=== PATIENT | male | born 1955 | race Caucasian/White ===

== ENCOUNTER → 2016-12-06 | Outpatient (CLI) | payer BC ==
[~2016-12-06] MED LIST: /PRAV20TA; AMBI10TA; AMBIEN PO; ANDR4DIS TD; ANDRGEL TOP; ASPI81TA21 PO; BABY81CH; CLOM50CA3 PO; CLOMIPRAMINE; FISH1000 PO; KEPP750T3 PO; LOPR100T; LOPR100T PO; LOPR50TA; LOPR50TA PO; PRAV40TA PO; [UNRECOGNIZED DRUG - CODE] PO; tylenol
[2016-12-06 11:26] LABS: BASO % 0.8 % (0.0-1.0); EOS # 0.2 K/mm3 (0.0-0.50); EOS % 2.3 % (0.0-3.0); LARGE UNSTAINED CELL # 0.4 K/mm3 (0.0-0.4); LARGE UNSTAINED CELL % 5.2 % (0.0-4.0); LYMPH # 1.1 K/mm3 (1.5-4.5); LYMPH % 15.7 % (24.0-44.0); MEAN CORPUSCULAR HEMOGLOBIN 31.7 pg (27.0-33.0); MEAN CORPUSCULAR HGB CONC 33.5 g/dl (32.0-36.5); MEAN CORPUSCULAR VOLUME 94.6 fl (80.0-96.0); MONO # 0.6 K/mm3 (0.0-0.8); MONO % 8.9 % (0.0-5.0); NEUTROPHILS # 4.6 K/mm3 (1.8-7.7); PLATELET COUNT, AUTOMATED 179 k/mm3 (150-450); RED CELL DISTRIBUTION WIDTH 13.4 % (11.5-14.5); WHITE BLOOD COUNT 6.8 K/mm3 (4.0-10.0)
[2016-12-06 11:43] LABS: ALBUMIN 3.8 GM/DL (3.2-5.2); ANION GAP 9 MEQ/L (8-16); BLOOD UREA NITROGEN 21 MG/DL (7-18); CALCIUM LEVEL 9.1 MG/DL (8.5-10.1); CARBON DIOXIDE LEVEL 29 MEQ/L (21-32); CHLORIDE LEVEL 106 MEQ/L (98-107); CREATININE FOR GFR 1.06 MG/DL (0.70-1.30); GLOMERULAR FILTRATION RATE > 60.0 (>56); GLUCOSE, FASTING 120 MG/DL (70-105); PHOSPHORUS LEVEL 2.6 MG/DL (2.5-4.9); SODIUM LEVEL 144 MEQ/L (136-145)
== END ==
LOC: M LAB 10:36
PROVIDERS: ATTEND Physician Assistant
DX: I42.1 Obstructive hypertrophic cardiomyopathy (principal)

== ENCOUNTER → 2018-01-02 | Outpatient (CLI) | payer OTHER ==
[2018-01-05 00:06] LABS: LEVETIRACETAM (KEPPRA) 8.3 ug/mL (10.0-40.0)
== END ==
LOC: M LAB 10:25
DX: R56.9 Unspecified convulsions (principal)
CPT/HCPCS: 80180

== ENCOUNTER → 2018-01-02 | Outpatient (CLI) | payer OTHER ==
[2018-01-02 10:51] LABS: HEMATOCRIT 43.7 % (42.0-52.0); HEMOGLOBIN 14.5 g/dl (14.0-18.0); MEAN CORPUSCULAR HEMOGLOBIN 32.3 pg (27.0-33.0); MEAN CORPUSCULAR HGB CONC 33.2 g/dl (32.0-36.5); MEAN CORPUSCULAR VOLUME 97.3 fl (80.0-96.0); PLATELET COUNT, AUTOMATED 198 10^3/uL (150-450); RED BLOOD COUNT 4.49 10^6/uL (4.30-6.10); RED CELL DISTRIBUTION WIDTH 15.9 % (11.5-14.5); WHITE BLOOD COUNT 8.7 10^3/uL (4.0-10.0)
[2018-01-02 11:26] LABS: ALBUMIN 3.8 GM/DL (3.2-5.2); ALBUMIN/GLOBULIN RATIO 1.06 (1.00-1.93); ALKALINE PHOSPHATASE 125 U/L (45-117); ALT/SGPT 26 U/L (12-78); ANION GAP 6 MEQ/L (8-16); AST/SGOT 25 U/L (7-37); BILIRUBIN,TOTAL 1.3 MG/DL (0.2-1.0); BLOOD UREA NITROGEN 20 MG/DL (7-18); CALCIUM LEVEL 9.2 MG/DL (8.8-10.2); CARBON DIOXIDE LEVEL 29 MEQ/L (21-32); CHLORIDE LEVEL 110 MEQ/L (98-107); CHOLESTEROL LEVEL 126 MG/DL (<200); CHOLESTEROL RISK RATIO 3.405 (<5); CREATININE FOR GFR 0.89 MG/DL (0.70-1.30); GLOMERULAR FILTRATION RATE > 60.0 (>49); GLUCOSE, FASTING 101 MG/DL (70-100); HDL CHOLESTEROL 37 MG/DL (>40); LDL CHOLESTEROL 65.6 MG/DL (<100); MAGNESIUM LEVEL 2.2 MG/DL (1.8-2.4); NON-HDL-C 89 MG/DL; POTASSIUM SERUM 4.3 MEQ/L (3.5-5.1); SODIUM LEVEL 145 MEQ/L (136-145); TOTAL PROTEIN 7.4 GM/DL (6.4-8.2); TRIGLYCERIDES LEVEL 117 MG/DL (<150)
== END ==
LOC: M LAB 09:59
DX: I48.0 Paroxysmal atrial fibrillation (principal); I42.1 Obstructive hypertrophic cardiomyopathy; E78.00 Pure hypercholesterolemia, unspecified

== ENCOUNTER → 2018-03-25 | Outpatient (REF) | payer OTHER | LOC: M LAB REF 17:14 | DX: R31.9 Hematuria, unspecified (principal) | CPT/HCPCS: 87086 ==

== ENCOUNTER → 2018-03-25 | Outpatient (CLI) | payer OTHER ==
[2018-03-25 15:51] LABS: BASO # 0.1 10^3/uL (0.0-0.2); BASO % 0.8 % (0.0-1.0); EOS # 0.2 10^3/uL (0.0-0.50); EOS % 2.6 % (0.0-3.0); HEMATOCRIT 46.4 % (42.0-52.0); HEMOGLOBIN 15.7 g/dl (13.5-17.5); IMMATURE GRANULOCYTE % 0.3 % (0-3.0); LYMPH # 1.5 10^3/uL (1.5-4.5); LYMPH % 17.3 % (24.0-44.0); MEAN CORPUSCULAR HEMOGLOBIN 32.6 pg (27.0-33.0); MEAN CORPUSCULAR HGB CONC 33.8 g/dl (32.0-36.5); MEAN CORPUSCULAR VOLUME 96.5 fl (80.0-96.0); MONO # 1.2 10^3/uL (0.0-0.8); MONO % 13.4 % (0.0-5.0); NEUTROPHILS # 5.7 10^3/uL (1.8-7.7); NEUTROPHILS % 65.6 % (36.0-66.0); PLATELET COUNT, AUTOMATED 172 10^3/uL (150-450); RED BLOOD COUNT 4.81 10^6/uL (4.30-6.10); RED CELL DISTRIBUTION WIDTH 13.7 % (11.5-14.5); WHITE BLOOD COUNT 8.8 10^3/uL (4.0-10.0)
[2018-03-25 16:25] LABS: ANION GAP 7 MEQ/L (8-16); BLOOD UREA NITROGEN 21 MG/DL (7-18); CALCIUM LEVEL 9.2 MG/DL (8.8-10.2); CARBON DIOXIDE LEVEL 25 MEQ/L (21-32); CHLORIDE LEVEL 109 MEQ/L (98-107); CREATININE FOR GFR 0.97 MG/DL (0.70-1.30); GLOMERULAR FILTRATION RATE > 60.0 (>49); GLUCOSE, FASTING 102 MG/DL (70-100); POTASSIUM SERUM 4.4 MEQ/L (3.5-5.1); SODIUM LEVEL 141 MEQ/L (136-145)
== END ==
LOC: M LAB 15:33
DX: R31.9 Hematuria, unspecified (principal)

== ENCOUNTER → 2018-06-25 | Outpatient (REF) | payer OTHER ==
[2018-06-27 08:19] LABS: ERYTHROPOIETIN 32.2 mIU/mL (2.6-18.5)
== END ==
LOC: M LAB REF 18:17
DX: D75.1 Secondary polycythemia (principal)

== ENCOUNTER → 2018-07-01 | Outpatient (CLI) | payer OTHER | LOC: M RAD 10:36 | DX: N28.89 Other specified disorders of kidney and ureter (principal) | CPT/HCPCS: 76775 ==

== ENCOUNTER → 2018-07-03 | Outpatient (CLI) | payer OTHER ==
[2018-07-07 00:07] LABS: LEVETIRACETAM (KEPPRA) None Detected ug/mL (10.0-40.0)
== END ==
LOC: M LAB 10:07
DX: R56.9 Unspecified convulsions (principal); Z51.81 Encounter for therapeutic drug level monitoring; Z79.899 Other long term (current) drug therapy
CPT/HCPCS: 36415

== ENCOUNTER → 2018-07-14 | Outpatient (CLI) | payer OTHER ==
[~2018-07-14] MED LIST changes: -/PRAV20TA; -AMBI10TA; -AMBIEN PO; -ANDR4DIS TD; -ANDRGEL TOP; -ASPI81TA21 PO; -BABY81CH; -CLOM50CA3 PO; -CLOMIPRAMINE; -FISH1000 PO; +ISOVUE-370 76% 100ML VIAL (Q9967) As Ordered; -KEPP750T3 PO; -LOPR100T; -LOPR100T PO; -LOPR50TA; -LOPR50TA PO; -PRAV40TA PO; -[UNRECOGNIZED DRUG - CODE] PO; -tylenol
== END ==
LOC: M RAD 11:56
DX: D75.1 Secondary polycythemia (principal); K76.89 Other specified diseases of liver
CPT/HCPCS: Q9967

== ENCOUNTER → 2018-07-31 | Outpatient (REF) | payer OTHER | LOC: M LAB REF 13:04 | DX: R31.9 Hematuria, unspecified (principal) | CPT/HCPCS: 87086 ==

== ENCOUNTER → 2019-01-22 | Outpatient (REF) | payer OTHER ==
[~2019-01-22] MED LIST changes: +AMBI10TA; +AMBIEN PO; +ANDRGEL TOP; +ASPI81TA21 PO; +ASPI81TA26 PO; +BABY81CH; +CLOM50CA3 PO; +CLOMIPRAMINE; +DISO10CA PO; +ELIQ5TAB PO; +FISH1000 PO; +FISH7.5C PO; -ISOVUE-370 76% 100ML VIAL (Q9967) As Ordered; +KEPP750T3 PO; +LEVE500T88 PO; +LOPR100T; +LOPR100T PO; +LOPR1TAB6 PO; +LOPR1TAB7 PO; +LOPR50TA; +LOPR50TA PO; +PRAV1TAB39; +PRAV40TA PO; +PRAV40TA2 PO; +[UNRECOGNIZED DRUG - CODE] PO; +[UNRECOGNIZED DRUG - CODE] TD; +tylenol
== END ==
LOC: M LABDRAW1 13:30
PROVIDERS: ATTEND Physician Assistant Medical
DX: R56.9 Unspecified convulsions (principal)

== ENCOUNTER → 2019-01-29 | Outpatient (REF) | payer OTHER ==
[2019-01-29 13:32] LABS: BASO # 0.1 10^3/uL (0.0-0.2); EOS # 0.2 10^3/uL (0.0-0.50); EOS % 2.9 % (0.0-3.0); HEMATOCRIT 44.8 % (42.0-52.0); HEMOGLOBIN 14.8 g/dl (13.5-17.5); LYMPH # 1.1 10^3/uL (1.5-4.5); LYMPH % 13.6 % (24.0-44.0); MEAN CORPUSCULAR HEMOGLOBIN 34.1 pg (27.0-33.0); MEAN CORPUSCULAR VOLUME 103.2 fl (80.0-96.0); MONO # 0.9 10^3/uL (0.0-0.8); MONO % 10.2 % (0.0-5.0); NEUTROPHILS % 71.8 % (36.0-66.0); PLATELET COUNT, AUTOMATED 172 10^3/uL (150-450); RED BLOOD COUNT 4.34 10^6/uL (4.30-6.10); WHITE BLOOD COUNT 8.4 10^3/uL (4.0-10.0)
[2019-01-29 14:21] LABS: ALBUMIN 3.9 GM/DL (3.2-5.2); ALT/SGPT 63 U/L (12-78); BILIRUBIN,TOTAL 0.9 MG/DL (0.2-1.0); BLOOD UREA NITROGEN 20 MG/DL (7-18); CALCIUM LEVEL 8.8 MG/DL (8.8-10.2); CARBON DIOXIDE LEVEL 25 MEQ/L (21-32); CHLORIDE LEVEL 110 MEQ/L (98-107); CHOLESTEROL LEVEL 119 MG/DL (<200); CHOLESTEROL RISK RATIO 3.718 (<5); CREATININE FOR GFR 1.01 MG/DL (0.70-1.30); GLOMERULAR FILTRATION RATE > 60.0 (>49); GLUCOSE, FASTING 137 MG/DL (70-100); HDL CHOLESTEROL 32 MG/DL (>40); LDL CHOLESTEROL 67 MG/DL (<100); NON-HDL-C 87 MG/DL; POTASSIUM SERUM 3.6 MEQ/L (3.5-5.1); SODIUM LEVEL 143 MEQ/L (136-145); TOTAL 25(OH) VITAMIN D 25.4 NG/ML (30.0-100.0); TOTAL PROTEIN 6.9 GM/DL (6.4-8.2); TRIGLYCERIDES LEVEL 99 MG/DL (<150)
== END ==
LOC: M LABDRAW1 12:16
PROVIDERS: ATTEND Physician Assistant Medical
DX: E55.9 Vitamin D deficiency, unspecified (principal); E78.2 Mixed hyperlipidemia; I10 Essential (primary) hypertension; D45 Polycythemia vera

== ENCOUNTER → 2019-04-08 | Outpatient (REF) | payer OTHER ==
[2019-04-08 13:24] LABS: HEMATOCRIT 44.5 % (42.0-52.0); HEMOGLOBIN 14.4 g/dl (13.5-17.5); MEAN CORPUSCULAR HEMOGLOBIN 34.4 pg (27.0-33.0); MEAN CORPUSCULAR HGB CONC 32.4 g/dl (32.0-36.5); MEAN CORPUSCULAR VOLUME 106.5 fl (80.0-96.0); PLATELET COUNT, AUTOMATED 177 10^3/uL (150-450); RED BLOOD COUNT 4.18 10^6/uL (4.30-6.10); WHITE BLOOD COUNT 8.5 10^3/uL (4.0-10.0)
[2019-04-08 13:41] LABS: BLOOD UREA NITROGEN 25 MG/DL (7-18); CALCIUM LEVEL 9.4 MG/DL (8.8-10.2); CARBON DIOXIDE LEVEL 27 MEQ/L (21-32); CHLORIDE LEVEL 107 MEQ/L (98-107); CREATININE FOR GFR 1.11 MG/DL (0.70-1.30); GLOMERULAR FILTRATION RATE > 60.0 (>49); GLUCOSE, FASTING 105 MG/DL (70-100); MAGNESIUM LEVEL 1.9 MG/DL (1.8-2.4); SODIUM LEVEL 142 MEQ/L (136-145)
== END ==
LOC: M LABDRAW1 12:06
PROVIDERS: ATTEND Physician Assistant
DX: I48.0 Paroxysmal atrial fibrillation (principal)

== ENCOUNTER 2019-06-07 09:27 | Emergency (ER) | payer OTHER ==
[~2019-06-07] VITALS: Ht 170.2 cm; Wt 93.2 kg
[2019-06-07 10:22] LABS: BASO # 0.1 10^3/uL (0.0-0.2); BASO % 0.6 % (0.0-1.0); EOS # 0.1 10^3/uL (0.0-0.50); EOS % 1.7 % (0.0-3.0); LYMPH # 0.8 10^3/uL (1.5-4.5); MEAN CORPUSCULAR HEMOGLOBIN 34.3 pg (27.0-33.0); MEAN CORPUSCULAR HGB CONC 32.5 g/dl (32.0-36.5); MEAN CORPUSCULAR VOLUME 105.5 fl (80.0-96.0); MONO % 11.4 % (0.0-5.0); NEUTROPHILS # 6.4 10^3/uL (1.8-7.7); NEUTROPHILS % 76.7 % (36.0-66.0); PLATELET COUNT, AUTOMATED 165 10^3/uL (150-450); RED BLOOD COUNT 3.79 10^6/uL (4.30-6.10); WHITE BLOOD COUNT 8.4 10^3/uL (4.0-10.0)
[2019-06-07] MEDS ORDERED: VERA180C3 PO (10:37)
[2019-06-07] MEDS ORDERED: ATOR80TA59 PO (10:37)
[2019-06-07] MEDS ORDERED: TRAZ-252 PO (10:37)
[2019-06-07] MEDS ORDERED: NS 1,000 ML IV ONE (11:00)
[2019-06-07 11:05] LABS: ACETAMINOPHEN LEVEL < 2.0 UG/ML (10.0-30.0); ALBUMIN 3.9 GM/DL (3.2-5.2); ALT/SGPT 22 U/L (12-78); BILIRUBIN,DIRECT 0.4 MG/DL (0.0-0.2); BILIRUBIN,TOTAL 1.4 MG/DL (0.2-1.0); BLOOD UREA NITROGEN 30 MG/DL (7-18); CALCIUM LEVEL 9.4 MG/DL (8.8-10.2); CARBON DIOXIDE LEVEL 24 MEQ/L (21-32); CHLORIDE LEVEL 108 MEQ/L (98-107); CK-MB VALUE MASS 1.4 NG/ML (<3.6); CPK CREATINE PHOSPHOKINASE 85 U/L (39-308); CREATININE FOR GFR 0.99 MG/DL (0.70-1.30); ETHYL ALCOHOL (ETHANOL) < 0.003 % (0.000-0.010); GLOMERULAR FILTRATION RATE > 60.0 (>49); GLUCOSE, FASTING 96 MG/DL (70-100); MB/CK RELATIVE INDEX 1.65 (< OR =4); POTASSIUM SERUM 4.1 MEQ/L (3.5-5.1); SALICYLATE LEVEL < 1.7 MG/DL (5.0-30.0); SODIUM LEVEL 143 MEQ/L (136-145); TOTAL PROTEIN 7.2 GM/DL (6.4-8.2); TROPONIN I < 0.02 NG/ML (< 0.10)
[2019-06-07] MEDS ORDERED: MELA3TAB41 PO (11:27)
[2019-06-07] MEDS ORDERED: LEVE10003 PO (11:27)
[2019-06-07] MEDS ORDERED: ISOVUE-370 76% 100ML VIAL (Q9967) As Ordered ONE (11:42)
[2019-06-07 13:12] LABS: AMPHETAMINES LEVEL URINE NEGATIVE (NEGATIVE); BARBITURATES URINE NEGATIVE (NEGATIVE); BENZODIAZEPINES URINE NEGATIVE (NEGATIVE); CANNABINOIDS URINE NEGATIVE (NEGATIVE); COCAINE METABOLITE URINE NEGATIVE (NEGATIVE); METHADONE URINE NEGATIVE (NEGATIVE); OPIATES URINE NEGATIVE (NEGATIVE); PHENCYCLIDINE URINE NEGATIVE (NEGATIVE)
[2019-06-07 13:37] VITALS: BP 135/89
--- NOTE | 2019-06-07 16:09 | REP ---
CT of the abdomen and pelvis with IV contrast: The studies performed. Contiguous with the chest CT this same date. Comparison is 07/14/2018. The hepatic parenchyma is homogeneous. The gallbladder, pancreas are unremarkable. The splenic parenchyma is homogeneous. The adrenals are unremarkable. The right and left kidneys are unremarkable. The abdominal aorta is unremarkable. There is no hemoperitoneum or pneumoperitoneum. There is no pararenal or periaortic hematoma. There is no lumbar, sacral or pelvic fracture. The bowel and mesentery are unremarkable. Impression: Essentially negative CT of the abdomen and pelvis. In the visualized lower lung bradshaw. There is a small right pleural effusion and a small pericardial effusion. Electronically Signed by Figueroa Degroot MD 06/07/2019 01:19 P
--- NOTE | 2019-06-07 16:10 | REP ---
CT of the chest with IV contrast, CT angiography protocol: Comparison is the portable plain film study performed earlier today. There is a small right pleural effusion. There is no pneumothorax or pulmonary contusion. The interstitium appears diffusely coarsened. There are no focal infiltrates. There are no masses or nodules. Cardiac size is large. There is a small pericardial effusion measuring up to 6 ml depth posteriorly. There is no mediastinal, hilar or axillary lymph node enlargement. The thoracic aorta is unremarkable. There are no clavicle, scapula, rib, vertebral or sternal fractures. Impression: Small right pleural effusion. Interstitial coarsening. This could be chronic or acute. Cardiomegaly. Small pericardial effusion. Electronically Signed by Figueroa Degroot MD 06/07/2019 01:14 P
--- NOTE | 2019-06-07 16:13 | REP ---
Axial CT of the head without contrast Indication: Altered mental status. Comparison: CT head without contrast of 03/06/2016. Findings: There is no soft tissue swelling or calvarial fracture. There is no evidence of acute intracranial hemorrhage, mass effect or midline shift. The basal cisterns are intact. The ventricles are symmetric. Taylor-white matter differentiation is maintained. There is no hydrocephalus. The visualized paranasal sinuses and mastoid air cells are clear. Impression: No acute intracranial abnormality. Electronically Signed by Carmel Mijares MD 06/07/2019 10:46 A
--- NOTE | 2019-06-07 17:06 | REP ---
CHEST PORTABLE: AP portable view of the chest is performed and compared to prior study of 09/09/2014. There is cardiomegaly again noted unchanged. Mediastinal silhouette is unchanged. There are diffuse increased interstitial markings which are stable representing chronic fibrosis and or edema. Left pacemaker is again noted with multiple leads. There is a new ventricular lead identified. IMPRESSION: Cardiomegaly. No acute pulmonary disease. Electronically Signed by Figueroa Taylor MD 06/08/2019 11:36 P
--- NOTE | 2019-06-07 20:38 | ECGEPIP ---
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
--- NOTE | 2019-06-08 07:16 | ED PDOC ---
Post-Departure Follow-Up dr moreno faxed formal report of ct abd/p for fu Iesha Taylor MD Jun 08, 2019 07:16
== END 2019-06-07 13:47 | disposition home or self-care (01) ==
LOC: M ED 09:27
DX: R42 Dizziness and giddiness (principal); E86.0 Dehydration; Z95.0 Presence of cardiac pacemaker; I51.7 Cardiomegaly; J90 Pleural effusion, not elsewhere classified; I31.3 Pericardial effusion (noninflammatory); I48.91 Unspecified atrial fibrillation; I10 Essential (primary) hypertension; R56.9 Unspecified convulsions; Z79.82 Long term (current) use of aspirin; Z79.899 Other long term (current) drug therapy; Z88.2 Allergy status to sulfonamides
CPT/HCPCS: 36600; 70450; 71045; 71275; 74177; 80053; 80076; 80307; 81001; 82140; 82550; 82553; 82803; 83605; 84443; 84484; 85025; 87040; 93005; 93041; 96360; 96361; 99285; G0480; Q9967

== ENCOUNTER → 2019-07-05 | Outpatient (REF) | payer OTHER ==
[~2019-07-05] MED LIST changes: +ATOR80TA59 PO; +LEVE10003 PO; +MELA3TAB41 PO; +TRAZ-252 PO; +VERA180C3 PO
[2019-07-05 12:49] LABS: ALBUMIN 3.9 GM/DL (3.2-5.2); ALT/SGPT 24 U/L (12-78); BILIRUBIN,TOTAL 1.8 MG/DL (0.2-1.0); BLOOD UREA NITROGEN 22 MG/DL (7-18); CALCIUM LEVEL 9.5 MG/DL (8.8-10.2); CARBON DIOXIDE LEVEL 25 MEQ/L (21-32); CHLORIDE LEVEL 109 MEQ/L (98-107); CREATININE FOR GFR 1.11 MG/DL (0.70-1.30); GLOMERULAR FILTRATION RATE > 60.0 (>49); GLUCOSE, FASTING 82 MG/DL (70-100); POTASSIUM SERUM 4.2 MEQ/L (3.5-5.1); SODIUM LEVEL 144 MEQ/L (136-145); TOTAL PROTEIN 7.2 GM/DL (6.4-8.2)
[2019-07-05 12:55] LABS: BASO # 0.1 10^3/uL (0.0-0.2); EOS # 0.2 10^3/uL (0.0-0.5); EOS % 2.3 % (0.0-3.0); HEMATOCRIT 43.7 % (42.0-52.0); HEMOGLOBIN 14.2 g/dl (13.5-17.5); LYMPH # 0.8 10^3/uL (1.5-5.0); LYMPH % 11.9 % (24.0-44.0); MEAN CORPUSCULAR HEMOGLOBIN 35.1 pg (27.0-33.0); MEAN CORPUSCULAR HGB CONC 32.5 g/dl (32.0-36.5); MEAN CORPUSCULAR VOLUME 108.2 fl (80.0-96.0); MONO # 0.9 10^3/uL (0.0-0.8); MONO % 12.3 % (0.0-5.0); NEUTROPHILS % 72.1 % (36.0-66.0); PLATELET COUNT, AUTOMATED 156 10^3/uL (150-450); RED BLOOD COUNT 4.04 10^6/uL (4.30-6.10); WHITE BLOOD COUNT 6.9 10^3/uL (4.0-10.0)
== END ==
LOC: M LABDRAW1 11:35
PROVIDERS: ATTEND Family Medicine
DX: I42.9 Cardiomyopathy, unspecified (principal)

== ENCOUNTER → 2019-10-11 | Outpatient (REF) | payer OTHER | LOC: M LAB REF 11:27 | PROVIDERS: ATTEND Physician Assistant Medical | DX: R56.9 Unspecified convulsions (principal) ==

== ENCOUNTER 2019-10-25 09:50 | Inpatient (IN) | payer OTHER ==
[~2019-10-25] VITALS: Ht 170.2 cm; Wt 84.4 kg
[2019-10-25] VITALS (10 sets, daily range): BP systolic 104–131; BP diastolic 68–81; O2SAT 97
[2019-10-25] MEDS ORDERED: DEXTROSE 50% 50 ML SYRINGE As Ordered ONE (10:05)
[2019-10-25] MEDS ORDERED: DEXTROSE 50% 50 ML SYRINGE IV STA (10:10)
[2019-10-25] MEDS ORDERED: IPRATROPIUM 0.5MG/ALBUTEROL 2.5MG INH SOL UD 3ML (DUONEB)(J7620) NEB ONE ×2 (10:15→12:15)
[2019-10-25] MEDS ORDERED: NS 1,000 ML IV ONE (10:15)
[2019-10-25] MEDS ORDERED: methylPREDNISolone INJ 125 MG/2 ML VIAL (J2930) IV ONE (10:15)
[2019-10-25] MEDS ORDERED: ALBUTEROL SULFATE 2.5 MG/0.5 ML INH NEB SOLN INH ONE ×2 (10:15→12:15)
[2019-10-25 10:26] LABS: BASO % 0.3 % (0.0-1.0); HEMATOCRIT 46.5 % (42.0-52.0); HEMOGLOBIN 14.1 g/dl (13.5-17.5); LYMPH # 1.4 10^3/uL (1.5-5.0); LYMPH % 11.2 % (24.0-44.0); MEAN CORPUSCULAR HEMOGLOBIN 33.3 pg (27.0-33.0); MEAN CORPUSCULAR HGB CONC 30.3 g/dl (32.0-36.5); MEAN CORPUSCULAR VOLUME 109.9 fl (80.0-96.0); MONO % 21.9 % (0.0-5.0); NEUTROPHILS % 65.8 % (36.0-66.0); PLATELET COUNT, AUTOMATED 127 10^3/uL (150-450); RED BLOOD COUNT 4.23 10^6/uL (4.30-6.10); WHITE BLOOD COUNT 12.1 10^3/uL (4.0-10.0)
[2019-10-25 10:40] LABS: ABG BASE EXCESS -13.3 (-2.0-2.0); ABG HCO3 14.4 MEQ/L (22.0-26.0); ABG O2 SATURATION 99.4 % (95.0-99.0); ABG PARTIAL PRESSURE CO2 39.8 mmHg (35.0-45.0); ABG PARTIAL PRESSURE O2 216.8 mmHg (75.0-100.0); ABG STANDARD HCO3 14.3 MEQ/L (22.0-26.0); ABG TOTAL CO2 15.6 MEQ/L (23.0-31.0)
[2019-10-25] MEDS ORDERED: DRIS50003 PO (10:40)
[2019-10-25] MEDS ORDERED: ROBI1LIQ9 PO (10:40)
[2019-10-25] MEDS ORDERED: CLOM50CA3 PO (10:40)
[2019-10-25 10:42] LABS: MONO # 2.7 10^3/uL (0.0-0.8)
[2019-10-25 10:43] LABS: ABG pH (ARTERIAL) 7.177 UNITS (7.350-7.450)
--- NOTE | 2019-10-25 10:56 | REP ---
Portable chest x-ray: Sitting AP view. History: Dyspnea and cough. Comparison study: June 07, 2019. Findings: A multi lead pacemaker is seen in the right heart via the left side as before. Moderate cardiac enlargement is observed. Monitoring electrodes are seen. Oxygen delivery tubing is noted. There is no evidence of pleural effusion or focal infiltrate. Impression: Moderate cardiomegaly with pacemaker. No Focal infiltrate. Electronically Signed by Boby Young MD 10/25/2019 10:48 A
[2019-10-25] MEDS ORDERED: DEXTROSE 50% 50 ML SYRINGE IV SCH (11:00)
[2019-10-25] MEDS ORDERED: NS 1,720 ML in IV 1 EA IV ONE (11:00)
[2019-10-25] MEDS ORDERED: LIDOCAINE 2% 5ML JELLY UROJET TOP ONE (11:00)
[2019-10-25] MEDS ORDERED: ISOVUE-370 76% 100ML VIAL (Q9967) As Ordered ONE (11:00)
[2019-10-25 11:11] LABS: ALBUMIN 3.9 GM/DL (3.2-5.2); ALT/SGPT 3361 U/L (12-78); BILIRUBIN,TOTAL 2.2 MG/DL (0.2-1.0); CK-MB VALUE MASS 5.1 NG/ML (<3.6); CPK CREATINE PHOSPHOKINASE 1159 U/L (39-308); LIPASE 66 U/L (73-393); MB/CK RELATIVE INDEX 0.44 (< OR =4); NT-PRO BNP 6204 PG/ML (<125); THYROXINE (T4) 8.9 UG/DL (4.5-12.0); TOTAL PROTEIN 7.6 GM/DL (6.4-8.2)
[2019-10-25] MEDS ORDERED: PIPERACILLIN/TAZOBACTAM SOD 4.5 GM in D5W MINI-BAG PLUS 50 ML IV ONE (11:15)
[2019-10-25] MEDS ORDERED: VANCOMYCIN HCL 1,000 MG, VIAL MATE ADAPTER 1 EACH in D5W 250 ML IV ONE ×2 (11:15→12:45)
[2019-10-25 11:22] LABS: AMYLASE 23 U/L (25-115)
[2019-10-25 11:38] LABS: PROTHROMBIN TIME 47.7 SECONDS (11.8-14.0)
[2019-10-25 11:39] LABS: PARTIAL THROMBOPLASTIN TIME 44.5 SECONDS (25.0-38.4)
[2019-10-25 11:46] LABS: INR 5.13
[2019-10-25] MEDS ORDERED: ACETAMINOPHEN 325 MG TAB PO ONE (12:30)
[2019-10-25 12:39] LABS: ABG BASE EXCESS -5.2 (-2.0-2.0); ABG HCO3 20.8 MEQ/L (22.0-26.0); ABG O2 SATURATION 95.4 % (95.0-99.0); ABG PARTIAL PRESSURE CO2 42.1 mmHg (35.0-45.0); ABG PARTIAL PRESSURE O2 88.5 mmHg (75.0-100.0); ABG STANDARD HCO3 20.2 MEQ/L (22.0-26.0); ABG TOTAL CO2 22.1 MEQ/L (23.0-31.0); ABG pH (ARTERIAL) 7.311 UNITS (7.350-7.450)
[2019-10-25 13:07] LABS: ACETAMINOPHEN LEVEL < 2.0 UG/ML (10.0-30.0)
[2019-10-25] MEDS ORDERED: D5W/0.45% SODIUM CHLORIDE 1,000 ML IV ONE (13:15)
--- NOTE | 2019-10-25 13:35 | REP ---
CT ANGIOGRAM CHEST: TECHNIQUE: Axial contrast enhanced images from the thoracic inlet to the upper abdomen using 100 mL Isovue 370 intravenous contrast material with multiplanar reformations. COMPARISON: 06/07/2019 Study is somewhat limited by patient motion; however, I see no evidence of pulmonary embolism. There is no thoracic aortic aneurysm or dissection with mild atherosclerotic calcification. There is moderate cardiomegaly. There is a tiny amount of pericardial fluid or thickening. No pleural effusion is seen. There is no mediastinal, hilar, or chest wall lymphadenopathy. Diffuse increased interstitial markings are again noted, similar to the prior study. IMPRESSION: Moderate cardiomegaly with diffuse increased interstitial markings in both lungs similar to the prior study. No evidence of pulmonary embolism. Electronically Signed by Figueroa Taylor MD 10/25/2019 06:06 P
[2019-10-25 13:40] LABS: HEPATITIS B SURFACE ANTIGEN NEGATIVE (NEGATIVE)
--- NOTE | 2019-10-25 13:40 | REP ---
RIGHT UPPER QUADRANT SONOGRAPHY: HISTORY: Abnormal liver function studies. FINDINGS: Exam quality is inhibited by patient's a rapid respiratory rate. The liver is somewhat hyperechoic consistent with fatty infiltration. No focal liver lesion is appreciated. The pancreas is largely obscured by abdominal gas. Common bile duct is normal measuring 0.5 cm in greatest diameter. Gallbladder shows a markedly thickened edematous-appearing gallbladder wall measuring 11 mm in greatest thickness. There is no evidence of ascites. The right kidney measures 11.8 x 5.9 x 6.5 cm. There is no evidence of hydronephrosis, cyst, or mass. IMPRESSION: Edematous and markedly thickened gallbladder wall. No stones seen by sonography. Evidence of fatty infiltration of the liver. Otherwise negative. Electronically Signed by Boby Young MD 10/25/2019 02:50 P
[2019-10-25 13:56] LABS: SODIUM,RANDOM URINE 82 MEQ/L
[2019-10-25] MEDS ORDERED: VANCOMYCIN HCL 750 MG, VIAL MATE ADAPTER 1 EACH in D5W 250 ML IV ONE ×2 (14:00→17:00)
[2019-10-25] MEDS ORDERED: D5W/0.45% SODIUM CHLORIDE 1,000 ML IV SCH ×2 (14:00→16:00)
[2019-10-25 14:07] LABS: HEPATITIS C VIRUS ABY INDEX < 0.0 INDEX (<0.8)
[2019-10-25 14:08] LABS: HEPATITIS B CORE ANTIBODY IGM NEGATIVE (NEGATIVE); HIV 1&2 SCREEN CENTAUR NEGATIVE (NEGATIVE)
[2019-10-25 14:09] LABS: HEPATITIS A ANTIBODY IGM NEGATIVE (NEGATIVE)
--- NOTE | 2019-10-25 14:12 | REP ---
CT ABDOMEN AND PELVIS WITH CONTRAST: TECHNIQUE: Axial contrast enhanced images from the lung bases to the pubic symphysis using 100 mL Isovue 370 intravenous contrast material with multiplanar reformations. COMPARISON: 06/07/2019 The liver is diffusely low in density suggesting fatty infiltration. The gallbladder demonstrates diffuse wall thickening and edema. Small gallstones are seen in the gallbladder. There is no evidence of biliary dilatation. There is some portal edema as well. The findings are suspicious for cholecystitis. Spleen is normal in size with no intrinsic abnormality. Adrenal glands and pancreas demonstrate no mass. The kidneys are unremarkable with no hydronephrosis. There is no abdominal aortic aneurysm. No adenopathy or free air is seen. There is mild free fluid surrounding the liver and extending inferiorly into the right pelvis. No bowel wall thickening is seen. I see no evidence of appendicitis. Jara catheter is seen in a collapsed urinary bladder, which also contains a small amount of air. Small bilateral inguinal hernias contain fat. IMPRESSION: Diffuse gallbladder wall thickening and edema with adjacent portal edema. Small gallstones in the gallbladder. The findings are suspicious for cholecystitis. There is mild free fluid in the perihepatic region and extending down into the right pelvis. No free air or obstruction. Electronically Signed by Figueroa Taylor MD 10/25/2019 06:07 P
[2019-10-25] MEDS ORDERED: TORSEMIDE (DEMADEX) 50 MG PER 1/2 TAB PO ONE (14:30)
[2019-10-25 14:32] LABS: AMPHETAMINES LEVEL URINE NEGATIVE (NEGATIVE); BARBITURATES URINE NEGATIVE (NEGATIVE); BENZODIAZEPINES URINE NEGATIVE (NEGATIVE); CANNABINOIDS URINE NEGATIVE (NEGATIVE); COCAINE METABOLITE URINE NEGATIVE (NEGATIVE); METHADONE URINE NEGATIVE (NEGATIVE); OPIATES URINE NEGATIVE (NEGATIVE); PHENCYCLIDINE URINE NEGATIVE (NEGATIVE)
[2019-10-25 14:33] LABS: ETHYL ALCOHOL (ETHANOL) < 0.003 % (0.000-0.010); LDH LACTATE DEHYDROGENASE 3589 U/L (87-241); SALICYLATE LEVEL < 1.7 MG/DL (5.0-30.0)
[2019-10-25] MEDS: PHYTONADIONE 5 MG TAB PO SCH (15:18)
[2019-10-25] MEDS ORDERED: LORazepam 2 MG TAB PO PRN (16:00)
[2019-10-25] MEDS: MULTIVITAMINS/MINERALS THERAP 1 TAB PO SCH (16:51)
[2019-10-25] MEDS: FOLIC ACID 1 MG TAB PO SCH (16:51)
[2019-10-25] MEDS: PANTOPRAZOLE 40MG INJ (PROTONIX) (C9113) IV SCH (16:52)
[2019-10-25] MEDS: THIAMINE 100 MG TAB PO SCH ×2 (16:52→20:06)
[2019-10-25 17:16] LABS: ABG BASE EXCESS -1.5 (-2.0-2.0); ABG HCO3 22.8 MEQ/L (22.0-26.0); ABG O2 SATURATION 92.3 % (95.0-99.0); ABG PARTIAL PRESSURE O2 68.3 mmHg (75.0-100.0); ABG STANDARD HCO3 23.1 MEQ/L (22.0-26.0); ABG TOTAL CO2 23.9 MEQ/L (23.0-31.0); ABG pH (ARTERIAL) 7.407 UNITS (7.350-7.450)
--- NOTE | 2019-10-25 19:20 | HPE ---
2DATE OF ADMISSION: 10/25/2019 HISTORY OF PRESENT ILLNESS: This is a 64-year-old male with a history of atrial fibrillation and diastolic congestive heart failure (CHF) who presented to the emergency room after 3 days of worsening shortness of breath. Per the family, he reported to urgent care first 3 days ago and was given a "shot of unknown medication." He returned to his house and did not feel any better. He was so short of breath to the point that he was crawling around his house and unable to get around. He is coughing clear sputum, and he generally "does not feel well." He is not able to give us any other details regarding his illness and is not able to give us any more specifics. Otherwise, he denies any fevers, chills, nausea, vomiting or diarrhea. He has not had any abdominal pain. No changes in his vision. He does reports that he has been lightheaded and dizzy, but otherwise, he says that he just does not feel well. PAST MEDICAL HISTORY: Significant for: 1. Atrial fibrillation, status post AICD. 2. Hypertension. 3. Hypertrophic cardiomyopathy per EMR. 4. History of diastolic congestive heart failure (CHF). He sees Dr. Mckeon in the office and his last stress test showed that he has moderate pulmonary hypertension. 5. History of aortic insufficiency. 6. Anxiety/panic attacks. 7. Insomnia. 8. History of depression. 9. History of seizure disorder. 10. Low testosterone. PAST SURGICAL HISTORY: 1. AICD placement. SOCIAL HISTORY: He is a never smoker. He drinks five drinks of 10 to 12 ounces of liquor weekly. He does not do any other drugs. He does not take any herbal supplements or over the counter pain medications. ALLERGIES: SULFA drugs. FAMILY HISTORY: Noncontributory. REVIEW OF SYSTEMS: CONSTITUTIONAL: The patient reports that he "does not feel well." HEENT: He denies any vision changes. No sinus problems. No trouble swallowing. CARDIOVASCULAR: He denies any palpitations. RESPIRATORY: He reports that he has shortness of breath, cough productive of clear sputum. GENITOURINARY: He is not having any dysuria. MUSCULOSKELETAL: He is not having any joint pain or swelling in his lower extremities. GASTROINTESTINAL: He denies any nausea, vomiting, diarrhea or abdominal pain. No constipation. SKIN: He has not noticed any new rashes or lesions. NEUROLOGIC: He has not had any loss of sensation or weakness. PSYCHIATRIC: He reports that he has a normal mood and no delusions or hallucinations. ENDOCRINE: He denies having any hot or cold intolerance. HEMATOLOGIC: He is not having any easy bruising, lumps or bumps, allergic or immunologic. He is not having any sinus symptoms. PHYSICAL EXAMINATION: VITAL SIGNS: Temperature 100.2 from his urinary catheter, pulse 60, respiratory rate 24, blood pressure 114/63 with a MAP of 80. Currently, he is 92% on noninvasive positive pressure ventilation with BiPAP. GENERAL APPEARANCE: He is sitting up in bed. He looks uncomfortable. He is using accessory muscles of respiration. He is speaking in only three to four word sentences, but he is calm and he is cooperative. He does appear to be in acute distress. HEENT: He has poor dentition, dry mucous membranes. His extraocular muscles are intact. His pupils are equal, round and reactive to light. NECK: Supple without any thyromegaly or lymphadenopathy. RESPIRATORY: He has wheezing that is appreciated in all lung bradshaw bilaterally. He is using accessory muscles or respiration of his abdomen. No other adventitious breath sounds are appreciated. CARDIOVASCULAR: He does not have any jugular venous distention (JVD). His heart rate is irregularly irregular. He has no murmurs, rubs or gallops. ABDOMEN: Protuberant, obese, soft, and nontender to palpation in all four quadrants. There is a negative Albarado's sign. No masses or organomegaly. EXTREMITIES: He has 1+ pitting edema in his lower extremities bilaterally. No other signs of cyanosis appreciated. NEUROLOGIC: His cranial nerves II through XII are intact. He has no obvious focal deficits. His reflexes are 3+ in all of his lower extremity joints, and he has 3+ ankle clonus in the right lower extremity and 4+ in the left lower extremity. PSYCHIATRIC: He has a normal mood and a normal affect. SKIN: He has no rashes or ulcers. LYMPH NODES: He has no cervical or inguinal lymphadenopathy. OTHER: He has no signs of asterixis at this time. LABORATORIES: He was found to have a white blood cell count of 12.1, hemoglobin 14.1, hematocrit of 46.5, platelet count of 127. Blood gas on arrival was 7.17, 39.8. PO2 was 16.8 and his bicarbonate was 14.4. He had a base excess of -13.3. After initiating BIPAP, ABG was rechecked and was found to be 7.31, PCO2 of 42.1, pO2 of 88.5, bicarbonate 20.8 and base excess of -5.2. Chemistries: He had a sodium of 138, potassium 4.9, chloride 102, total CO2 of 22, and BUN of 38, creatinine 1.7. On arrival, his blood glucose was found to be 63. His lactic acid was 10.3. His total bilirubin was 2.2, direct bilirubin 1.0. AST 7764, ALT 3361, alkaline phosphatase 125. Cardiac markers were drawn and were negative other than total creatinine kinase of 1159 and a CK-MB of 5.1. His C-reactive protein was found to be 4.9, pro BNP 6204, albumin 3.9 and a TSH of 5.170. Notably, his INR was found to be 5.13. His PTT was 44.5 and his PT was 47.7. He did get toxicology studies, which are still pending, though his acetaminophen level was less than 2.0. Thus far, his hepatitis panel has been negative, including hepatitis A, B, C, and his HIV was also found to be negative. His respiratory viral panel was found to be positive for respiratory syncytial virus (RSV) and blood cultures are pending at this time. As far as imaging goes, he did undergo a chest x-ray and was found to have moderate cardiomegaly with a pacemaker and no focal infiltrates. He then underwent CT angiogram of his chest, which was revealing for moderate cardiomegaly with diffuse increased interstitial markings in both lungs, similar to the prior study and no evidence of pulmonary embolism. On a CT of the abdomen and pelvis, he was found to have diffuse gallbladder wall thickening and edema with adjacent portal edema, small gallstones in the gallbladder. These findings are suspicious for cholecystitis. There is also some mild free fluid in the perihepatic regions and extending down into the right pelvis. No free air or obstruction was appreciated. Finally, he underwent a gallbladder ultrasound where it was found that he has an edematous and markedly thickened gallbladder wall and no stones were seen by sonography. Evidence of fatty infiltration of the liver and otherwise negative. ASSESSMENT: 1. Metabolic acidemia with lactic acidosis and inappropriate respiratory compensation. 2. Hypoxemic respiratory failure. 3. Acute liver failure, possibly secondary to alcohol consumption versus acute cholecystitis versus right heart failure. 4. Diastolic congestive heart failure 5. Acute kidney injury PLAN: 1. Metabolic acidemia with inappropriate respiratory compensation and lactic acidemia with an elevated anion gap. The patient's ABG on arrival was 7.17, pCO2 was 39 and pO2 was 216 with a base excess of -13.3, pointing towards gastrointestinal pathology. The patient was saturating 83% on room air, therefore BiLevel NPPV was initiated and repeat ABG in the emergency room improved to 7.31, 42, 88 with a base excess of -5.2. We will trend his ABG and metabolic panel tonight to see how it improves. I believe his shortness of breath is likely secondary to either his respiratory syncytial virus (RSV) versus acute decompensated diastolic congestive heart failure (CHF). Cardiology was consulted and I had a conversation with Dr. Mckeon, who notes that the patient has not been on any diuretic and that he was most recently seen in the office in July 2019 and appeared to be almost 20 pounds less than he is right now. 2. Hypoxemic respiratory failure, as described above. THe patient appears to have improved with BiPAP and we will continue to monitor his ABG. His respiratory failure may be secondary to right heart failure and fluid overload versus RSV virus. Therefore, we will start him on a one time dose of torsemide 50 mg and stop fluids at this time in order to determine whether his fluid status is contributing to his respiratory failure. In addition, the patient does have known severe pulmonary hypertension. 3. Acute liver failure. Secondary to right heart failure versus acute cholecystitis versus RSV. We contacted Dr. Norton, edge burn[facility] uppers at [facility] in [place], [place], who reviewed the patient's case and recommended starting him on vitamin K 10 mg daily and trending his LDH for concerns for ischemic injury. The patient's model for end-stage liver disease (MELD) score is 33 points, indicating that he has 53% mortality. We do think that his alcohol consumption could have contributed to his current illness, although we are not ruling out acute hepatitis with hepatitis laboratories that have been drawn, as well as Tylenol level, which was found to be low. The patient does have somewhat elevated ammonia at 49. 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 In addition, Dr. Norton recommends keeping the patient's MAP around 90 to eliminate the possibility that this is an ischemic injury to the liver. However, the gallbladder ultrasound does indicate that the patient has a thickened gallbladder wall, concerning for cholecystitis. The patient does not meet the criteria of cholecystitis at this time, as he has no fever, white count or RUQ pain. He was given a dose of vancomycin and Zosyn in the emergency department, but this has been stopped, as there is no real concern for infection. He does have an elevated lactic acid at 10.3, which trended down to 4.3, showing improvement. 4. History of diastolic congestive heart failure (CHF) and notably 20 pound weight gain in the past few months. In my discussion with Dr. Mckeon, he notes that the patient recently had an echo in May 2019, which showed concentric hypertrophy of the left ventricle and some left atrial dilation with grade 3 or 4 diastolic dysfunction. The patient does have a history of AICD placement which has helped his congestive heart failure (CHF) and at this time he is entirely reliant on a low heart rate given the stiffness of his ventricle. The use of the Bilevel NPPV is expected to improve his respiratory distress as it acts like an afterload cleaner operator in a very non-compliant heart with thick LV. Therefore, Dr. Mckeon notes that we should continue his home dose of metoprolol 100 mg twice a day, as well as his verapamil 180 mg by mouth daily in order to keep his HR low. Also, as stated previously I have given him a one time dose of torsemide 30 mg and have stopped his fluids at this time for concern for fluid overload. Dr. Mckeon will see the patient in the morning and will add his input and this is greatly appreciated. In addition, the patient's atorvastatin 80 mg will be held, as we do feel that this may be contributing to his acute liver injury. His BNP was found to be 6204, indicating that he may be fluid overloaded at this time. 5. Acute kidney injury. In regard to his acute kidney injury, his calculated FENA was found to be 0.5%, indicating prerenal, likely secondary to heart failure versus hypovolemia. We will treat his heart failure at this time and expect that his creatinine will improve. It appears that his baseline is around 1.1. 6. DVT prophylaxis will be TEDs/SCDs. MTDD
--- NOTE | 2019-10-25 19:51 | ECGEPIP ---
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
[2019-10-25] MEDS ORDERED: GLUCAGON FOR INJ 1 MG VIAL (J1610) SC PRN (20:00)
[2019-10-25] MEDS ORDERED: DEXTROSE 50% 50 ML SYRINGE IV PRN (20:00)
[2019-10-25] MEDS ORDERED: PIPERACILLIN/TAZOBACTAM SOD 4.5 GM in D5W MINI-BAG PLUS 50 ML IV SCH (20:00)
[2019-10-25] MEDS ORDERED: GLUCOSE 4 GM CHEW TABLET PO PRN (20:00)
[2019-10-25] MEDS: levETIRAcetam 250MG TABLET (KEPPRA) PO SCH (20:06)
[2019-10-25] MEDS: METOPROLOL TARTRATE 100 MG TAB PO SCH (20:06)
[2019-10-25] MEDS: TORSEMIDE (DEMADEX) 50 MG PER 1/2 TAB PO SCH (20:08)
--- NOTE | 2019-10-25 21:47 | CR ---
DATE OF CONSULTATION: 10/25/2019 CARDIOLOGY CONSULTATION REFERRING PHYSICIAN: Dr. Clifton INDICATION: Respiratory distress/history of congestive heart failure (CHF)/liver failure. 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 January 2009, underwent dual-chamber implantable cardioverter defibrillator (ICD) implant for prevention of sudden . August 2014, his right ventricular lead was replaced because of right lead fracture. His last battery change was November 2016. Echocardiogram May 2019 showed severe concentric left ventricular hypertrophy with normal wall motion, left ventricular ejection fraction (LVEF) of 60% but severe left ventricular diastolic dysfunction with restrictive filling pattern and severely dilated left atrium. Right heart chambers with moderately severe pulmonary hypertension and dilated inferior vena cava consistent with an elevated central venous pressure. His aortic root was mildly dilated with very mild aortic insufficiency. He had moderate mitral annular calcification with very mild mitral insufficiency. His last visit in our office July 30, 2019 he reported feeling well, had been playing golf over the summer using a cart, was also doing some yard work, including pushing a senior ux developer for up to 45 minutes at a time without cardiovascular complaint. His weight was 196 pounds, body mass index (BMI) 29.8 with heart rate of 60 beats per minute and regular and blood pressure 116/64, respiratory rate 16. There was good air entry over both lung bradshaw with no abnormal pulmonary adventitious sounds, and he had no dependent edema. His abdomen was soft, nontender with liver span of 9 cm. EKG showed consistent atrioventricular (AV) sequentially paced rhythm with paced QRS complexes having a left axis deviation and left bundle branch block pattern in keeping with right ventricular (RV) apical stimulation. Blood work July 05, 2019 showed a normal complete blood count, normal electrolyte balance, potassium 4.2, BUN 22, creatinine 1.1 with normal liver function studies and albumin of 3.9. Ultrasensitive TSH was normal and magnesium level was also normal. No medication changes were made, and he was given a followup appointment for 6 months. His last implantable cardioverter defibrillator (ICD) check confirmed appropriate and excellent intracardiac electrograms and pacing thresholds. Ample battery voltage. Today, he presented to the emergency room with a complaint of increasing shortness of breath and weakness. Presenting vital signs showed a heart rate of 60, blood pressure 115/66, respiratory rate of 20 with oxygen (O2) saturation of 83% on room air and he was afebrile. Portable upright chest x-ray reports moderate cardiomegaly with no focal infiltrate or pleural effusion. A chest CT angiogram was negative for pulmonary embolism with diffuse increased interstitial markings but no pleural effusion. Findings in keeping with congestive failure. His hemoglobin was normal, mild leukocytosis and slight degree of thrombocytopenia. His PT/INR was 5.1 and 44.5. He has been receiving oral anticoagulation, Eliquis, for paroxysmal atrial fibrillation. Arterial blood gas showed an acidosis with pH of 7.2, pCO2 of 40, pO2 on supplemental oxygen of 217. His electrolytes were in balance with slight degree of metabolic acidosis, total bicarbonate 23, BUN was 38, creatinine 1.7, glucose was 97. His CPK was markedly elevated at 1159, negative MB with markedly elevated SGOT and SGPT and only slightly elevated alkaline phosphatase, total bilirubin was 22, albumin 3.9. BNP level was significantly elevated at 6204. He was admitted to the intensive care unit with the provisional diagnosis of acute on chronic respiratory failure, acute liver failure, suspected to be related to alcoholism with superimposed Respiratory Syncytial Virus infection. In light of his rhabdomyolysis, he was given IV fluid, and he developed worsening respiratory distress. With his cardiac history and acute on chronic respiratory problems, cardiology consultation was placed. At this point, I did speak with the patient, though I am concerned regarding the reliability of his history. He denied having any chest pain and claims to have been feeling well until the past several weeks when he was thought to have an upper respiratory tract infection and was given antibiotic therapy, precise agent is uncertain but may have been an erythromycin-based agent. He has had increasing lower leg swelling and abdominal swelling, have contributed to his respiratory problems. Associated weakness and faintness but no fall. Has not been aware of any palpitations. Claims to have been compliant with his medications. CORONARY RISK FACTORS: Male gender, obesity, hypertension, hypercholesterolemia, and family history of premature coronary heart disease. Had been a prior cigar, not cigarette smoker and had claimed to imbibe minimal alcohol, which I understand is incorrect, history reflecting heavy alcohol use, perhaps for the past several years. No history of diabetes mellitus or peripheral vascular disease. OTHER PAST MEDICAL HISTORY/SURGICAL HISTORY: Seizure disorder - follows with Dr. Vela. Testosterone deficiency with prior testosterone injections. Seasonal allergies. No prior surgeries. REVIEW OF SYSTEMS: As described above but also includes a feeling of feverishness. Weight gain. Muscular aches and pains of recent onset. No evidence of gastrointestinal (GI) bleeding or hematuria. All other systems review was negative. MEDICATIONS: At home, our medication list includes: Disopyramide 100 mg by mouth four times a day, metoprolol tartrate 100 mg twice a day, verapamil ER 180 mg daily (used in combination in light of his previously documented hyperdynamic left ventricular outflow tract obstruction, which has been successful in obliterating his LV outflow tract obstruction altogether), atorvastatin 80 mg daily, but catheterization 2008 showed nonobstructive coronary irregularities. Aspirin 81 mg daily, Eliquis 5 mg twice a day, Keppra 1 gram twice a day, and clomipramine 50 mg nightly. ALLERGIES: SULFA (rash). PHYSICAL EXAMINATION: Constitutional: Appears lethargic, wearing a continuous positive airway pressure (CPAP) mask, but does respond to questioning. Currently does not have a liver flap despite his liver function abnormalities. Heart rate 60 beats per minute and regular, blood pressure 125/64 supine, respiratory rate 16, oxygen (O2) saturation 91% on supplemental oxygen of 28%. Low grade temperature. Weight 200 pounds, height 67 inches, body mass index (BMI) 31.4. Eyes: No pallor or feasible icterus. Normal oral moisture. ENT/mouth: Dentition in good repair. Neck: Trachea midline. Thyroid not enlarged. Neck veins were elevated to the angle of his jaw. Respiratory: Slightly increased anteroposterior chest diameter with normal respiratory effort at this time. Has diffuse increased inspiratory crepitations. Slight prolongation of expiration but no audible wheeze. Cardiovascular: Well-healed ICD incision left upper chest. Apical impulse not palpable. Heart sounds were difficult to auscultate in light of his abnormal pulmonary adventitious sounds. Currently no audible gallop or murmur. Normal carotid upstrokes and volume with no bruits. Upper extremity pulses were symmetrical and normal. Pedal pulses were also palpable. His abdominal aorta was not palpable with abdominal distension. Extremities: Has pitting edema up to his thighs and over sacrum and lower lumbar spine posteriorly. No clubbing, peripheral cyanosis or splinter hemorrhages. Gastrointestinal (GI): As mentioned, protuberant and somewhat tense. No palpable organomegaly. A few bowel sounds. Rectal examination: Not indicated. Musculoskeletal: No obvious joint deformities. Obviously gait could not be assessed. Muscular strength appeared somewhat decreased but normal tone. Skin: No obvious icterus, pallor or ecchymotic lesions. Neuro/psych: As mentioned above, is able to move his extremities and normal eye and facial movements. No abnormal movements. INVESTIGATIONS: Laboratory values, chest x-ray, CT angiogram and EKG as mentioned above. IMPRESSION/PLAN: 1. Heart failure (diastolic/acute on chronic): Has obvious signs of biventricular congestion associated with a significant weight gain from our last visit in July. Frustratingly, the patient never contacted our office. Precise etiology of his decompensation may be partially related to his suspected acute respiratory tract infection, dietary noncompliance, and reported alcoholism. Toxicology was essentially negative except for low-dose acetaminophen and salicylate. Ethanol level was negative. I have discussed his complicated condition with Dr. Banda and would recommend minimizing IV fluid intake. I have ordered torsemide 50 mg twice a day, and we will monitor his fluid status and chemistry closely with you. Has acute renal dysfunction that may well be partially related to atorvastatin-mediated with recent antibiotic administration. 2. Acute hepatic failure: I suspect this is related to multiple factors, including his longstanding heart failure with reduced nutrient blood flow because of his reduced forward cardiac output but also chronic venous congestion aggravated by atorvastatin toxicity possibly triggered by antibiotic. Superimposed alcoholism. Strikingly, his albumin is 3.9 against a chronic phenomenon. His PT/INR is significantly elevated, but this may be partially related to his Eliquis superimposed on his acute hepatic dysfunction. As mentioned above, we hope to relieve his congested state with torsemide. His atorvastatin, aspirin and Eliquis have all been discontinued, and he has been receiving vitamin K supplementation along with thiamine and multivitamin. 3. Abnormal EKG: No history to suggest myocardial ischemia. Troponin I negative, elevated CPK, believed to be rhabdomyolysis due to atorvastatin plus/minus antibiotic therapy. In light of his hypertrophic obstructive cardiomyopathy, he has a dual-chamber pacing system with consistent right ventricular stimulation in hopes of reducing his left ventricular outflow tract obstruction. This has been successful. The appearance of this EKG is unchanged from our last study July 30, 2019. 4. Paroxysmal atrial fibrillation: Fortunately on his combination beta becky, calcium channel becky and antiarrhythmic, disopyramide, he has been free of atrial tachyarrhythmia and is consistently paced, as mentioned above. On his combination aspirin and Eliquis, had been free of bleeding complication to the present. We are obviously concerned about his acute hepatic dysfunction. Aspirin and Eliquis have been withheld as mentioned above. 5. Hypertrophic obstructive cardiomyopathy: Condition obviously lifelong with dramatic positive response to combination right ventricular pacing, disopyramide, beta becky and calcium channel becky therapies with his most recent echocardiogram showing normal left ventricular systolic function and no current left ventricular outflow tract obstruction. Continues to have significant left ventricular diastolic dysfunction accounting for his elevated mean left atrial pressure, pulmonary hypertension and now right heart failure. I have discussed the importance of maintaining his combination antiarrhythmic and negative chronotropic therapies in order to preserve the left ventricular filling. Stopping these agents will provoke left ventricular outflow tract obstruction and worsening LV diastolic dysfunction and failure. I have discussed his serious suspected lethal problems with his including his heart failure, liver failure and renal insufficiency. The patient is currently receiving noninvasive ventilation and has a defibrillator in situ. The patient apparently had indicated a wish for chest compression if that was necessary. I have explained to his that should chest compression be necessary, the outcome would not be favorable. If cardiovascular collapse was triggered by ventricular arrhythmia, and his defibrillator not rescue him promptly, I suspect his right ventricular dysfunction would lead to cardiogenic shock. We will plan on following him closely with you and appreciate the opportunity to participate in his care. RENARD
[2019-10-25 22:37] LABS: ALBUMIN 3.8 GM/DL (3.2-5.2); BLOOD UREA NITROGEN 39 MG/DL (7-18); CALCIUM LEVEL 8.5 MG/DL (8.8-10.2); CARBON DIOXIDE LEVEL 18 MEQ/L (21-32); CHLORIDE LEVEL 107 MEQ/L (98-107); CREATININE FOR GFR 1.47 MG/DL (0.70-1.30); GLOMERULAR FILTRATION RATE 51.7 (>49); GLUCOSE, FASTING 131 MG/DL (70-100); PHOSPHORUS LEVEL 2.6 MG/DL (2.5-4.9); POTASSIUM SERUM 4.5 MEQ/L (3.5-5.1); SODIUM LEVEL 139 MEQ/L (136-145)
[2019-10-26] VITALS (26 sets, daily range): BP systolic 83–128; BP diastolic 54–75
[2019-10-26] MEDS ORDERED: VANCOMYCIN HCL 500 MG in D5W MINI-BAG PLUS 100 ML IV SCH (01:00)
[2019-10-26] MEDS ORDERED: VANCOMYCIN HCL 750 MG, VIAL MATE ADAPTER 1 EACH in D5W 250 ML IV SCH (02:00)
[2019-10-26 05:53] LABS: INR 4.02; PROTHROMBIN TIME 39.2 SECONDS (11.8-14.0)
[2019-10-26 05:54] LABS: ABG BASE EXCESS 3.7 (-2.0-2.0); ABG HCO3 27.4 MEQ/L (22.0-26.0); ABG O2 SATURATION 95.3 % (95.0-99.0); ABG PARTIAL PRESSURE CO2 38.4 mmHg (35.0-45.0); ABG PARTIAL PRESSURE O2 76.5 mmHg (75.0-100.0); ABG STANDARD HCO3 27.7 MEQ/L (22.0-26.0); ABG TOTAL CO2 28.6 MEQ/L (23.0-31.0); ABG pH (ARTERIAL) 7.471 UNITS (7.350-7.450)
[2019-10-26 06:33] LABS: ALBUMIN 3.8 GM/DL (3.2-5.2); ALT/SGPT 3023 U/L (12-78); BILIRUBIN,TOTAL 2.3 MG/DL (0.2-1.0); BLOOD UREA NITROGEN 37 MG/DL (7-18); CALCIUM LEVEL 9.1 MG/DL (8.8-10.2); CARBON DIOXIDE LEVEL 27 MEQ/L (21-32); CHLORIDE LEVEL 104 MEQ/L (98-107); CHOLESTEROL LEVEL 62 MG/DL (< 200); CPK CREATINE PHOSPHOKINASE 1091 U/L (39-308); CREATININE FOR GFR 1.29 MG/DL (0.70-1.30); GLOMERULAR FILTRATION RATE > 60.0 (>49); GLUCOSE, FASTING 93 MG/DL (70-100); LDH LACTATE DEHYDROGENASE 1340 U/L (87-241); PHOSPHORUS LEVEL 2.2 MG/DL (2.5-4.9); POTASSIUM SERUM 3.2 MEQ/L (3.5-5.1); SODIUM LEVEL 140 MEQ/L (136-145); TOTAL PROTEIN 7.6 GM/DL (6.4-8.2); TRIGLYCERIDES LEVEL 80 MG/DL (<150)
[2019-10-26] MEDS ORDERED: POTASSIUM PHOSPHATE INJ 15 MMOL in D5W 250 ML IV ONE (07:00)
[2019-10-26] MEDS: TORSEMIDE (DEMADEX) 50 MG PER 1/2 TAB PO SCH (08:02)
[2019-10-26] MEDS: MULTIVITAMINS/MINERALS THERAP 1 TAB PO SCH (08:02)
[2019-10-26] MEDS ORDERED: POTASSIUM CHLORIDE 10 MEQ SR TABLET PO STA (08:02)
[2019-10-26] MEDS: THIAMINE 100 MG TAB PO SCH ×2 (08:03→20:16)
[2019-10-26] MEDS: VERAPAMIL 180MG EXTENDED RELEASE TABLET PO SCH (08:03)
[2019-10-26] MEDS: FOLIC ACID 1 MG TAB PO SCH (08:03)
[2019-10-26] MEDS: levETIRAcetam 250MG TABLET (KEPPRA) PO SCH ×2 (08:03→20:15)
[2019-10-26] MEDS: METOPROLOL TARTRATE 100 MG TAB PO SCH ×2 (08:03→20:16)
[2019-10-26] MEDS: PHYTONADIONE 5 MG TAB PO SCH (08:03)
[2019-10-26] MEDS ORDERED: POTASSIUM CHLORIDE 10 MEQ SR TABLET PO ONE (08:15)
[2019-10-26] MEDS: SPIRONOLACTONE 12.5MG PER 1/2 TABLET PO SCH (08:49)
[2019-10-26] MEDS: POTASSIUM CHLORIDE 10 MEQ SR TABLET PO SCH ×4 (10:21→20:16)
--- NOTE | 2019-10-26 12:48 | IPN ---
DATE: 10/26/2019 The patient reports that he is feeling much better today. He feels that he is breathing better. He has not had any events overnight. He is not experiencing any alcohol withdrawal symptoms. He is not confused today and he recognizes staff from yesterday. He was able to sleep well on his BiPAP last night and he reports that he is able to eat and drink this morning without any major issues. He is not having any abdominal pain. He did report that he was lightheaded and dizzy yesterday, but this has resolved, as well as his weakness. REVIEW OF SYSTEMS: Negative. OBJECTIVE: VITAL SIGNS: 97.6, pulse 60, respiratory rate 20, blood pressure 105/66 with a MAP of 79. Pulse oximetry is 95% on 4 liters nasal cannula. GENERAL: The patient is awake and alert. No acute distress. He is calm and cooperative. Sitting up in bed. He is not using any accessory muscles of respirations. He is speaking in full sentences. HEENT: He has dry mucous membranes. Nonicteric sclerae. Pupils are equal, round and reactive to light. Extraocular movements are intact. Mallampati score is 3 to 4. NECK: Supple without any thyromegaly or lymphadenopathy. RESPIRATORY: He does have some fine crackles at the bases of his lungs bilaterally. He also has some scattered wheezing in the middle and upper lobes bilaterally, as well as some squeaks. No other adventitious breath sounds are appreciated. CARDIOVASCULAR: His jugular venous distention (JVD) is measured at 5 to 6 cm above the sternal angle. Heart rate is irregularly irregular but no murmurs, rubs or gallops. ABDOMEN: Soft, obese, protuberant, nontender to palpation in all four quadrants. EXTREMITIES: He has 1+ pitting edema in his lower extremities bilaterally. No other signs of clubbing or cyanosis appreciated. NEUROLOGIC: His cranial nerves II through XII are intact and he has no obvious focal deficits. He does not have an asterixis flap. SKIN: He has no rashes or ulcers. PSYCHIATRIC: He has a normal mood and normal affect. LYMPH NODES: Not enlarged in the cervical or inguinal regions. LABORATORIES: Today, CBC was not drawn. His electrolyte panel demonstrates a sodium of 140, potassium 3.2, chloride 104, carbon dioxide 27, anion gap of 9, BUN 37, creatinine is 1.29 from 1.47 yesterday. His fasting glucose is found to be 93. Lactic acid from yesterday trended down to 4.4. Calcium was found to be 9.1. Phosphorous was 2.2. Magnesium was 2.0. Total bilirubin was found to be 2.3. AST is down to 4439, ALT down to 3023, LDH trended down to 1340, and his total CK is down to 1091. INR today is 4.02, down from 5.13 yesterday. His PT has improved to 39.2 from 47.4 yesterday. All the toxicology drawn yesterday was negative. His salicylate level is less than 1.7 and his acetaminophen level is less than 2.0. His hepatic serologies were all negative. Blood glucose has ranged from 111, 109, 91 to 83. Blood gas was drawn this morning and it was found to be 7.47, 38.4, 76.5, bicarbonate 27.4. No imaging was done. ASSESSMENT: This is a 64-year-old man with diastolic congestive heart failure (CHF), who presented with shortness of breath and was found to have acute liver failure. He was admitted to the intensive care unit (ICU) and is being treated for suspected congestive heart failure (CHF) exacerbation. 1. Metabolic acidemia with inappropriate respiratory compensation, resolved. ABG this morning was within normal limits. The patient is stable in terms of electrolytes and we will continue to trend comprehensive metabolic panel. 2. Hypoxemic respiratory failure, improved immensely with bilevel positive airway pressure (BIPAP) administration. We will continue the BiPAP via tabletop during naps and at nighttime for his much needed afterload reduction for the treatment of his acute decompensated diastolic congestive heart failure (CHF) exacerbation. As far as respiratory goes, he may have possible obstructive sleep apnea and will need followup as an outpatient. He will complete the Morrison Sleepiness Scale today to determine what his risk factors for sleep apnea are. We can possibly arrange an outpatient sleep study when he eventually gets discharged. 3. Acute liver failure. At this point, we have determined that it is most likely from ischemic pathology. His liver enzymes are trending down and his INR has come down. We will continue to trend liver enzymes at this time. This may also be multifactorial due to his very high alcohol consumption and his atorvastatin high dose that he was taking at home. For now, we have held his atorvastatin. He is on CIWA protocol for his alcohol consumption. We have advised him that he will need to quit drinking when he gets discharged and the patient stated agreement. 4. Other gastrointestinal concerns. He continues on Protonix for protectin and we will monitor his glucose with every 6 hour fingerstick glucose and we will cover in terms of his hypoglycemia. We do suspect that the lability of his glucose is secondary to his acute liver failure. 5. Acute on chronic diastolic congestive heart failure (CHF) exacerbation. Cardiology is consulted, Dr. Mckeon, and we appreciate his recommendations. In terms of his heart failure, we have him on torsemide 50 mg twice a day, spironolactone per cardiology, as well as potassium replacement. We will continue to monitor his output and suspect that he has several liters of fluid that need to be diuresed before he can improve his respiratory status. We will not be giving him any more fluids as he needs to be on fluid restriction and he has been started on 2 gram sodium diet with 1500 mL per day fluid restriction. In terms of his atrial fibrillation, he is continued on his metoprolol 100 mg twice a day and his verapamil 180 mg by mouth daily to keep his heart rate low. He has been steady with a heart rate of 60 at this time. We are also holding his Eliquis for now given his elevated INR yesterday. Should he continue to improve with his INR, we will restart his Eliquis in a few days. 6. History of acute kidney injury. It appears that his kidney injury is resolving, as his creatinine has come down to 1.29. It is also nearing his baseline of 1.1. We will continue to monitor his BUN and creatinine at this time. 7. Deep vein thrombosis (DVT) prophylaxis with TEDs and sequential compression device (SCD), as well as auto prophylaxis due to his elevated INR. RENARD
--- NOTE | 2019-10-26 16:51 | IPN ---
CARDIOLOGY PROGRESS NOTE: DATE: 10/26/2019 SUBJECTIVE: The patient claims to be feeling better today, considerably less short of breath. OBJECTIVE: He appears to be brighter than yesterday. Appears comfortable lying with the head of bed elevated 30 degrees. Heart rate 60 beats per minute and regular. Blood pressure currently 84/52, respiratory rate 16, oxygen saturation 93% on supplemental oxygen by nasal prongs at 4 liters. Weight is recorded as being 4 kg less than yesterday. Has amounted a negative fluid balance with his diuretic therapy so far today minus approximately 1800 mL. Remains afebrile. His sclerae due appear somewhat icteric today. Does have a liver flap. Normal oral moisture. Neck veins elevated at least 6-8 cm. Still has fairly diffuse inspiratory rales as well as expiratory rhonchi. Pitting edema now to the lower lumbar spine and sacrum less so in his legs. His abdomen also appears to be somewhat less tense. Liver span is 11 cm in the right midclavicular line. May have a palpable spleen tip. LABORATORY DATA: With his negative fluid balance his potassium this morning was 3.2. His bicarb has actually improved from 18 to 27, BUN slightly lower at 37, creatinine improved at 1.29, glucose this morning 93. Total bilirubin essentially stable at 2.3. SGOT and SGPT have decreased by approximately 3000 points for the SGOT. His CPK has also decreased by 100 points. His albumin remains fairly normal at 3.8. IMPRESSION/PLAN: 1. Heart failure (diastolic/acute on chronic): Continues to have fairly diffuse abnormal pulmonary adventitious sounds suspected to be related to his congestion but also his recent respiratory tract infection. Slightly less neck vein distension with his negative fluid balance. Has a degree of hypokalemia, which we will correct with supplemental oral potassium and the introduction of low-dose spirolactone. Based on his negative fluid balance today and his current soft blood pressure, we will place his torsemide on hold. Resuming this agent will depend on his blood pressure, electrolyte balance and renal function. 2. Acute hepatic failure: Again believed to be multifactorial the patient able to admit to a very impressive regular alcohol intake for years which is somewhat surprising based on his fairly normal liver function studies June 2019. Function studies have improved with his diuresis stopping his atorvastatin as well as his Eliquis and aspirin. Continues to receive vitamin K supplementation. 3. Abnormal EKG: No further Troponin I have been obtained. Has been free of chest discomfort. No followup EKG today. 4. Paroxysmal atrial fibrillation: Continue on his combination beta-becky, [id number] and disopyramide. Remains free of tachyarrhythmia with consistent ventricular pacing all of which are important for his LV diastolic dysfunction. Remains off aspirin and Eliquis as mentioned above. 5. Hypertrophic obstructive cardiomyopathy: As per assessment #1. Remains on combination negative lusitropic therapy and his right ventricular pacing to improve left ventricular filling and eliminate left ventricle outflow tract obstruction as well as mitral insufficiency. His condition remains guarded but happily he has made some progress in the past 24 hours. We will continue to monitor him closely with you and appreciate the opportunity to participate in his care. Best regards.
[2019-10-26] MEDS: PANTOPRAZOLE 40MG INJ (PROTONIX) (C9113) IV SCH (17:12)
[2019-10-26 18:42] LABS: CALCIUM LEVEL 9.2 MG/DL (8.8-10.2); CREATININE FOR GFR 1.71 MG/DL (0.70-1.30); GLOMERULAR FILTRATION RATE 43.4 (>49); POTASSIUM SERUM 3.7 MEQ/L (3.5-5.1)
--- NOTE | 2019-10-26 20:26 | ECHO ---
DATE OF PROCEDURE: 10/25/2019 Date of : 1955 Age: 64 Gender: Male Height: 67 inches Weight: 198 pounds Body surface area: 2.02 meters squared Inpatient: Intensive care unit (ICU), room 3206 REFERRING PHYSICIAN: Shira Clifton INDICATION: Edema. MEASUREMENTS: 2D Measurements: RV: 5.3 cm LV: 4.4 cm Septum: 1.6 cm Posterior wall: 1.3 cm Aortic root: 3.3 cm LA: 5.8 cm LVEF: 60% Doppler Measurements: AV: 1.1 meters per second LVOT: 0.87 meters per second LVOT diameter: 2.3 cm MV-E: 59, A: 29, EA ratio: 2.0 Early mitral deceleration time: 278 milliseconds E prime medial: 3.2, A prime medial: 4.0, E prime lateral: 4. Average E/E prime ratio: 16.4/PCWP: 22 mmHg PV: 0.6 meters per second Pulmonary artery acceleration time: 80 milliseconds RVSP: 56 mmHg IVC: 3.0 cm COMMENTS: Consistent atrioventricular (AV) sequentially paced rhythm. Paced QRS complexes with left bundle branch block, QRS configuration. M-mode and two-dimensional echocardiography was performed with pulsed, continuous wave, color flow and tissue Doppler studies. Asymmetrical septal hypertrophy with subtle proximal septal wall motion abnormality due to right ventricular pacing but other wall motion was normal to hyperkinetic. Retained global resting systolic function. Prominently dilated left atrium with grade 2 LV diastolic dysfunction and elevated estimated mean left atrial pressure. At least moderately dilated right heart chambers with right ventricular hypokinesis and Doppler evidence of moderately severe pulmonary hypertension. Prominently dilated inferior vena cava (IVC) with reduced respiratory collapse in keeping with elevated central venous pressure/right heart failure. Three equal size aortic cusps with mildly thickened cusp edges but adequate cusp separation. Very mild aortic insufficiency. Normal aortic root diameter. No left ventricular outflow tract obstruction. Normal appearing mitral valvular apparatus and leaflet excursion with no posterior systolic buckling. Mild mitral insufficiency. Normal appearing tricuspid valve with mild insufficiency. Pacing leads could be visualized traversing right heart structures but no separate intracardiac mass. Small posterior pericardial effusion measuring 0.8 cm. No sign of cardiac chamber compression.
[2019-10-27] VITALS (15 sets, daily range): BP systolic 89–120; BP diastolic 59–86
[2019-10-27 05:20] LABS: HEMATOCRIT 45.5 % (42.0-52.0); MEAN CORPUSCULAR HEMOGLOBIN 33.5 pg (27.0-33.0); MEAN CORPUSCULAR VOLUME 101.6 fl (80.0-96.0); PLATELET COUNT, AUTOMATED 154 10^3/uL (150-450); RED BLOOD COUNT 4.48 10^6/uL (4.30-6.10); WHITE BLOOD COUNT 19.1 10^3/uL (4.0-10.0)
[2019-10-27 05:32] LABS: INR 1.97; PROTHROMBIN TIME 22.2 SECONDS (11.8-14.0)
[2019-10-27 05:46] LABS: ATYPICAL LYMPH 1 % (0-5); LYMPHOCYTES 2 % (16-44); MONOCYTES 6 % (0-5); NEUTROPHILS 91 % (28-66)
[2019-10-27 05:47] LABS: OVALOCYTES 1+; PLATELET ESTIMATE NORMAL (NORMAL)
[2019-10-27 05:58] LABS: CALCIUM LEVEL 9.6 MG/DL (8.8-10.2); CREATININE FOR GFR 1.51 MG/DL (0.70-1.30); GLOMERULAR FILTRATION RATE 50.1 (>49); PHOSPHORUS LEVEL 2.3 MG/DL (2.5-4.9)
[2019-10-27 05:59] LABS: ALBUMIN 3.6 GM/DL (3.2-5.2); MAGNESIUM LEVEL 2.1 MG/DL (1.8-2.4); TOTAL PROTEIN 7.5 GM/DL (6.4-8.2)
[2019-10-27 08:38] LABS: C REACTIVE PROTEIN QUANTITATIV 3.7 MG/DL (0.00-0.30)
[2019-10-27] MEDS: TORSEMIDE 20 MG TAB PO SCH ×2 (08:43→17:51)
[2019-10-27] MEDS: PHYTONADIONE 5 MG TAB PO SCH (08:43)
[2019-10-27] MEDS: THIAMINE 100 MG TAB PO SCH ×2 (08:43→20:01)
[2019-10-27] MEDS: levETIRAcetam 250MG TABLET (KEPPRA) PO SCH ×2 (08:43→20:01)
[2019-10-27] MEDS: MULTIVITAMINS/MINERALS THERAP 1 TAB PO SCH (08:43)
[2019-10-27] MEDS: FOLIC ACID 1 MG TAB PO SCH (08:43)
[2019-10-27] MEDS: POTASSIUM CHLORIDE 10 MEQ SR TABLET PO SCH ×2 (08:44→14:04)
[2019-10-27] MEDS: VERAPAMIL 180MG EXTENDED RELEASE TABLET PO SCH (08:44)
[2019-10-27] MEDS: METOPROLOL TARTRATE 100 MG TAB PO SCH ×2 (08:44→20:01)
[2019-10-27] MEDS: SPIRONOLACTONE 12.5MG PER 1/2 TABLET PO SCH (08:45)
--- NOTE | 2019-10-27 13:14 | IPN ---
DATE: 10/27/2019 SUBJECTIVE: Patient, a 64-year-old male, who presented to the hospital with increasing shortness of breath. Today, patient says he is feeling much better. Is considerably less short of breath than he had been yesterday. He is able to tolerate sitting up in bed or sitting in a chair on 2 liters of oxygen via nasal cannula, compared to 4 liters of nasal cannula yesterday. Patient is more alert when talking with him today and does not have any acute complaints today. PHYSICAL EXAM: VITAL SIGNS: Temperature 98.5, pulse 60, which is regular and paced, blood pressure 119/84, with a mean arterial pressure of 96. Pulse oximetry 97% on 2 liters via nasal cannula. GENERAL: Patient is an alert and oriented male patient, who was sitting up in bed preparing to eat breakfast when I walked into the room. Patient did not appear to be in any acute distress. HEENT: Was normocephalic, atraumatic. Patient did have icteric sclerae, but very mild. Patient had moist mucous membranes. NECK: Patient's neck elevated to about 4 cm above the sternal angle. RESPIRATORY: Patient has inspiratory rales at the bases with scattered end expiratory wheezes throughout the lung bradshaw. CARDIOVASCULAR: Regular rate and rhythm with a normal S1 and S2. I do not appreciate any murmurs. EXTREMITIES: There is no edema in the lower extremities. There is a trace amount of pitting edema around the sacrum. Ins and outs: Patient's fluid balance today as documented is -935. His cumulative balance is -2655. LABORATORY STUDIES: A CBC shows white blood cells of 19.1, hemoglobin 15.0, hematocrit 45.5, platelet count 154. Sodium 143, potassium 4.0, chloride 106, carbon dioxide 30, BUN 49, creatinine 1.51, glucose 103, calcium 9.6, phosphorous 2.3, magnesium 2.1, total bilirubin 2.0, AST 1921, ALT 2343, alkaline phosphatase 142, lactate dehydrogenase 532, total creatine kinase 264, total protein 7.5, albumin 3.6, triglycerides 92, cholesterol 72. PT 22.2, INR 1.97. ASSESSMENT AND PLAN: Patient is a 64-year-old male patient who presented to the hospital with increasing shortness of breath, which was most likely secondary to diastolic acute on chronic heart failure. Patient also presented with acute hepatic failure, which we believe to be multifactorial. 1. Heart failure, diastolic/acute on chronic. Patient's pulmonary exam has improved. Today, patient's neck veins are less distended than they were yesterday. With his negative fluid balance, patient's dose of torsemide was held last night secondary to the patient's low blood pressure. Patient's blood pressure this morning was normal, around 120s over 80s. Due to this fact, the patient was resumed on torsemide but at 20 mg twice a day rather than 50 mg twice a day. We will continue to monitor his blood pressure, renal function, and electrolyte balances. 2. Acute hepatic failure. This is believed to be multifactorial as the patient did admit to regular alcohol intake of about 13 standard drinks a day. Patient had normal liver function 06/2019; however, in light of the fact that he had diastolic congestive heart failure, was on high dose atorvastatin, and was using alcohol excessively, this could be the factors that led to him going into acute hepatic failure. His liver function test as well as liver enzymes are continued to normalize, and we will continue to monitor. 3. Abnormal EKG. No further Troponin was obtained. Patient does not have any chest discomfort, and there has been no followup EKG. 4. Paroxysmal atrial fibrillation. Patient will be on beta-becky and [id number]. Patient has a pacemaker placed and is being paced at 60 beats per minute, which is where he has been at. Patient's disopyramide is not on formulary, so he has not been receiving this. Patient is not on aspirin or Eliquis at this time, secondary to his acute hepatic failure. 5. Hypertrophic obstructive cardiomyopathy. Patient remains on negative inotropic therapy and has ventricular pacing to improve left ventricular filling and eliminate the left ventricle outflow tract obstruction as well as mitral insufficiency. Patient has improved since seeing him about 15 hours prior to the dictation of this note. His condition remains guarded, and we will continue to monitor him closely and appreciate the opportunity to participate in his care.
--- NOTE | 2019-10-27 15:12 | IPN ---
DATE: 10/27/2019 SUBJECTIVE: The patient reports he is doing much better today. He has not had any issues breathing. He is continuing to urinate significant amounts due to his diuresis. He slept well using a BiPAP machine and he is not having any complaints of abdominal pain, nausea, vomiting, or diarrhea this morning. He feels much better since when he came in, he has not been febrile. Not had any chills and not had any excessive shortness of breath. OBJECTIVE: VITAL SIGNS TODAY: Temperature is 98.3, pulse 60, respiratory rate is 20, blood pressure 114/77, pulse ox 93% on 2 liters room air. Input and output: His urine output total is about 5 liters out. He weighed 98.8 kg on arrival and now weighs 86.4 kg. PHYSICAL EXAMINATION: Generally patient is awake and alert. He is not in any acute distress. He is calm and cooperative. He is sitting up in bed, not using any accessory muscles with respiration and speaking in full sentences. HEENT: He has dry mucous membranes. Nonicteric sclerae. Pupils are equally round and reactive to light. Extraocular movements are intact. His Mallampati score is 3-4. Neck is supple without any thyromegaly or lymphadenopathy. Respiratory: He does have some fine crackles at the bases of his lungs bilaterally. He no longer has wheezing as he did prior nor does he have any squeaks in his lobes bilaterally. No other adventitious breath sounds are appreciated. He has good air movement. Symmetric chest rise and no accessory muscles are used. Cardiovascular: His jugular venous distention is down to 4-5 cm above the sternal angle. Still somewhat elevated. His heart rate is regularly irregular with no murmurs, rubs or gallops. His abdomen is soft, obese protuberant. Nontender to palpation in all four quadrants with positive bowel sounds and no signs of organomegaly or masses. Extremities: He has only trace edema in his lower extremities bilaterally up to his mid grant. No other signs of clubbing or cyanosis are appreciated. Neurologically, his cranial nerves II through XII are intact and he has no other obvious focal deficits and no asterixis flap. Skin: He has no rashes or ulcers. Psychiatric: He has normal mood and normal affect. Lymph nodes are not enlarged in the cervical or inguinal regions. LABORATORY: Today his CBC demonstrates a white blood cell count of 19.1, MCV 101, platelet count of 154, hemoglobin 15, hematocrit of 45. His comprehensive metabolic panels is significant for a BUN of 49, creatinine of 1.51, which is slower than yesterday at 1.71. His phosphorus is low at 2.3. His magnesium is 2.1. Liver enzymes have trended down. AST today is 1921, ALT 2343. His alkaline phosphatase is 142. His lactate dehydrogenase has trended down to 532. His total CK is down to 246. His CRP has trended down from 4.9 to 3.7. His INR is down to 1.97 from 4 yesterday. His PT is 22.2. His blood sugars have been stable around 165, 132, 115, and 102. He did not have any imaging done recently. ASSESSMENT/PLAN: This is a 64-year-old male with diastolic congestive heart failure who presented with shortness of breath and was found to be in acute liver failure. He is currently in the intensive care unit being treated for suspected congestive heart failure exacerbation. 1. Acute liver failure: Liver enzymes have trended down appropriately. This is most likely multifactorial in nature secondary to his diastolic congestive heart failure exacerbation and his excessive alcohol use. Further history has been elicited from patient and he admits to 1.75 liters of bourbon every 3 days, which is the equivalent to about 13 drinks per day. He has been doing this for at least several years. The patient is now aware that he will need to quit drinking alcohol as his prognosis is very poor in terms of his liver function. He is likely to suffer from long-lasting liver dysfunction due to alcohol consumption. He continues on the CIWA protocol and has not required any benzodiazepines for alcohol withdrawal at this point in time. He is also on thiamine and multivitamin at this time. His liver enzymes will need to be trended using comprehensive metabolic panel as well as his LDH. In addition, he has been on vitamin K as advised by the liver transplant center in [place] at [facility]. He can likely stop his vitamin K as his INR has come down to below 2. 2. Acute decompensated diastolic congestive heart failure exacerbation. Cardiology has been consulted at this time and we appreciated recommendations from Dr. Mckeon. His torsemide was initially held last night due to some hypotension. However it has been restarted this morning with twice a day dosing. The patient has had an appropriate diuresis but will likely need further diuresis as he has severe grade 2 diastolic dysfunction at this time. If the patient becomes more hypotensive, diuresis can be held and would not advise fluid resuscitation as his fluid status is very tenuous at this time. In addition, the 2 liters of oxygen requirement that he is on right now during the day may be due to his respiratory syncytial virus (RSV) versus fluid overload in his lungs. Will continue to try to titrate oxygen down. 3. Acute kidney injury: The patient's creatinine today was 1.51 where as his baseline is 1.1. This is likely secondary to aggressive diuresis from his congestive heart failure exacerbation. Will need to continue fluid restriction of 1500 mL/day and a 2 gram sodium diet. This will likely improve throughout his hospitalization. 4. History of hypokalemic respiratory failure likely secondary to heart failure exacerbation versus respiratory syncytial virus (RSV) versus un-diagnosed obstructive sleep apnea (BOBBY). The patient will need to continue with tabletop BiPAP at the setting of 10/4 at night and during naps, and he will need to be set up outpatient for a sleep evaluation. Effort Sleep Scale to determine that he is at moderate risk with score of 5 for his obstructive sleep apnea. 5. Gastrointestinal (GI) concerns: Continue to monitor his glucose with every 6 hour fingersticks and coverage for hypoglycemia with oral replacement of glucose and continue Protonix for protection. 6. Atrial fibrillation: I have scheduled his Eliquis to be restarted tomorrow instead of today as his INR has come down to below 2. But will need to continue to monitor his INR in terms of his liver function at this time. 7. Deep venous thrombosis (DVT) prophylaxis: The patient is on thromboembolic deterrent stockings (TEDS) and sequentials at this time and his Eliquis will be restarted tomorrow as stated otherwise. This patient will no longer require intensive care unit (ICU) bed and he has been transferred to the progressive care unit (PCU) and will be under the care of a hospitalist. We will be happy to follow along as needed but at this time, we will sign off on the patient's care. RENARD
--- NOTE | 2019-10-27 17:27 | IPNPDOC ---
Subjective Date Seen The patient was seen on 10/27/19. Subjective Chief Complaint/HPI Patient seen sitting up in chair comfortable having dinner. Denies any SOB , denies any abdominal pain, nausea or vomiting. Alert oriented x 3. No chest pain or palpitation, no leg swelling. Objective Physical Examination General Exam: Positive: Alert, Cooperative, No Acute Distress Eye Exam: Positive: PERRLA, Conjunctiva & lids normal, EOMI, Sclera icteric ENT Exam: Positive: Atraumatic, Mucous membr. moist/pink, Pharynx Normal Neck Exam: Positive: Supple, JVD (elevated); Negative: thyromegaly Chest Exam: Positive: Diminished, Other (fine crackles at bothe the bases); Negative: Rhonchi, Wheezing Heart Exam: Positive: Rate Normal, Irregular Rhythm, Normal S1, Normal S2; Negative: Tachycardic, Bradycardic, Regular Rhythm, Gallops, Murmurs, Rubs Abdomen Exam: Positive: Normal bowel sounds, Soft; Negative: Tenderness Extremity Exam: Negative: Clubbing, Cyanosis, Edema Skin Exam: Positive: Nl turgor and temperature; Negative: Rash, Breakdown Neuro Exam: Positive: Normal Speech, Strength at 5/5 X4 ext, Normal Tone, Other (No flap) Psych Exam: Positive: Mental status NL, Memory Intact, Oriented x 3 Assessment /Plan Assessment Acute Liver failure multifactorial Due to ischemia, alcohol, congestive hepatopathy though no definite sever hypotensive episodes documented to explain shock liver. however may have been hypotensive at home. continue supportive management. vit K. Acute on chronic Diastolic CHF with severe pulmonary hypertension and right heart failure acute on chronic has LV septal asymmetric hypertrophy and small posterior pericardial effusion. continue torsemide and aldactone. As per Dr Mckeon continue metoprolol, diltiazem with hold parameters. Afib with pacemaker in place ( 2 leaded as 1 lead inthe RV is broken) rate is controlled with metoprolol and diltiazem will restart eliquis as INR is now less than 2 Probable BOBBY continue table top with 26/[address] Banda for sleep study as outpatient. Hypokalemia and hypophosphatemia continue replacements will monitor for refeeding syndrome. History of possible seizure 6 years ago continue keppra. Alcohol use disorder continue CIWA, thiamine and folate. counselled about quitting. GI prophylaxis in place DVT prophylaxis : patient auto anticoagulated at present will start eliquis. Plan/VTE VTE Prophylaxis Ordered?: Yes VS, I&O, 24H, Fishbone Vital Signs/I&O Vital Signs Date Time Temp Pulse Resp B/P (MAP) Pulse Ox O2 Delivery O2 Flow Rate FiO2 10/27/19 14:00 60 90/59 10/27/19 12:00 97.0 20 92 Nasal Cannula 2.0 10/27/19 05:00 30 I&O- Last 24 Hours up to 6 AM 10/27/19 06:00 Intake Total 740 ml Output Total 2905 ml Balance -2165 ml Laboratory Data 24H LABS Laboratory Tests 2 10/26/19 17:51: Anion Gap 6L, Glomerular Filtration Rate 43.4L, Calcium Level 9.2 10/27/19 00:20: Bedside Glucose (Misc Panel) 115 10/27/19 04:57: Anion Gap 7L, Glomerular Filtration Rate 50.1, Calcium Level 9.6, Nucleated Red Blood Cells % (auto) 1.0H, Neutrophils 91H, Lymphocytes (Manual) 2L, Monocytes (Manual) 6H, Atypical Lymphocytes 1, Anisocytosis , Macrocytosis 1+, Ovalocytes 1+, Platelet Estimate NORMAL, Prothrombin Time 22.2H, Prothromb Time International Ratio 1.97, Phosphorus Level 2.3L, Magnesium Level 2.1, Total Bilirubin 2.0H, Aspartate Amino Transf (AST/SGOT) 1921H, Alanine Aminotransferase (ALT/SGPT) 2343H, Alkaline Phosphatase 142H, Lactate Dehydrogenase 532H, Total Creatine Kinase 246#, C-Reactive Protein, Quantitative 3.70H, Total Protein 7.5, Albumin 3.6, Albumin/Globulin Ratio 0.92L, Triglycerides Level 92, Cholesterol Level 72 10/27/19 08:04: Bedside Glucose (Misc Panel) 102 10/27/19 11:50: Bedside Glucose (Misc Panel) 115 CBC/BMP Laboratory Tests 10/26/19 17:51 10/27/19 04:57 Microbiology Microbiology 10/25/19 Blood Culture - Preliminary, Resulted No Growth after 48 hours. All Specime... 10/25/19 Respiratory Virus Panel (PCR) (MICHELLE) - Final, Complete Respiratory Syncytial Virus 10/25/19 Blood Culture - Preliminary, Resulted No Growth after 48 hours. All Specime... RAY,YULIANA MD Oct 27, 2019 17:27
[2019-10-27] MEDS: PANTOPRAZOLE 40MG INJ (PROTONIX) (C9113) IV SCH (17:51)
[2019-10-27 19:05] LABS: ALBUMIN 3.8 GM/DL (3.2-5.2); BILIRUBIN,TOTAL 1.8 MG/DL (0.2-1.0); CALCIUM LEVEL 9.9 MG/DL (8.8-10.2); CREATININE FOR GFR 1.97 MG/DL (0.70-1.30); GLOMERULAR FILTRATION RATE 36.9 (>49); POTASSIUM SERUM 4.3 MEQ/L (3.5-5.1); TOTAL PROTEIN 7.8 GM/DL (6.4-8.2)
[2019-10-27] MEDS: K-PHOS ORIGINAL (POT.ACID PHOSPHATE) 500MG TAB PO SCH (20:00)
[2019-10-27] MEDS ORDERED: POTASSIUM CHLORIDE 10 MEQ SR TABLET PO SCH (21:00)
[2019-10-28] VITALS: BP 118/87
[2019-10-28 04:00] VITALS: BP 119/80
[2019-10-28 05:56] LABS: HEMATOCRIT 49.2 % (42.0-52.0); MEAN CORPUSCULAR HEMOGLOBIN 33.3 pg (27.0-33.0); MEAN CORPUSCULAR HGB CONC 32.5 g/dl (32.0-36.5); MEAN CORPUSCULAR VOLUME 102.3 fl (80.0-96.0); PLATELET COUNT, AUTOMATED 175 10^3/uL (150-450); RED BLOOD COUNT 4.81 10^6/uL (4.30-6.10)
[2019-10-28] MEDS ORDERED: APIXABAN 5 MG TAB (ELIQUIS) PO SCH (06:00)
[2019-10-28 06:03] LABS: INR 1.55; PROTHROMBIN TIME 18.3 SECONDS (11.8-14.0)
[2019-10-28 06:38] LABS: ALBUMIN 3.9 GM/DL (3.2-5.2); BILIRUBIN,TOTAL 2.3 MG/DL (0.2-1.0); CREATININE FOR GFR 1.7 MG/DL (0.70-1.30); GLOMERULAR FILTRATION RATE 43.7 (>49); MAGNESIUM LEVEL 2.1 MG/DL (1.8-2.4); PHOSPHORUS LEVEL 3.3 MG/DL (2.5-4.9); POTASSIUM SERUM 3.7 MEQ/L (3.5-5.1); TOTAL PROTEIN 7.7 GM/DL (6.4-8.2)
[2019-10-28 06:43] LABS: ATYPICAL LYMPH 3 % (0-5); LYMPHOCYTES 9 % (16-44); MONOCYTES 12 % (0-5); NEUTROPHILS 76 % (28-66)
[2019-10-28 06:44] LABS: PLATELET ESTIMATE NORMAL (NORMAL); SMUDGE CELLS 1+
[2019-10-28 08:00] VITALS: BP 123/81
[2019-10-28] MEDS: POTASSIUM CHLORIDE 10 MEQ SR TABLET PO SCH ×4 (08:59→20:15)
[2019-10-28] MEDS: FOLIC ACID 1 MG TAB PO SCH (08:59)
[2019-10-28] MEDS: SENOKOT S TAB PO SCH ×2 (09:00→20:14)
[2019-10-28] MEDS: APIXABAN 5 MG TAB (ELIQUIS) PO SCH ×2 (09:00→20:14)
[2019-10-28] MEDS: MULTIVITAMINS/MINERALS THERAP 1 TAB PO SCH (09:00)
[2019-10-28] MEDS ORDERED: POTASSIUM CHLORIDE 10 MEQ SR TABLET PO SCH (09:00)
[2019-10-28] MEDS: levETIRAcetam 250MG TABLET (KEPPRA) PO SCH ×2 (09:00→20:14)
[2019-10-28] MEDS: METOPROLOL TARTRATE 100 MG TAB PO SCH ×2 (09:00→20:15)
[2019-10-28] MEDS: K-PHOS ORIGINAL (POT.ACID PHOSPHATE) 500MG TAB PO SCH ×2 (09:00→20:14)
[2019-10-28] MEDS: PHYTONADIONE 5 MG TAB PO SCH (09:00)
[2019-10-28] MEDS: VERAPAMIL 180MG EXTENDED RELEASE TABLET PO SCH (11:05)
--- NOTE | 2019-10-28 11:54 | IPN ---
DATE: 10/28/2019 CARDIOLOGY PROGRESS NOTE SUBJECTIVE: The patient is a 64-year-old male who presented to the hospital with increased shortness of breath and was found to be in acute liver failure, as well as acute on chronic diastolic heart failure. The patient is feeling much better today and has been moved from the intensive care unit (ICU) to the progressive care unit. The patient states that he has been able to get up and spent most of the day in a chair yesterday. He is still on 2 liters of oxygen via nasal cannula but he is feeling better and his appetite is improved and he has been able to eat normally. PHYSICAL EXAMINATION: VITAL SIGNS: Temperature 97.5, pulse 60, respiratory rate 18, blood pressure 119/80, pulse oximetry 92% on 2 liters of oxygen via nasal cannula. Intake/output balance shows a negative balance so far the first 8 hours of today at negative 1150. The patient's cumulative net negative is 3630 mL. The patient's weight today is 85.6 kg, which is down from 85.7 kg yesterday. GENERAL: The patient is an alert and oriented male patient who is sitting in a chair when I walked in. The patient did not appear to be in any acute distress. HEENT: Normocephalic, atraumatic. Anicteric sclerae. The patient does have moist mucous membranes. NECK: No jugular venous distention (JVD) was appreciated. RESPIRATORY: The patient had inspiratory rales at the bases about one-third of the way up in bilateral lung bradshaw. The upper lung bradshaw were clear to auscultation bilaterally. CARDIOVASCULAR: Regular rate and rhythm. Normal S1, S2. I do not appreciate any murmurs. EXTREMITIES: There is no lower extremity edema. There is no pitting edema around the sacrum, which is improved from yesterday. LABORATORY STUDIES: White blood cells 16.0, hemoglobin 16.0, hematocrit 49.2, platelet count 175. Sodium 141, potassium 3.7, chloride 98, carbon dioxide 34, BUN 58, creatinine 1.70, glucose 89, calcium 10.0, phosphorous 3.3, magnesium 2.1, total bilirubin 2.3, AST 1275, ALT 1958, alkaline phosphatase 159, LDH 546, total protein 7.7, albumin 3.9. Electrocardiogram (EKG) performed this morning showed an atrial paced rhythm with a ventricular being paced at 60. No ST abnormalities present on the EKG. ASSESSMENT AND PLAN: The patient is a 64-year-old male who presented to the hospital with increased shortness of breath, most likely secondary to diastolic acute on chronic heart failure. The patient also presented with acute hepatic failure, which we believe to be multifactorial. 1. Heart failure, acute on chronic, diastolic. The patient's pulmonary examination has improved again today. The patient's neck veins were not distended on examination. The patient still has a negative fluid balance. The patient's dose of torsemide was decreased yesterday to 20 mg twice a day and we will continue with that and we will monitor his blood pressure, renal function and electrolyte balance. 2. Acute hepatic failure. This is believed to be multifactorial secondary to alcohol use, acute on chronic diastolic heart failure, high dose of atorvastatin and other medications. We are holding his medications at this time. The patient is not drinking in the hospital and we have extensively counseled him about abstaining from alcohol upon discharge from the hospital. His liver function, as well as liver enzymes are continuing to normalize and we will continue to monitor. 3. Abnormal EKG. The patient's troponin was obtained. The patient will have a followup EKG today. 4. Paroxysmal atrial fibrillation. The patient is on a beta becky and calcium channel becky and has a pacemaker in place and is paced at 60 beats per minute. The patient's isopropamide is not on formulary and so he is not receiving it. THe patient was restarted on Eliquis today as his INR has normalized. 5. Hypertrophic obstructive cardiomyopathy. The patient remains on negative ionotropic therapy and ventricular pacing to improve left ventricle filling and eliminate left ventricular outflow tract obstruction, as well as mitral insufficiency. The patient has improved. His condition remains guarded; however, he is improving. I did extensively financial counselor him again today on avoiding alcohol and making sure that he has adequate followup with his primary care provider and cardiology upon discharge in order to optimize his care.
[2019-10-28 12:00] VITALS: BP 109/70
--- NOTE | 2019-10-28 12:44 | IPNPDOC ---
Subjective Date Seen The patient was seen on 10/28/19. Subjective Chief Complaint/HPI No issues overnight. Feeling comfortable. no fever or chills, denies any; SOB. No abdominal pain nausea or vomiting. Says has not had a bowel movement for 3 days. Objective Physical Examination General Exam: Positive: Alert, Cooperative, No Acute Distress Eye Exam: Positive: PERRLA, Conjunctiva & lids normal, EOMI, Sclera icteric ENT Exam: Positive: Atraumatic, Mucous membr. moist/pink, Pharynx Normal Neck Exam: Positive: Supple; Negative: JVD, thyromegaly Chest Exam: Positive: Diminished, Other (fine crackles at bothe the bases); Negative: Rhonchi, Wheezing Heart Exam: Positive: Rate Normal, Irregular Rhythm, Normal S1, Normal S2; Negative: Tachycardic, Bradycardic, Regular Rhythm, Gallops, Murmurs, Rubs Abdomen Exam: Positive: Normal bowel sounds, Soft; Negative: Tenderness Extremity Exam: Negative: Clubbing, Cyanosis, Edema Skin Exam: Positive: Nl turgor and temperature; Negative: Rash, Breakdown Neuro Exam: Positive: Normal Speech, Strength at 5/5 X4 ext, Normal Tone, Other (No flap) Psych Exam: Positive: Mental status NL, Memory Intact, Oriented x 3 Assessment /Plan Assessment Acute Liver failure multifactorial Due to ischemia, alcohol, congestive hepatopathy though no definite sever hypotensive episodes documented to explain shock liver. however may have been hypotensive at home. now resolving. Acute respiratory failure with Hypoxia due to RSV infection and acute CHF and underlying undiagnosed slep apnea. now resolving only on oxygen by nasal canula. Acute on chronic Diastolic CHF with severe pulmonary hypertension and right heart failure acute on chronic has LV septal asymmetric hypertrophy and small posterior pericardial effusion. Hypertrophic cardiomyopathy. continue torsemide and aldactone. As per Dr Mckeon continue metoprolol, diltiazem with hold parameters. GABINO this is probably due to aggressive diuresis now improving. Afib with pacemaker in place ( 2 leaded as 1 lead inthe RV is broken) rate is controlled with metoprolol and diltiazem will restart eliquis as INR is now less than 2 Probable BOBBY continue table top with 26/[address] Banda for sleep study as outpatient. Hypokalemia and hypophosphatemia continue replacements will monitor for refeeding syndrome. History of possible seizure 6 years ago continue keppra. Alcohol use disorder continue CIWA, thiamine and folate. counselled about quitting. GI prophylaxis in place Bowel regimen started. DVT prophylaxis : patient auto anticoagulated at present will start eliquis. Plan/VTE VTE Prophylaxis Ordered?: Yes VS, I&O, 24H, Fishbone Vital Signs/I&O Vital Signs Date Time Temp Pulse Resp B/P (MAP) Pulse Ox O2 Delivery O2 Flow Rate FiO2 10/28/19 12:00 97.3 70 16 109/70 (83) 96 Nasal Cannula 2.0 10/27/19 05:00 30 I&O- Last 24 Hours up to 6 AM 10/28/19 06:00 Intake Total 1170 ml Output Total 2145 ml Balance -975 ml Laboratory Data 24H LABS Laboratory Tests 2 10/27/19 17:55: Anion Gap 9, Glomerular Filtration Rate 36.9L, Calcium Level 9.9, Total Bilirubin 1.8H, Aspartate Amino Transf (AST/SGOT) 1569H, Alanine Aminotransferase (ALT/SGPT) 2190H, Alkaline Phosphatase 166H, Total Protein 7.8, Albumin 3.8, Albumin/Globulin Ratio 0.95L 10/27/19 18:18: Bedside Glucose (Misc Panel) 123H 10/27/19 23:28: Bedside Glucose (Misc Panel) 101 10/28/19 05:29: Bedside Glucose (Misc Panel) 75L 10/28/19 05:32: Monocytes # (Auto) , Nucleated Red Blood Cells % (auto) 0.9H, Neutrophils 76H, Lymphocytes (Manual) 9L, Monocytes (Manual) 12H, Atypical Lymphocytes 3, Macrocytosis 1+, Smudge Cells 1+, Platelet Estimate NORMAL, Prothrombin Time 18.3H, Prothromb Time International Ratio 1.55, Anion Gap 9, Glomerular Fi ltration Rate 43.7L, Calcium Level 10.0, Phosphorus Level 3.3#, Magnesium Level 2.1, Total Bilirubin 2.3H, Aspartate Amino Transf (AST/SGOT) 1275H, Alanine Aminotransferase (ALT/SGPT) 1958H, Alkaline Phosphatase 159H, Lactate Dehydrogenase 546H, Total Protein 7.7, Albumin 3.9, Albumin/Globulin Ratio 1.03 10/28/19 11:48: Bedside Glucose (Misc Panel) 126H CBC/BMP Laboratory Tests 10/27/19 17:55 10/28/19 05:32 Microbiology Microbiology 10/25/19 Blood Culture - Preliminary, Resulted No Growth after 48 hours. All Specime... 10/25/19 Respiratory Virus Panel (PCR) (MICHELLE) - Final, Complete Respiratory Syncytial Virus 10/25/19 Blood Culture - Preliminary, Resulted No Growth after 72 hours. All specime... YULINAA WILKERSON MD Oct 28, 2019 12:44
[2019-10-28 16:00] VITALS: BP 111/69
[2019-10-28] MEDS: PANTOPRAZOLE 40MG INJ (PROTONIX) (C9113) IV SCH (16:20)
[2019-10-28 20:00] VITALS: BP 110/70
[2019-10-28] MEDS: BISACODYL 5 MG TAB PO SCH (20:14)
[2019-10-29] VITALS: BP 118/78
[2019-10-29 04:00] VITALS: BP 124/86
[2019-10-29 05:49] LABS: HEMATOCRIT 50.9 % (42.0-52.0); MEAN CORPUSCULAR HEMOGLOBIN 32.6 pg (27.0-33.0); MEAN CORPUSCULAR HGB CONC 31.4 g/dl (32.0-36.5); MEAN CORPUSCULAR VOLUME 103.7 fl (80.0-96.0); PLATELET COUNT, AUTOMATED 172 10^3/uL (150-450); RED BLOOD COUNT 4.91 10^6/uL (4.30-6.10); WHITE BLOOD COUNT 11.4 10^3/uL (4.0-10.0)
[2019-10-29 05:59] LABS: INR 1.8; PROTHROMBIN TIME 20.6 SECONDS (11.8-14.0)
[2019-10-29 06:08] LABS: ATYPICAL LYMPH 1 % (0-5); EOSINOPHILS 2 % (0-3); LYMPHOCYTES 12 % (16-44); MONOCYTES 11 % (0-5); NEUTROPHILS 74 % (28-66); PLATELET ESTIMATE NORMAL (NORMAL)
[2019-10-29 06:24] LABS: ALBUMIN 3.5 GM/DL (3.2-5.2); BILIRUBIN,TOTAL 1.9 MG/DL (0.2-1.0); CALCIUM LEVEL 9.7 MG/DL (8.8-10.2); CREATININE FOR GFR 1.69 MG/DL (0.70-1.30); MAGNESIUM LEVEL 2.1 MG/DL (1.8-2.4); PHOSPHORUS LEVEL 3.8 MG/DL (2.5-4.9); POTASSIUM SERUM 4.6 MEQ/L (3.5-5.1); TOTAL PROTEIN 7.9 GM/DL (6.4-8.2)
--- NOTE | 2019-10-29 07:39 | ECGEPIP ---
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
[2019-10-29 08:00] VITALS: BP 101/67
--- NOTE | 2019-10-29 08:09 | REP ---
Chest x-ray: Two views. History: Follow up CHF. Comparison chest x-ray: October 25, 2019. Findings: The lungs are symmetrically aerated and clear. Pleural angles are sharp. Pulmonary vasculature is not increased. Moderate cardiomegaly is observed. A multi lead pacemaker is seen in place. Monitoring electrodes are noted. Impression: Moderate cardiac enlargement. A multi lead pacemaker. Otherwise no acute disease. Electronically Signed by Boby Young MD 10/29/2019 08:01 A
[2019-10-29] MEDS: SENOKOT S TAB PO SCH ×2 (09:00→20:44)
--- NOTE | 2019-10-29 09:04 | IPNPDOC ---
Subjective Date Seen The patient was seen on 10/29/19. Subjective Chief Complaint/HPI feels comfortable. No events overnight. Still on oxygen 2 L , Has started working with PT. Denies any SOB though says still getting easily winded when worked with PT yesterday. Objective Physical Examination General Exam: Positive: Alert, Cooperative, No Acute Distress Eye Exam: Positive: PERRLA, Conjunctiva & lids normal, EOMI, Sclera icteric ENT Exam: Positive: Atraumatic, Mucous membr. moist/pink, Pharynx Normal Neck Exam: Positive: Supple; Negative: JVD, thyromegaly Chest Exam: Positive: Diminished, Other (fine crackles at bothe the bases); Negative: Rhonchi, Wheezing Heart Exam: Positive: Rate Normal, Irregular Rhythm, Normal S1, Normal S2; Negative: Tachycardic, Bradycardic, Regular Rhythm, Gallops, Murmurs, Rubs Abdomen Exam: Positive: Normal bowel sounds, Soft; Negative: Tenderness Extremity Exam: Negative: Clubbing, Cyanosis, Edema Skin Exam: Positive: Nl turgor and temperature; Negative: Rash, Breakdown Neuro Exam: Positive: Normal Speech, Strength at 5/5 X4 ext, Normal Tone, Other (No flap) Psych Exam: Positive: Mental status NL, Memory Intact, Oriented x 3 Assessment /Plan Assessment Acute Liver failure multifactorial Due to ischemia, alcohol, congestive hepatopathy though no definite sever hypotensive episodes documented to explain shock liver. however may have been hypotensive at home. now resolving. Acute respiratory failure with Hypoxia due to RSV infection and acute CHF and underlying undiagnosed sleep apnea. now resolving only on oxygen by nasal canula. Acute on chronic Diastolic CHF with severe pulmonary hypertension and right heart failure acute on chronic has LV septal asymmetric hypertrophy and small posterior pericardial effusion. Hypertrophic cardiomyopathy. continue torsemide and aldactone. As per Dr Mckeon continue metoprolol, diltiazem with hold parameters. GABINO this is probably due to aggressive diuresis now improving. Afib with pacemaker in place ( 2 leaded as 1 lead inthe RV is broken) rate is controlled with metoprolol and diltiazem on eliquis Probable BOBBY continue table top with 26/[address] Banda for sleep study as outpatient. Hypokalemia and hypophosphatemia replaced History of possible seizure 6 years ago continue rosa. Alcohol use disorder continue CIWA, thiamine and folate. counselled about quitting. GI prophylaxis in place Bowel regimen started. Plan/VTE VTE Prophylaxis Ordered?: Yes VS, I&O, 24H, Fishbone Vital Signs/I&O Vital Signs Date Time Temp Pulse Resp B/P (MAP) Pulse Ox O2 Delivery O2 Flow Rate FiO2 10/29/19 04:00 96.7 62 18 124/86 (99) 93 Nasal Cannula 2.0 10/27/19 05:00 30 I&O- Last 24 Hours up to 6 AM 10/29/19 06:00 Intake Total 1650 ml Output Total 800 ml Balance 850 ml Laboratory Data 24H LABS Laboratory Tests 2 10/28/19 11:48: Bedside Glucose (Misc Panel) 126H 10/28/19 23:51: Bedside Glucose (Misc Panel) 95 10/29/19 05:25: Nucleated Red Blood Cells % (auto) 0.3H, Neutrophils 74H, Lymphocytes (Manual) 12L, Monocytes (Manual) 11H, Eosinophils (Manual) 2, Atypical Lymphocytes 1, Red Blood Cell Morphology NORMAL, Platelet Estimate NORMAL, Prothrombin Time 20.6H, Prothromb Time International Ratio 1.80, Anion Gap 7L, Glomerular Filtration Rate 44.0L, Calcium Level 9.7, Phosphorus Level 3.8, Magnesium Level 2.1, Total Bilirubin 1.9H, Aspartate Amino Transf (AST/SGOT) 754H, Alanine Aminotransferase (ALT/SGPT) 1485H, Alkaline Phosphatase 152H, Lactate Dehydrogenase 460H, Total Protein 7.9, Albumin 3.5, Albumin/Globulin Ratio 0.80L CBC/BMP Laboratory Tests 10/29/19 05:25 Microbiology Microbiology 10/25/19 Blood Culture - Preliminary, Resulted No Growth after 72 hours. All specime... 10/25/19 Respiratory Virus Panel (PCR) (MICHELLE) - Final, Complete Respiratory Syncytial Virus 10/25/19 Blood Culture - Preliminary, Resulted No Growth after 72 hours. All specime... YULIANA WILKERSON MD Oct 29, 2019 09:04
[2019-10-29] MEDS: MULTIVITAMINS/MINERALS THERAP 1 TAB PO SCH (09:08)
[2019-10-29] MEDS: APIXABAN 5 MG TAB (ELIQUIS) PO SCH ×2 (09:08→20:44)
[2019-10-29] MEDS: VERAPAMIL 180MG EXTENDED RELEASE TABLET PO SCH (09:08)
[2019-10-29] MEDS: levETIRAcetam 250MG TABLET (KEPPRA) PO SCH ×2 (09:08→20:44)
[2019-10-29] MEDS: FOLIC ACID 1 MG TAB PO SCH (09:08)
[2019-10-29] MEDS: METOPROLOL TARTRATE 100 MG TAB PO SCH ×2 (09:08→20:49)
[2019-10-29 12:00] VITALS: BP 100/66
[2019-10-29 16:00] VITALS: BP 103/64
[2019-10-29] MEDS: PANTOPRAZOLE 40MG INJ (PROTONIX) (C9113) IV SCH (16:12)
--- NOTE | 2019-10-29 18:52 | IPN ---
DATE: 10/29/2019 CARDIOLOGY PROGRESS NOTE SUBJECTIVE: The patient continues to show gradual improvement today with physical therapy. He was able to ambulate with a walker in his room. Chiefly limited by fatigue. Continues to have a dry cough but denies shortness of breath, dizziness or chest pain. OBJECTIVE: Pleasant, overweight, late middle-aged male lay comfortably with the head of the bed elevated 30 degrees. Heart rate 60 beats per minute (bpm) and regular, blood pressure 103/64, oxygen saturation 91% on room air, respiratory rate 18. Weight today was stable at 85.5 kg, down 5 kg from his admission. Intake and output (I and O) balance yesterday was slightly negative and today is essentially even. No pallor or cyanosis. Normal oral moisture. Trachea midline. Neck veins currently 4 cm above the sternal angle. Increased anteroposterior chest diameter with good air entry over both lung bradshaw and presently no abnormal pulmonary adventitious sounds. Has no sacral or lower leg edema. 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 No atrial fibrillation off his disopyramide (discontinued because of his liver failure). Continues to tolerate his verapamil (low dose) and metoprolol. LABORATORY DATA: Hemoglobin stable at 16. White blood cell count has dropped down to 11,400. Normal platelet count. His PT/INR today was 20.6/1.8. His Eliquis was resumed yesterday. Potassium is 4.6 and bicarbonate was 34. Other electrolytes were well within normal limits. BUN up to 61 from 58 yesterday, but his creatinine is stable at 1.69. Fasting glucose was 90, magnesium level was 2.1. Normal serum calcium, albumin 3.5. Bilirubin is down to 1.9. SGOT was 7764 10/25/2019, it is now down to 754. SGPT was 3361 now down to 1485. Alkaline phosphatase has remained essentially the same at 154. His LDH is down from 3589 to 460. Chest x-ray: PA and left lateral study performed earlier today shows, of course, his cardiomegaly and implantable cardioverter defibrillator (ICD) with two right ventricular pacing/shocking leads (one of which is defective) and his right atrial pacing lead with pulse generator in the left subclavian region. Pulmonary vasculature appeared to be normal. Has slightly coarsened interstitial markings but really clear lung bradshaw with no pulmonary venous congestion or pleural effusion. EKG: Study performed yesterday morning shows consistent AV sequentially paced rhythm with a leftward axis and left bundle branch block configuration in keeping with RV apical stimulation. Comparing today's study with 10/25/2019, his QRS duration is markedly shorter off his disopyramide. IMPRESSION/PLAN: 1. Heart failure (diastolic/chronic): Believed to be at his functional dry weight at this time. Renal function, I believe, has plateaued and is anticipated to improve temporarily with holding his diuretic therapy. As previously mentioned, should remain on verapamil and metoprolol to improve left ventricular filling and minimize his left ventricular outflow tract obstruction with his dynamic left ventricular (LV) outflow tract problems. 2. Acute hepatic failure: Related to a complicated interplay of multiple factors as previously discussed. I have again emphasized the crucial importance of avoiding alcohol. Does not have evidence of vascular disease to warrant statin therapy, so this should probably not be resumed. I am cautiously optimistic we will continue to see improvement in his hepatic function. 3. Paroxysmal atrial fibrillation: Off his disopyramide but on verapamil and beta becky, has remained free of recurrent atrial tachyarrhythmia. Eliquis has been resumed as of yesterday without bleeding complication. Once his hepatic function has normalized, our plan would be to resume his disopyramide. 4. Abnormal EKG: Consistent AV sequentially paced rhythm. Dramatic improvement in QRS duration off disopyramide, which had likely accumulated with his hepatic dysfunction. Has remained free of chest pain, and as mentioned, previous Troponin I levels were all negative. 5. Hypertrophic obstructive cardiomyopathy: As per assessment #1. Remains on negative chronotropic beta-becky and verapamil to help left ventricular diastolic function, reduce his dynamic left ventricular outflow tract obstruction and mitral insufficiency. As mentioned, further improvement will be seen with evangelical of his disopyramide once his liver function has normalized. Should continue with in-hospital physical therapy and monitoring of his liver function. Dr. Sandhu will assume primary cardiology followup and determine when his diuretic therapy is resumed.
[2019-10-29 20:00] VITALS: BP 116/77
[2019-10-29] MEDS: BISACODYL 5 MG TAB PO SCH (20:44)
[2019-10-30] VITALS: BP 126/85
[2019-10-30 04:00] VITALS: BP 122/88
[2019-10-30 07:18] LABS: BASO % 0.3 % (0.0-1.0); EOS # 0.3 10^3/uL (0.0-0.5); EOS % 2.2 % (0.0-3.0); HEMATOCRIT 49.5 % (42.0-52.0); HEMOGLOBIN 16.1 g/dl (13.5-17.5); LYMPH # 1.5 10^3/uL (1.5-5.0); LYMPH % 12.4 % (24.0-44.0); MEAN CORPUSCULAR HEMOGLOBIN 33.5 pg (27.0-33.0); MEAN CORPUSCULAR HGB CONC 32.5 g/dl (32.0-36.5); MEAN CORPUSCULAR VOLUME 102.9 fl (80.0-96.0); MONO # 1.3 10^3/uL (0.0-0.8); NEUTROPHILS # 8.6 10^3/uL (1.5-8.5); NEUTROPHILS % 72.8 % (36.0-66.0); PLATELET COUNT, AUTOMATED 184 10^3/uL (150-450); RED BLOOD COUNT 4.81 10^6/uL (4.30-6.10); WHITE BLOOD COUNT 11.9 10^3/uL (4.0-10.0)
[2019-10-30 07:59] LABS: ALBUMIN 3.7 GM/DL (3.2-5.2); ALT/SGPT 1111 U/L (12-78); BLOOD UREA NITROGEN 50 MG/DL (7-18); CALCIUM LEVEL 9.6 MG/DL (8.8-10.2); CARBON DIOXIDE LEVEL 30 MEQ/L (21-32); CHLORIDE LEVEL 99 MEQ/L (98-107); CREATININE FOR GFR 1.25 MG/DL (0.70-1.30); GLOMERULAR FILTRATION RATE > 60.0 (>49); GLUCOSE, FASTING 104 MG/DL (70-100); PHOSPHORUS LEVEL 3.2 MG/DL (2.5-4.9); POTASSIUM SERUM 4.1 MEQ/L (3.5-5.1); SODIUM LEVEL 137 MEQ/L (136-145); TOTAL PROTEIN 7.8 GM/DL (6.4-8.2)
[2019-10-30 08:00] VITALS: BP 111/71
[2019-10-30] MEDS: levETIRAcetam 250MG TABLET (KEPPRA) PO SCH ×2 (08:27→20:16)
[2019-10-30] MEDS: FOLIC ACID 1 MG TAB PO SCH (08:27)
[2019-10-30] MEDS: SENOKOT S TAB PO SCH ×2 (08:27→20:18)
[2019-10-30] MEDS: PANTOPRAZOLE 40MG TAB (PROTONIX) PO SCH ×2 (08:27→20:16)
[2019-10-30] MEDS: VERAPAMIL 180MG EXTENDED RELEASE TABLET PO SCH (08:27)
[2019-10-30] MEDS: MULTIVITAMINS/MINERALS THERAP 1 TAB PO SCH (08:28)
[2019-10-30] MEDS: METOPROLOL TARTRATE 100 MG TAB PO SCH ×2 (08:28→20:17)
[2019-10-30] MEDS: APIXABAN 5 MG TAB (ELIQUIS) PO SCH ×2 (08:28→20:17)
[2019-10-30 12:00] VITALS: BP 118/71
[2019-10-30 16:00] VITALS: BP 117/66
[2019-10-30 20:00] VITALS: BP 129/90
[2019-10-30] MEDS: BISACODYL 5 MG TAB PO SCH (20:18)
[2019-10-31] VITALS (7 sets, daily range): BP systolic 104–130; BP diastolic 53–82
[2019-10-31] MEDS: MULTIVITAMINS/MINERALS THERAP 1 TAB PO SCH (09:00)
[2019-10-31] MEDS: FOLIC ACID 1 MG TAB PO SCH (09:00)
[2019-10-31] MEDS: SENOKOT S TAB PO SCH ×2 (09:00→20:48)
[2019-10-31] MEDS: METOPROLOL TARTRATE 100 MG TAB PO SCH ×2 (09:00→20:49)
[2019-10-31] MEDS: APIXABAN 5 MG TAB (ELIQUIS) PO SCH ×2 (09:00→20:48)
[2019-10-31] MEDS: levETIRAcetam 250MG TABLET (KEPPRA) PO SCH ×2 (09:00→20:48)
[2019-10-31] MEDS: VERAPAMIL 180MG EXTENDED RELEASE TABLET PO SCH (09:00)
[2019-10-31] MEDS: PANTOPRAZOLE 40MG TAB (PROTONIX) PO SCH ×2 (09:00→20:48)
[2019-10-31 09:23] LABS: ALT/SGPT 684 U/L (12-78); BILIRUBIN,TOTAL 1.7 MG/DL (0.2-1.0); BLOOD UREA NITROGEN 39 MG/DL (7-18); CARBON DIOXIDE LEVEL 32 MEQ/L (21-32); CHLORIDE LEVEL 104 MEQ/L (98-107); CREATININE FOR GFR 1.27 MG/DL (0.70-1.30); GLOMERULAR FILTRATION RATE > 60.0 (>49); GLUCOSE, FASTING 92 MG/DL (70-100); PHOSPHORUS LEVEL 3.4 MG/DL (2.5-4.9); POTASSIUM SERUM 4.8 MEQ/L (3.5-5.1); SODIUM LEVEL 139 MEQ/L (136-145)
--- NOTE | 2019-10-31 14:58 | IPNPDOC ---
Subjective Date Seen The patient was seen on 10/30/19. Subjective Chief Complaint/HPI No complaints this morning. Had 2 bowel movemtns. one was incontinent. No fever or chills, no chest pain. has SOb still on ambulation but improving. Objective Physical Examination General Exam: Positive: Alert, Cooperative, No Acute Distress Eye Exam: Positive: PERRLA, Conjunctiva & lids normal, EOMI, Sclera icteric ENT Exam: Positive: Atraumatic, Mucous membr. moist/pink, Pharynx Normal Neck Exam: Positive: Supple; Negative: JVD, thyromegaly Chest Exam: Positive: Diminished, Other (fine crackles at bothe the bases); Negative: Rhonchi, Wheezing Heart Exam: Positive: Rate Normal, Irregular Rhythm, Normal S1, Normal S2; Negative: Tachycardic, Bradycardic, Regular Rhythm, Gallops, Murmurs, Rubs Abdomen Exam: Positive: Normal bowel sounds, Soft; Negative: Tenderness Extremity Exam: Negative: Clubbing, Cyanosis, Edema Skin Exam: Positive: Nl turgor and temperature; Negative: Rash, Breakdown Neuro Exam: Positive: Normal Speech, Strength at 5/5 X4 ext, Normal Tone, Other (No flap) Psych Exam: Positive: Mental status NL, Memory Intact, Oriented x 3 Assessment /Plan Assessment Acute Liver failure multifactorial Due to ischemia, alcohol, congestive hepatopathy though no definite sever hypotensive episodes documented to explain shock liver. however may have been hypotensive at home. now resolving. Acute respiratory failure with Hypoxia due to RSV infection and acute CHF and underlying undiagnosed sleep apnea. now resolving only on oxygen by nasal canula. Acute on chronic Diastolic CHF with severe pulmonary hypertension and right heart failure acute on chronic has LV septal asymmetric hypertrophy and small posterior pericardial effusion. Hypertrophic cardiomyopathy. continue torsemide and aldactone. As per Dr Mckeon continue metoprolol, diltiazem with hold parameters. GABINO this is probably due to aggressive diuresis now improving. Afib with pacemaker in place ( 2 leaded as 1 lead inthe RV is broken) rate is controlled with metoprolol and diltiazem on eliquis Probable BOBBY continue table top with 26/[address] Banda for sleep study as outpatient. Hypokalemia and hypophosphatemia replaced History of possible seizure 6 years ago continue keppra. Alcohol use disorder continue CIWA, thiamine and folate. counselled about quitting. GI prophylaxis in place Bowel regimen started. Plan/VTE VTE Prophylaxis Ordered?: Yes VS, I&O, 24H, Fishbone Vital Signs/I&O Vital Signs Date Time Temp Pulse Resp B/P (MAP) Pulse Ox O2 Delivery O2 Flow Rate FiO2 10/30/19 12:00 96.4 60 18 118/71 (87) 93 Room Air 10/29/19 16:00 0.0 10/27/19 05:00 30 I&O- Last 24 Hours up to 6 AM 10/30/19 06:00 Intake Total 1042 ml Output Total 570 ml Balance 472 ml Laboratory Data 24H LABS Laboratory Tests 2 10/30/19 07:03: Immature Granulocyte % (Auto) 1.3, Neutrophils (%) (Auto) 72.8H, Lymphocytes (%) (Auto) 12.4L, Monocytes (%) (Auto) 11.0H, Eosinophils (%) (Auto) 2.2, Basophils (%) (Auto) 0.3, Neutrophils # (Auto) 8.6H, Lymphocytes # (Auto) 1.5, Monocytes # (Auto) 1.3H, Eosinophils # (Auto) 0.3, Basophils # (Auto) 0.0, Nucleated Red Blood Cells % (auto) 0.0, Anion Gap 8, Glomerular Filtration Rate > 60.0, Calcium Level 9.6, Phosphorus Level 3.2, Total Bilirubin 2.0H, Aspartate Amino Transf (AST/SGOT) 396H, Alanine Aminotransferase (ALT/SGPT) 1111H, Alkaline Phosphatase 160H, Total Protein 7.8, Albumin 3.7, Albumin/Globulin Ratio 0.90L CBC/BMP Laboratory Tests 10/30/19 07:03 Microbiology Microbiology 10/25/19 Blood Culture - Preliminary, Resulted No Growth after 72 hours. All specime... 10/25/19 Respiratory Virus Panel (PCR) (MICHELLE) - Final, Complete Respiratory Syncytial Virus 10/25/19 Blood Culture - Final, Complete NO GROWTH AFTER 5 DAYS YULIANA WILKERSON MD Oct 30, 2019 13:13
--- NOTE | 2019-10-31 15:00 | IPNPDOC ---
Subjective Date Seen The patient was seen on 10/31/19. Subjective Chief Complaint/HPI feels good , No complaints other than weakness. Says walking around in the room , not short of breath. No fever orchills, had good bowel movements yesterday. Good appetite. Objective Physical Examination General Exam: Positive: Alert, Cooperative, No Acute Distress Eye Exam: Positive: PERRLA, Conjunctiva & lids normal, EOMI, Sclera icteric ENT Exam: Positive: Atraumatic, Mucous membr. moist/pink, Pharynx Normal Neck Exam: Positive: Supple; Negative: JVD, thyromegaly Chest Exam: Positive: Diminished, Other (fine crackles at bothe the bases); Negative: Rhonchi, Wheezing Heart Exam: Positive: Rate Normal, Irregular Rhythm, Normal S1, Normal S2; Negative: Tachycardic, Bradycardic, Regular Rhythm, Gallops, Murmurs, Rubs Abdomen Exam: Positive: Normal bowel sounds, Soft; Negative: Tenderness Extremity Exam: Negative: Clubbing, Cyanosis, Edema Skin Exam: Positive: Nl turgor and temperature; Negative: Rash, Breakdown Neuro Exam: Positive: Normal Speech, Strength at 5/5 X4 ext, Normal Tone, Other (No flap) Psych Exam: Positive: Mental status NL, Memory Intact, Oriented x 3 Assessment /Plan Assessment Acute Liver failure multifactorial Due to ischemia, alcohol, congestive hepatopathy though no definite sever hypotensive episodes documented to explain shock liver. however may have been hypotensive at home. now resolving. Acute respiratory failure with Hypoxia due to RSV infection and acute CHF and underlying undiagnosed sleep apnea. now resolving only on oxygen by nasal canula. Acute on chronic Diastolic CHF with severe pulmonary hypertension and right heart failure acute on chronic has LV septal asymmetric hypertrophy and small posterior pericardial effusion. Hypertrophic cardiomyopathy. continue torsemide and aldactone. As per Dr Mckeon continue metoprolol, diltiazem with hold parameters. GABINO this is probably due to aggressive diuresis now improving. Afib with pacemaker in place ( 2 leaded as 1 lead inthe RV is broken) rate is controlled with metoprolol and diltiazem on eliquis Probable BOBBY continue table top with 26/[address] Banda for sleep study as outpatient. Hypokalemia and hypophosphatemia replaced History of possible seizure 6 years ago continue rosa. Alcohol use disorder continue CIWA, thiamine and folate. counselled about quitting. GI prophylaxis in place Bowel regimen started. Plan/VTE VTE Prophylaxis Ordered?: Yes VS, I&O, 24H, Fishbone Vital Signs/I&O Vital Signs Date Time Temp Pulse Resp B/P (MAP) Pulse Ox O2 Delivery O2 Flow Rate FiO2 10/31/19 12:00 96.2 60 16 110/71 (84) 94 Room Air 10/29/19 16:00 0.0 10/27/19 05:00 30 I&O- Last 24 Hours up to 6 AM 10/31/19 06:00 Intake Total 940 ml Output Total 450 ml Balance 490 ml Laboratory Data 24H LABS Laboratory Tests 2 10/31/19 08:38: Anion Gap 3L, Glomerular Filtration Rate > 60.0, Calcium Level 9.0, Phosphorus Level 3.4, Total Bilirubin 1.7H, Aspartate Amino Transf (AST/SGOT) 192H, Alanine Aminotransferase (ALT/SGPT) 684H, Alkaline Phosphatase 138H, Total Protein 7.0, Albumin 3.0L, Albumin/Globulin Ratio 0.75L CBC/BMP Laboratory Tests 10/31/19 08:38 Microbiology Microbiology 10/25/19 Blood Culture - Final, Complete NO GROWTH AFTER 5 DAYS 10/25/19 Respiratory Virus Panel (PCR) (MICHELLE) - Final, Complete Respiratory Syncytial Virus 10/25/19 Blood Culture - Final, Complete NO GROWTH AFTER 5 DAYS YULIANA WILKERSON MD Oct 31, 2019 15:00
[2019-10-31] MEDS: BISACODYL 5 MG TAB PO SCH (20:48)
[2019-10-31] MEDS: BENZONATATE 100 MG CAP PO SCH (21:49)
[2019-11-01 04:00] VITALS: BP 113/77
[2019-11-01 07:38] VITALS: BP 110/74
[2019-11-01] MEDS: PANTOPRAZOLE 40MG TAB (PROTONIX) PO SCH (09:20)
[2019-11-01] MEDS: VERAPAMIL 180MG EXTENDED RELEASE TABLET PO SCH (09:20)
[2019-11-01] MEDS: levETIRAcetam 250MG TABLET (KEPPRA) PO SCH (09:20)
[2019-11-01 09:21] VITALS: BP 110/74
[2019-11-01] MEDS: MULTIVITAMINS/MINERALS THERAP 1 TAB PO SCH (09:21)
[2019-11-01] MEDS: METOPROLOL TARTRATE 100 MG TAB PO SCH (09:21)
[2019-11-01] MEDS: SENOKOT S TAB PO SCH (09:21)
[2019-11-01] MEDS: BENZONATATE 100 MG CAP PO SCH (09:21)
[2019-11-01] MEDS: APIXABAN 5 MG TAB (ELIQUIS) PO SCH (09:21)
[2019-11-01] MEDS: FOLIC ACID 1 MG TAB PO SCH (09:21)
[2019-11-01 10:17] LABS: ALT/SGPT 474 U/L (12-78); BILIRUBIN,TOTAL 1.9 MG/DL (0.2-1.0); BLOOD UREA NITROGEN 35 MG/DL (7-18); CALCIUM LEVEL 8.9 MG/DL (8.8-10.2); CARBON DIOXIDE LEVEL 27 MEQ/L (21-32); CHLORIDE LEVEL 107 MEQ/L (98-107); CREATININE FOR GFR 0.97 MG/DL (0.70-1.30); GLOMERULAR FILTRATION RATE > 60.0 (>49); GLUCOSE, FASTING 139 MG/DL (70-100); PHOSPHORUS LEVEL 3.5 MG/DL (2.5-4.9); POTASSIUM SERUM 4.1 MEQ/L (3.5-5.1); SODIUM LEVEL 141 MEQ/L (136-145); TOTAL PROTEIN 6.7 GM/DL (6.4-8.2)
[2019-11-01 12:00] VITALS: BP 136/88
[2019-11-01] MEDS ORDERED: BENZ-18 PO (14:52)
[2019-11-01] MEDS ORDERED: PANT40TA3 PO (14:52)
[2019-11-01] MEDS ORDERED: VITMTA PO (14:52)
[2019-11-01] MEDS ORDERED: FOLI1TAB11 PO (14:52)
--- NOTE | 2019-11-05 05:57 | DS.PDOC ---
Discharge Summary General Date of Admission Oct 25, 2019 at 13:51 Date of Discharge 11/01/19 Discharge Summary PROCEDURES PERFORMED DURING STAY: [None]. DISCHARGE DIAGNOSES: Acute hypoxic respiratory failure due to CHF exacerbaton and RSV infection Acute on chronic diastolic CHF severe pulmonary hypertension with right heart failure Viral respiratory tract infection with RSV Acute liver failure Ischemic hepatitis Congestive hepatopathy Alcoholic hepatitis Alcohol use disorder GABINO Probable BOBBY will need sleep study Hypokalemia, hypophosphatemia SECONDARY DISCHARGE DIAGNOSES: Hypertrophic obstructive cardiomyopathy (cardiac catheterization December 2008) Abnormal EKG, Chronic atrial fibrillation, Diastolic heart failure Dual chamber AICD from 2008August 2014, his right ventricular lead was replaced because of right lead fracture. History of seizure COMPLICATIONS/CHIEF COMPLAINT: Liver Failure. HISTORY OF PRESENT ILLNESS: See History and physical HOSPITAL COURSE: This is a 64-year-old male with a history of atrial fibrillation, hypertrophic cardiomyopathy, diastolic congestive heart failure (CHF), alcohol abuse who presented to the emergency room after 3 days of worsening shortness of breath. Per the family, he reported to urgent care first 3 days prior to admission and was given a "shot of unknown medication." He returned to his house and did not feel any better. He was so short of breath to the point that he was crawling around his house and unable to get around. He is coughing clear sputum, and he generally "does not feel well." He was also dizzy and lightheaded. He was found to have Acute hypoxic respiratory failure, Acute liver failure,Metabolic acidemia with lactic acidosis and inappropriate respiratory compensation, Diastolic congestive heart failure, Acute kidney injury. He was severely volume overloaded. he was admitted to the ICU and was initially managed with BIPAP, diuretics. His Hepatits panel was negative, HIV negative however his respiratory panel was positive for RSV. It was felt that hs acute respiratory failure was due to RSV infection and acute diastolic CHF. His acute liver failure was thought to be due to ischemic hepatitis, alcohol and congestive hepatopathy. Acute Liver failure multifactorial Due to ischemia, alcohol, congestive hepatopathy though no definite severe hypotensive episodes documented to explain shock liver. however may have been hypotensive at home. now resolving. Acute respiratory failure with Hypoxia due to RSV infection and acute CHF and underlying undiagnosed sleep apnea. now resolving only on oxygen by nasal canula. Acute on chronic Diastolic CHF with severe pulmonary hypertension and right heart failure acute on chronic has LV septal asymmetric hypertrophy and small posterior pericardial effusion. Hypertrophic cardiomyopathy. Diuretics stopped by cardiology and to remain off diuretics now will reassess as outpatient As per Dr Mckeon continue metoprolol, diltiazem GABINO this is probably due to aggressive diuresis now improving. Afib with AICD in place ( 2 leaded as 1 lead in the RV is broken) rate is controlled with metoprolol and diltiazem on eliquis Probable BOBBY continue table top with 26/[address] Banda for sleep study as outpatient. Hypokalemia and hypophosphatemia replaced History of possible seizure 6 years ago continue rosa. Alcohol use disorder folate and multivitain counselled about quitting. Macrocytosis due to chronic alcohol use DISCHARGE MEDICATIONS: Please see below. ALLERGIES: Please see below. PHYSICAL EXAMINATION ON DISCHARGE: VITAL SIGNS: Please see below. General Exam: Positive: Alert, Cooperative, No Acute Distress Eye Exam: Positive: PERRLA, Conjunctiva & lids normal, EOMI, Sclera icteric ENT Exam: Positive: Atraumatic, Mucous membr. moist/pink, Pharynx Normal Neck Exam: Positive: Supple; Negative: JVD, thyromegaly Chest Exam: Positive: Diminished, Other (fine crackles at both the bases); Negative: Rhonchi, Wheezing Heart Exam: Positive: Rate Normal, Irregular Rhythm, Normal S1, Normal S2; Negative: Gallops, Murmurs, Rubs Abdomen Exam: Positive: Normal bowel sounds, Soft; Negative: Tenderness Extremity Exam: Negative: Clubbing, Cyanosis, Edema Skin Exam: Positive: Nl turgor and temperature; Negative: Rash, Breakdown Neuro Exam: Positive: Normal Speech, Strength at 5/5 X4 ext, Normal Tone Psych Exam: Positive: Mental status NL, Memory Intact, Oriented x 3 LABORATORY DATA: Please see below. ECHO: Echocardiogram May 2019 showed severe concentric left ventricular hypertrophy with normal wall motion, left ventricular ejection fraction (LVEF) of 60% but severe left ventricular diastolic dysfunction with restrictive filling pattern and severely dilated left atrium. Right heart chambers with moderately severe pulmonary hypertension and dilated inferior vena cava consistent with an elevated central venous pressure. His aortic root was mildly dilated with very mild aortic insufficiency. He had moderate mitral annular calcification with very mild mitral insufficiency. ACTIVITY: [As tolerated]. DIET: 2 gram sodium with 1500 cc fluid restriction. DISPOSITION: 01 Home, Self-Care. DISCHARGE INSTRUCTIONS: Follow up Cardiology in 1 week Follow up PMD in [address] Banda for sleep study DISCHARGE CONDITION: [Stable]. TIME SPENT ON DISCHARGE: 45 minutes. Vital Signs/I&Os Vital Signs Date Time Temp Pulse Resp B/P (MAP) Pulse Ox O2 Delivery O2 Flow Rate FiO2 11/01/19 12:00 96.9 61 18 136/88 (104) 97 Room Air 10/29/19 16:00 0.0 10/27/19 05:00 30 I&O- Last 24 Hours up to 6 AM 11/01/19 06:00 Intake Total 1100 ml Output Total 160 ml Balance 940 ml Laboratory Data Labs 24H Laboratory Tests 2 11/01/19 09:05: Anion Gap 7L, Glomerular Filtration Rate > 60.0, Calcium Level 8.9, Phosphorus Level 3.5, Total Bilirubin 1.9H, Aspartate Amino Transf (AST/SGOT) 102H, Alanine Aminotransferase (ALT/SGPT) 474H, Alkaline Phosphatase 126H, Total Protein 6.7, Albumin 3.0L, Albumin/Globulin Ratio 0.81L CBC/BMP Laboratory Tests 11/01/19 09:05 Microbiology Microbiology 10/25/19 Blood Culture - Final, Complete NO GROWTH AFTER 5 DAYS 10/25/19 Respiratory Virus Panel (PCR) (MICHELLE) - Final, Complete Respiratory Syncytial Virus 10/25/19 Blood Culture - Final, Complete NO GROWTH AFTER 5 DAYS Discharge Medications Scheduled Apixaban (Eliquis) 5 Mg Tab, 5 MG PO BID, (Reported) Ergocalciferol (Vitamin D2) (Drisdol) 1,250 Mcg Capsule, 50,000 UNIT PO QWEEK, (Reported) FRIDAYS Folic Acid (Folic Acid) 1 Mg Tablet, 1 MG PO DAILY Metoprolol Tartrate (Lopressor) 100 Mg Tab, 100 MG PO BID, (Reported) Multivitamins (Thera M Plus Tablet) 1 Each Tablet, 1 TAB PO DAILY Pantoprazole Sodium (Pantoprazole Sodium) 40 Mg Tablet.dr, 40 MG PO DAILY Verapamil HCl (Verapamil Sr) 180 Mg Cap24h.pel, 180 MG PO DAILY, (Reported) levETIRAcetam (levETIRAcetam) 1,000 Mg Tablet, 1,000 MG PO BID, (Reported) Scheduled PRN Benzonatate (Benzonatate) 100 Mg Capsule, 100 MG PO BIDP PRN for COUGH Guaifenesin/Dextromethorphan (Robitussin Cough-Chest Dm Liq) 237 Ml Liquid, 10 ML PO Q8H PRN for COUGH, (Reported) Melatonin (Melatonin) 3 Mg Tablet, 3 MG PO QHS PRN for SLEEP, (Reported) Allergies Coded Allergies: Sulfa (Sulfonamide Antibiotics) (Verified Allergy, Unknown, 02/08/19) YULIANA WILKERSON MD Nov 01, 2019 23:34
== END 2019-11-01 16:56 | disposition home or self-care (01) | DRG 432 ==
LOC: M ED 09:50 → M ED INP 13:51 → ENRESERV 13:59 → M ICU 14:35 → M PCU 10-27 20:43
PROVIDERS: ADMIT Internal Medicine Pulmonary Disease; ATTEND Internal Medicine Nephrology
DX: K70.40 Alcoholic hepatic failure without coma (principal); J96.01 Acute respiratory failure with hypoxia; I50.33 Acute on chronic diastolic (congestive) heart failure; N17.9 Acute kidney failure, unspecified; I42.1 Obstructive hypertrophic cardiomyopathy; M62.82 Rhabdomyolysis; E87.2 Acidosis; I48.0 Paroxysmal atrial fibrillation; I11.0 Hypertensive heart disease with heart failure; F10.10 Alcohol abuse, uncomplicated; E83.39 Other disorders of phosphorus metabolism; I27.20 Pulmonary hypertension, unspecified; G47.33 Obstructive sleep apnea (adult) (pediatric); K76.1 Chronic passive congestion of liver; B97.4 Respiratory syncytial virus as the cause of diseases classified elsewhere; I50.813 Acute on chronic right heart failure; J06.9 Acute upper respiratory infection, unspecified; E87.6 Hypokalemia; K70.10 Alcoholic hepatitis without ascites; F41.0 Panic disorder [episodic paroxysmal anxiety]; G47.00 Insomnia, unspecified; F32.9 Major depressive disorder, single episode, unspecified; G40.909 Epilepsy, unspecified, not intractable, without status epilepticus; E29.1 Testicular hypofunction; Z95.810 Presence of automatic (implantable) cardiac defibrillator; Z87.891 Personal history of nicotine dependence; Z79.82 Long term (current) use of aspirin; Z79.899 Other long term (current) drug therapy; Z88.2 Allergy status to sulfonamides

== ENCOUNTER → 2019-11-05 | Outpatient (REF) | payer OTHER ==
[~2019-11-05] MED LIST changes: +BENZ-18 PO; +DRIS50003 PO; +FOLI1TAB11 PO; +PANT40TA3 PO; +ROBI1LIQ9 PO; +VITMTA PO
[2019-11-05 15:58] LABS: BASO # 0.1 10^3/uL (0.0-0.2); BASO % 0.7 % (0.0-1.0); EOS # 0.1 10^3/uL (0.0-0.5); EOS % 1.4 % (0.0-3.0); HEMATOCRIT 48.1 % (42.0-52.0); HEMOGLOBIN 14.8 g/dl (13.5-17.5); LYMPH # 0.9 10^3/uL (1.5-5.0); LYMPH % 10.7 % (24.0-44.0); MEAN CORPUSCULAR HEMOGLOBIN 32.7 pg (27.0-33.0); MEAN CORPUSCULAR HGB CONC 30.8 g/dl (32.0-36.5); MEAN CORPUSCULAR VOLUME 106.2 fl (80.0-96.0); MONO % 12.5 % (0.0-5.0); NEUTROPHILS % 74.2 % (36.0-66.0); PLATELET COUNT, AUTOMATED 230 10^3/uL (150-450); RED BLOOD COUNT 4.53 10^6/uL (4.30-6.10); WHITE BLOOD COUNT 8.1 10^3/uL (4.0-10.0)
[2019-11-05 16:05] LABS: ALBUMIN 3.3 GM/DL (3.2-5.2); ALT/SGPT 196 U/L (12-78); BILIRUBIN,TOTAL 1.8 MG/DL (0.2-1.0); BLOOD UREA NITROGEN 27 MG/DL (7-18); CALCIUM LEVEL 9.9 MG/DL (8.8-10.2); CARBON DIOXIDE LEVEL 29 MEQ/L (21-32); CHLORIDE LEVEL 105 MEQ/L (98-107); CREATININE FOR GFR 1.18 MG/DL (0.70-1.30); GLOMERULAR FILTRATION RATE > 60.0 (>49); GLUCOSE, FASTING 103 MG/DL (70-100); POTASSIUM SERUM 4.4 MEQ/L (3.5-5.1); SODIUM LEVEL 139 MEQ/L (136-145); TOTAL PROTEIN 7.7 GM/DL (6.4-8.2)
[2019-11-05 16:15] LABS: INR 1.78; PROTHROMBIN TIME 20.5 SECONDS (11.8-14.0)
[2019-11-05 16:16] LABS: PARTIAL THROMBOPLASTIN TIME 38.7 SECONDS (25.0-38.4)
== END ==
LOC: M LABDRAW1 11:22
PROVIDERS: ATTEND Nurse Practitioner Family
DX: K70.40 Alcoholic hepatic failure without coma (principal)

== ENCOUNTER → 2019-12-06 | Outpatient (REF) | payer OTHER ==
[2019-12-06 14:45] LABS: ALBUMIN 3.5 GM/DL (3.2-5.2); BILIRUBIN,TOTAL 0.7 MG/DL (0.2-1.0); CALCIUM LEVEL 9.9 MG/DL (8.8-10.2); CREATININE FOR GFR 1.32 MG/DL (0.70-1.30); GLOMERULAR FILTRATION RATE 58.5 (>49); MAGNESIUM LEVEL 1.9 MG/DL (1.8-2.4); POTASSIUM SERUM 4.6 MEQ/L (3.5-5.1); TOTAL PROTEIN 7.4 GM/DL (6.4-8.2)
== END ==
LOC: M LABDRAW1 13:10
PROVIDERS: ATTEND Physician Assistant
DX: I42.1 Obstructive hypertrophic cardiomyopathy (principal)

== ENCOUNTER 2020-01-07 08:42 | Observation (INO) | payer OTHER ==
[~2020-01-07] VITALS: Ht 170.2 cm; Wt 89.1 kg
[~2020-01-07 08:42] MED LIST changes: -MELA3TAB41 PO; +MELA3TAB62 PO
[2020-01-07] MEDS ORDERED: VERA240C3 PO (08:50)
[2020-01-07] MEDS ORDERED: VITAMIN D 50,000 UNITS CAPSULE (ERGOCALCIFEROL 1.25MG) PO SCH (09:00)
[2020-01-07] MEDS ORDERED: FUROSEMIDE 40 MG/4 ML VIAL (J1940) IV ONE (09:30)
[2020-01-07 09:49] LABS: BASO # 0.1 10^3/uL (0.0-0.2); BASO % 0.9 % (0.0-1.0); EOS # 0.2 10^3/uL (0.0-0.5); EOS % 2.5 % (0.0-3.0); HEMATOCRIT 40.8 % (42.0-52.0); HEMOGLOBIN 13.2 g/dl (13.5-17.5); LYMPH # 0.9 10^3/uL (1.5-5.0); LYMPH % 10.8 % (24.0-44.0); MEAN CORPUSCULAR HEMOGLOBIN 32.8 pg (27.0-33.0); MEAN CORPUSCULAR HGB CONC 32.4 g/dl (32.0-36.5); MEAN CORPUSCULAR VOLUME 101.5 fl (80.0-96.0); MONO % 12.6 % (0.0-5.0); NEUTROPHILS # 5.7 10^3/uL (1.5-8.5); NEUTROPHILS % 72.6 % (36.0-66.0); PLATELET COUNT, AUTOMATED 163 10^3/uL (150-450); RED BLOOD COUNT 4.02 10^6/uL (4.30-6.10); WHITE BLOOD COUNT 7.9 10^3/uL (4.0-10.0)
--- NOTE | 2020-01-07 10:02 | REP ---
CHEST, SINGLE VIEW: Single view of the chest is performed and compared to a prior study of 10/29/2019 as well as multiple other prior exams. There is stable cardiomegaly. Mediastinal silhouette is unchanged. Vascular congestion and diffuse interstitial edema/fibrosis is stable. No focal infiltrate is seen. Left pacemaker is again noted. IMPRESSION: Cardiomegaly and chronic interstitial edema/fibrosis. No acute infiltrate. Electronically Signed by Figueroa Taylor MD 01/07/2020 10:53 A
[2020-01-07 10:08] LABS: BLOOD UREA NITROGEN 29 MG/DL (7-18); CALCIUM LEVEL 9.2 MG/DL (8.8-10.2); CARBON DIOXIDE LEVEL 26 MEQ/L (21-32); CHLORIDE LEVEL 111 MEQ/L (98-107); CK-MB VALUE MASS < 1.0 NG/ML (<3.6); CPK CREATINE PHOSPHOKINASE 52 U/L (39-308); CREATININE FOR GFR 1.13 MG/DL (0.70-1.30); GLOMERULAR FILTRATION RATE > 60.0 (>49); GLUCOSE, FASTING 115 MG/DL (70-100); MB/CK RELATIVE INDEX 1.92 (< OR =4); NT-PRO BNP 3251 PG/ML (<125); POTASSIUM SERUM 4.5 MEQ/L (3.5-5.1); SODIUM LEVEL 142 MEQ/L (136-145); TROPONIN I 0.02 NG/ML (< 0.10)
[2020-01-07] MEDS ORDERED: THERTAB52 PO (10:40)
[2020-01-07] MEDS ORDERED: CLOM50CA3 PO (10:42)
[2020-01-07] MEDS ORDERED: ZOLP10TA2 PO (10:42)
[2020-01-07 12:39] LABS: ALBUMIN 3.6 GM/DL (3.2-5.2); ALT/SGPT 20 U/L (12-78); BILIRUBIN,DIRECT 0.4 MG/DL (0.0-0.2); BILIRUBIN,TOTAL 1.4 MG/DL (0.2-1.0); TOTAL PROTEIN 7.3 GM/DL (6.4-8.2)
[2020-01-07 12:56] VITALS: BP 127/86
--- NOTE | 2020-01-07 16:35 | HPEPDOC ---
[facility] Medical History & Physical Date of Admission Jan 07, 2020 Date of Service: Jan 07, 2020 Primary Care Physician: Aury White MD Attending Physician: GRZEGORZ LUBIN DO History and Physical CHIEF COMPLAINT: shortness of breath and lower extremity swelling HISTORY OF PRESENT ILLNESS: Jason Shankar is a 64 YO M with history of atrial fibrillation, hypertrophic cardiomyopathy, dCHF (EF60%, 10/2019) presents with intermittent shortness of breath and states his has noticed lower extremity swelling. He himself has not noticed any swelling. He denies any difficulty laying flat and sleeping. He states that he has been taking all of his medications as prescribed and has been strictly adhering to his fluid and salt restriction as prescribed by his Coal Cager, Dr. Mckeon. He denies any recent weight gain. He also reports that his shortness of breath is not constant and he only notices it when he exerts himself. He denies any recent fevers, chills, nausea, vomiting or diarrhea. PAST MEDICAL HISTORY: 1. Atrial fibrillation, status post AICD. 2. Hypertension. 3. Hypertrophic cardiomyopathy per EMR. 4. History of diastolic congestive heart failure (CHF). He sees Dr. Mckeon in the office and his last stress test showed that he has moderate pulmonary hypertension. 5. History of aortic insufficiency. 6. Anxiety/panic attacks. 7. Insomnia. 8. History of depression. 9. History of seizure disorder. 10. Low testosterone. PAST SURGICAL HISTORY: 1. AICD placement. SOCIAL HISTORY: He is a never smoker. He drinks five drinks of 10 to 12 ounces of liquor weekly. He does not do any other drugs. He does not take any herbal supplements or over the counter pain medications. FAMILY HISTORY: Noncontributory ALLERGIES: Please see below. REVIEW OF SYSTEMS: CONSTITUTIONAL: Feels well. No fever or chills HEENT: denies vision changes, no sinus problems, denies any trouble swallowing CARDIOVASCULAR: no palpitations RESPIRATORY: Denies any shortness of breath GENITOURINARY: No dysuria MUSCULOSKELETAL: Denies any joint/muscle pain GASTROINTESTINAL: Denies abdominal pain, no nausea/vomiting/diarrhea SKIN: No new rashes or lesions NEUROLOGICAL: No loss of sensation PSYCHIATRIC: Reports normal mood, no delusions or hallucinations ENDOCRINE: No hot/cold intolerance HEMATOLOGIC/LYMPHATIC: No easy bruising, no lumps/bumps ALLERGIC/IMMUNOLOGIC: No sinus symptoms HOME MEDICATIONS: Please see below. PHYSICAL EXAMINATION: VITAL SIGNS: Please see below. GENERAL APPEARANCE: Laying in bed, appears stated age, no acute distress, calm, cooperative HEENT: EOMI, PERRLA, neck is supple with no thyromegaly or lymphadenopathy RESPIRATORY: faint crackles are appreciated in bases bilaterally with no other adventitious breath sounds appreciated CARDIOVASCULAR: no JVD, RRR,no murmurs/rubs/gallops ABDOMEN: Soft, nontender to palpation in all four quadrants, no masses/organomegaly EXTREMITIES: no clubbing, cyanosis or edema noted NEUROLOGICAL: No obvious focal deficits PSYCHIATRIC: normal mood/affect Skin: No rashes or ulcers. LN: No significant cervical or inguinal lymphadenopathy LABORATORY DATA: See below. IMAGING: CXR: Single view of the chest is performed and compared to a prior study of 10/29/2019 as well as multiple other prior exams. There is stable cardiomegaly. Mediastinal silhouette is unchanged. Vascular congestion and diffuse interstitial edema/fibrosis is stable. No focal infiltrate is seen. Left pacemaker is again noted. IMPRESSION: Cardiomegaly and chronic interstitial edema/fibrosis. No acute infiltrate. MICROBIOLOGY: Please see below. ASSESSMENT: Jason Shankar is a 64-year old M with history of AF and dCHF who presents with shortness of breath and subjective lower extremity swelling concerning for congestive heart failure exacerbation. He is currently requiring 2L oxygen. . PLAN: 1. decompensated congestive heart failure exacerbation, diastolic dysfunction, LVEF 60%: patient is not diuretic at home to my knowledge. Will touch base with his Coal Cager (Mike) to procure full medication list -Last echo 10/2019 -IV Lasix 40mg daily -1500cc fluid restriction. 2g sodium diet -CXR demonstrates chronic interstitial edema, no overt fluid overload -Daily weights, Strict I/O -Current oxygen requirement 2L. Will likely improve with diruesis 2. Atrial fibrillation -Continue home Xarelto, Verapamil, Metoprolol 3. Mood disorder: -Continue home Clomipramine DISPO: Pending improvement Vital Signs Vital Signs Date Time Temp Pulse Resp B/P (MAP) Pulse Ox O2 Delivery O2 Flow Rate FiO2 01/07/20 12:56 97.2 124 18 127/86 (100) 93 Nasal Cannula 2.0 Laboratory Data Labs 24H Laboratory Tests 2 01/07/20 09:36: Immature Granulocyte % (Auto) 0.6, Neutrophils (%) (Auto) 72.6H, Lymphocytes (%) (Auto) 10.8L, Monocytes (%) (Auto) 12.6H, Eosinophils (%) (Auto) 2.5, Basophils (%) (Auto) 0.9, Neutrophils # (Auto) 5.7, Lymphocytes # (Auto) 0.9L, Monocytes # (Auto) 1.0H, Eosinophils # (Auto) 0.2, Basophils # (Auto) 0.1, Nucleated Red Blood Cells % (auto) 0.4H, Anion Gap 5L, Glomerular Filtration Rate > 60.0, Calcium Level 9.2, Total Bilirubin 1.4H, Direct Bilirubin 0.4H, Aspartate Amino Transf (AST/SGOT) 18, Alanine Aminotransferase (ALT/SGPT) 20, Alkaline Phosphatase 100, Total Creatine Kinase 52, Creatine Kinase MB < 1.0, Creatine Kinase MB Relative Index 1.92, Troponin I 0.02, AG-Ajg-L-Type Natriuretic Peptide 3251H, Total Protein 7.3, Albumin 3.6, Albumin/Globulin Ratio 0.97L, Thyroid Stimulating Hormone (TSH) 3.510 CBC/BMP Laboratory Tests 01/07/20 09:36 Home Medications Scheduled Apixaban (Eliquis) 5 Mg Tab, 5 MG PO BID Clomipramine HCl (Clomipramine HCl) 50 Mg Capsule, 50 MG PO QHS Ergocalciferol (Vitamin D2) (Drisdol) 1,250 Mcg Capsule, 50,000 UNIT PO QWEEK FRIDAYS Metoprolol Tartrate (Lopressor) 100 Mg Tab, 100 MG PO BID Multivitamin,Therapeutic (Thera-Tabs) 1 Each Tablet, 1 TAB PO DAILY Verapamil HCl (Verapamil Sr) 240 Mg Cap24h.pel, 240 MG PO DAILY levETIRAcetam (levETIRAcetam) 1,000 Mg Tablet, 1,000 MG PO BID Scheduled PRN Melatonin (Melatonin) 3 Mg Tablet, 3 MG PO QHS PRN for SLEEP Zolpidem Tartrate (Zolpidem Tartrate) 10 Mg Tablet, 10 MG PO QHS PRN for SLEEP Allergies Coded Allergies: Sulfa (Sulfonamide Antibiotics) (Verified Allergy, Unknown, 01/07/20) A-FIB/CHADSVASC A-FIB History Current/History of A-Fib/PAF?: Yes Current PO Anticoag Therapy: Yes GME ATTESTATION GME ATTESTATION My faculty preceptor for this patient encounter was physically present during the encounter and was fully available. All aspects of the patient interview, examination, medical decision making process, and medical care plan development were reviewed and approved by the faculty preceptor. The faculty preceptor is aware and concurs with the plan as stated in the body of this note and will attest to such by his/her cosignature. MELITA LOZANO MD Jan 07, 2020 16:35
[2020-01-07 22:00] VITALS: BP 123/71
[2020-01-07] MEDS: zolPIDEM TARTRATE 5 MG TAB PO PRN (22:01)
[2020-01-07] MEDS: APIXABAN 5 MG TAB (ELIQUIS) PO SCH (22:02)
[2020-01-07] MEDS: levETIRAcetam 250MG TABLET (KEPPRA) PO SCH (22:02)
[2020-01-07] MEDS: METOPROLOL TARTRATE 100 MG TAB PO SCH (22:03)
[2020-01-08 05:55] LABS: HEMOGLOBIN 14.1 g/dl (13.5-17.5); MEAN CORPUSCULAR HEMOGLOBIN 32.9 pg (27.0-33.0); MEAN CORPUSCULAR HGB CONC 32.8 g/dl (32.0-36.5); MEAN CORPUSCULAR VOLUME 100.2 fl (80.0-96.0); PLATELET COUNT, AUTOMATED 168 10^3/uL (150-450); RED BLOOD COUNT 4.29 10^6/uL (4.30-6.10); WHITE BLOOD COUNT 7.4 10^3/uL (4.0-10.0)
[2020-01-08 06:00] VITALS: BP 117/83
[2020-01-08 06:21] LABS: ALBUMIN 3.2 GM/DL (3.2-5.2); ALT/SGPT 17 U/L (12-78); BILIRUBIN,TOTAL 1.3 MG/DL (0.2-1.0); BLOOD UREA NITROGEN 27 MG/DL (7-18); CALCIUM LEVEL 8.9 MG/DL (8.8-10.2); CARBON DIOXIDE LEVEL 25 MEQ/L (21-32); CHLORIDE LEVEL 111 MEQ/L (98-107); CREATININE FOR GFR 1.19 MG/DL (0.70-1.30); GLOMERULAR FILTRATION RATE > 60.0 (>49); GLUCOSE, FASTING 106 MG/DL (70-100); POTASSIUM SERUM 3.8 MEQ/L (3.5-5.1); SODIUM LEVEL 143 MEQ/L (136-145); TOTAL PROTEIN 7.2 GM/DL (6.4-8.2)
--- NOTE | 2020-01-08 08:42 | ECGEPIP ---
[facility] - ED Test Date: 2020-01-07 Pat Name: GODWIN RIVERA Department: Room: - Gender: Male Telephone Coin Box Collector: leeroyjose armando : 1955 Requested By: Carloz Knight Order Number: [id number] Reading MD: Asiya Matthews Measurements Intervals [place] Rate: 87 P: [place]: 0 QRS: -3 QRSD: 110 T: 189 QT: 388 QTc: 468 Interpretive Statements ATRIAL FIBRILLATION ST DEVIATION AND MODERATE T-WAVE ABNORMALITY, CONSIDER LATERAL ISCHEMIA PRIOR VENTRICULAR PACED 10/28/19 Electronically Signed on 01-08-2020 8:41:43 EDT by Asiya Matthews
[2020-01-08] MEDS ORDERED: FUROSEMIDE 40 MG/4 ML VIAL (J1940) IV SCH (09:00)
[2020-01-08] MEDS: levETIRAcetam 250MG TABLET (KEPPRA) PO SCH ×2 (09:02→20:38)
[2020-01-08] MEDS: VERAPAMIL 120 MG SR TAB PO SCH (09:04)
[2020-01-08] MEDS: METOPROLOL TARTRATE 100 MG TAB PO SCH ×2 (09:04→20:38)
[2020-01-08] MEDS: APIXABAN 5 MG TAB (ELIQUIS) PO SCH ×2 (09:04→20:38)
[2020-01-08] MEDS: FUROSEMIDE 40 MG/4 ML VIAL (J1940) IV SCH (12:32)
[2020-01-08 14:00] VITALS: BP 111/75
[2020-01-08 15:12] VITALS: O2SAT 91
--- NOTE | 2020-01-08 15:23 | IPNPDOC ---
Date Seen The patient was seen on 01/08/20. Progress Note SUBJECTIVE: Patient seen and examined at the bedside this morning. No issues reported overnight. He has so far diuresed about 1600ccs but is still net positive for this admission. He is still requiring 2L O2. He worked with PT today and was declared safe for discharge. He denies any nausea/vomiting/diarrhea/constipation OBJECTIVE PHYSICAL EXAMINATION: VITAL SIGNS: Please see below. GENERAL APPEARANCE: Laying in bed, appears stated age, no acute distress, calm, cooperative HEENT: EOMI, PERRLA, neck is supple with no thyromegaly or lymphadenopathy RESPIRATORY: faint crackles are appreciated in bases bilaterally with no other adventitious breath sounds appreciated CARDIOVASCULAR: no JVD, RRR,no murmurs/rubs/gallops ABDOMEN: Soft, nontender to palpation in all four quadrants, no masses/ organomegaly EXTREMITIES: no clubbing, cyanosis or edema noted NEUROLOGICAL: No obvious focal deficits PSYCHIATRIC: normal mood/affect Skin: No rashes or ulcers. LN: No significant cervical or inguinal lymphadenopathy LABORATORY DATA: See below. IMAGING: CXR: Single view of the chest is performed and compared to a prior study of 10/29/2019 as well as multiple other prior exams. There is stable cardiomegaly. Mediastinal silhouette is unchanged. Vascular congestion and diffuse interstitial edema/fibrosis is stable. No focal infiltrate is seen. Left pacemaker is again noted. IMPRESSION: Cardiomegaly and chronic interstitial edema/fibrosis. No acute infiltrate. MICROBIOLOGY: Please see below. ASSESSMENT: Jason Shankar is a 64-year old M with history of AF and dCHF who presents with shortness of breath and subjective lower extremity swelling concerning for congestive heart failure exacerbation. He is currently requiring 2L oxygen. . PLAN: 1. decompensated congestive heart failure exacerbation, diastolic dysfunction, LVEF 60%: patient is not diuretic at home to my knowledge. -Last echo 10/2019 -IV Lasix increased to 40mg twice daily -1500cc fluid restriction. 2g sodium diet -CXR demonstrates chronic interstitial edema, no overt fluid overload -Daily weights, Strict I/O -Current oxygen requirement 2L. Will likely improve with diruesis 2. Atrial fibrillation -Continue home Xarelto, Verapamil, Metoprolol 3. Mood disorder: -Continue home Clomipramine DISPO: Pending improvement in shortness of breath. Patient is still requiring 2L O2 supplementation. Possible discharge within 48 h VS, I&O, 24H, Fishbone Vital Signs/I&O Vital Signs Date Time Temp Pulse Resp B/P (MAP) Pulse Ox O2 Delivery O2 Flow Rate FiO2 01/08/20 14:00 97.6 84 19 111/75 (87) 95 Nasal Cannula 2.0 I&O- Last 24 Hours up to 6 AM 01/08/20 06:00 Intake Total 850 ml Output Total 1400 ml Balance -550 ml Laboratory Data 24H LABS Laboratory Tests 2 01/08/20 05:33: Nucleated Red Blood Cells % (auto) 0.0, Anion Gap 7L, Glomerular Filtration Rate > 60.0, Calcium Level 8.9, Magnesium Level 2.0, Total Bilirubin 1.3H, Aspartate Amino Transf (AST/SGOT) 21, Alanine Aminotransferase (ALT/SGPT) 17, Alkaline Phosphatase 98, Total Protein 7.2, Albumin 3.2, Albumin/Globulin Ratio 0.80L CBC/BMP Laboratory Tests 01/08/20 05:33 GME ATTESTATION GME ATTESTATION My faculty preceptor for this patient encounter was physically present during the encounter and was fully available. All aspects of the patient interview, examination, medical decision making process, and medical care plan development were reviewed and approved by the faculty preceptor. The faculty preceptor is aware and concurs with the plan as stated in the body of this note and will attest to such by his/her cosignature. MELITA LOZANO MD Jan 08, 2020 15:23
[2020-01-08 15:55] VITALS: O2SAT 97
[2020-01-08] MEDS: zolPIDEM TARTRATE 5 MG TAB PO PRN (20:38)
[2020-01-08 22:00] VITALS: BP 112/75
[2020-01-09] MEDS: FUROSEMIDE 40 MG/4 ML VIAL (J1940) IV SCH (00:14)
[2020-01-09 06:00] VITALS: BP 107/66
[2020-01-09 06:17] LABS: HEMATOCRIT 43.2 % (42.0-52.0); HEMOGLOBIN 14.2 g/dl (13.5-17.5); MEAN CORPUSCULAR HEMOGLOBIN 32.7 pg (27.0-33.0); MEAN CORPUSCULAR HGB CONC 32.9 g/dl (32.0-36.5); MEAN CORPUSCULAR VOLUME 99.5 fl (80.0-96.0); PLATELET COUNT, AUTOMATED 186 10^3/uL (150-450); RED BLOOD COUNT 4.34 10^6/uL (4.30-6.10); WHITE BLOOD COUNT 7.9 10^3/uL (4.0-10.0)
[2020-01-09 07:01] LABS: ALBUMIN 3.4 GM/DL (3.2-5.2); ALT/SGPT 17 U/L (12-78); BILIRUBIN,TOTAL 1.3 MG/DL (0.2-1.0); BLOOD UREA NITROGEN 31 MG/DL (7-18); CARBON DIOXIDE LEVEL 26 MEQ/L (21-32); CHLORIDE LEVEL 106 MEQ/L (98-107); CREATININE FOR GFR 1.17 MG/DL (0.70-1.30); GLOMERULAR FILTRATION RATE > 60.0 (>49); GLUCOSE, FASTING 96 MG/DL (70-100); MAGNESIUM LEVEL 1.9 MG/DL (1.8-2.4); POTASSIUM SERUM 3.6 MEQ/L (3.5-5.1); SODIUM LEVEL 142 MEQ/L (136-145); TOTAL PROTEIN 7.3 GM/DL (6.4-8.2)
[2020-01-09 09:43] VITALS: BP 105/73
[2020-01-09] MEDS: METOPROLOL TARTRATE 100 MG TAB PO SCH (09:43)
[2020-01-09] MEDS: VERAPAMIL 120 MG SR TAB PO SCH (09:43)
[2020-01-09] MEDS: levETIRAcetam 250MG TABLET (KEPPRA) PO SCH (09:43)
[2020-01-09] MEDS: APIXABAN 5 MG TAB (ELIQUIS) PO SCH (09:44)
[2020-01-09 09:45] VITALS: O2SAT 95
[2020-01-09] MEDS ORDERED: FURO40TA2 PO (09:48)
--- NOTE | 2020-01-09 18:15 | DS.PDOC ---
Discharge Summary General Date of Admission Jan 07, 2020 at 08:43 Date of Discharge 01/09/20 Discharge Summary PROCEDURES PERFORMED DURING STAY: [None]. ADMITTING DIAGNOSES: decompensated congestive heart failure exacerbation, diastolic dysfunction Atrial fibrillation Mood disorder DISCHARGE DIAGNOSES: decompensated congestive heart failure exacerbation, diastolic dysfunction Atrial fibrillation Mood disorder COMPLICATIONS/CHIEF COMPLAINT: Diastolic Chf Acute Or Chronic. HISTORY OF PRESENT ILLNESS: Jason Shankar is a 64 YO M with history of atrial fibrillation, hypertrophic cardiomyopathy, dCHF (EF60%, 10/2019) presents with intermittent shortness of breath and states his has noticed lower extremity swelling. He himself has not noticed any swelling. He denies any difficulty laying flat and sleeping. He states that he has been taking all of his medications as prescribed and has been strictly adhering to his fluid and salt restriction as prescribed by his Lgsw, Dr. Mckeon. He denies any recent weight gain. He also reports that his shortness of breath is not constant and he only notices it when he exerts himself. He denies any recent fevers, chills, nausea, vomiting or diarrhea. HOSPITAL COURSE: During hospital course following issue addressed 1. decompensated congestive heart failure exacerbation, diastolic dysfunction, LVEF 60% -Last echo 10/2019 -IV Lasix increased to 40mg twice daily -1500cc fluid restriction. 2g sodium diet -CXR demonstrates chronic interstitial edema, no overt fluid overload -Daily weights, Strict I/O Patient received aggressive diuresis with positive effect, shortness of breath resolved 2. Atrial fibrillation -Continue home Xarelto, Verapamil, Metoprolol 3. Mood disorder: -Continue home Clomipramine DISCHARGE MEDICATIONS: Please see below. ALLERGIES: Please see below. PHYSICAL EXAMINATION ON DISCHARGE: VITAL SIGNS: Please see below. GENERAL APPEARANCE: Laying in bed, appears stated age, no acute distress, calm, cooperative HEENT: EOMI, PERRLA, neck is supple with no thyromegaly or lymphadenopathy RESPIRATORY: Clear to auscultation CARDIOVASCULAR: no JVD, RRR,no murmurs/rubs/gallops ABDOMEN: Soft, nontender to palpation in all four quadrants, no masses/organomegaly EXTREMITIES: no clubbing, cyanosis or edema noted NEUROLOGICAL: No obvious focal deficits PSYCHIATRIC: normal mood/affect Skin: No rashes or ulcers. LABORATORY DATA: Please see below. PROGNOSIS: fair ACTIVITY: [As tolerated]. DIET: Cardiac DISCHARGE PLAN: Home DISPOSITION: Home, Self-Care. DISCHARGE INSTRUCTIONS: Follow-up with customer support professional and PCP ITEMS TO FOLLOWUP ON ON OUTPATIENT: Salt restriction to 2 g DISCHARGE CONDITION: [Stable]. TIME SPENT ON DISCHARGE: Greater than 20 minutes. Vital Signs/I&Os Vital Signs Date Time Temp Pulse Resp B/P (MAP) Pulse Ox O2 Delivery O2 Flow Rate FiO2 01/09/20 09:45 95 Room Air 01/09/20 09:43 108 105/73 01/09/20 06:00 97.4 19 01/08/20 15:55 0.0 I&O- Last 24 Hours up to 6 AM 01/09/20 05:59 Intake Total 1230 ml Output Total 1700 ml Balance -470 ml Laboratory Data Labs 24H Laboratory Tests 2 01/09/20 05:56: Nucleated Red Blood Cells % (auto) 0.0, Anion Gap 10, Glomerular Filtration Rate > 60.0, Calcium Level 9.0, Magnesium Level 1.9, Total Bilirubin 1.3H, Aspartate Amino Transf (AST/SGOT) 20, Alanine Aminotransferase (ALT/SGPT) 17, Alkaline Phosphatase 96, Total Protein 7.3, Albumin 3.4, Albumin/Globulin Ratio 0.87L CBC/BMP Laboratory Tests 01/09/20 05:56 Discharge Medications Scheduled Apixaban (Eliquis) 5 Mg Tab, 5 MG PO BID, (Reported) Clomipramine HCl (Clomipramine HCl) 50 Mg Capsule, 50 MG PO QHS, (Reported) Ergocalciferol (Vitamin D2) (Drisdol) 1,250 Mcg Capsule, 50,000 UNIT PO QWEEK, (Reported) FRIDAYS Furosemide (Furosemide) 40 Mg Tablet, 40 MG PO DAILY Metoprolol Tartrate (Lopressor) 100 Mg Tab, 100 MG PO BID, (Reported) Multivitamin,Therapeutic (Thera-Tabs) 1 Each Tablet, 1 TAB PO DAILY, (Reported) Verapamil HCl (Verapamil Sr) 240 Mg Cap24h.pel, 240 MG PO DAILY, (Reported) levETIRAcetam (levETIRAcetam) 1,000 Mg Tablet, 1,000 MG PO BID, (Reported) Scheduled PRN Melatonin (Melatonin) 3 Mg Tablet, 3 MG PO QHS PRN for SLEEP, (Reported) Zolpidem Tartrate (Zolpidem Tartrate) 10 Mg Tablet, 10 MG PO QHS PRN for SLEEP, (Reported) Allergies Coded Allergies: Sulfa (Sulfonamide Antibiotics) (Verified Allergy, Unknown, 01/07/20) GRZEGORZ LUBIN DO Jan 09, 2020 18:15
== END 2020-01-09 11:43 | disposition home or self-care (01) ==
LOC: M ED 08:42 → M ED INP 08:43 → ENRESERVDT 12:08 → ENRESERVTM 12:08 → M MSPAV 13:03
PROVIDERS: ADMIT Internal Medicine; ATTEND Internal Medicine
DX: I50.33 Acute on chronic diastolic (congestive) heart failure (principal); I48.91 Unspecified atrial fibrillation; F34.9 Persistent mood [affective] disorder, unspecified; J84.9 Interstitial pulmonary disease, unspecified; I42.2 Other hypertrophic cardiomyopathy; I27.20 Pulmonary hypertension, unspecified; F41.9 Anxiety disorder, unspecified; G47.00 Insomnia, unspecified; F32.9 Major depressive disorder, single episode, unspecified; G40.909 Epilepsy, unspecified, not intractable, without status epilepticus; Z95.810 Presence of automatic (implantable) cardiac defibrillator; Z79.899 Other long term (current) drug therapy; Z79.01 Long term (current) use of anticoagulants; Z88.2 Allergy status to sulfonamides
CPT/HCPCS: 36415; 71045; 80048; 80053; 80076; 82550; 82553; 83735; 83880; 84443; 84484; 85025; 85027; 93005; 93041; 94760; 96374; 96376; 97161; 99285; J1940

== ENCOUNTER → 2020-03-14 | Outpatient (CLI) | payer OTHER ==
[~2020-03-14] MED LIST changes: +FURO40TA2 PO; +THERTAB52 PO; +VERA240C3 PO; +ZOLP10TA2 PO
[2020-03-14 17:10] LABS: HEMATOCRIT 43.1 % (42.0-52.0); HEMOGLOBIN 14.2 g/dl (13.5-17.5); MEAN CORPUSCULAR HEMOGLOBIN 33.3 pg (27.0-33.0); MEAN CORPUSCULAR HGB CONC 32.9 g/dl (32.0-36.5); MEAN CORPUSCULAR VOLUME 100.9 fl (80.0-96.0); PLATELET COUNT, AUTOMATED 178 10^3/uL (150-450); RED BLOOD COUNT 4.27 10^6/uL (4.30-6.10); WHITE BLOOD COUNT 10.7 10^3/uL (4.0-10.0)
[2020-03-14 17:40] LABS: CREATININE FOR GFR 1.68 MG/DL (0.70-1.30); GLOMERULAR FILTRATION RATE 44.3 (>49); POTASSIUM SERUM 3.7 MEQ/L (3.5-5.1)
== END ==
LOC: M WUC 13:56
PROVIDERS: ATTEND Physician Assistant
DX: I50.32 Chronic diastolic (congestive) heart failure (principal); I48.19 Other persistent atrial fibrillation

== ENCOUNTER → 2020-03-20 | Outpatient (CLI) | payer OTHER ==
[2020-03-20 17:42] LABS: CALCIUM LEVEL 9.1 MG/DL (8.8-10.2); CREATININE FOR GFR 1.32 MG/DL (0.70-1.30); GLOMERULAR FILTRATION RATE 58.5 (>49); POTASSIUM SERUM 3.8 MEQ/L (3.5-5.1)
== END ==
LOC: M WUC 13:18
PROVIDERS: ATTEND Physician Assistant
DX: R06.02 Shortness of breath (principal)

== ENCOUNTER → 2020-05-23 | Outpatient (REF) | payer OTHER ==
[~2020-05-23] MED LIST changes: +MELA3TAB30 PO; -MELA3TAB62 PO; +NORC1TAB7 PO; +PANT40TA29 PO; -PANT40TA3 PO
[2020-07-07 18:02] LABS: BLOOD UREA NITROGEN 29 MG/DL (7-18); CALCIUM LEVEL 9.4 MG/DL (8.8-10.2); CARBON DIOXIDE LEVEL 27 MEQ/L (21-32); CHLORIDE LEVEL 105 MEQ/L (98-107); CREATININE FOR GFR 1.28 MG/DL (0.70-1.30); GLOMERULAR FILTRATION RATE > 60.0 (>49); GLUCOSE, FASTING 113 MG/DL (70-100); MAGNESIUM LEVEL 2.1 MG/DL (1.8-2.4); NT-PRO BNP 2799 PG/ML (<125); POTASSIUM SERUM 3.8 MEQ/L (3.5-5.1); SODIUM LEVEL 140 MEQ/L (136-145)
== END ==
LOC: M WUC 16:34
PROVIDERS: ATTEND Physician Assistant
DX: R06.02 Shortness of breath (principal); I48.19 Other persistent atrial fibrillation

== ENCOUNTER → 2020-05-23 | Outpatient (REF) | payer OTHER | LOC: M WUC 16:36 | PROVIDERS: ATTEND Physician Assistant Medical | DX: R56.9 Unspecified convulsions (principal) ==

== ENCOUNTER 2020-07-15 10:50 | Emergency (ER) | payer OTHER ==
[~2020-07-15] VITALS: Ht 167.6 cm; Wt 84.1 kg
[~2020-07-15 10:50] MED LIST changes: -NORC1TAB7 PO
--- NOTE | 2020-07-15 11:56 | REPVR ---
PROCEDURE INFORMATION: Exam: US Duplex Left Lower Extremity Veins, Limited Exam date and time: 07/15/2020 11:31 AM Age: 64 years old Clinical indication: Pain; Leg, lower; Left; Additional info: Pain, swelling, R/O clot TECHNIQUE: Imaging protocol: Real-time Duplex ultrasound of the Left Lower Extremity with 2-D nguyen scale, color Doppler flow and spectral waveform analysis with image documentation. Limited exam focused on the left lower extremity veins. COMPARISON: No relevant prior studies available. FINDINGS: Left deep veins: Unremarkable. The common femoral, femoral, proximal profunda femoral and popliteal veins are patent without thrombus. Normal Doppler waveforms. Normal compressibility and/or augmentation response. Left superficial veins: Unremarkable. Saphenofemoral junction is patent without thrombus. Soft tissues: Unremarkable. IMPRESSION: No deep venous thrombus demonstrated in the left lower extremity. Electronically signed by: Oswaldo Cool On 07/15/2020 11:56:46 AM
[2020-07-15 12:17] LABS: BASO # 0.1 10^3/uL (0.0-0.2); BASO % 0.4 % (0.0-1.0); EOS # 0.1 10^3/uL (0.0-0.5); EOS % 0.5 % (0.0-3.0); HEMATOCRIT 47.9 % (42.0-52.0); HEMOGLOBIN 15.7 g/dl (13.5-17.5); LYMPH # 0.9 10^3/uL (1.5-5.0); LYMPH % 7.8 % (24.0-44.0); MEAN CORPUSCULAR HEMOGLOBIN 31.9 pg (27.0-33.0); MEAN CORPUSCULAR HGB CONC 32.8 g/dl (32.0-36.5); MEAN CORPUSCULAR VOLUME 97.4 fl (80.0-96.0); MONO # 1.6 10^3/uL (0.0-0.8); MONO % 13.5 % (0.0-5.0); NEUTROPHILS # 9.3 10^3/uL (1.5-8.5); NEUTROPHILS % 77.3 % (36.0-66.0); PLATELET COUNT, AUTOMATED 208 10^3/uL (150-450); RED BLOOD COUNT 4.92 10^6/uL (4.30-6.10)
[2020-07-15] MEDS ORDERED: ISOVUE-370 76% 100ML VIAL As Ordered ONE (12:36)
--- NOTE | 2020-07-15 14:11 | REPVR ---
PROCEDURE INFORMATION: Exam: CTA Angiogram of the Abdominal Aorta and Bilateral Lower Extremities (Run-off) With IV Contrast Exam date and time: 07/15/2020 12:42 PM Age: 64 years old Clinical indication: Other: Pain/decreased pulse left foot TECHNIQUE: Imaging protocol: CT angiogram of the abdominal aorta, pelvis and bilateral lower extremities with IV iodinated contrast. 3D rendering (Not supervised by radiologist): MIP and/or 3D reconstructed images were created by the technologist. Radiation optimization: All CT scans at this facility use at least one of these dose optimization techniques: automated exposure control; mA and/or kV adjustment per patient size (includes targeted exams where dose is matched to clinical indication); or iterative reconstruction. Contrast material: ISOVUE 370; Contrast volume: 100 ml; Contrast route: INTRAVENOUS (IV); COMPARISON: CT ABD/PEL W/IV CONTRAST ONLY 10/25/2019 11:24 AM FINDINGS: Tubes, catheters and devices: Incompletely imaged AICD. Aorta: Mild atherosclerotic change of the abdominal aorta. No abdominal aortic aneurysm or dissection. Celiac trunk and mesenteric arteries: Minimal atherosclerotic change of the celiac artery. Mild atherosclerotic change of the SMA. Mild atherosclerotic change of the AURORA. Renal arteries: Mild atherosclerotic change of the right renal artery. Right iliac arteries: Mild atherosclerotic change of the right common and internal iliac arteries. Right femoral/popliteal arteries: Mild atherosclerotic change of the right profundus femoral artery. Mild atherosclerotic change of the mid and distal right SFA. Limited evaluation of the right popliteal artery due to suboptimal contrast timing. Mild atherosclerotic calcification of the right popliteal artery. Right infrapopliteal arteries: Severely limited evaluation of the right calf arteries due to contrast timing. Atherosclerotic calcifications of the right anterior tibial artery, tibioperoneal trunk, posterior tibial artery, and peroneal artery. Left iliac arteries: Minimal atherosclerotic change of the left common iliac artery. Mild atherosclerotic change of the left internal iliac artery. Left femoral/popliteal arteries: Mild atherosclerotic change of the mid and distal left superficial femoral artery. Limited evaluation of the left popliteal artery due to suboptimal contrast timing. Apparent mild atherosclerotic change of the left popliteal artery. Left infrapopliteal arteries: Severely limited evaluation of the left calf arteries due to contrast timing. Mild atherosclerotic calcification of the left anterior tibial artery, tibioperoneal trunk, posterior tibial artery, and peroneal artery. Other arteries: Coronary artery calcifications. Heart: Cardiomegaly. Small pericardial effusion. Liver: 7 mm hypodense lesion in the left hepatic lobe is too small to definitively characterize. This is unchanged, and likely represents a small cyst. Gallbladder and bile ducts: Cholelithiasis. No abnormal gallbladder distention or pericholecystic fluid. Pancreas: Unremarkable. No mass. No ductal dilation. Spleen: Normal. No splenomegaly. Adrenals: Normal. No mass. Kidneys and ureters: Normal. No mass. Stomach and bowel: Rectum is mildly distended with stool. Colonic diverticulosis. No evidence of acute diverticulitis. Appendix: No evidence of appendicitis. Bladder: Unremarkable. No mass. Reproductive: Enlarged prostate gland. Intraperitoneal space: Unremarkable. No free air. No significant fluid collection. Lymph nodes: Upper normal sized periportal lymph nodes, likely reactive in nature. Bones/joints: Degenerative change of the spine. Left acromioclavicular joint DJD. Osteochondral lesion within the right medial talar dome. Enchondroma within the proximal right tibia. Bilateral mild lateral patellar tilt. Soft tissues: Tiny fat containing indirect left inguinal hernia. Mild subcutaneous edema at the dorsal aspect of the left foot. IMPRESSION: 1. Severely limited evaluation of the calf arteries secondary to suboptimal contrast timing. Consider a repeat CTA or further evaluation with duplex arterial ultrasound or conventional angiogram. 2. Cardiomegaly and small pericardial effusion. 3. Enlarged prostate gland. 4. Cholelithiasis. 5. Colonic diverticulosis. 6. Mild subcutaneous edema at the dorsal aspect of the left foot. Electronically signed by: Lorelei Jean On 07/15/2020 14:11:45 PM
[2020-07-15] MEDS ORDERED: NORC1TAB7 PO (15:02)
[2020-07-15 15:11] VITALS: BP 104/68
--- NOTE | 2020-07-15 15:13 | REPVR ---
PROCEDURE INFORMATION: Exam: XR Left Foot Complete Exam date and time: 07/15/2020 2:16 PM Age: 64 years old Clinical indication: Swelling, leg or foot; Additional info: Pain/swelling TECHNIQUE: Imaging protocol: XR Left foot. Views: 3 or more views. COMPARISON: CT ANGIO ABDOMINAL ARTERIES 07/15/2020 12:38 PM FINDINGS: Bones/joints: Small posterior and plantar calcaneal enthesophytes. No acute fracture. No dislocation. Soft tissues: Normal. IMPRESSION: No acute osseous abnormality. Electronically signed by: Lorelei Jean On 07/15/2020 15:12:17 PM
--- NOTE | 2020-07-17 07:15 | ED PDOC ---
Post-Departure Follow-Up dr martinez and dr kelly faxed formal reprot of cta abdominal arteries Iesha Garcia MD Jul 17, 2020 07:15
== END 2020-07-15 15:10 | disposition home or self-care (01) ==
LOC: M ED 10:50
DX: M79.605 Pain in left leg (principal); K80.80 Other cholelithiasis without obstruction; K57.30 Diverticulosis of large intestine without perforation or abscess without bleeding; I11.9 Hypertensive heart disease without heart failure; E78.5 Hyperlipidemia, unspecified; I48.91 Unspecified atrial fibrillation; Z79.01 Long term (current) use of anticoagulants; Z79.899 Other long term (current) drug therapy; Z88.1 Allergy status to other antibiotic agents; Z95.5 Presence of coronary angioplasty implant and graft
CPT/HCPCS: 36415; 73630; 75635; 80047; 85025; 93971; 99284; Q9967

== ENCOUNTER → 2020-07-28 | Outpatient (CLI) | payer OTHER ==
[~2020-07-28] MED LIST changes: +NORC1TAB7 PO
--- NOTE | 2020-07-28 12:13 | REP ---
INDICATION: ATHSCL [place] ART NICANOR LEGS PAIN IN LEGS COMPARISON: None. TECHNIQUE: Real time taylor scale and color Doppler evaluation of the bilateral lower extremity arterial vasculature using linear high frequency transducer. FINDINGS: Taylor scale and color images demonstrate mild to moderate amounts of atheromatous plaquing with predominately calcified vessels noted below the bilateral midthigh level. No focal area of stenosis or occlusion appreciated. Triphasic arterial wave pattern is noted bilaterally. Ankle brachial indices may be overestimated due to significant vascular calcifications. Right CAPRICE equals 1.2; left CAPRICE equals 1.2. Peak systolic velocities (cm/sec) Common femoral artery: Right 74/59; Left 89/64 Profunda femoris: Right 74; Left 74 SFA (proximal): Right 100; Left 80 SFA (mid): Right 95; Left 80 SFA (distal): Right 77; Left 77 Popliteal artery: Right 53/59; Left 61/69 MILY (prox.): Right 74; Left 83 Tibioperoneal trunk: Right 31; Left 46 DIRECTOR OF EXTENSION WORK (prox.): Right 48; Left 54 DIRECTOR OF EXTENSION WORK (distal): Right 64; Left 78 MILY (distal): Right 38; Left 66 IMPRESSION: Atheromatous changes with no obvious focal occlusion or stenosis. <Electronically signed by Johann Guerrero > 07/28/20 1212
== END ==
LOC: M RAD 10:17
PROVIDERS: ATTEND Physician Assistant
DX: I70.203 Unspecified atherosclerosis of native arteries of extremities, bilateral legs (principal); M79.606 Pain in leg, unspecified

== ENCOUNTER → 2020-08-03 | Outpatient (CLI) | payer OTHER | LOC: M WUC 08:17 | PROVIDERS: ATTEND Physician Assistant Medical | DX: R56.9 Unspecified convulsions (principal); Z51.81 Encounter for therapeutic drug level monitoring ==

== ENCOUNTER → 2020-08-29 | Outpatient (CLI) | payer OTHER ==
[2020-08-29 16:47] LABS: RHEUMATOID FACTOR QUANT < 10.0 IU/ML (<15.0)
[2020-08-29 16:58] LABS: FOLATE > 24.0 NG/ML (>5.4); VITAMIN B12 LEVEL 561 PG/ML (247-911)
== END ==
LOC: M WUC 14:45
PROVIDERS: ATTEND Physician Assistant Medical
DX: G62.2 Polyneuropathy due to other toxic agents (principal)

== ENCOUNTER → 2020-09-04 | Outpatient (CLI) | payer OTHER ==
[2020-09-04 17:03] LABS: CALCIUM LEVEL 9.7 MG/DL (8.8-10.2); CREATININE FOR GFR 1.54 MG/DL (0.70-1.30); GLOMERULAR FILTRATION RATE 48.8 (>49); MAGNESIUM LEVEL 2.4 MG/DL (1.8-2.4); POTASSIUM SERUM 4.2 MEQ/L (3.5-5.1)
== END ==
LOC: M WUC 10:41
PROVIDERS: ATTEND Physician Assistant
DX: I50.32 Chronic diastolic (congestive) heart failure (principal); I48.19 Other persistent atrial fibrillation; R06.02 Shortness of breath

== ENCOUNTER 2020-10-21 21:01 | Observation (INO) | payer OTHER ==
[~2020-10-21] VITALS: Ht 170.2 cm; Wt 92.3 kg
--- NOTE | 2020-10-21 21:29 | REPVR ---
PROCEDURE INFORMATION: Exam: CT Cervical Spine Without Contrast Exam date and time: 10/21/2020 9:12 PM Age: 65 years old Clinical indication: Injury or trauma; Fall; Blunt trauma; Additional info: Trauma on eliquis TECHNIQUE: Imaging protocol: Computed tomography images of the cervical spine without contrast. Radiation optimization: All CT scans at this facility use at least one of these dose optimization techniques: automated exposure control; mA and/or kV adjustment per patient size (includes targeted exams where dose is matched to clinical indication); or iterative reconstruction. COMPARISON: No relevant prior studies available. FINDINGS: Vertebrae: No acute fracture. Normal alignment. C2-C3: No significant disc protrusion. No severe spinal canal stenosis. No significant neural foraminal narrowing. C3-C4: Slight anterolisthesis and suspected ankylosis through the apophyseal joints with no spinal or foraminal stenosis. C4-C5: Slight anterolisthesis with minimal degenerative changes of apophyseal joints and the right uncovertebral joint with no spinal or foraminal stenosis. C5-C6: Moderate interspace narrowing with minimal broad-based posterior osteophytes and bilateral degenerative changes. No spinal stenosis. There is borderline bilateral neural foraminal stenosis. C6-C7: Moderate interspace narrowing with mild posterior protrusion and osteophytes and bilateral degenerative change. The spinal canal is of adequate size. There is mild left and borderline right neural foraminal stenosis. C7-T1: Mild interspace narrowing with mild anterolisthesis and minimal posterior central osteophytes. There are degenerative changes of apophyseal joints with no spinal or foraminal stenosis. Soft tissues: Unremarkable. Lungs: Lung apices are normal. IMPRESSION: 1. Multilevel degenerative changes, greatest from C5-C7 with no significant spinal stenosis. There is mild left neural foraminal stenosis at C6-C7. 2. Otherwise negative CT cervical spine. No acute fracture or subluxation. Electronically signed by: Hero Fowler On 10/21/2020 21:30:01 PM
--- NOTE | 2020-10-21 21:31 | REPVR ---
PROCEDURE INFORMATION: Exam: CT Head Without Contrast Exam date and time: 10/21/2020 9:12 PM Age: 65 years old Clinical indication: Injury or trauma; Fall; Blunt trauma (contusions or hematomas); Additional info: Trauma on eliquis TECHNIQUE: Imaging protocol: Computed tomography of the head without contrast. Radiation optimization: All CT scans at this facility use at least one of these dose optimization techniques: automated exposure control; mA and/or kV adjustment per patient size (includes targeted exams where dose is matched to clinical indication); or iterative reconstruction. COMPARISON: CT Head without contrast 06/07/2019 10:13 AM FINDINGS: Brain: There is slight prominence of the peripheral sulci. The nguyen and white matter is within normal limits. Cerebral ventricles: There is slight prominence of the central ventricular system. Bones/joints: Unremarkable. No acute fracture. Paranasal sinuses: Visualized sinuses are unremarkable. No fluid levels. Mastoid air cells: Visualized mastoid air cells are well aerated. Soft tissues: Unremarkable. IMPRESSION: There has been no change since 06/07/2019 with minimal atrophy. No acute interval intracranial process is identified. Electronically signed by: Hero Fowler On 10/21/2020 21:32:03 PM
--- NOTE | 2020-10-21 21:45 | REPVR ---
PROCEDURE INFORMATION: Exam: XR Chest, 1 View Exam date and time: 10/21/2020 9:38 PM Age: 65 years old Clinical indication: Injury or trauma; Other: Fell down stairs; Blunt trauma (contusions or hematomas) TECHNIQUE: Imaging protocol: XR of the chest Views: 1 view. COMPARISON: CR Chest, 1 view 01/07/2020 9:10 AM FINDINGS: Tubes, catheters and devices: A pacemaker from the left is again noted. Lungs: Slight interstitial prominence with slight vascular congestion which is similar to the prior study. There are no interval infiltrates. Pleural space: Unremarkable. No pleural effusion. No pneumothorax. Heart/Mediastinum: Persistent cardiomegaly. Bones/joints: The osseous structures are unchanged. No interval fractures are identified. IMPRESSION: Stable chest since 01/07/2020 with cardiomegaly and borderline congestion which is likely baseline physiology. No acute interval process is identified. Electronically signed by: Hero Fowler On 10/21/2020 21:45:59 PM
[2020-10-21 21:53] LABS: BASO # 0.1 10^3/uL (0.0-0.2); BASO % 0.8 % (0.0-1.0); EOS # 0.2 10^3/uL (0.0-0.5); EOS % 2.5 % (0.0-3.0); HEMATOCRIT 44.5 % (42.0-52.0); HEMOGLOBIN 13.7 g/dl (13.5-17.5); LYMPH # 1.2 10^3/uL (1.5-5.0); LYMPH % 17.6 % (24.0-44.0); MEAN CORPUSCULAR HEMOGLOBIN 30.5 pg (27.0-33.0); MEAN CORPUSCULAR HGB CONC 30.8 g/dl (32.0-36.5); MEAN CORPUSCULAR VOLUME 99.1 fl (80.0-96.0); MONO # 0.8 10^3/uL (0.0-0.8); MONO % 10.9 % (0.0-5.0); NEUTROPHILS # 4.8 10^3/uL (1.5-8.5); NEUTROPHILS % 67.9 % (36.0-66.0); PLATELET COUNT, AUTOMATED 212 10^3/uL (150-450); RED BLOOD COUNT 4.49 10^6/uL (4.30-6.10); WHITE BLOOD COUNT 7.1 10^3/uL (4.0-10.0)
[2020-10-21 22:03] LABS: INR 1.64; PROTHROMBIN TIME 19.7 SECONDS (12.5-14.3)
[2020-10-21 22:04] LABS: PARTIAL THROMBOPLASTIN TIME 33.1 SECONDS (24.2-38.5)
[2020-10-21 22:36] LABS: ALBUMIN 3.7 GM/DL (3.2-5.2); BILIRUBIN,DIRECT 0.2 MG/DL (0.0-0.2); BILIRUBIN,TOTAL 0.7 MG/DL (0.2-1.0); CALCIUM LEVEL 8.9 MG/DL (8.8-10.2); CK-MB VALUE MASS 3.8 NG/ML (<3.6); CREATININE FOR GFR 1.87 MG/DL (0.70-1.30); MB/CK RELATIVE INDEX 4.63 (< OR =4); THYROID STIMULATING HORMONE 10.5 uIU/ML (0.358-3.740); TOTAL PROTEIN 7.6 GM/DL (6.4-8.2); TROPONIN I 0.03 NG/ML (< 0.10)
[2020-10-21] MEDS ORDERED: METO50TA7 PO (23:18)
[2020-10-21] MEDS ORDERED: TRAZ-252 PO (23:18)
[2020-10-21] MEDS ORDERED: TORS20TA2 PO (23:18)
[2020-10-21] MEDS ORDERED: ATOR1TAB21 PO (23:18)
[2020-10-21] MEDS ORDERED: GABA-282 PO (23:18)
[2020-10-21] MEDS ORDERED: FURO40TA2 PO (23:18)
--- NOTE | 2020-10-22 01:41 | HPEPDOC ---
[facility] Medical History & Physical Date of Admission Oct 22, 2020 Date of Service: Oct 22, 2020 History and Physical CHIEF COMPLAINT: fall, LOC HISTORY OF PRESENT ILLNESS: 65 yo M with a hx of seizure disorder, CKD chronic a fib (on AC eliquis, s/p AICD), brought by EMS after a witnessed fall at home, down 10 stairs. Per ER report, patient had urinary incontinence upon falling. He states that he has not had a seizure for several years, and has been compliant with his keppra. Upon exam, patient cannot recall falling or the urinary incontinence. He states that he had no headache, no chest pain, no SOB, no palpitations, no abdominal pain, no fevers, chills or n/v/d. CT of the head and cervical spine showed no acute changes (ie no bleed, no ischemia, no acute fractures) Patient will be admitted for observation to hospitalist service. PAST MEDICAL HISTORY: 1. Atrial fibrillation, status post AICD. 2. Hypertension. 3. Hypertrophic cardiomyopathy per EMR. 4. History of diastolic congestive heart failure (CHF). He sees Dr. Mckeon in the office and his last stress test showed that he has moderate pulmonary hypertension. 5. History of aortic insufficiency. 6. Anxiety/panic attacks. 7. Insomnia. 8. History of depression. 9. History of seizure disorder. 10. Low testosterone. PAST SURGICAL HISTORY: s/p pacemaker SOCIAL HISTORY: Non smoker Non drinker Denies illicits Lives at home with Independent at baseline FAMILY HISTORY: reviewed, no pertinent history ALLERGIES: Please see below. REVIEW OF SYSTEMS: 10 point ROS completed, positives per HPI. HOME MEDICATIONS: Please see below. PHYSICAL EXAMINATION: VITAL SIGNS: please see below GENERAL APPEARANCE: comfortable in bed, alert and oriented. HEENT: PERRLA, EOMI. CARDIOVASCULAR: RRR, normal S1, S2. LUNGS: CTAB, no wheeze, no rales. ABDOMEN: soft non tender, obese, no masses. MUSCULOSKELETAL: normal ROM, no joint deformity. EXTREMITIES: no edema, pulses 2+, no cyanosis. NEUROLOGICAL: no focal neuro deficits, CN2-12 intact. PSYCHIATRIC: AAO x 3, pleasant, cooperative. LABORATORY DATA: See below. IMAGING: CT head wo contrast (10/21/20): Brain: There is slight prominence of the peripheral sulci. The nguyen and white matter is within normal limits. Cerebral ventricles: There is slight prominence of the central ventricular system. Bones/joints: Unremarkable. No acute fracture. Paranasal sinuses: Visualized sinuses are unremarkable. No fluid levels. Mastoid air cells: Visualized mastoid air cells are well aerated. Soft tissues: Unremarkable. IMPRESSION: There has been no change since 06/07/2019 with minimal atrophy. No acute interval intracranial process is identified. CT cervical spine (10/21/20): 1. Multilevel degenerative changes, greatest from C5-C7 with no significant spinal stenosis. There is mild left neural foraminal stenosis at C6-C7. 2. Otherwise negative CT cervical spine. No acute fracture or subluxation. MICROBIOLOGY: Please see below. ASSESSMENT: 65 yo M with a hx of seizure disorder, CKD, afib s/p AICD, AC on eliquis, s/p fall down 10 stairs with no memory of event, and urinary incontinence. Admitted for observation due to seizure vs syncopal episode. . PLAN: #Fall 2/2 seizure vs syncopal episode vs cardiac etiology - suspect seizure more likely given retrograde amnesia, urinary incontinence - will give keppra 1000 mg IV - cardiomegaly seen on CXR - cardiac etiology not excluded - does not report chest pain at time of fall, however requires ACID interrogation in am to ensure no discharges - obtain orthostats - obtain 2D echo - carotid US - check b12, folate, vit D levels #Seizure disorder - keppra level pending - states compliant with meds - will give 1000 mg keppra IV dose - resume home dose in am. #chronic afib - rate controlled, pacemaker - AC with eliquis - no acute bleed seen on CT head - Hgb stable - resume eliquis - home meds #Diastolic CHF - appears euvolemic - resume home meds: verapamil, metoprolol, torsemide, lasix #GABINO on CKD - Cr 1.87, baseline Cr ~1.6 - BUN 44 - gently IVF at 70 cc/hr, DC in am. #Elevated TSH - TSH 10, normal FT4 - likely subclinical hypothyroidism - outpatient follow up DVT ppx: SCDs, TEDs, eliquis. Vital Signs Vital Signs Date Time Temp Pulse Resp B/P (MAP) Pulse Ox O2 Delivery O2 Flow Rate FiO2 10/21/20 21:45 60 18 104/75 (85) 98 Room Air 10/21/20 21:39 96.4 Laboratory Data Labs 24H Laboratory Tests 2 10/21/20 21:46: Immature Granulocyte % (Auto) 0.3, Neutrophils (%) (Auto) 67.9H, Lymphocytes (%) (Auto) 17.6L, Monocytes (%) (Auto) 10.9H, Eosinophils (%) (Auto) 2.5, Basophils (%) (Auto) 0.8, Neutrophils # (Auto) 4.8, Lymphocytes # (Auto) 1.2L, Monocytes # (Auto) 0.8, Eosinophils # (Auto) 0.2, Basophils # (Auto) 0.1, Nucleated Red Blood Cells % (auto) 0.4H, Prothrombin Time 19.7H, Prothromb Time International Ratio 1.64, Activated Partial Thromboplast Time 33.1, Anion Gap 10, Glomerular Filtration Rate 39.0L, Calcium Level 8.9, Total Bilirubin 0.7, Direct Bilirubin 0.2, Aspartate Amino Transf (AST/SGOT) 21, Alanine Aminotransferase (ALT/SGPT) 33, Alkaline Phosphatase 113, Total Creatine Kinase 82, Creatine Kinase MB 3.8H, Creatine Kinase MB Relative Index 4.63H, Troponin I 0.03, Total Protein 7.6, Albumin 3.7, Albumin/Globulin Ratio 0.9, Thyroid Stimulating Hormone (TSH) 10.500H, Free Thyroxine 1.00 10/22/20 01:20: CBC/BMP Laboratory Tests 10/21/20 21:46 Home Medications Scheduled Apixaban (Eliquis) 5 Mg Tab, 5 MG PO BID Atorvastatin Calcium (Atorvastatin Calcium) 20 Mg Tablet, 20 MG PO QHS Clomipramine HCl (Clomipramine HCl) 50 Mg Capsule, 50 MG PO QHS Ergocalciferol (Vitamin D2) (Drisdol) 1,250 Mcg Capsule, 50,000 UNIT PO QWEEK FRIDAYS Furosemide (Furosemide) 40 Mg Tablet, 40 MG PO DAILY Gabapentin (Gabapentin) 300 Mg Capsule, 300 MG PO TID Metoprolol Tartrate (Metoprolol Tartrate) 50 Mg Tablet, 50 MG PO BID Multivitamin,Therapeutic (Thera-Tabs) 1 Each Tablet, 1 TAB PO DAILY Torsemide (Torsemide) 20 Mg Tablet, 20 MG PO DAILY Verapamil HCl (Verapamil Sr) 240 Mg Cap24h.pel, 240 MG PO DAILY levETIRAcetam (levETIRAcetam) 1,000 Mg Tablet, 1,000 MG PO BID Scheduled PRN Melatonin (Melatonin) 3 Mg Tablet, 3 MG PO QHS PRN for SLEEP Trazodone HCl (Trazodone HCl) 50 Mg Tablet, 50 MG PO QHS PRN for SLEEP Zolpidem Tartrate (Zolpidem Tartrate) 10 Mg Tablet, 10 MG PO QHS PRN for SLEEP Allergies Coded Allergies: Sulfa (Sulfonamide Antibiotics) (Verified Allergy, Unknown, 01/07/20) A-FIB/CHADSVASC A-FIB History Current/History of A-Fib/PAF?: Yes Current PO Anticoag Therapy: Yes ABDIAS RANDALL MD Oct 22, 2020 01:41
[2020-10-22] MEDS ORDERED: traZODone 50 MG TAB PO PRN (01:45)
[2020-10-22] MEDS ORDERED: NS 1,000 ML IV SCH (02:00)
[2020-10-22 02:02] LABS: RSV AMPLIFICATION NEGATIVE (NEGATIVE)
[2020-10-22] MEDS ORDERED: levETIRAcetam INJection 1,000 MG in D5W 100 ML IV ONE (06:00)
--- NOTE | 2020-10-22 06:36 | ECGEPIP ---
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
[2020-10-22] MEDS ORDERED: levETIRAcetam INJection 500 MG in D5W MINI-BAG PLUS 100 ML IV ONE (07:00)
[2020-10-22 07:22] LABS: BASO # 0.1 10^3/uL (0.0-0.2); BASO % 0.7 % (0.0-1.0); EOS # 0.1 10^3/uL (0.0-0.5); EOS % 1.4 % (0.0-3.0); HEMATOCRIT 45.8 % (42.0-52.0); HEMOGLOBIN 14.7 g/dl (13.5-17.5); LYMPH # 1.1 10^3/uL (1.5-5.0); LYMPH % 11.5 % (24.0-44.0); MEAN CORPUSCULAR HEMOGLOBIN 31.6 pg (27.0-33.0); MEAN CORPUSCULAR HGB CONC 32.1 g/dl (32.0-36.5); MEAN CORPUSCULAR VOLUME 98.5 fl (80.0-96.0); NEUTROPHILS # 6.8 10^3/uL (1.5-8.5); NEUTROPHILS % 75.1 % (36.0-66.0); PLATELET COUNT, AUTOMATED 206 10^3/uL (150-450); RED BLOOD COUNT 4.65 10^6/uL (4.30-6.10); WHITE BLOOD COUNT 9.1 10^3/uL (4.0-10.0)
[2020-10-22 07:35] LABS: ALBUMIN 3.9 GM/DL (3.2-5.2); BILIRUBIN,TOTAL 1.3 MG/DL (0.2-1.0); CALCIUM LEVEL 9.4 MG/DL (8.8-10.2); CREATININE FOR GFR 1.53 MG/DL (0.70-1.30); GLOMERULAR FILTRATION RATE 49.2 (>49); MAGNESIUM LEVEL 2.1 MG/DL (1.8-2.4); POTASSIUM SERUM 4.2 MEQ/L (3.5-5.1)
[2020-10-22] MEDS ORDERED: FUROSEMIDE 40 MG TAB PO SCH (09:00)
[2020-10-22] MEDS ORDERED: levETIRAcetam 250MG TABLET (KEPPRA) PO SCH (09:00)
[2020-10-22] MEDS: TORSEMIDE 20 MG TAB PO SCH (09:47)
[2020-10-22] MEDS: GABAPENTIN 300 MG CAP PO SCH ×3 (09:47→20:33)
[2020-10-22] MEDS: METOPROLOL TART 50 MG TAB PO SCH ×2 (09:47→20:36)
[2020-10-22] MEDS: APIXABAN 5 MG TAB (ELIQUIS) PO SCH ×2 (09:47→20:33)
[2020-10-22] MEDS: VERAPAMIL 120 MG SR TAB PO SCH (11:39)
[2020-10-22 12:15] VITALS: BP 119/78
[2020-10-22 14:00] VITALS: BP 108/65
[2020-10-22] MEDS: levETIRAcetam 250MG TABLET (KEPPRA) PO SCH (20:34)
[2020-10-22] MEDS: ATORVASTATIN 20 MG TAB PO SCH (20:34)
[2020-10-22] MEDS: zolPIDEM TARTRATE 5 MG TAB PO PRN (21:34)
[2020-10-22 22:00] VITALS: BP 110/71
[2020-10-23 06:00] VITALS: BP 113/70
[2020-10-23 06:25] LABS: BASO % 0.5 % (0.0-1.0); EOS # 0.2 10^3/uL (0.0-0.5); EOS % 2.4 % (0.0-3.0); HEMATOCRIT 42.1 % (42.0-52.0); HEMOGLOBIN 13.3 g/dl (13.5-17.5); LYMPH % 13.3 % (24.0-44.0); MEAN CORPUSCULAR HEMOGLOBIN 31.1 pg (27.0-33.0); MEAN CORPUSCULAR HGB CONC 31.6 g/dl (32.0-36.5); MEAN CORPUSCULAR VOLUME 98.6 fl (80.0-96.0); MONO # 1.1 10^3/uL (0.0-0.8); NEUTROPHILS # 5.3 10^3/uL (1.5-8.5); NEUTROPHILS % 69.3 % (36.0-66.0); PLATELET COUNT, AUTOMATED 196 10^3/uL (150-450); RED BLOOD COUNT 4.27 10^6/uL (4.30-6.10); WHITE BLOOD COUNT 7.6 10^3/uL (4.0-10.0)
[2020-10-23 07:05] LABS: ALBUMIN 3.3 GM/DL (3.2-5.2); BILIRUBIN,TOTAL 0.9 MG/DL (0.2-1.0); CREATININE FOR GFR 1.5 MG/DL (0.70-1.30); GLOMERULAR FILTRATION RATE 50.3 (>49); MAGNESIUM LEVEL 2.1 MG/DL (1.8-2.4); TOTAL PROTEIN 6.7 GM/DL (6.4-8.2)
[2020-10-23] MEDS: METOPROLOL TART 50 MG TAB PO SCH ×2 (10:20→21:06)
[2020-10-23] MEDS: GABAPENTIN 300 MG CAP PO SCH ×3 (10:20→21:04)
[2020-10-23] MEDS: levETIRAcetam 250MG TABLET (KEPPRA) PO SCH ×2 (10:20→21:03)
[2020-10-23] MEDS: TORSEMIDE 20 MG TAB PO SCH (10:20)
[2020-10-23] MEDS: APIXABAN 5 MG TAB (ELIQUIS) PO SCH ×2 (10:21→21:04)
[2020-10-23] MEDS: VERAPAMIL 120 MG SR TAB PO SCH (10:21)
--- NOTE | 2020-10-23 12:14 | IPN ---
PROGRESS NOTE DATE: 10/23/2020 SUBJECTIVE: Jason was admitted with syncope. This was a witnessed event. He says he was going upstairs when his noticed him falling home, he went down ten stairs. She said he became pale. He said she did not witness any seizure activity, but he was incontinent upon arrival of the ambulance crew. He was on Keppra for a past history of seizure disorder. He has an ICD placed or at least a pacemaker followed by [facility]. OBJECTIVE: VITAL SIGNS: Afebrile. Vital signs stable. Blood pressure 113/70. GENERAL APPEARANCE: Alert and conversant, ambulating in the room with no difficulty. HEENT: Unremarkable. LUNGS: Clear. HEART: Regular without murmur. ABDOMEN: Soft without tenderness or mass. EXTREMITIES: Trace peripheral edema. LABORATORY DATA: CBC unremarkable. Electrolytes unremarkable. Creatinine is 1.5, which is near his baseline of around 1.2. IMAGING: Studies on 10/21/2020 were negative. IMPRESSION: Syncope versus seizure. PLAN: His pacemaker is being interrogated today. He said he had an echocardiogram and EEG, but I do not see where it has even been ordered. He seems eager to go home and I am not sure he has actually had these tests done. I have ordered an EEG and echocardiogram. He has morning labs ordered as well. It will probably be safest for him to stay for another day, particularly with his mild acute kidney injury noted; but he may opt to go home later today.
[2020-10-23 15:27] VITALS: BP 132/73
[2020-10-23] MEDS: zolPIDEM TARTRATE 5 MG TAB PO PRN (21:04)
[2020-10-23] MEDS: ATORVASTATIN 20 MG TAB PO SCH (21:04)
[2020-10-23 22:00] VITALS: BP 109/68
[2020-10-24 06:00] VITALS: BP 108/71
[2020-10-24 06:08] LABS: BASO # 0.1 10^3/uL (0.0-0.2); BASO % 0.7 % (0.0-1.0); EOS # 0.1 10^3/uL (0.0-0.5); EOS % 1.7 % (0.0-3.0); HEMATOCRIT 44.7 % (42.0-52.0); HEMOGLOBIN 14.2 g/dl (13.5-17.5); LYMPH # 1.1 10^3/uL (1.5-5.0); MEAN CORPUSCULAR HEMOGLOBIN 31.6 pg (27.0-33.0); MEAN CORPUSCULAR HGB CONC 31.8 g/dl (32.0-36.5); MEAN CORPUSCULAR VOLUME 99.3 fl (80.0-96.0); MONO # 1.2 10^3/uL (0.0-0.8); MONO % 14.1 % (0.0-5.0); NEUTROPHILS # 5.6 10^3/uL (1.5-8.5); NEUTROPHILS % 69.1 % (36.0-66.0); PLATELET COUNT, AUTOMATED 196 10^3/uL (150-450); WHITE BLOOD COUNT 8.1 10^3/uL (4.0-10.0)
[2020-10-24 06:42] LABS: ALBUMIN 3.3 GM/DL (3.2-5.2); CALCIUM LEVEL 9.3 MG/DL (8.8-10.2); CREATININE FOR GFR 1.53 MG/DL (0.70-1.30); GLOMERULAR FILTRATION RATE 49.2 (>49); MAGNESIUM LEVEL 2.3 MG/DL (1.8-2.4); POTASSIUM SERUM 3.8 MEQ/L (3.5-5.1); TOTAL PROTEIN 7.4 GM/DL (6.4-8.2)
[2020-10-24] MEDS: GABAPENTIN 300 MG CAP PO SCH (08:57)
[2020-10-24] MEDS: levETIRAcetam 250MG TABLET (KEPPRA) PO SCH (08:57)
[2020-10-24] MEDS: APIXABAN 5 MG TAB (ELIQUIS) PO SCH (08:57)
[2020-10-24] MEDS: METOPROLOL TART 50 MG TAB PO SCH (08:59)
[2020-10-24 09:00] VITALS: BP 110/71
[2020-10-24] MEDS: TORSEMIDE 20 MG TAB PO SCH (09:00)
[2020-10-24] MEDS: VERAPAMIL 120 MG SR TAB PO SCH (09:00)
[2020-10-24 11:24] VITALS: BP_SYST 106; BP_SYST 130; BP_SYST 132; BP_DIAS 73; BP_DIAS 93; BP_DIAS 95
--- NOTE | 2020-10-24 13:47 | DS.PDOC ---
Discharge Summary General Date of Admission Oct 22, 2020 at 01:57 Date of Discharge 10/24/20 Discharge Summary PROCEDURES PERFORMED DURING STAY: [None]. DISCHARGE DIAGNOSES: Orthostatic Syncope and Fall down stairs Polypharmacy ( on torsemide and lasix) Hypotension medication related.( was on verapamil which was stopped by cardio before) SECONDARY DIAGNOSIS: Seizure Disorder Hypertrophic obstructive cardiomyopathy (cardiac catheterization December 2008) Dual chamber AICD from 2008August 2014, his right ventricular lead was replaced because of right lead fracture. Chronic diastolic CHF Severe pulmonary hypertension with right heart failure H/O Alcohol use disorder Paroxysmal atrial fibrillation, History of aortic insufficiency. Anxiety/panic attacks. Insomnia. Depression. HLD Low testosterone. COMPLICATIONS/CHIEF COMPLAINT: Fall, Syncope. HOSPITAL COURSE: 65 yo M with a hx of seizure disorder, CKD chronic afib (on AC eliquis, s/p AICD), brought by EMS after a witnessed fall at home, down 10 stairs. Per ER report, patient had urinary incontinence upon falling. He states that he has not had a seizure for several years, and has been compliant with his keppra. As per EMS report his SBP was 85 at home. Patient reports that he was lightheaded and probably passed out and fell down. He does not remember the fall down the stairs. As per he had passed out briefly then gained conscio usness without any period of confusion. His who witnessed the fall did not see any seizure like activity. CT of the head and cervical spine showed no acute changes (ie no bleed, no ischemia, no acute fractures). Int he hospital his was noted to have orthostatic hypotension asymptomatic and his SBPs were in 90s to low 100s. His lasix and verapamil was stopped. His AICD did not fire. Telemetry did not show any arrhythmias. He was set up for a pacemaker check with his glove turner and former automatic on 10/24/20. He had an EEG and an Echo done . Reports are pending. It was felt he had a orthostatic syncope and fall due to it. DISCHARGE MEDICATIONS: Please see below. ALLERGIES: Please see below. PHYSICAL EXAMINATION ON DISCHARGE: VITAL SIGNS: Please see below. GENERAL APPEARANCE: comfortable in bed, alert and oriented. HEENT: PERRLA, EOMI. CARDIOVASCULAR: RRR, normal S1, S2. No rub or murmur or gallop LUNGS: CTAB, no wheeze, no rales. ABDOMEN: soft non tender, obese, no masses. MUSCULOSKELETAL: normal ROM, no joint deformity. EXTREMITIES: no edema, pulses 2+, no cyanosis. NEUROLOGICAL: no focal neuro deficits, CN2-12 intact. PSYCHIATRIC: AAO x 3, pleasant, cooperative. LABORATORY DATA: Please see below. ACTIVITY: [As tolerated]. DIET: As tolerated DISPOSITION: 01 Home, Self-Care. DISCHARGE INSTRUCTIONS: Dr Mckeon/ Edson on 10/24/20 PMH in 1 week Follow up EEG and Echo. DISCHARGE CONDITION: [Stable]. TIME SPENT ON DISCHARGE: 35 minutes. Vital Signs/I&Os Vital Signs Date Time Temp Pulse Resp B/P (MAP) Pulse Ox O2 Delivery O2 Flow Rate FiO2 10/24/20 11:24 65 132/95 (107) 62 130/93 (105) 67 106/73 (84) 10/24/20 06:00 98.8 20 94 Room Air I&O- Last 24 Hours up to 6 AM 10/24/20 06:00 Intake Total 1570 ml Output Total 1750 ml Balance -180 ml Laboratory Data Labs 24H Laboratory Tests 2 10/24/20 06:00: Immature Granulocyte % (Auto) 0.4, Neutrophils (%) (Auto) 69.1H, Lymphocytes (%) (Auto) 14.0L, Monocytes (%) (Auto) 14.1H, Eosinophils (%) (Auto) 1.7, Basophils (%) (Auto) 0.7, Neutrophils # (Auto) 5.6, Lymphocytes # (Auto) 1.1L, Monocytes # (Auto) 1.2H, Eosinophils # (Auto) 0.1, Basophils # (Auto) 0.1, Nucleated Red Blood Cells % (auto) 0.0, Anion Gap 6L, Glomerular Filtration Rate 49.2, Calcium Level 9.3, Magnesium Level 2.3, Total Bilirubin 1.0, Aspartate Amino Transf (AST/SGOT) 20, Alanine Aminotransferase (ALT/SGPT) 29, Alkaline Phosphatase 119H, Total Protein 7.4, Albumin 3.3, Albumin/Globulin Ratio 0.8 CBC/BMP Laboratory Tests 10/24/20 06:00 Discharge Medications Scheduled Apixaban (Eliquis) 5 Mg Tab, 5 MG PO BID, (Reported) Atorvastatin Calcium (Atorvastatin Calcium) 20 Mg Tablet, 20 MG PO QHS, (Reported) Clomipramine HCl (Clomipramine HCl) 50 Mg Capsule, 50 MG PO QHS, (Reported) Ergocalciferol (Vitamin D2) (Drisdol) 1,250 Mcg Capsule, 50,000 UNIT PO QWEEK, (Reported) FRIDAYS Gabapentin (Gabapentin) 300 Mg Capsule, 300 MG PO TID, (Reported) Metoprolol Tartrate (Metoprolol Tartrate) 50 Mg Tablet, 50 MG PO BID, (Reported) Multivitamin,Therapeutic (Thera-Tabs) 1 Each Tablet, 1 TAB PO DAILY, (Reported) Torsemide (Torsemide) 20 Mg Tablet, 20 MG PO DAILY, (Reported) levETIRAcetam (levETIRAcetam) 1,000 Mg Tablet, 1,000 MG PO BID, (Reported) Scheduled PRN Melatonin (Melatonin) 3 Mg Tablet, 3 MG PO QHS PRN for SLEEP, (Reported) Trazodone HCl (Trazodone HCl) 50 Mg Tablet, 50 MG PO QHS PRN for SLEEP, (Reported) Zolpidem Tartrate (Zolpidem Tartrate) 10 Mg Tablet, 10 MG PO QHS PRN for SLEEP, (Reported) Allergies Coded Allergies: Sulfa (Sulfonamide Antibiotics) (Verified Allergy, Unknown, 01/07/20) YULIANA WILKERSON MD Oct 24, 2020 13:47
--- NOTE | 2020-10-25 08:24 | EEG ---
ELECTROENCEPHALOGRAM DATE: 10/23/2020 REFERRING PHYSICIAN: Jair Harding MD DIAGNOSIS: Seizure. EEG# [id number] HISTORY: The patient is a 65-year-old man who was admitted to [facility] after a fall and had no memory of event. He fell down ten stairs. This EEG was done to rule out epileptic potential. He also has a history of seizures, atrial fibrillation, chronic kidney disease, defibrillator placement. He takes Lipitor, metoprolol, verapamil, torsemide, Gabapentin, Eliquis, Keppra, trazodone, etc. TECHNICAL DESCRIPTION: This digital electroencephalogram (EEG) was recorded by 21 scalp, ear and two electrocardiogram (EKG) electrodes and was reviewed in bipolar and referential montages following a reformatting in 10-20 international electrode placement system. INTERPRETATION: Patient was noted to be in awake and drowsy states during this EEG. Resting and awake background rhythm consisted of well-formed posterior dominant rhythm with anterior-posterior gradient comprising of 9 Hz alpha activity measuring 15-40 microvolts in amplitude which was symmetric and reactive to eye opening. Attenuation of posterior dominant rhythm was seen during transition to drowsiness. Stage 1 and 2 sleep were reviewed and were symmetric bilaterally. Hyperventilation could not be performed. Photic stimulation remained unremarkable. EKG revealed normal sinus rhythm. No focal, lateralizing, or epileptiform abnormalities were seen. No relevant clinical activity was noted. CONCLUSION: This EEG in awake and drowsy states, stage 1 and 2 sleep is within normal limits.
--- NOTE | 2020-10-25 13:43 | ECHO ---
DATE OF PROCEDURE: 10/23/2020 Age: 65 Gender: Male Height: 67 inches Weight: 202 pounds Body surface area: 2.03 m2 PATIENT LOCATION: Inpatient [address] [place] [address], Room 4229. REFERRING PHYSICIAN: Jair Harding MD INDICATION: Syncopal spell. Atrial fibrillation. Pacemaker. MEASUREMENTS: 2D Measurements: RV 4.8 cm RV free wall 0.8 cm LV 4.1 cm Septum 1.6 cm Posterior wall 1.3 cm Aortic Root 3.6 cm LA 5.7 cm LVEF 45-50% Doppler Measurements: AV 1.08 m/s LVOT 0.86 m/s MV-E 60, A E prime 3.9 (medial), E prime 8.1 (lateral) Average E/E prime ratio 10/PCWP 14.3 mmHg PV 0.5 m/s Pulmonary artery acceleration time 90 msec RVSP 57-63 mmHg IVC 2.1 cm COMMENTS: Underlying atrial fibrillation with consistent ventricular paced rhythm. Paced QRS complexes LBBB configuration. Somewhat technically challenging study in light of the patients body habitus, but diagnostically useful information was still obtained. Asymmetrical septal hypertrophy with slight septal hypokinesis, but other winkler move normally. Prominently dilated left atrium with current Doppler evidence of mean left atrial pressure upper limits of normal. At least moderately dilated right heart chambers with right ventricular free wall hypertrophy and normal wall motion. Doppler evidence of at least moderately severe pulmonary hypertension. Dilated IVC with reduced respiratory collapse in keeping with an elevated central venous pressure. Normal aortic dimensions. Mildly thickened three equal size aortic cusps with adequate cusp separation, but a degree of premature cusp closure suggestive of a reduced forward stroke volume. Trace aortic insufficiency. Mild degenerative changes of his mitral valve apparatus with adequate leaflet excursion and no obvious anterior systolic motion to suggest subaortic stenosis. Mild-moderate mitral insufficiency. Normal appearing tricuspid valve, but at least [id number] insufficiency. Pacing wires could be visualized traversing right heart structures, but no separate intracardiac mass. Miniscule pericardial effusion. MTDD
== END 2020-10-24 12:12 | disposition home or self-care (01) ==
LOC: M ED 21:01 → M ED INP 21:02 → UNDOADMOB 10-22 01:57 → M MSPAV 10-22 12:11 → M ED INP 10-22 12:11 → UNDODISOB 10-24 12:12
PROVIDERS: ADMIT Family Medicine; ATTEND Internal Medicine Nephrology
DX: I95.1 Orthostatic hypotension (principal); Z91.81 History of falling; G40.909 Epilepsy, unspecified, not intractable, without status epilepticus; I42.1 Obstructive hypertrophic cardiomyopathy; I50.32 Chronic diastolic (congestive) heart failure; I27.20 Pulmonary hypertension, unspecified; I48.0 Paroxysmal atrial fibrillation; E78.49 Other hyperlipidemia; Z95.0 Presence of cardiac pacemaker; N18.9 Chronic kidney disease, unspecified; R94.6 Abnormal results of thyroid function studies; Z79.899 Other long term (current) drug therapy; Z79.01 Long term (current) use of anticoagulants; Z88.2 Allergy status to sulfonamides; G47.00 Insomnia, unspecified; F41.0 Panic disorder [episodic paroxysmal anxiety]; F32.9 Major depressive disorder, single episode, unspecified
CPT/HCPCS: 36415; 70450; 71045; 72125; 80048; 80053; 80076; 80180; 82550; 82553; 83735; 84439; 84443; 84484; 85025; 85610; 85730; 86850; 86900; 86901; 87631; 93005; 93041; 93306; 94760; 95819; 96365; 99285; J1953

== ENCOUNTER → 2020-11-03 | Outpatient (CLI) | payer OTHER ==
[~2020-11-03] MED LIST changes: +ATOR1TAB21 PO; +GABA-282 PO; +METO50TA7 PO; +TORS20TA2 PO
== END ==
LOC: M WUC 09:55
PROVIDERS: ATTEND Nurse Practitioner Family
DX: M79.671 Pain in right foot (principal)

== ENCOUNTER → 2020-11-03 | Outpatient (CLI) | payer OTHER ==
[2020-11-03 12:47] LABS: CALCIUM LEVEL 10.2 MG/DL (8.8-10.2); CREATININE FOR GFR 1.48 MG/DL (0.70-1.30); GLOMERULAR FILTRATION RATE 51.1 (>49); POTASSIUM SERUM 4.5 MEQ/L (3.5-5.1)
== END ==
LOC: M WUC 09:52
PROVIDERS: ATTEND Physician Assistant
DX: I50.32 Chronic diastolic (congestive) heart failure (principal)

== ENCOUNTER 2020-12-02 10:55 | Emergency (ER) | payer OTHER ==
[~2020-12-02] VITALS: Ht 167.6 cm; Wt 88.6 kg
--- OUTSIDE RECORDS SUMMARY | 2020-12-02 11:00 | CCD | Continuity of Care Document ---
Author Author Jason HILLS-C Organization Unknown Address [address] [place] [address], [facility] [place] [address] Phone [phone] Care Team Providers Care Counter Intelligence Agent Name Role Phone Gina Vela AUTM [phone] Bhavya Goodman MD AUTM [phone] Hellen Beard AUTM [phone] Ana Martin AUTM [phone] Problems Active Problems Provider Date Coronary arteriosclerosis Felicia Hills PA-C Onset: 2010 Hypertrophic obstructive cardiomyopathy Felicia Hills PA-C Onset: 10/23/2015 Automatic implantable cardiac defibrillator in situ Felicia bustos PA-C Onset: 09/23/2011 Paroxysmal atrial fibrillation Felicia Hills PA-C Onset: 0 05/31/2016 Benign hypertensive heart disease without congestive h eart failure Felicia Hills PA-C Onset: 09/23/2011 Aortic valve disorder Felicia Hills PA-C Onset: 09/23/2011 Mitral valve disorder Felicia Hills PA-C Onset: 09/23/2011 Pure hypercholesterolemia Felicia Hills PA-C Onset: 2010 Obesity Felicia Hills PA-C Onset: 09/23/2011 Dietary management surveillance Felicia Hills PA-C Onset: 06/04/2017 Chronic diastolic heart failure Felicia Hills PA-C Onset: 01/31/2020 Hypertensive heart disease with congestive heart failure Nahomy Hills PA-C Onset: 01/31/2020 Syncope and collapse Benigno Mckeon MD Onset: 10/24/2020 Permanent atrial fibrillation Felicia Hills PA-C Onset: Social History Type Date Description Comments Sex Unknown Tobacco Use Start: Unknown Never Smoked Cigarettes Tobacco Use Start: Unknown Currently Smokes an Occasional C igar Since 1969 has smoked occasional cigars, 1 weekly on average ETOH Use Rarely consumes alcohol 1 glass of wine 2x/month Tobacco Use Start: Unknown End: Unknown Patient is a former smoker never smoked cigarettes, occasional cigar smoker up to 1 every 3 months, smoked since 1969 Smoking Status Reviewed: 11/06/20 Patient is a former smoker ne padmaja smoked cigarettes, occasional cigar smoker up to 1 every 3 months, smoked since 1969 Exercise Type/Frequency Walks daily Exercise Type/Frequency Does yardwork twice a we ek Exercise Type/Frequency Plays golf sporadically Exercise Limitations None Allergies, Adverse Reactions, Alerts Active Allergies Reaction Severity Comments Date Sulfa rash 11/13/2009 Inactive Allergies Sulfac rash unknown 11/29/2008 Medications Active Medications SIG Qnty Indications Ordering Provide r Date Ambien 10mg Tablets 1 by mouth every night at bedtime as needed Unknown 11/05/2020 Gabapentin 300mg Capsules 1 by mouth three times a day Hellen Beard PA 09/05/2020 Torsemide 20mg Tablets 1 by mouth once a day I50.32 Benigno Mckeon MD 07/25/2020 Clomipramine HCL 50mg Capsules 1 po qhs Unknown 05/22/2020 Metoprolol Tartrate 50mg Tablets 1 by mouth twice a day 180tabs R06.02 Benigno Mckeon MD 03/21/2020 Atorvastatin Calcium 20mg Tablets 1 by mouth every night at bedtime 90tabs Benigno Mckeon MD 02/01/2020 Benzonatate 100mg Capsules 1 by mouth three times a day as needed Unknown 10/14 Multivitamin Adult Tablets 1 by mouth every day Unknown 11/07/2019 Vitamin D (Ergocalciferol) 1.25mg (38331 Ut) Capsules 1 by mouth every week Unknown 2019 Robitussin Cough+Chest Congestion DM 10-200mg Capsules as needed for cough Unknown 11/07/19 20 Melatonin 3mg Capsules 1 by mouth daily at bedtime as needed Unknown 11/07/2019 Keppra 1000mg Tablets 1 by mouth twice a day Hellen Beard PA 06/23/2018 Eliquis 5mg Tablets 1 by mouth twice a day 20tabs I48.19 Benigno Mckeon MD 04/23/2016 History Medications Torsemide 20mg Tablets 1 1/2 by mouth daily 135tabs I50.32 Benigno Mckeon MD 07/17/2020 - 07/25/2020 Immunizations Description No Information Available Vital Signs Date Vital Result Comment 11/06/2020 8:50am Weight 196.00 lb Home Weight 195lb Height 68 inches 5'8" BMI (Body Mass Index) 29.8 kg/m2 Heart Rate 60 /min Regular Respiratory Rate 16 /min 09/06/2020 12:14pm Weight 198.00 lb Home Weight 198lb Height 68 inches 5'8" BMI (Body Mass Index) 30.1 kg/m2 Heart Rate 60 /min Regular Respiratory Rate 16 /min BP Systolic Right Arm 110 mmHg sitting, regular c uff BP Diastolic Right Arm 60 mmHg sitting, regular cuff Results Test Acquired Date Facility Test Result H/L Range Note Basic Metabolic Profile 11/03/2020 [facility] [phone] Glucose, Fasting 148 mg/dL High 70-100 Blood Urea Nitrogen 39 mg/dL High 7-18 Creatinine For GFR 1.48 mg/dL High 0.70-1.30 Glomerular Filtration Rate 51.1 Normal >49 1 Sodium Level 141 mEq/L Normal 136-145 Potassium Serum 4.5 mEq/L Normal 3.5-5.1 Chloride Level 104 mEq/L Normal 98-107 Carbon Dioxide Level 31 mEq/L Normal 21-32 Anion Gap 6 mEq/L Low 8-16 Calcium Level 10.2 mg/dL Normal 8.8-10.2 Basic Metabolic Profile 09/04/2020 [facility] [phone] Glucose, Fasting 139 mg/dL High 70-100 Blood Urea Nitrogen 36 mg/dL High 7-18 Creatinine For GFR 1.54 mg/dL High 0.70-1.30 Glomerular Filtration Rate 48.8 Low >49 2 Sodium Level 142 mEq/L Normal 136-145 Potassium Serum 4.2 mEq/L Normal 3.5-5.1 Chloride Level 106 mEq/L Normal 98-107 Carbon Dioxide Level 30 mEq/L Normal 21-32 Anion Gap 6 mEq/L Low 8-16 Calcium Level 9.7 mg/dL Normal 8.8-10.2 Laboratory test finding 09/04/2020 [facility] [phone] Magnesium Level 2.4 mg/dL Normal 1.8-2.4 NT-Pro BNP 2501 pg/mL High <125 Basic Metabolic Profile 07/24/2020 [facility] [phone] Glucose, Fasting 147 mg/dL High 70-100 Blood Urea Nitrogen 38 mg/dL High 7-18 Creatinine For GFR 1.73 mg/dL High 0.70-1.30 Glomerular Filtration Rate 42.8 Low >49 3 Sodium Level 138 mEq/L Normal 136-145 Potassium Serum 4.0 mEq/L Normal 3.5-5.1 Chloride Level 101 mEq/L Normal 98-107 Carbon Dioxide Level 29 mEq/L Normal 21-32 Anion Gap 8 mEq/L Normal 8-16 Calcium Level 10.2 mg/dL Normal 8.8-10.2 Laboratory test finding 07/24/2020 [facility] [phone] Magnesium Level 2.3 mg/dL Normal 1.8-2.4 NT-Pro BNP 2262 pg/mL High <125 CBC without Differential 07/15/2020 [facility] - not inter faced (315)- - White Blood Count 12.0 High 4.0-10.0 Red Blood Count 4.92 4.30-6.10 Platelets 208 150-450 Hemoglobin 15.7 Hematocrit 47.9 Laboratory test finding 05/23/2020 [facility] (315)- - NT Probnp QN Ser/Plas 03726 BMP 05/23/2020 [facility] (315)- - Calcium Ser/Plasma Mass/Vol 9.4 Sodium 140 Carbon Dioxide Ser/Plasm 27 Chloride Serum/Plasma 105 Potassium 3.8 Glucose 113 High 70-100 Blood Urea Nitrogen 29 High 5-21 Creatinine 1.28 0.6-1.5 G F R -- Laboratory test finding 05/23/2020 [facility] (315)- - Magnesium Level 2.1 Laboratory test finding 05/23/2020 [facility] [phone] Magnesium Level 2.1 mg/dL Normal 1.8-2.4 Basic Metabolic Profile 05/23/2020 [facility] [phone] Glucose, Fasting 113 mg/dL High 70-100 Blood Urea Nitrogen 29 mg/dL High 7-18 Creatinine For GFR 1.28 mg/dL Normal 0.70-1.30 Glomerular Filtration Rate > 60.0 Normal >49 4 Sodium Level 140 mEq/L Normal 136-145 Potassium Serum 3.8 mEq/L Normal 3.5-5.1 Chloride Level 105 mEq/L Normal 98-107 Carbon Dioxide Level 27 mEq/L Normal 21-32 Anion Gap 8 mEq/L Normal 8-16 Calcium Level 9.4 mg/dL Normal 8.8-10.2 Laboratory test finding 05/23/2020 [facility] [phone] NT-Pro BNP 2799 pg/mL High <125 1 Units are mL/min/1.73 m2 Chronic Kidney Disease Staging per NKF: Stage I & II GFR >=60 Normal to Mildly Decreased Stage III GFR 30-59 Moderately Decreased Stage IV GFR 15-29 Severely Decreased Stage V GFR <15 Very Little GFR Left ESRD GFR <15 on AUTO ADJUDICATION SPECIALIST 2 Units are mL/min/1.73 m2 Chronic Kidney Disease Staging per NKF: Stage I & II GFR >=60 Normal to Mildly Decreased Stage III GFR 30-59 Moderately Decreased Stage IV GFR 15-29 Severely Decreased Stage V GFR <15 Very Little GFR Left ESRD GFR <15 on AUTO ADJUDICATION SPECIALIST 3 Units are mL/min/1.73 m2 Chronic Kidney Disease Staging per NKF: Stage I & II GFR >=60 Normal to Mildly Decreased Stage III GFR 30-59 Moderately Decreased Stage IV GFR 15-29 Severely Decreased Stage V GFR <15 Very Little GFR Left ESRD GFR <15 on AUTO ADJUDICATION SPECIALIST 4 Units are mL/min/1.73 m2 Chronic Kidney Disease Staging per NKF: Stage I & II GFR >=60 Normal to Mildly Decreased Stage III GFR 30-59 Moderately Decreased Stage IV GFR 15-29 Severely Decreased Stage V GFR <15 Very Little GFR Left ESRD GFR <15 on AUTO ADJUDICATION SPECIALIST Procedures Date Code Description Status 10/24/2020 46674 Icd Programming Multi Leads Comp leted 09/14/2020 57689 Remote Pacemaker/Cardio-Defibril lator Data Acquistion Completed 09/14/2020 76411 Remote Interrogate D evice Eval Cardioverter/Defibrillator-90 Days Completed 07/25/2020 11289 ECG 12-Lead Completed 06/15/2020 51205 Remote Pacemaker/Cardio-Defibril lator Data Acquistion Completed 06/15/2020 14264 Remote Interrogate D evice Eval Cardioverter/Defibrillator-90 Days Completed 06/05/2020 31448 Echocardiogram 2-D Doppler Color Completed Medical Devices Description No Information Available Encounters Type Date Location Provider Dx Diagnosis Office Visit 09/06/2020 12:30p Main Office Felicia Hills PA-C I50.3 2 Chronic diastolic (congestive) heart failure Office Visit 07/25/2020 7:45a Main Office Felicia Hills PA-C I25.1 0 Athscl heart disease [place] coronary artery w/o ang pctrs I42.1 Obstructive hypertrophic car diomyopathy Z95.810 Presence of automatic (impla ntable) cardiac defibrillator I48.21 Permanent atrial fibrillatio n I50.32 Chronic diastolic (congestiv e) heart failure I11.0 Hypertensive heart disease w ith heart failure I35.1 Nonrheumatic aortic (valve) insufficiency I34.0 Nonrheumatic mitral (valve) insufficiency E78.00 Pure hypercholesterolemia, u nspecified I27.29 Other secondary pulmonary hy pertension Z71.3 Dietary counseling and surve illance Office Visit 05/23/2020 8:00a Main Office Felicia Hills PA-C R06.0 2 Shortness of breath Assessments Date Code Description Provider 11/06/2020 I50.32 Chronic diastolic (congestive) h eart failure Felicia Hills PA-C 10/24/2020 R55 Syncope and collapse Benigno bailey MD 10/24/2020 I42.1 Obstructive hypertrophic cardiom yopathy Benigno Mckeon MD 10/24/2020 Z95.810 Presence of automatic (implantab le) cardiac defibrillator Benigno Mckeon MD 09/14/2020 Z95.810 Presence of automatic (implantab le) cardiac defibrillator [facility] 09/06/2020 I50.32 Chronic diastolic (congestive) h eart failure Felicia Hills PA-C 07/25/2020 I25.10 Atherosclerotic heart disease of [place] coronary artery with Felicia Hills PA-C 07/25/2020 I42.1 Obstructive hypertrophic cardiom yopathy Felicia Hills PA-C 07/25/2020 Z95.810 Presence of automatic (implantab le) cardiac defibrillator [facility] 07/25/2020 I48.21 Permanent atrial fibrillation Srinivas [facility] 07/25/2020 I50.32 Chronic diastolic (congestive) h eart failure Felicia Hills PA-C 07/25/2020 I11.0 Hypertensive heart disease with heart failure [facility] 07/25/2020 I35.1 Nonrheumatic aortic (valve) insu fficiency Felicia Hills PA-C 07/25/2020 I34.0 Nonrheumatic mitral (valve) insu fficiency Felicia Hills, PA-C 07/25/2020 E78.00 Pure hypercholesterolemia, unspe cified [facility] Verdin-C 07/25/2020 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 [facility] Ver[facility]-C 07/25/2020 Z71.3 Dietary counseling and surveilla nce [facility] 06/15/2020 Z95.810 Presence of automatic (implantab le) cardiac defibrillator [facility] 06/05/2020 I48.19 Other persistent atrial fibrilla tion ECHO 05/23/2020 R06.02 Shortness of breath Felicia gutierrez PA-C Plan of Treatment Future Appointment(s):* 12/14/2020 7:45 am - Felicia Hills PA-C at Main Office 11/06/2020 - Felicia Hills PA-C* I50.32 Chronic diastolic (congestive) heart failure* New Labs:* Basic Metabolic Profile, Scheduled: 01/31/21 * Magnesium Level, Scheduled: 01/31/21 * Recommendations:* Follow a 2 grams sodium diet and 50 ounces fluid restriction per 24 hour and do daily weights. Call the office for weight gain of 3 lbs or more. * All * Follow up:* 3 month follow up. Functional Status Functional Condition Comment Date Status Independent with all ADL's Activ e Mental Status Description No Information Available Referrals Description No Information Available
--- OUTSIDE RECORDS SUMMARY | 2020-12-02 11:00 | CCD | Continuity of Care Document ---
Author Author Jason HILLS-C Organization Unknown Address [address] [place] [address], [facility] [place] [address] Phone [phone] Care Team Providers Care Auto Claim Representative Name Role Phone Gina Vela AUTM [phone] Bhavya Goodman MD AUTM [phone] Hellen Beard AUTM [phone] Ana Martin AUTM [phone] Problems Active Problems Provider Date Coronary arteriosclerosis [...] day Unknown 11/07/2019 Vitamin D (Ergocalciferol) 1.25mg (18762 Ut) Capsules 1 by mouth every week [...] Rate 16 /min BP Systolic Right Arm 114 mmHg sitting, regular c uff BP Diastolic Right Arm 64 mmHg sitting, regular cuff 09/06/2020 12:14pm Weight 198.00 lb Home Weight 198lb Height 68 inches 5'8" BMI (Body Mass Index) 30.1 kg/m2 Heart Rate 60 /min Regular Respiratory Rate 16 /min BP Systolic Right Arm 110 mmHg sitting, regular c uff BP Diastolic Right Arm 60 mmHg sitting, regular cuff Results Test Acquired Date Facility Test Result H/L Range Note Basic Metabolic Profile 11/03/2020 Health system [phone] Glucose, Fasting 148 mg/dL High 70-100 Blood [...] mg/dL Normal 8.8-10.2 Basic Metabolic Profile 09/04/2020 Health system [phone] Glucose, Fasting 139 mg/dL High 70-100 Blood [...] mg/dL Normal 8.8-10.2 Laboratory test finding 09/04/2020 Health system [phone] Magnesium Level 2.4 mg/dL Normal 1.8-2.4 NT-Pro BNP 2501 pg/mL High <125 Basic Metabolic Profile 07/24/2020 Health system [phone] Glucose, Fasting 147 mg/dL High 70-100 Blood [...] mg/dL Normal 8.8-10.2 Laboratory test finding 07/24/2020 Health system [phone] Magnesium Level 2.3 mg/dL Normal 1.8-2.4 NT-Pro BNP 2262 pg/mL High <125 CBC without Differential 07/15/2020 [facility] - not inter faced (315)- - White Blood Count 12.0 High 4.0-10.0 Red Blood Count 4.92 4.30-6.10 Platelets 208 150-450 Hemoglobin 15.7 Hematocrit 47.9 Laboratory test finding 05/23/2020 [facility] (315)- - NT Probnp QN Ser/Plas 52489 BMP 05/23/2020 [facility] (315)- - Calcium Ser/Plasma Mass/Vol 9.4 Sodium 140 Carbon Dioxide Ser/Plasm 27 Chloride Serum/Plasma 105 Potassium 3.8 Glucose 113 High 70-100 Blood Urea Nitrogen 29 High 5-21 Creatinine 1.28 0.6-1.5 G F R -- Laboratory test finding 05/23/2020 [facility] (315)- - Magnesium Level 2.1 Laboratory test finding 05/23/2020 Health system [phone] Magnesium Level 2.1 mg/dL Normal 1.8-2.4 Basic Metabolic Profile 05/23/2020 Health system [phone] Glucose, Fasting 113 mg/dL High 70-100 Blood [...] mg/dL Normal 8.8-10.2 Laboratory test finding 05/23/2020 Health system [phone] NT-Pro BNP 2799 pg/mL High <125 1 Units are mL/min/1.73 m2 Chronic Kidney Disease Staging per NKF: Stage I & II GFR >=60 Normal to Mildly Decreased Stage III GFR 30-59 Moderately Decreased Stage IV GFR 15-29 Severely Decreased Stage V GFR <15 Very Little GFR Left ESRD GFR <15 on FURNACE CONVERTER 2 Units are mL/min/1.73 m2 Chronic Kidney Disease Staging per NKF: Stage I & II GFR >=60 Normal to Mildly Decreased Stage III GFR 30-59 Moderately Decreased Stage IV GFR 15-29 Severely Decreased Stage V GFR <15 Very Little GFR Left ESRD GFR <15 on FURNACE CONVERTER 3 Units are mL/min/1.73 m2 Chronic Kidney Disease Staging per NKF: Stage I & II GFR >=60 Normal to Mildly Decreased Stage III GFR 30-59 Moderately Decreased Stage IV GFR 15-29 Severely Decreased Stage V GFR <15 Very Little GFR Left ESRD GFR <15 on FURNACE CONVERTER 4 Units are mL/min/1.73 m2 Chronic Kidney Disease Staging per NKF: Stage I & II GFR >=60 Normal to Mildly Decreased Stage III GFR 30-59 Moderately Decreased Stage IV GFR 15-29 Severely Decreased Stage V GFR <15 Very Little GFR Left ESRD GFR <15 on FURNACE CONVERTER Procedures Date Code Description Status 10/24/2020 07226 Icd Programming Multi Leads Comp leted 09/14/2020 39533 Remote Pacemaker/Cardio-Defibril lator Data Acquistion Completed 09/14/2020 25924 Remote Interrogate D evice Eval Cardioverter/Defibrillator-90 Days Completed 07/25/2020 26816 ECG 12-Lead Completed 06/15/2020 73189 Remote Pacemaker/Cardio-Defibril lator Data Acquistion Completed 06/15/2020 40534 Remote Interrogate D evice Eval Cardioverter/Defibrillator-90 Days Completed 06/05/2020 27167 Echocardiogram 2-D Doppler Color Completed Medical Devices Description No Information Available Encounters Type Date Location Provider Dx Diagnosis Office Visit 11/06/2020 9:15a Main Office Felicia Hills PA-C I50.3 2 Chronic diastolic (congestive) heart failure Office Visit 09/06/2020 12:30p Main Office Felicia Hills PA-C I50.3 2 Chronic diastolic (congestive) heart failure Office Visit 07/25/2020 7:45a Main Office Felicia Hills PA-C I25.1 0 Athscl heart disease of [place] coronary artery w/o ang pctrs I42.1 Obstructive [...] PA-C 07/25/2020 I25.10 Atherosclerotic heart disease of [place] coronary artery with FeliciaEAGLE Eldridge-C 07/25/2020 I42.1 Obstructive hypertrophic cardiom yopathy Felicia Hills, PA-C 07/25/2020 Z95.810 Presence of automatic (implantab le) cardiac defibrillator Felicia Hills PA-C 07/25/2020 I48.21 Permanent atrial fibrillation Srinivas Zimmer EAGLE Hills-C 07/25/2020 I50.32 Chronic diastolic (congestive) h eart failure Feliciawilma Hills PA-C 07/25/2020 I11.0 Hypertensive heart disease with heart failure Felicia Hills PA-C 07/25/2020 I35.1 Nonrheumatic aortic (valve) insu fficiency Felicia Hills PA-C 07/25/2020 I34.0 Nonrheumatic mitral (valve) insu fficiency Felicia Hills PA-C 07/25/2020 E78.00 Pure hypercholesterolemia, unspe cified EAGLE Verdin-C 07/25/2020 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 Feliciawilma Hills PA-C 07/25/2020 Z71.3 Dietary counseling and surveilla nce REGI VerdinC 06/15/2020 Z95.810 Presence of automatic (implantab le) cardiac defibrillator [facility] 06/05/2020 I48.19 Other persistent atrial fibrilla tion ECHO 05/23/2020 R06.02 Shortness of breath Felicia gutierrez PA-C Plan of Treatment Future Appointment(s):* 02/05/2021 10:45 am - Felicia Hills PA-C at Main Office * 12/14/2020 7:45 am - Felicia Hills PA-C [...]
--- OUTSIDE RECORDS SUMMARY | 2020-12-02 11:00 | CCD | Continuity of Care Document ---
Author Author Jason [facility] Organization Unknown Address [address] [place] [address] Phone [phone] Care Team Providers Care Auto Apprentice Mechanic Name Role Phone [facility] - Cardiovascular Disease AUTM [phone] Cologuard AUTM [phone] [facility] - Surgery AUTM [phone] [facility] Neurology - Neurology AUTM Problems Active Problems Provider Date Essential hypertension Randi Maldonado RPA-Ama Onset: 02/20 Mixed hyperlipidemia Randi Maldonado RPA-C Onset: 011 Vitamin D deficiency Randi Maldonado RPA-C Onset: 011 Allergic rhinitis Randi Maldonado RPA-C Onset: 02/21/20 11 Depressive disorder Randi Maldonado RPA-Ama Onset: 02/21/20 11 Hypertrophic obstructive cardiomyopathy Randi Maldonado R PA-C Onset: 02/20/2011 Coronary arteriosclerosis Randi Maldonado RPA-Ama Onset: Testicular hypofunction Randi Maldonado RPA-Ama Onset: 06/2013 Epilepsy Randi Maldonado RPA-Ama Onset: 07/21/20 13 Major depressive disorder, single episode, unspecified Randi Kim RPA-C Onset: 07/24/2015 Essential hypertension Randi Maldonado RPA-C Onset: 07/24 Atherosclerotic heart disease of [place] coronary arter y without angina pectoris Randi Maldonado, RPA-C Onset: 07/24/2015 Social History Type Date Description Comments Sex Unknown Tobacco Use Start: Unknown Never Smoked Cigarettes Tobacco Use Start: Unknown Never Used Smokeless Tobacco ETOH Use Rarely consumes alcohol Tobacco Use Start: Unknown Patient has never smoked Recreational Drug Use Denies Drug Use Smoking Status Reviewed: 10/26/20 Patient has never smoked Exercise Type/Frequency Exercises regularly Tattoo/Piercing None Sun Exposure Uses sunscreen Seat Belt/Car Seat Always uses seat belt Bike Helmet Never Does not bike ri de. Smoke Alarms Yes Smoke Alarms Carbon Monoxide Detector: Yes Allergies, Adverse Reactions, Alerts Active Allergies Reaction Severity Comments Date Sulfa 05/19/2008 Medications Active Medications SIG Qnty Indications Ordering Provide r Date Lipitor 20mg Tablets 1 by mouth every day at hs Unknown 10/24/2020 Tramadol HCL 50mg Tablets take 1 tablet by mouth every 6 hours as needed for pain 30tabs G62.1 Ana Martin FNP 10/20/2020 Digoxin 125mcg Tablets 1 by mouth every day - [facility] Unknown 03/02 Zolpidem Tartrate 10mg Tablets 1 tab by mouth every night at bedtime as needed for sleep Unknown 01/09/2020 Clomipramine HCL 50mg Capsules 1 by mouth every night at bedtime Unknown 0 Melatonin ER 3mg Tablets ER one daily as needed 1/2 hour before bed Unknown 11/02 Folic Acid 1mg Tablets 1 by mouth every day Unknown 11/02/2019 Multivitamin With Minerals Tablet s 1 by mouth every day Unknown 11/02/2019 Pantoprazole Sodium 40mg Tablets D R take one tablet by mouth every day for heartburn/acid reflux Unknown 11/02/2019 Drisdol 1.25mg (77679 Ut) Capsules Take One Capsule By Mouth once A Week 8caps E55.9 Aury White M.D. 08/06/2019 Fluticasone Propionate 50mcg/Act Suspension use 2 sprays in each nostril daily as Needed 32gm J30 .2 Horacio Quezada M.D. 06/26/2015 Keppra 1000mg Tablets one po bid Unknown Eliquis 5mg Tablets take 1 tablet by mouth twice a day G51.0 Unknown Torsemide 20mg Tablets take 1 tablet every morning Unknown Metoprolol Tartrate 50mg Tablets Take One Tablet By Mouth bid Unknown Gabapentin 300mg Capsules 1 tablet up to 3 times a day as for nerve pain Unknown Immunizations CPT Code Status Date Vaccine Lot # 31583 Given 07/20/2020 Influenza Virus Vaccine, Quadrivalent,age 3 and up,multidose vial [id number] 18187 Given 08/06/2019 Pneumococcal Vaccine [id number] 17483 Given 08/06/2019 Influenza Virus Vaccine, Quadrivalent,age 3 and up,multidose vial [id number] 86429 Given 07/31/2017 Influenza Vaccination [id number] 10032 Given 07/25/2016 Influenza Vaccination [id number] 05734 Given 07/24/2015 Influenza Vaccination [id number] 87244 Given 07/22/2014 Influenza Vaccination [id number] 76562 Given 07/21/2013 Influenza Vaccination [id number] 17282 Given 08/27/2011 Influenza Vaccination/preser vative free [id number] 54603 Given 08/23/2010 Influenza Vaccination [id number] Vital Signs Date Vital Result Comment 10/26/2020 10:48am BP Systolic 202 mmHg BP Diastolic 8 mmHg Heart Rate 60 /min Body Temperature 98.3 F Respiratory Rate 14 /min Weight 202.50 lb O2 % BldC Oximetry 97 % 10/20/2020 10:44am BP Systolic 97 mmHg BP Diastolic 67 mmHg Heart Rate 60 /min Body Temperature 97.2 F Respiratory Rate 18 /min Weight 203.50 lb O2 % BldC Oximetry 94 % Results Test Acquired Date Facility Test Result H/L Range Note Comprehensive Metabolic Profil 07/24/2020 [facility] [phone] Glucose, Fasting 141 mg/dL High 70-100 Blood Urea Nitrogen 38 mg/dL High 7-18 Creatinine For GFR 1.68 mg/dL High 0.70-1.30 Glomerular Filtration Rate 44.3 Low >49 1 Sodium Level 140 mEq/L Normal 136-145 Potassium Serum 4.0 mEq/L Normal 3.5-5.1 Chloride Level 101 mEq/L Normal 98-107 Carbon Dioxide Level 30 mEq/L Normal 21-32 Anion Gap 9 mEq/L Normal 8-16 Calcium Level 9.9 mg/dL Normal 8.8-10.2 Ast/Sgot 29 U/L Normal 7-37 Alt/SGPT 34 U/L Normal 12-78 Alkaline Phosphatase 118 U/L High 45-117 Bilirubin,Total 0.8 mg/dL Normal 0.2-1.0 Total Protein 7.9 GM/DL Normal 6.4-8.2 Albumin 3.9 GM/DL Normal 3.2-5.2 Albumin/Globulin Ratio 1.0 Normal Lipid Panel 07/24/2020 [facility] nter [phone] Triglycerides Level 176 mg/dL High <150 Cholesterol Level 166 mg/dL Normal <200 HDL Cholesterol 41 mg/dL Normal >40 LDL Cholesterol 90 mg/dL Normal <100 Non-HDL-C 125 mg/dL Normal Cholesterol Risk Ratio 4.048 Normal <5 Liver Profile 07/24/2020 [facility] nter [phone] Bilirubin,Direct 0.3 mg/dL High 0.0-0.2 Microalbumin Random 07/24/2020 [facility] [phone] Creatinine, Urine 278.0 mg/dL Normal Malb Urine Siemens 43.8 mg/L Normal Emanuel/Creat Ratio 15.7 MCG/MG Normal 0.0-30.0 2 Hemoglobin A1c 07/24/2020 [facility] [phone] Hemoglobin A1c 5.9 % Normal 3 Estimated Average Glucose 123 mg/dL High 60-110 Basic Metabolic Profile 07/24/2020 [place] [address] [phone] Glucose, Fasting 147 mg/dL High 70-100 Blood Urea Nitrogen 38 mg/dL High 7-18 Creatinine For GFR 1.73 mg/dL High 0.70-1.30 Glomerular Filtration Rate 42.8 Low >49 4 Sodium Level 138 mEq/L Normal 136-145 Potassium Serum 4.0 mEq/L Normal 3.5-5.1 Chloride Level 101 mEq/L Normal 98-107 Carbon Dioxide Level 29 mEq/L Normal 21-32 Anion Gap 8 mEq/L Normal 8-16 Calcium Level 10.2 mg/dL Normal 8.8-10.2 Laboratory test finding 07/24/2020 [place] [address] [phone] Magnesium Level 2.3 mg/dL Normal 1.8-2.4 NT-Pro BNP 2262 pg/mL High <125 Istat Chem8+ Panel 07/15/2020 [facility] [place] [address] [phone] iSTAT HCT 49.0 % Normal 38.0-51.0 iSTAT Glucose 114 mg/dL High 70-105 iSTAT Sodium 140 mEq/L Normal 136-145 iSTAT Potassium 4.8 mEq/L Normal 3.5-5.1 iSTAT CA++ 5.0 mg/dL Normal 4.5-5.3 iSTAT Chloride 101 mEq/L Normal 98-109 iSTAT Co2 28.0 MM/L High 23.0-27.0 iSTAT BUN 44 mg/dL High 8-26 iSTAT Creatinine 1.4 mg/dL High 0.6-1.3 CBC With Differential 07/15/2020 [facility] [place] [address] [phone] White Blood Count 12.0 10 High 4.0-10.0 Red Blood Count 4.92 10 Normal 4.30-6.10 Hemoglobin 15.7 g/dL Normal 13.5-17.5 Hematocrit 47.9 % Normal 42.0-52.0 Mean Corpuscular Volume 97.4 fl High 80.0-96.0 Mean Corpuscular Hemoglobin 31.9 pg Normal 27.0-33.0 Mean Corpuscular HGB Conc 32.8 g/dL Normal 32.0-36.5 Red Cell Distribution Width 13.7 % Normal 11.5-14.5 Platelet Count, Automated 208 10 Normal 150-450 Neutrophils % 77.3 % High 36.0-66.0 Lymph % 7.8 % Low 24.0-44.0 Spink % 13.5 % High 0.0-5.0 Eos % 0.5 % Normal 0.0-3.0 Baso % 0.4 % Normal 0.0-1.0 Immature Granulocyte % 0.5 % Normal 0-3.0 Nucleated Red Blood Cell % 0.0 % Normal 0-0 Neutrophils # 9.3 10 High 1.5-8.5 Lymph # 0.9 10 Low 1.5-5.0 Spink # 1.6 10 High 0.0-0.8 Eos # 0.1 10 Normal 0.0-0.5 Baso # 0.1 10 Normal 0.0-0.2 Basic Metabolic Profile 05/23/2020 [facility] [place], [place] [id number] [phone] Glucose, Fasting 113 mg/dL High 70-100 Blood Urea Nitrogen 29 mg/dL High 7-18 Creatinine For GFR 1.28 mg/dL Normal 0.70-1.30 Glomerular Filtration Rate > 60.0 Normal >49 5 Sodium Level 140 mEq/L Normal 136-145 Potassium Serum 3.8 mEq/L Normal 3.5-5.1 Chloride Level 105 mEq/L Normal 98-107 Carbon Dioxide Level 27 mEq/L Normal 21-32 Anion Gap 8 mEq/L Normal 8-16 Calcium Level 9.4 mg/dL Normal 8.8-10.2 Laboratory test finding 05/23/2020 [facility] [place] [address] [phone] Magnesium Level 2.1 mg/dL Normal 1.8-2.4 NT-Pro BNP 2799 pg/mL High <125 1 Units are mL/min/1.73 m2 Chronic Kidney Disease Staging per NKF: Stage I & II GFR >=60 Normal to Mildly Decreased Stage III GFR 30-59 Moderately Decreased Stage IV GFR 15-29 Severely Decreased Stage V GFR <15 Very Little GFR Left ESRD GFR <15 on WHEAT AND OATS FLAKE MILLER 2 THE [employer] ATION STATES THAT MICROALBUMINURIA IS PRESENT IF THE MICROALBUMIN/CREATININE RATIO EXCEEDS 30 MCG/MG. THE THRESHOLD FOR CLINICAL ALBUMINURIA IS REACHED AT 300 MCG/MG. THE CLASSIFICATION OF A PATIENT SHOULD BE BASED UPON AT LEAST 2 OF 3 ABNORMAL RESULTS ON SPECIMENS COLLECTED WITHIN A 3 TO 6 MONTH TIME FRAME. 3 REFERENCE RANGES: <=5.6% NORMAL 5.7-6.4% SUGGESTS IMPAIRED GLUCOSE META BOLISM/PREDIABETIC >= 6.5% ABNORMAL 4 Units are mL/min/1.73 m2 Chronic Kidney Disease Staging per NKF: Stage I & II GFR >=60 Normal to Mildly Decreased Stage III GFR 30-59 Moderately Decreased Stage IV GFR 15-29 Severely Decreased Stage V GFR <15 Very Little GFR Left ESRD GFR <15 on WHEAT AND OATS FLAKE MILLER 5 Units are mL/min/1.73 m2 Chronic Kidney Disease Staging per NKF: Stage I & II GFR >=60 Normal to Mildly Decreased Stage III GFR 30-59 Moderately Decreased Stage IV GFR 15-29 Severely Decreased Stage V GFR <15 Very Little GFR Left ESRD GFR <15 on WHEAT AND OATS FLAKE MILLER Procedures Description No Information Available Medical Devices Description No Information Available Encounters Type Date Location Provider Dx Diagnosis Office Visit 10/26/2020 10:45a Main Office Ana Martin FNP I95.1 Orthostatic hypotension R94.6 Abnormal results of thyroid function studies I10 Essential (primary) hyperten charley I50.32 Chronic diastolic (congestiv e) heart failure 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 I42.9 Cardiomyopathy, unspecified I48.0 Paroxysmal atrial fibrillati on I25.10 Athscl heart disease of [place] coronary artery w/o ang pctrs I73.9 Peripheral vascular disease, unspecified F32.9 Major depressive disorder, s raul episode, unspecified D45 Polycythemia vera G40.909 Epilepsy, unsp, not intracta ble, without status epilepticus Office Visit 10/20/2020 11:15a Main Office Ana Martin, GRANITE WORKER I10 Essential (primary) hypertension I50.32 Chronic diastolic (congestiv e) heart failure 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 I42.9 Cardiomyopathy, unspecified I48.0 Paroxysmal atrial fibrillati on I25.10 Athscl heart disease of [place] coronary artery w/o ang pctrs I73.9 Peripheral vascular disease, unspecified F32.9 Major depressive disorder, s raul episode, unspecified D45 Polycythemia vera G40.909 Epilepsy, unsp, not intracta ble, without status epilepticus Office Visit 07/20/2020 2:00p Main Office Ana Martin FNP Z00.0 0 Encntr for general adult medical exam w/o abnormal findings I10 Essential (primary) hyperten charley I50.32 Chronic diastolic (congestiv e) heart failure I42.9 Cardiomyopathy, unspecified I48.0 Paroxysmal atrial fibrillati on I25.10 Athscl heart disease of [place] coronary artery w/o ang pctrs I73.9 Peripheral vascular disease, unspecified F32.9 Major depressive disorder, s raul episode, unspecified D45 Polycythemia vera G40.909 Epilepsy, unsp, not intracta ble, without status epilepticus Z23 Encounter for immunization Assessments Date Code Description Provider 10/26/2020 I95.1 Orthostatic hypotension HeenaAna walton, [facility] 10/26/2020 R94.6 Abnormal results of thyroid func tion studies Plejujuach Ana, [facility] 10/26/2020 I10 Essential (primary) hypertension Pleskach, Ana, [facility] 10/26/2020 I50.32 Chronic diastolic (congestive) h eart failure Pleskach, Ana, [facility] 10/26/2020 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 Pleskac h, Ana, [facility] 10/26/2020 I42.9 Cardiomyopathy, unspecified Ples kach, Ana, [facility] 10/26/2020 I48.0 Paroxysmal atrial fibrillation P leskaElida guzmany, [facility] 10/26/2020 I25.10 Atherosclerotic heart disease of [place] coronary artery with Pleskach, Ana, [facility] 10/26/2020 I73.9 Peripheral vascular disease, uns pecified Pleskach, Ana, [facility] 10/26/2020 F32.9 Major depressive disorder, singl e episode, unspecified Pleskach, Ana, [facility] 10/26/2020 D45 Polycythemia vera Plejujuach Moll y, [facility] 10/26/2020 G40.909 Epilepsy, unspecified, not intra ctable, without status epile Veronica Ana, [facility] 10/20/2020 I10 Essential (primary) hypertension Pleskach, Ana, [facility] 10/20/2020 I50.32 Chronic diastolic (congestive) h eart failure Pleskach, Ana, [facility] 10/20/2020 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 Pleskac h, Ana, [employer] WORKER 10/20/2020 I42.9 Cardiomyopathy, unspecified Ples kach, Ana, [facility] 10/20/2020 I48.0 Paroxysmal atrial fibrillation P leskach Ana, [facility] 10/20/2020 I25.10 Atherosclerotic heart disease of [place] coronary artery with Pleskach, Ana, [facility] 10/20/2020 I73.9 Peripheral vascular disease, uns pecified Pleskach, Ana, [employer] WORKER 10/20/2020 F32.9 Major depressive disorder, singl e episode, unspecified Pleskach, Ana, GR[employer]ITE WORKER 10/20/2020 D45 Polycythemia vera Pleskach, Moll y, [employer] WORKER 10/20/2020 G40.909 Epilepsy, unspecified, not intra ctable, without status epile Pleskach, Ana, [employer] WORKER 07/20/2020 Z00.00 Encounter for genera l adult medical examination without abnormal findings Pleskach, Ana, GR[employer]ITE WORKER 07/20/2020 I10 Essential (primary) hypertension Pleskach, Ana, GR[employer]ITE WORKER 07/20/2020 I50.32 Chronic diastolic (congestive) h eart failure Pleskach, Ana, GRANITE WORKER 07/20/2020 I42.9 Cardiomyopathy, unspecified Ples theo Ana, GRANITE WORKER 07/20/2020 I48.0 Paroxysmal atrial fibrillation P Ana zee, GRANITE WORKER 07/20/2020 I25.10 Atherosclerotic heart disease of [place] coronary artery with Pleskach, Ana, [employer] WORKER 07/20/2020 I73.9 Peripheral vascular disease, uns pecified Pleskach, Ana, [employer] WORKER 07/20/2020 F32.9 Major depressive disorder, singl e episode, unspecified Pleskach, Ana, GR[employer]ITE WORKER 07/20/2020 D45 Polycythemia vera Pleskach, Moll y, [employer] WORKER 07/20/2020 G40.909 Epilepsy, unspecified, not intra ctable, without status epile Pleskach, Ana, GR[employer] WORKER 07/20/2020 Z23 Encounter for immunization Elida Garciay, GR[employer]ITE WORKER Plan of Treatment Future Appointment(s):* 01/18/2021 11:15 am - Ana Martin GRANITE WORKER at Main Office 10/26/2020 - Ana Martin, GRANITE WORKER* I95.1 Orthostatic hypotension* Comments:* feeling much better, no concerns * R94.6 Abnormal results of thyroid function studies* New Labs:* TSH And T4 Free ([facility]), Scheduled: 01/18/21 * Comments:* recheck in 3 months * I10 Essential (primary) hypertension* Comments:* controlled, continue current medications per cardiology * I50.32 Chronic diastolic (congestive) heart failure * 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 * I42.9 Cardiomyopathy, unspecified * I48.0 Paroxysmal atrial fibrillation * I25.10 Atherosclerotic heart disease of [place] coronary artery with * I73.9 Peripheral vascular disease, unspecified * F32.9 Major depressive disorder, single episode, unspecified * D45 Polycythemia vera * G40.909 Epilepsy, unspecified, not intractable, without status epile Functional Status Functional Condition Comment Date Status Glasses reading Active Independent with all ADL's Activ e pacemaker with defibulator Activ e Mental Status Mental Condition Comment Date Status None Active Referrals Refer to Reason for Referral Status Appt Date [facility] pt is due for 10 year mayelin damian colonoscopy Closed 09/15/[address] [place] [address], [address] [place] [id number] [phone]
--- OUTSIDE RECORDS SUMMARY | 2020-12-02 11:01 | CCD | Continuity of Care Document ---
Author Author Jason MARTIN [facility] Organization Unknown Address [address] [place] [address] Phone [phone] Care Team Providers Care Team Leader Surgery Name Role Phone [facility] - Cardiovascular Disease AUTM [phone] Cologuard AUTM [phone] [facility] - Surgery AUTM [phone] [facility] Neurology - Neurology AUTM Problems [...] RPA-C Onset: 07/24 Atherosclerotic heart disease of [place] coronary arter y without angina pectoris Randi [...] Tablets 1 by mouth every day - [facility] Cardiology Unknown 03/02 Zolpidem Tartrate 10mg Tablets [...] for heartburn/acid reflux Unknown 11/02/2019 Drisdol 1.25mg (27646 Ut) Capsules Take One Capsule By Mouth [...] CPT Code Status Date Vaccine Lot # 20003 Given 07/20/2020 Influenza Virus Vaccine, Quadrivalent,age 3 and up,multidose vial [id number] 24398 Given 08/06/2019 Pneumococcal Vaccine [id number] 39838 Given 08/06/2019 Influenza Virus Vaccine, Quadrivalent,age 3 and up,multidose vial [id number] 72464 Given 07/31/2017 Influenza Vaccination [id number] 11711 Given 07/25/2016 Influenza Vaccination [id number] 25636 Given 07/24/2015 Influenza Vaccination [id number] 98604 Given 07/22/2014 Influenza Vaccination [id number] 90147 Given 07/21/2013 Influenza Vaccination [id number] 24723 Given 08/27/2011 Influenza Vaccination/preser vative free [id number] 33061 Given 08/23/2010 Influenza Vaccination [id number] Vital Signs Date Vital Result Comment [...] H/L Range Note Comprehensive Metabolic Profil 07/24/2020 [facility] [phone] Glucose, Fasting 141 mg/dL High 70-100 Blood [...] Albumin/Globulin Ratio 1.0 Normal Lipid Panel 07/24/2020 [facility] nter [phone] Triglycerides Level 176 mg/dL High <150 Cholesterol Level 166 mg/dL Normal <200 HDL Cholesterol 41 mg/dL Normal >40 LDL Cholesterol 90 mg/dL Normal <100 Non-HDL-C 125 mg/dL Normal Cholesterol Risk Ratio 4.048 Normal <5 Liver Profile 07/24/2020 [facility] nter [phone] Bilirubin,Direct 0.3 mg/dL High 0.0-0.2 Microalbumin Random 07/24/2020 [facility] [phone] Creatinine, Urine 278.0 mg/dL Normal Malb Urine Siemens 43.8 mg/L Normal Emanuel/Creat Ratio 15.7 MCG/MG Normal 0.0-30.0 2 Hemoglobin A1c 07/24/2020 [facility] [phone] Hemoglobin A1c 5.9 % Normal 3 Estimated Average Glucose 123 mg/dL High 60-110 Basic Metabolic Profile 07/24/2020 [place] [address] [phone] Glucose, Fasting 147 mg/dL High 70-100 Blood [...] 8.8-10.2 Laboratory test finding 07/24/2020 [place] [address] [phone] Magnesium Level 2.3 mg/dL Normal 1.8-2.4 NT-Pro BNP 2262 pg/mL High <125 Istat Chem8+ Panel 07/15/2020 [place] [address] [phone] iSTAT HCT 49.0 % Normal 38.0-51.0 iSTAT Glucose 114 mg/dL High 70-105 iSTAT Sodium 140 mEq/L Normal 136-145 iSTAT Potassium 4.8 mEq/L Normal 3.5-5.1 iSTAT CA++ 5.0 mg/dL Normal 4.5-5.3 iSTAT Chloride 101 mEq/L Normal 98-109 iSTAT Co2 28.0 MM/L High 23.0-27.0 iSTAT BUN 44 mg/dL High 8-26 iSTAT Creatinine 1.4 mg/dL High 0.6-1.3 CBC With Differential 07/15/2020 Patient Service Ce [facility]ter [facility] [address] [phone] White Blood Count 12.0 10 High 4.0-10.0 [...] 36.0-66.0 Lymph % 7.8 % Low 24.0-44.0 [place] % 13.5 % High 0.0-5.0 Eos % 0.5 % Normal 0.0-3.0 Baso % 0.4 % Normal 0.0-1.0 Immature Granulocyte % 0.5 % Normal 0-3.0 Nucleated Red Blood Cell % 0.0 % Normal 0-0 Neutrophils # 9.3 10 High 1.5-8.5 Lymph # 0.9 10 Low 1.5-5.0 [place] # 1.6 10 High 0.0-0.8 Eos # 0.1 10 Normal 0.0-0.5 Baso # 0.1 10 Normal 0.0-0.2 Basic Metabolic Profile 05/23/2020 [facility] [place], [place] [id number] [phone] Glucose, Fasting 113 mg/dL High 70-100 Blood [...] Laboratory test finding 05/23/2020 [place] [address] [phone] Magnesium Level 2.1 mg/dL Normal 1.8-2.4 NT-Pro BNP 2799 pg/mL High <125 1 Units are mL/min/1.73 m2 Chronic Kidney Disease Staging per NKF: Stage I & II GFR >=60 Normal to Mildly Decreased Stage III GFR 30-59 Moderately Decreased Stage IV GFR 15-29 Severely Decreased Stage V GFR <15 Very Little GFR Left ESRD GFR <15 on ELEVATOR ADJUSTER 2 THE [place] DIABETES ASSOC[employer] ATION STATES THAT MICROALBUMINURIA IS [...] Little GFR Left ESRD GFR <15 on ELEVATOR ADJUSTER 5 Units are mL/min/1.73 m2 Chronic Kidney Disease Staging per NKF: Stage I & II GFR >=60 Normal to Mildly Decreased Stage III GFR 30-59 Moderately Decreased Stage IV GFR 15-29 Severely Decreased Stage V GFR <15 Very Little GFR Left ESRD GFR <15 on ELEVATOR ADJUSTER Procedures Description No Information Available Medical Devices [...] Visit 10/20/2020 11:15a Main Office Ana Martin, GROUND SUPPORT EQUIPMENT FITTER I10 Essential (primary) hypertension I50.32 Chronic diastolic [...] Code Description Provider 10/26/2020 I95.1 Orthostatic hypotension eHenaAna walton, [facility] 10/26/2020 R94.6 Abnormal results of thyroid func tion studies Plejujuach Ana, [facility] 10/26/2020 I10 Essential (primary) hypertension Pleskach, Ana, [facility] 10/26/2020 I50.32 Chronic diastolic (congestive) h eart failure Pleskach, Ana, [facility] 10/26/2020 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 Pleskac h, Ana, [facility] 10/26/2020 I42.9 Cardiomyopathy, unspecified Ples kach, Ana, [facility] 10/26/2020 I48.0 Paroxysmal atrial fibrillation P leskaElida guzmany, [facility] 10/26/2020 I25.10 Atherosclerotic heart disease of [place] coronary artery with Pleskach, Ana, [facility] 10/26/2020 I73.9 Peripheral vascular disease, uns pecified Pleskach, Ana, [facility] 10/26/2020 F32.9 Major depressive disorder, singl e episode, unspecified Pleskach, Ana, [facility] 10/26/2020 D45 Polycythemia vera Plejujuach Moll y, [facility] 10/26/2020 G40.909 Epilepsy, unspecified, not intra ctable, without status epile Veronica Ana, [facility] 10/20/2020 I10 Essential (primary) hypertension Pleskach, Ana, [facility] 10/20/2020 I50.32 Chronic diastolic (congestive) h eart failure Pleskach, Ana, [facility] 10/20/2020 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 Pleskac h, Ana, [employer]OUND SUPPORT EQUIPMENT FITTER 10/20/2020 I42.9 Cardiomyopathy, unspecified Ples kach, Ana, [facility] 10/20/2020 I48.0 Paroxysmal atrial fibrillation P leskach Ana, [facility] 10/20/2020 I25.10 Atherosclerotic heart disease of [place] coronary artery with Pleskach, Ana, [facility] 10/20/2020 I73.9 Peripheral vascular disease, uns pecified Pleskach, Ana, [employer] SU[employer] EQUIPMENT FITTER 10/20/2020 F32.9 Major depressive disorder, singl e episode, unspecified Pleskach, Ana, [employer] SU[employer] EQUIPMENT FITTER 10/20/2020 D45 Polycythemia vera Pleskach, Moll y, [employer]OUND SUPPORT EQUIPMENT FITTER 10/20/2020 G40.909 Epilepsy, unspecified, not intra ctable, without status epile Pleskach, Ana, [employer]OUND SUPPORT EQUIPMENT FITTER 07/20/2020 Z00.00 Encounter for genera l adult medical examination without abnormal findings Pleskach, Ana, [employer] SU[employer] EQUIPMENT FITTER 07/20/2020 I10 Essential (primary) hypertension Pleskach, Ana, [employer]OUND SUPPORT EQUIPMENT FITTER 07/20/2020 I50.32 Chronic diastolic (congestive) h eart failure Pleskach, Ana, [employer]OUND SUPPORT EQUIPMENT FITTER 07/20/2020 I42.9 Cardiomyopathy, unspecified Ples theo Ana, [employer]OUND SUPPORT EQUIPMENT FITTER 07/20/2020 I48.0 Paroxysmal atrial fibrillation P Ana zee, [employer] SU[employer] EQUIPMENT FITTER 07/20/2020 I25.10 Atherosclerotic heart disease of [place] coronary artery with Pleskach, Ana, GROUND SUPPORT EQUIPMENT FITTER 07/20/2020 I73.9 Peripheral vascular disease, uns pecified Pleskach, Ana, [employer] SUPPORT EQUIPMENT FITTER 07/20/2020 F32.9 Major depressive disorder, singl e episode, unspecified Pleskach, Ana, [employer] SUPPORT EQUIPMENT FITTER 07/20/2020 D45 Polycythemia vera Pleskach, Moll y, [employer]OUND SUPPORT EQUIPMENT FITTER 07/20/2020 G40.909 Epilepsy, unspecified, not intra ctable, without status epile Pleskach, Ana, [employer]OUND SUPPORT EQUIPMENT FITTER 07/20/2020 Z23 Encounter for immunization Elida Garciay, GROUND SUPPORT EQUIPMENT FITTER Plan of Treatment Future Appointment(s):* 01/18/2021 11:15 am - Ana Martin GROUND SUPPORT EQUIPMENT FITTER at Main Office 10/26/2020 - Ana Martin, GROUND SUPPORT EQUIPMENT FITTER* I95.1 Orthostatic hypotension* Comments:* feeling much better, no concerns * R94.6 Abnormal results of thyroid function studies* New Labs:* TSH And T4 Free ([facility]), Scheduled: 01/18/21 * Comments:* recheck in 3 months * I10 Essential (primary) hypertension* Comments:* controlled, continue current medications per cardiology * I50.32 Chronic diastolic (congestive) heart failure * 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
--- OUTSIDE RECORDS SUMMARY | 2020-12-02 11:01 | CCD | Continuity of Care Document ---
Author Author Jason MARTIN [facility] Organization Unknown Address [address] [place] [address] Phone [phone] Care Team Providers Care Principal Ios Developer Name Role Phone [facility] - Cardiovascular Disease AUTM [phone] Cologuard AUTM [phone] [facility] - Surgery AUTM [phone] [facility] Neurology - Neurology AUTM [phone] Problems Active Problems Provider Date Essential hypertension [...] RPA-C Onset: 07/24 Atherosclerotic heart disease of [place] coronary arter y without angina pectoris Randi Maldonado, RPA-C Onset: 07/24/2015 Social History Type Date Description Comments Sex Unknown Tobacco Use Start: Unknown Never Smoked Cigarettes Tobacco Use Start: Unknown Never Used Smokeless Tobacco ETOH Use Rarely consumes alcohol Tobacco Use Start: Unknown Patient has never smoked Recreational Drug Use Denies Drug Use Smoking Status Reviewed: 10/20/20 Patient has never smoked Exercise Type/Frequency Exercises regularly Tattoo/Piercing None Sun Exposure Uses sunscreen Seat Belt/Car Seat Always uses seat belt Bike Helmet Never Does not bike ri de. Smoke Alarms Yes Smoke Alarms Carbon Monoxide Detector: Yes Allergies, Adverse Reactions, Alerts Active Allergies Reaction Severity Comments Date Sulfa 05/19/2008 Medications Active Medications SIG Qnty Indications Ordering Provide r Date Tramadol HCL 50mg Tablets take 1 tablet by mouth every 6 hours as needed for pain 30tabs I73.9 Ana Martin FNP 10/20/2020 Digoxin 125mcg Tablets 1 by mouth every day - [facility] Cardiology Unknown 03/02 Verapamil HCL ER 240mg Caps ER 24H R 1 by mouth every day Unknown 01/09/2020 Lasix 40mg Tablets take one tablet by mouth every morning Unknown 01/09/2020 Zolpidem Tartrate 10mg Tablets 1 tab by mouth every night at bedtime as needed for sleep Unknown 01/09/2020 Clomipramine HCL 50mg Capsules 1 by mouth every night at bedtime Unknown 0 Pantoprazole Sodium 40mg Tablets D R take one tablet by mouth every day for heartburn/acid reflux Unknown 11/02/2019 Multivitamin With Minerals Tablet s 1 by mouth every day Unknown 11/02/2019 Folic Acid 1mg Tablets 1 by mouth every day Unknown 11/02/2019 Melatonin ER 3mg Tablets ER one daily as needed 1/2 hour before bed Unknown 11/02 Drisdol 1.25mg (39508 Ut) Capsules Take One Capsule By Mouth [...] CPT Code Status Date Vaccine Lot # 95066 Given 07/20/2020 Influenza Virus Vaccine, Quadrivalent,age 3 and up,multidose vial [id number] 08524 Given 08/06/2019 Pneumococcal Vaccine [id number] 08334 Given 08/06/2019 Influenza Virus Vaccine, Quadrivalent,age 3 and up,multidose vial [id number] 20294 Given 07/31/2017 Influenza Vaccination [id number] 31792 Given 07/25/2016 Influenza Vaccination [id number] 16175 Given 07/24/2015 Influenza Vaccination [id number] 99050 Given 07/22/2014 Influenza Vaccination [id number] 65250 Given 07/21/2013 Influenza Vaccination [id number] 65182 Given 08/27/2011 Influenza Vaccination/preser vative free [id number] 79298 Given 08/23/2010 Influenza Vaccination [id number] Vital Signs Date Vital Result Comment 10/20/2020 10:44am BP Systolic 97 mmHg BP Diastolic 67 mmHg Heart Rate 60 /min Body Temperature 97.2 F Respiratory Rate 18 /min Weight 203.50 lb O2 % BldC Oximetry 94 % 07/20/2020 1:49pm BP Systolic 81 mmHg BP Diastolic 56 mmHg Heart Rate 63 /min Body Temperature 96.5 F Respiratory Rate 18 /min Weight 193.50 lb O2 % BldC Oximetry 98 % Results Test Acquired Date Facility Test Result H/L Range Note Comprehensive Metabolic Profil 07/24/2020 [facility] [phone] Glucose, Fasting 141 mg/dL High 70-100 Blood [...] Albumin/Globulin Ratio 1.0 Normal Lipid Panel 07/24/2020 [facility] nter [phone] Triglycerides Level 176 mg/dL High <150 Cholesterol Level 166 mg/dL Normal <200 HDL Cholesterol 41 mg/dL Normal >40 LDL Cholesterol 90 mg/dL Normal <100 Non-HDL-C 125 mg/dL Normal Cholesterol Risk Ratio 4.048 Normal <5 Liver Profile 07/24/2020 [facility] nter [phone] Bilirubin,Direct 0.3 mg/dL High 0.0-0.2 Microalbumin Random 07/24/2020 [facility] nter [phone] Creatinine, Urine 278.0 mg/dL Normal Malb Urine Siemens 43.8 mg/L Normal Emanuel/Creat Ratio 15.7 MCG/MG Normal 0.0-30.0 2 Hemoglobin A1c 07/24/2020 [facility] nter [phone] Hemoglobin A1c 5.9 % Normal 3 Estimated Average Glucose 123 mg/dL High 60-110 Basic Metabolic Profile 07/24/2020 Patient Service [place], [place] [id number] [phone] Glucose, Fasting 147 mg/dL High 70-100 Blood [...] 8.8-10.2 Laboratory test finding 07/24/2020 [place] [address] [phone] Magnesium Level 2.3 mg/dL Normal 1.8-2.4 NT-Pro BNP 2262 pg/mL High <125 Istat Chem8+ Panel 07/15/2020 [facility] [place], [place] [id number] [phone] iSTAT HCT 49.0 % Normal 38.0-51.0 iSTAT Glucose 114 mg/dL High 70-105 iSTAT Sodium 140 mEq/L Normal 136-145 iSTAT Potassium 4.8 mEq/L Normal 3.5-5.1 iSTAT CA++ 5.0 mg/dL Normal 4.5-5.3 iSTAT Chloride 101 mEq/L Normal 98-109 iSTAT Co2 28.0 MM/L High 23.0-27.0 iSTAT BUN 44 mg/dL High 8-26 iSTAT Creatinine 1.4 mg/dL High 0.6-1.3 CBC With Differential 07/15/2020 [facility]ter [place], [place] [address]885 [phone] White Blood Count 12.0 10 High 4.0-10.0 [...] 36.0-66.0 Lymph % 7.8 % Low 24.0-44.0 [place] % 13.5 % High 0.0-5.0 Eos % 0.5 % Normal 0.0-3.0 Baso % 0.4 % Normal 0.0-1.0 Immature Granulocyte % 0.5 % Normal 0-3.0 Nucleated Red Blood Cell % 0.0 % Normal 0-0 Neutrophils # 9.3 10 High 1.5-8.5 Lymph # 0.9 10 Low 1.5-5.0 [place] # 1.6 10 High 0.0-0.8 Eos # 0.1 10 Normal 0.0-0.5 Baso # 0.1 10 Normal 0.0-0.2 Basic Metabolic Profile 05/23/2020 [facility] [place] 1681189 [phone] Glucose, Fasting 113 mg/dL High 70-100 Blood [...] Laboratory test finding 05/23/2020 [place] [address] [phone] Magnesium Level 2.1 mg/dL Normal 1.8-2.4 NT-Pro BNP 2799 pg/mL High <125 1 Units are mL/min/1.73 m2 Chronic Kidney Disease Staging per NKF: Stage I & II GFR >=60 Normal to Mildly Decreased Stage III GFR 30-59 Moderately Decreased Stage IV GFR 15-29 Severely Decreased Stage V GFR <15 Very Little GFR Left ESRD GFR <15 on SAFETY SPECIALIST 2 THE [place] DIABETES ASSOC[employer] ATION STATES THAT MICROALBUMINURIA IS [...] Little GFR Left ESRD GFR <15 on SAFETY SPECIALIST 5 Units are mL/min/1.73 m2 Chronic Kidney Disease Staging per NKF: Stage I & II GFR >=60 Normal to Mildly Decreased Stage III GFR 30-59 Moderately Decreased Stage IV GFR 15-29 Severely Decreased Stage V GFR <15 Very Little GFR Left ESRD GFR <15 on SAFETY SPECIALIST Procedures Description No Information Available Medical Devices Description No Information Available Encounters Type Date Location Provider Dx Diagnosis Office Visit 07/20/2020 2:00p Main Office Ana Martin, REFUND SPECIALIST Z00.0 0 Encntr for general adult medical [...] for immunization Assessments Date Code Description Provider 10/20/2020 I73.9 Peripheral vascular disease, uns pecified Ana Martin, REFUND SPECIALIST 10/20/2020 I10 Essential (primary) hypertension Ana Martin, REFUND SPECIALIST 10/20/2020 I50.32 Chronic diastolic (congestive) h eart failure Ana Martin, REFUND SPECIALIST 10/20/2020 I42.9 Cardiomyopathy, unspecified Ples Ana venegas, REFUND SPECIALIST 10/20/2020 I48.0 Paroxysmal atrial fibrillation P Ana zee, REFUND SPECIALIST 10/20/2020 I25.10 Atherosclerotic heart disease of [place] coronary artery with PleAna walton, REFUND SPECIALIST 10/20/2020 F32.9 Major depressive disorder, singl e episode, unspecified PlejujuachAna, REFUND SPECIALIST 10/20/2020 D45 Polycythemia vera Elida Martin, REFUND SPECIALIST 10/20/2020 G40.909 Epilepsy, unspecified, not intra ctable, without status epile Ana Martin, REFUND SPECIALIST 10/20/2020 L02.212 Cutaneous abscess of back [any p art, except buttock] Veronica Ana, REFUND SPECIALIST 10/20/2020 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 Pleskac abram Ana, REFUND SPECIALIST 07/20/2020 Z00.00 Encounter for genera l adult medical examination without abnormal findings Veronica Ana, REFUND SPECIALIST 07/20/2020 I10 Essential (primary) hypertension PleAna walton, REFUND SPECIALIST 07/20/2020 I50.32 Chronic diastolic (congestive) h eart failure PleAna walton, REFUND SPECIALIST 07/20/2020 I42.9 Cardiomyopathy, unspecified Ples theo Ana, REFUND SPECIALIST 07/20/2020 I48.0 Paroxysmal atrial fibrillation P lestheo Ana, REFUND SPECIALIST 07/20/2020 I25.10 Atherosclerotic heart disease of [place] coronary artery with Ana Martin, REFUND SPECIALIST 07/20/2020 I73.9 Peripheral vascular disease, uns pecified Ana Martin, REFUND SPECIALIST 07/20/2020 F32.9 Major depressive disorder, singl e episode, unspecified PleAna walton, REFUND SPECIALIST 07/20/2020 D45 Polycythemia vera Veronica Elida vargas, REFUND SPECIALIST 07/20/2020 G40.909 Epilepsy, unspecified, not intra ctable, without status epile Ana Martin, REFUND SPECIALIST 07/20/2020 Z23 Encounter for immunization Ana Garcia REFUND SPECIALIST Plan of Treatment 10/20/2020 - Ana Martin REFUND SPECIALIST* I73.9 Peripheral vascular disease, unspecified* New Medication:* Tramadol HCL 50 mg - take 1 tablet by mouth every 6 hours as needed for pain * Follow up:* 3 months * I10 Essential (primary) hypertension * I50.32 Chronic diastolic (congestive) heart failure * I42.9 Cardiomyopathy, unspecified * I48.0 Paroxysmal atrial fibrillation * I25.10 Atherosclerotic heart disease of [place] coronary artery with * F32.9 Major depressive disorder, single episode, unspecified * D45 Polycythemia vera * G40.909 Epilepsy, unspecified, not intractable, without status epile * L02.212 Cutaneous abscess of back [any part, except buttock] * 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
--- OUTSIDE RECORDS SUMMARY | 2020-12-02 11:01 | CCD | Continuity of Care Document ---
Author Author Jason HILLSC Organization Unknown Address [address] [place] [address] [place] [address] Phone [phone] Care Team Providers Care Blast Furnace Keeper Helper Name Role Phone Gina Vela AUTM [phone] Bhavya Goodman MD AUTM [phone] Hellen Beard AUTM [phone] Ana Martin AUTM [phone] Problems Active Problems Provider Date Coronary arteriosclerosis [...] heart failure [place] Hills PA-C Onset: 01/31/2020 Permanent atrial fibrillation Felicia Hills PA-C Onset: [...] months, smoked since 1969 Smoking Status Reviewed: 07/25/20 Patient is a former smoker ne padmaja [...] SIG Qnty Indications Ordering Provide r Date Torsemide 20mg Tablets 1 by mouth once a day I50.32 Benigno Mckeon MD 07/25/2020 Clomipramine HCL 50mg Capsules 1 po qhs Unknown 05/22/2020 Metoprolol Tartrate 50mg Tablets 1 by mouth twice a day R06.02 Benigno Mckeon MD 03/21/2020 Atorvastatin Calcium 20mg Tablets 1 by mouth every night at bedtime 90tabs Benigno Mckeon MD 02/01/2020 Benzonatate 100mg Capsules 1 by mouth three times a day as needed Unknown 10/14 Multivitamin Adult Tablets 1 by mouth every day Unknown 11/07/2019 Vitamin D (Ergocalciferol) 1.25mg (89888 Ut) Capsules 1 by mouth every week [...] Available Vital Signs Date Vital Result Comment 07/25/2020 7:50am Weight 192.00 lb Home Weight 189lb Height 68 inches 5'8" BMI (Body Mass Index) 29.2 kg/m2 Heart Rate 60 /min Regular Respiratory Rate 16 /min BP Systolic Right Arm 104 mmHg sitting, regular c uff BP Diastolic Right Arm 60 mmHg sitting, regular cuff BP Systolic Left Arm 106 mmHg sitting BP Diastolic Left Arm 60 mmHg sitting 05/23/2020 7:49am Weight 190.00 lb Home Weight 188lb Home weight Height 68 inches 5'8" BMI (Body Mass Index) 28.9 kg/m2 Heart Rate 60 /min Regular Respiratory Rate 16 /min BP Systolic Right Arm 116 mmHg sitting, regular c uff BP Diastolic Right Arm 68 mmHg sitting, regular cuff Results Test Acquired Date Facility Test Result H/L Range Note Basic Metabolic Profile 09/04/2020 [facility] [phone] Glucose, Fasting 139 mg/dL High 70-100 Blood Urea Nitrogen 36 mg/dL High 7-18 Creatinine For GFR 1.54 mg/dL High 0.70-1.30 Glomerular Filtration Rate 48.8 Low >49 1 Sodium Level 142 mEq/L Normal 136-145 Potassium Serum 4.2 mEq/L Normal 3.5-5.1 Chloride Level 106 mEq/L Normal 98-107 Carbon Dioxide Level 30 mEq/L Normal 21-32 Anion Gap 6 mEq/L Low 8-16 Calcium Level 9.7 mg/dL Normal 8.8-10.2 Laboratory test finding 09/04/2020 [facility] [phone] Magnesium Level 2.4 mg/dL Normal 1.8-2.4 NT-Pro BNP 2501 pg/mL High <125 Basic Metabolic Profile 07/24/2020 [facility] [phone] Glucose, Fasting 147 mg/dL High 70-100 Blood Urea Nitrogen 38 mg/dL High 7-18 Creatinine For GFR 1.73 mg/dL High 0.70-1.30 Glomerular Filtration Rate 42.8 Low >49 2 Sodium Level 138 mEq/L Normal 136-145 Potassium Serum 4.0 mEq/L Normal 3.5-5.1 Chloride Level 101 mEq/L Normal 98-107 Carbon Dioxide Level 29 mEq/L Normal 21-32 Anion Gap 8 mEq/L Normal 8-16 Calcium Level 10.2 mg/dL Normal 8.8-10.2 Laboratory test finding 07/24/2020 [facility] [phone] Magnesium Level 2.3 mg/dL Normal 1.8-2.4 NT-Pro BNP 2262 pg/mL High <125 CBC without Differential 07/15/2020 [facility] - not inter faced (315)- - White Blood Count 12.0 High 4.0-10.0 Red Blood Count 4.92 4.30-6.10 Platelets 208 150-450 Hemoglobin 15.7 Hematocrit 47.9 BMP 05/23/2020 [facility] (315)- - Calcium Ser/Plasma Mass/Vol 9.4 Sodium 140 Carbon Dioxide Ser/Plasm 27 Chloride Serum/Plasma 105 Potassium 3.8 Glucose 113 High 70-100 Blood Urea Nitrogen 29 High 5-21 Creatinine 1.28 0.6-1.5 G F R -- Laboratory test finding 05/23/2020 [facility] (315)- - Magnesium Level 2.1 Laboratory test finding 05/23/2020 [facility] [phone] Magnesium Level 2.1 mg/dL Normal 1.8-2.4 Basic Metabolic Profile 05/23/2020 [facility] [phone] Glucose, Fasting 113 mg/dL High 70-100 Blood Urea Nitrogen 29 mg/dL High 7-18 Creatinine For GFR 1.28 mg/dL Normal 0.70-1.30 Glomerular Filtration Rate > 60.0 Normal >49 3 Sodium Level 140 mEq/L Normal 136-145 Potassium Serum 3.8 mEq/L Normal 3.5-5.1 Chloride Level 105 mEq/L Normal 98-107 Carbon Dioxide Level 27 mEq/L Normal 21-32 Anion Gap 8 mEq/L Normal 8-16 Calcium Level 9.4 mg/dL Normal 8.8-10.2 Laboratory test finding 05/23/2020 [facility] [phone] NT-Pro BNP 2799 pg/mL High <125 Laboratory test finding 05/23/2020 [facility] (315)- - NT Probnp QN Ser/Plas 53679 Basic Metabolic Profile 03/20/2020 [facility] [phone] Glucose, Fasting 140 mg/dL High 70-100 Blood Urea Nitrogen 24 mg/dL High 7-18 Creatinine For GFR 1.32 mg/dL High 0.70-1.30 Glomerular Filtration Rate 58.5 Normal >49 4 Sodium Level 142 mEq/L Normal 136-145 Potassium Serum 3.8 mEq/L Normal 3.5-5.1 Chloride Level 106 mEq/L Normal 98-107 Carbon Dioxide Level 30 mEq/L Normal 21-32 Anion Gap 6 mEq/L Low 8-16 Calcium Level 9.1 mg/dL Normal 8.8-10.2 Laboratory test finding 03/20/2020 [facility] [phone] NT-Pro BNP 4813 pg/mL High <125 Basic Metabolic Profile 03/14/2020 [facility] [phone] Glucose, Fasting 197 mg/dL High 70-100 Blood Urea Nitrogen 36 mg/dL High 7-18 Creatinine For GFR 1.68 mg/dL High 0.70-1.30 Glomerular Filtration Rate 44.3 Low >49 5 Sodium Level 138 mEq/L Normal 136-145 Potassium Serum 3.7 mEq/L Normal 3.5-5.1 Chloride Level 103 mEq/L Normal 98-107 Carbon Dioxide Level 26 mEq/L Normal 21-32 Anion Gap 9 mEq/L Normal 8-16 Calcium Level 9.0 mg/dL Normal 8.8-10.2 Laboratory test finding 03/14/2020 [facility] [phone] Magnesium Level 2.0 mg/dL Normal 1.8-2.4 Complete Blood Count 03/14/2020 [facility] [phone] White Blood Count 10.7 10 High 4.0-10.0 Red Blood Count 4.27 10 Low 4.30-6.10 Hemoglobin 14.2 g/dL Normal 13.5-17.5 Hematocrit 43.1 % Normal 42.0-52.0 Mean Corpuscular Volume 100.9 fl High 80.0-96.0 Mean Corpuscular Hemoglobin 33.3 pg High 27.0-33.0 Mean Corpuscular HGB Conc 32.9 g/dL Normal 32.0-36.5 Red Cell Distribution Width 14.7 % High 11.5-14.5 Platelet Count, Automated 178 10 Normal 150-450 Nucleated Red Blood Cell % 0.0 % Normal 0-0 Laboratory test finding 03/14/2020 [facility] [phone] NT-Pro BNP 5364 pg/mL High <125 1 Units are mL/min/1.73 m2 Chronic Kidney Disease Staging per NKF: Stage I & II GFR >=60 Normal to Mildly Decreased Stage III GFR 30-59 Moderately Decreased Stage IV GFR 15-29 Severely Decreased Stage V GFR <15 Very Little GFR Left ESRD GFR <15 on [employer]ICE [employer]IDENT OF [employer] 2 Units are mL/min/1.73 m2 Chronic Kidney Disease Staging per NKF: Stage I & II GFR >=60 Normal to Mildly Decreased Stage III GFR 30-59 Moderately Decreased Stage IV GFR 15-29 Severely Decreased Stage V GFR <15 Very Little GFR Left ESRD GFR <15 on [employer] 3 Units are mL/min/1.73 m2 Chronic Kidney Disease Staging per NKF: Stage I & II GFR >=60 Normal to Mildly Decreased Stage III GFR 30-59 Moderately Decreased Stage IV GFR 15-29 Severely Decreased Stage V GFR <15 Very Little GFR Left ESRD GFR <15 on [employer] 4 Units are mL/min/1.73 m2 Chronic Kidney Disease Staging per NKF: Stage I & II GFR >=60 Normal to Mildly Decreased Stage III GFR 30-59 Moderately Decreased Stage IV GFR 15-29 Severely Decreased Stage V GFR <15 Very Little GFR Left ESRD GFR <15 on [employer]ICE [employer] 5 Units are mL/min/1.73 m2 Chronic Kidney Disease Staging per NKF: Stage I & II GFR >=60 Normal to Mildly Decreased Stage III GFR 30-59 Moderately Decreased Stage IV GFR 15-29 Severely Decreased Stage V GFR <15 Very Little GFR Left ESRD GFR <15 on [employer]ICE [employer]IDENT [employer] Procedures Date Code Description Status 07/25/2020 14643 ECG 12-Lead Completed 06/15/2020 61832 Remote Pacemaker/Cardio-Defibril lator Data Acquistion Completed 06/15/2020 39092 Remote Interrogate D evice Eval Cardioverter/Defibrillator-90 Days Completed 06/05/2020 43530 Echocardiogram 2-D Doppler Color Completed 03/16/2020 30414 Remote Pacemaker/Cardio-Defibril lator Data Acquistion Completed 03/16/2020 76807 Remote Interrogate D evice Eval Cardioverter/Defibrillator-90 Days Completed 03/15/2020 71092 ECG 12-Lead Completed Medical Devices Description No Information Available Encounters Type Date Location Provider Dx Diagnosis Office Visit 07/25/2020 7:45a Main Office REGI VerdinC I25.1 0 Athscl heart disease of [place] coronary artery w/o ang pctrs I42.1 Obstructive [...] illance Office Visit 05/23/2020 8:00a Main Office REGI VerdinC R06.0 2 Shortness of breath Office Visit 03/21/2020 10:15a Main Office REGI VerdinC R06.0 2 Shortness of breath Office Visit 03/15/2020 8:00a Main Office EAGLE Verdin-C R06.0 2 Shortness of breath I48.19 Other persistent atrial fibr illation Assessments Date Code Description Provider 07/25/2020 I25.10 Atherosclerotic heart disease of [place] coronary artery with REGI VerdinC 07/25/2020 I42.1 Obstructive hypertrophic cardiom yopathy Felicia Hills PA-C 07/25/2020 Z95.810 Presence of automatic (implantab le) cardiac defibrillator REGI VerdinC 07/25/2020 I48.21 Permanent atrial fibrillation Ka r[place]ell Hills PA-C 07/25/2020 I50.32 Chronic diastolic (congestive) h eart failure EAGLE Verdin-C 07/25/2020 I11.0 Hypertensive heart disease with heart failure [place] Verdin-C 07/25/2020 I35.1 Nonrheumatic aortic (valve) insu fficiency Felicia Hills PA-C 07/25/2020 I34.0 Nonrheumatic mitral (valve) insu fficiency Felicia Hills PA-C 07/25/2020 E78.00 Pure hypercholesterolemia, unspe cified Felicia Hills PA-C 07/25/2020 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 Felicia Hills PA-C 07/25/2020 Z71.3 Dietary counseling and surveilla REGI BillC 06/15/2020 Z95.810 Presence of automatic (implantab le) cardiac defibrillator [facility] 06/05/2020 I48.19 Other persistent atrial fibrilla tion ECHO 05/23/2020 R06.02 Shortness of breath REGI York[facility] 03/21/2020 R06.02 Shortness of breath Felicia Calzada REGI [facility] 03/16/2020 Z95.810 Presence of automatic (implantab le) cardiac defibrillator [facility] 03/15/2020 R06.02 Shortness of breath Felicia E [facility]GI [facility]erC 03/15/2020 I48.19 Other persistent atrial fibrilla tion Felicia Hills PA-C Plan of Treatment Future Appointment(s):* 09/06/2020 12:30 pm - Felicia Hills PA-C at Main Office * 09/14/2020 7:00 am - [facility] Main Office 07/25/2020 - Felicia Hills PA-C* I25.10 Atherosclerotic heart disease of [place] coronary artery with * I42.1 Obstructive hypertrophic cardiomyopathy * Z95.810 Presence of automatic (implantable) cardiac defibrillator * I48.21 Permanent atrial fibrillation * I50.32 Chronic diastolic (congestive) heart failure* New Medication:* Torsemide 20 mg - 1 by mouth once a day * Recommendations:* 1. Decrease torsemide to 20 mg once a day. 2. Follow a 2 grams sodium diet and 50 ounces fluid restriction per 24 hour and do daily weights. Call the office for weight gain of 3 lbs or more. 3. Do lab work before your next appointment. * I11.0 Hypertensive heart disease with heart failure * I35.1 Nonrheumatic aortic (valve) insufficiency * I34.0 Nonrheumatic mitral (valve) insufficiency * E78.00 Pure hypercholesterolemia, unspecified * I27.29 Other secondary pulmonary hypertension * Z71.3 Dietary counseling and surveillance* Recommendations:* Follow a low fat/low cholesterol diet and do at least 30 minutes of sustained aerobic activity daily. * All * Follow up:* 6 week CV/CHF check. Functional Status Functional Condition Comment Date Status Independent with all ADL's Activ e Mental Status Description No Information Available Referrals Description No Information Available
--- OUTSIDE RECORDS SUMMARY | 2020-12-02 11:01 | CCD | Continuity of Care Document ---
Author Author Jason BEARD P.A.-C. Organization Unknown Address [address] [place] [address] Phone [phone] Care Team Providers Care Tie Puller Name Role Phone Aury White M.D. AUTM [phone] Problems Description No Information Available Social History Type Date Description Comments Sex Unknown Allergies, Adverse Reactions, Alerts Active Allergies Reaction Severity Comments Date Sulfa Antibiotics unknown 11/04/2013 Medications Active Medications SIG Qnty Indications Ordering Provide r Date Gabapentin 300mg Capsules 1 by mouth three times a day 270caps G60.9 Nandini Vela M.D. 10/04/2020 Levetiracetam 1000mg Tablets take one tablet by mouth twice a day 20tabs Nandini Vela M.D. Levetiracetam 1000mg Tablets 1 po bid 180tabs Nandini Vela M.D. 05/27/2016 History Medications Gabapentin 100mg Capsules take one capsule by mouth three times a day 90caps Nandini Vela M.D. 07/2020 - 10/04/2020 Immunizations Description No Information Available Vital Signs Date Vital Result Comment 08/02/2020 6:17am BP Systolic 100 mmHg BP Diastolic 60 mmHg Heart Rate 64 /min Respiratory Rate 16 /min 05/02/2020 7:54am BP Systolic 110 mmHg BP Diastolic 80 mmHg Heart Rate 60 /min Respiratory Rate 16 /min Results Test Acquired Date Facility Test Result H/L Range Note Laboratory test finding 08/29/2020 [facility] Vitamin B12 Level 561 pg/mL Normal 247-911 1 Folate > 24.0 NG/ML Normal >5.4 2 Rheumatoid Factor Quant < 10.0 IU/mL Normal <15.0 Erythrocyte Sedimentation Rate 7 mm/hr Normal 0-20 Vitamin E Level 08/29/2020 [facility] Vitamin E(Alpha Tocopherol) 10.4 mg/L Normal 9.0-29.0 Vitamin E(Gamma Tocopherol) 1.6 mg/L Normal 0.5-4.9 3 Laboratory test finding 08/29/2020 [facility] Vitamin B1 Level Whole Blood 223.4 nmol/L High 66.5-200.0 4 Vitamin B6,Pyridoxal Phosphate 12.2 ug/L Normal 5.3-46.7 5 Antinuclear Antibodies 08/29/2020 [facility] Antinuclear Antibodies Direct Negative Normal Negative 6 Laboratory test finding 08/03/2020 [facility] Levetiracetam (Keppra) 41.3 ug/mL High 10.0-40.0 7 Laboratory test finding 05/23/2020 [facility] Levetiracetam (Keppra) SEE SEPARATE REP <SEE NOTE> Normal 8 1 VITAMIN B12 NORMAL RANGE NORMAL 247 - 911 PG/ML INDETERMINATE 211 - 246 PG/ML DEFICIENT LESS THAN 211 PG/ML 2 FOLATE NORMAL RANGE NORMAL GREATER THAN 5.4 NG/ML INDETERMINATE 3.4-5.4 NG/ML DEFICIENT LESS THAN 3.4 NG/ML 3 Reference intervals for alph a and gamma-tocopherol determined from National Health and Nutrition Examination Survey, 4936-2582. Individuals with alpha-tocopherol levels less than 5.0 mg/L are considered vitamin E deficient. 4 Specimen Comment: Test(s) 07 0141-Vitamin E(Alpha Tocopherol); 473459- Specimen Comment: Vitamin E(Gamma Tocopherol); 547732-Hitegzj B6; 608569- Specimen Comment: Vit. B1, Whole Blood Specimen Comment: was developed and its performance characteristics Specimen Comment: determined by [facility]. It has not been cleared or approved Specimen Comment: by the Food and Drug Administration. 5 Specimen Comment: Test(s) 07 0141-Vitamin E(Alpha Tocopherol); 774308- Specimen Comment: Vitamin E(Gamma Tocopherol); 258568-Ikwgkyw B6; 986884- Specimen Comment: Vit. B1, Whole Blood Specimen Comment: was developed and its performance characteristics Specimen Comment: determined by [facility]. It has not been cleared or approved Specimen Comment: by the Food and Drug Administration. 6 Performed at: [address] [id number] Piercing Machine Operator: Rick Moore MD, Phone: [phone] Performed at: [facility] [id number] Piercing Machine Operator: Iona Arthur MD, Phone: [phone] This test was developed and its performance characteristics determined by [facility]. It has not been cleared or approved by the Food and Drug Administration. Performed at: [facility] [id number] Piercing Machine Operator: Rick Moore MD, Phone: [phone] SEE SEPARATE REPORT Testing performed at reference lab . Report copy to follow on a separate form. 07/03/20 REF LAB#:[id number] Procedures Date Code Description Status 2020 51168 Nerve Conduction 13+ Studies Com pleted 2020 57410 Needle Electromyography Complete , Five Or More Muscles Studied Completed 2020 80613 Needle Electromyography Complete , Five Or More Muscles Studied Completed 05/24/2020 72891 EEG Recording Awake & Asleep Com pleted 05/24/2020 76780 EEG Recording Awake & Asleep Com pleted Medical Devices Description No Information Available Encounters Type Date Location Provider Dx Diagnosis Office Visit 10/04/2020 10:45a Main office - [place] Artur Bob.A.-C. 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 G40.89 Other seizures R20.2 Paresthesia of skin Office Visit 05/02/2020 8:15a Main office - [place] Artur Bob.A.-C. G40.509 Epileptic seiz rel to extrn causes, not ntrct, w/o stat epi Assessments Date Code Description Provider 10/04/2020 G60.9 Hereditary and idiopathic neurop athy, unspecified Ariadna Bautista.-COtis 10/04/2020 G40.509 Epileptic seizures related to ex ternal causes, not intractab Artur Bautista.A.-C. 2020 M54.5 Low back pain Nandini Mirian, M.D . 2020 M54.16 Radiculopathy, lumbar region Abd ul Mirian, M.D. 2020 R20.2 Paresthesia of skin Nandini Mirian, M.D. 2020 G60.9 Hereditary and idiopathic neurop athy, unspecified Nandini Mirian, M.D. 08/02/2020 G40.89 Other seizures Kayleen Bautista-Ama. 08/02/2020 R20.2 Paresthesia of skin Kayleen Bob-C. 05/24/2020 G40.89 Other seizures Becky Mirian, M. D. 05/24/2020 G40.89 Other seizures EEG 05/02/2020 G40.509 Epileptic seizures related to ex ternal causes, not intractab Hellen Beard P.A.-C. Plan of Treatment Future Appointment(s):* 01/31/2021 9:00 am - Hellen Beard P.A.-C. at Main office [facility] 10/04/2020 - Hellen Beard P.A.-C.* G60.9 Hereditary and idiopathic neuropathy, unspecified* New Medication:* Gabapentin 300 mg - 1 by mouth three times a day * Comments:* Increase gabapentin to 300 mg tid. He was advised to use a cane when walking on uneven ground and not to climb ladders, etc. * G40.509 Epileptic seizures related to external causes, not intractab* Comments:* Controlled. Continue Keppra. * Follow up:* 3 months Functional Status Description No Information Available Mental Status Description No Information Available Referrals Description No Information Available
--- OUTSIDE RECORDS SUMMARY | 2020-12-02 11:01 | CCD | Continuity of Care Document ---
Author Author Jason BEARD P.A.-C. Organization Unknown Address [address] [place] [address] Phone [phone] Care Team Providers Care Meter And Regulator Shop Supervisor Name Role Phone Aury White M.D. AUTM [phone] Problems Description No Information Available Social History [...] H/L Range Note Laboratory test finding 08/29/2020 [facility] Vitamin B12 Level 561 pg/mL Normal 247-911 1 Folate > 24.0 NG/ML Normal >5.4 2 Rheumatoid Factor Quant < 10.0 IU/mL Normal <15.0 Erythrocyte Sedimentation Rate 7 mm/hr Normal 0-20 Vitamin E Level 08/29/2020 [facility] Vitamin E(Alpha Tocopherol) 10.4 mg/L Normal 9.0-29.0 Vitamin E(Gamma Tocopherol) 1.6 mg/L Normal 0.5-4.9 3 Laboratory test finding 08/29/2020 [facility] Vitamin B1 Level Whole Blood 223.4 nmol/L High 66.5-200.0 4 Vitamin B6,Pyridoxal Phosphate 12.2 ug/L Normal 5.3-46.7 5 Antinuclear Antibodies 08/29/2020 [facility] Antinuclear Antibodies Direct Negative Normal Negative 6 Laboratory test finding 08/03/2020 [facility] Levetiracetam (Keppra) 41.3 ug/mL High 10.0-40.0 7 Laboratory test finding 05/23/2020 [facility] Levetiracetam (Keppra) SEE SEPARATE REP <SEE NOTE> Normal 8 1 VITAMIN B12 NORMAL RANGE NORMAL 247 - 911 PG/ML INDETERMINATE 211 - 246 PG/ML DEFICIENT LESS THAN 211 PG/ML 2 FOLATE NORMAL RANGE NORMAL GREATER THAN 5.4 NG/ML INDETERMINATE 3.4-5.4 NG/ML DEFICIENT LESS THAN 3.4 NG/ML 3 Reference intervals for alph a and gamma-tocopherol determined from National Health and Nutrition Examination Survey, 6580-3978. Individuals with alpha-tocopherol levels less than 5.0 mg/L are considered vitamin E deficient. 4 Specimen Comment: Test(s) 07 0141-Vitamin E(Alpha Tocopherol); 091749- Specimen Comment: Vitamin E(Gamma Tocopherol); 269600-Rhngkos B6; 378179- Specimen Comment: Vit. B1, Whole Blood Specimen Comment: was developed and its performance characteristics Specimen Comment: determined by [facility]. It has not been cleared or approved Specimen Comment: by the Food and Drug Administration. 5 Specimen Comment: Test(s) 07 0141-Vitamin E(Alpha Tocopherol); 613260- Specimen Comment: Vitamin E(Gamma Tocopherol); 799110-Kldlsfr B6; 347696- Specimen Comment: Vit. B1, Whole Blood Specimen Comment: was developed and its performance characteristics Specimen Comment: determined by [facility]. It has not been cleared or approved Specimen Comment: by the Food and Drug Administration. 6 Performed at: [address] [id number] Java Sybase Developer: Rick Moore MD, Phone: [phone] Performed at: [facility] [id number] Java Sybase Developer: Iona Arthur MD, Phone: [phone] This test was developed and its performance characteristics determined by [facility]. It has not been cleared or approved by the Food and Drug Administration. Performed at: [facility] [id number] Java Sybase Developer: Rick Moore MD, Phone: [phone] SEE SEPARATE REPORT Testing performed at reference lab . Report copy to follow on a separate form. 07/03/20 REF LAB#:[id number] Procedures Date Code Description Status 2020 86977 Nerve Conduction 13+ Studies Com pleted 2020 83242 Needle Electromyography Complete , Five Or More Muscles Studied Completed 2020 44847 Needle Electromyography Complete , Five Or More Muscles Studied Completed 05/24/2020 36909 EEG Recording Awake & Asleep Com pleted 05/24/2020 82431 EEG Recording Awake & Asleep Com pleted Medical Devices Description No Information Available Encounters Type Date Location Provider Dx Diagnosis Office Visit 08/02/2020 8:15a Main office - [place] Artur Bob.A.-C. G40.89 Other seizures R20.2 Paresthesia of skin Office Visit 05/02/2020 8:15a Main office - [place] Vineet BobA.-COtis G40.509 Epileptic seiz rel to extrn causes, not ntrct, w/o stat epi Assessments Date Code Description Provider 10/04/2020 G60.9 Hereditary and idiopathic neurop athy, unspecified Vineet BautistaA.-COtis 10/04/2020 G40.509 Epileptic seizures related to ex ternal causes, not intractab Artur Bautista.A.-C. 2020 M54.5 Low back pain NandiniSun Beltran 2020 M54.16 Radiculopathy, lumbar region Abd ul Mirian, MOtisDOtis 2020 R20.2 Paresthesia of skin Nandini Mirian, M.D. 2020 G60.9 Hereditary and idiopathic neurop athy, unspecified Nandini Vela M.D. 08/02/2020 G40.89 Other seizures Hellen Beard P.A.-C. 08/02/2020 R20.2 Paresthesia of skin Hellen morrison P.A.-C. 05/24/2020 G40.89 Other seizures Alexis Andino 05/24/2020 G40.89 Other seizures EEG 05/02/2020 G40.509 Epileptic seizures related to ex ternal causes, not intractab Hellen Beard P.A.-C. Plan of Treatment Future Appointment(s):* 01/31/2021 9:00 am - Hellen Beard P.A.-C. at Main office [facility] 10/04/2020 - Hellen Beard P.A.-C.* G60.9 Hereditary and idiopathic neuropathy, unspecified* New Medication:* Gabapentin 300 mg - 1 by mouth three times a day * G40.509 Epileptic seizures related to external causes, not intractab Functional Status Description No Information Available Mental Status Description No Information Available Referrals Description No Information Available
--- OUTSIDE RECORDS SUMMARY | 2020-12-02 11:01 | CCD | Continuity of Care Document ---
Author Author Jason MCKEON MD Organization Unknown Address [place] [address] Phone [phone] Care Team Providers Care Access Director Name Role Phone Gina Vela AUTM [phone] Bhavya Goodman MD AUTM [phone] Hellen Beard AUTM [phone] Ana Martin AUTM [phone] Problems Active Problems Provider Date Coronary arteriosclerosis Felicia Castelan, PA-C Onset: 2010 Hypertrophic obstructive cardiomyopathy Felicia Castelan PA-C Onset: 10/23/2015 Automatic implantable cardiac defibrillator in situ Felicia bustos, PA-C Onset: 09/23/2011 Paroxysmal atrial fibrillation Felicia Castelan, PA-C Onset: 0 05/31/2016 Benign hypertensive heart disease without congestive h eart failure Felicia Castelan, PA-C Onset: 09/23/2011 Aortic valve disorder Felicia Castelan, PA-C Onset: 09/23/2011 Mitral valve disorder Felicia Castelan, PA-C Onset: 09/23/2011 Pure hypercholesterolemia Felicia Castelan, PA-C Onset: 2010 Obesity Felicia Castelan, PA-C Onset: 09/23/2011 Dietary management surveillance Felicia Castelan PA-C Onset: 06/04/2017 Chronic diastolic heart failure Felicia Castelan, PA-C Onset: 01/31/2020 Hypertensive heart disease with congestive heart failure Nahomy Castelan PA-C Onset: 01/31/2020 Syncope and collapse Benigno Mckeon MD Onset: 10/24/2020 Permanent atrial fibrillation Felicia Castelan PA-C Onset: Social History Type Date Description [...] months, smoked since 1969 Smoking Status Reviewed: 09/06/20 Patient is a former smoker ne padmaja [...] Qnty Indications Ordering Provide r Date Gabapentin 100mg Capsules 1 by mouth three times [...] day Unknown 11/07/2019 Vitamin D (Ergocalciferol) 1.25mg (38863 Ut) Capsules 1 by mouth every week [...] Available Vital Signs Date Vital Result Comment 09/06/2020 12:14pm Weight 198.00 lb Home Weight 198lb Height 68 inches 5'8" BMI (Body Mass Index) 30.1 kg/m2 Heart Rate 60 /min Regular Respiratory Rate 16 /min BP Systolic Right Arm 110 mmHg sitting, regular c uff BP Diastolic Right Arm 60 mmHg sitting, regular cuff 07/25/2020 7:50am Weight 192.00 lb Home Weight 189lb Height 68 inches 5'8" BMI (Body Mass Index) 29.2 kg/m2 Heart Rate 60 /min Regular Respiratory Rate 16 /min BP Systolic Right Arm 104 mmHg sitting, regular c uff BP Diastolic Right Arm 60 mmHg sitting, regular cuff BP Systolic Left Arm 106 mmHg sitting BP Diastolic Left Arm 60 mmHg sitting Results Test Acquired Date Facility Test Result H/L Range Note Basic Metabolic Profile 09/04/2020 [facility] [phone] Glucose, Fasting 139 mg/dL High 70-100 Blood [...] mg/dL Normal 8.8-10.2 Laboratory test finding 09/04/2020 [facility] [phone] Magnesium Level 2.4 mg/dL Normal 1.8-2.4 NT-Pro BNP 2501 pg/mL High <125 Basic Metabolic Profile 07/24/2020 [facility] [phone] Glucose, Fasting 147 mg/dL High 70-100 Blood [...] mg/dL Normal 8.8-10.2 Laboratory test finding 07/24/2020 [facility] [phone] Magnesium Level 2.3 mg/dL Normal 1.8-2.4 NT-Pro BNP 2262 pg/mL High <125 CBC without Differential 07/15/2020 [facility] - not inter faced (315)- - White Blood Count 12.0 High 4.0-10.0 Red Blood Count 4.92 4.30-6.10 Platelets 208 150-450 Hemoglobin 15.7 Hematocrit 47.9 Laboratory test finding 05/23/2020 [facility] (315)- - NT Probnp QN Ser/Plas 74696 BMP 05/23/2020 [facility] (315)- - Calcium Ser/Plasma Mass/Vol 9.4 Sodium 140 Carbon Dioxide Ser/Plasm 27 Chloride Serum/Plasma 105 Potassium 3.8 Glucose 113 High 70-100 Blood Urea Nitrogen 29 High 5-21 Creatinine 1.28 0.6-1.5 G F R -- Laboratory test finding 05/23/2020 [facility] (315)- - Magnesium Level 2.1 Laboratory test finding 05/23/2020 [facility] [phone] Magnesium Level 2.1 mg/dL Normal 1.8-2.4 Basic Metabolic Profile 05/23/2020 [facility] [phone] Glucose, Fasting 113 mg/dL High 70-100 Blood [...] mg/dL Normal 8.8-10.2 Laboratory test finding 05/23/2020 [facility] [phone] NT-Pro BNP 2799 pg/mL High <125 1 Units are mL/min/1.73 m2 Chronic Kidney Disease Staging per NKF: Stage I & II GFR >=60 Normal to Mildly Decreased Stage III GFR 30-59 Moderately Decreased Stage IV GFR 15-29 Severely Decreased Stage V GFR <15 Very Little GFR Left ESRD GFR <15 on ACCOUNTS ADJUSTABLE CLERK 2 Units are mL/min/1.73 m2 Chronic Kidney Disease Staging per NKF: Stage I & II GFR >=60 Normal to Mildly Decreased Stage III GFR 30-59 Moderately Decreased Stage IV GFR 15-29 Severely Decreased Stage V GFR <15 Very Little GFR Left ESRD GFR <15 on ACCOUNTS ADJUSTABLE CLERK 3 Units are mL/min/1.73 m2 Chronic Kidney Disease Staging per NKF: Stage I & II GFR >=60 Normal to Mildly Decreased Stage III GFR 30-59 Moderately Decreased Stage IV GFR 15-29 Severely Decreased Stage V GFR <15 Very Little GFR Left ESRD GFR <15 on ACCOUNTS ADJUSTABLE CLERK Procedures Date Code Description Status 10/24/2020 87486 Icd Programming Multi Leads Comp leted 09/14/2020 60877 Remote Pacemaker/Cardio-Defibril lator Data Acquistion Completed 09/14/2020 36437 Remote Interrogate D evice Eval Cardioverter/Defibrillator-90 Days Completed 07/25/2020 86152 ECG 12-Lead Completed 06/15/2020 75014 Remote Pacemaker/Cardio-Defibril lator Data Acquistion Completed 06/15/2020 56916 Remote Interrogate D evice Eval Cardioverter/Defibrillator-90 Days Completed 06/05/2020 04357 Echocardiogram 2-D Doppler Color Completed Medical Devices Description No Information Available Encounters Type Date Location Provider Dx Diagnosis Office Visit 09/06/2020 12:30p Main Office Felicia Castelan PA-C I50.3 2 Chronic diastolic (congestive) heart failure Office Visit 07/25/2020 7:45a Main Office Felicia Castelan PA-C I25.1 0 Athscl heart disease of [place] coronary artery w/o ang pctrs I42.1 Obstructive [...] illance Office Visit 05/23/2020 8:00a Main Office EAGLE Verdin-C R06.0 2 Shortness of breath Assessments Date Code Description Provider 10/24/2020 R55 Syncope and collapse Benigno bailey MD 10/24/2020 I42.1 Obstructive hypertrophic cardiom yopathy Benigno Mckeon MD 10/24/2020 Z95.810 Presence of automatic (implantab le) cardiac defibrillator Benigno Mckeon MD 09/14/2020 Z95.810 Presence of automatic (implantab le) cardiac defibrillator [facility] 09/06/2020 I50.32 Chronic diastolic (congestive) h eart failure Felicia Castelan, PA-C 07/25/2020 I25.10 Atherosclerotic heart disease of [place] coronary artery with EAGLE Verdin-C 07/25/2020 I42.1 Obstructive hypertrophic cardiom yopathy Felicia Castelan, PA-C 07/25/2020 Z95.810 Presence of automatic (implantab le) cardiac defibrillator Felicia Castelan, PA-C 07/25/2020 I48.21 Permanent atrial fibrillation Srinivas Ku, PA-C 07/25/2020 I50.32 Chronic diastolic (congestive) h eart failure Felicia Castelan, PA-C 07/25/2020 I11.0 Hypertensive heart disease with heart failure Felicia Castelan, PA-C 07/25/2020 I35.1 Nonrheumatic aortic (valve) insu fficiency Felicia Castelan, PA-C 07/25/2020 I34.0 Nonrheumatic mitral (valve) insu fficiency Felicia Castelan, PA-C 07/25/2020 E78.00 Pure hypercholesterolemia, unspe cified Felicia Castelan, PA-C 07/25/2020 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 Felicia Castelan, PA-C 07/25/2020 Z71.3 Dietary counseling and surveilla nce Felicia Castelan, PA-C 06/15/2020 Z95.810 Presence of automatic (implantab le) cardiac defibrillator [facility] 06/05/2020 I48.19 Other persistent atrial fibrilla tion ECHO 05/23/2020 R06.02 Shortness of breath Felicia gutierrez PA-C Plan of Treatment Future Appointment(s):* 12/14/2020 7:45 am - Felicia Castelan PA-C at Main Office * 11/06/2020 9:15 am - Felicia Castelan PA-C at Main Office 09/06/2020 - Felicia Castelan PA-C* I50.32 Chronic diastolic (congestive) heart failure* Recommendations:* Follow a 2 grams sodium diet and 50 ounces fluid restriction per 24 hour and do daily weights. Call the office for weight gain of 3 lbs or more. * All * Follow up:* 2 month CV/CHF check. Functional Status Functional Condition Comment Date Status Independent with all ADL's Activ e Mental Status Description No Information Available Referrals Description No Information Available
--- OUTSIDE RECORDS SUMMARY | 2020-12-02 11:01 | CCD | Continuity of Care Document ---
Author Author Jason BEARD P.A.-C. Organization Unknown Address [address] [place] [id number] Phone [phone] Care Team Providers Care Rf Microwave Engineer Name Role Phone Aury White M.D. AUTM [phone] Problems Description No Information Available Social History Type Date Description Comments Sex Unknown Allergies, Adverse Reactions, Alerts Active Allergies Reaction Severity Comments Date Sulfa Antibiotics unknown 11/04/2013 Medications Active Medications SIG Qnty Indications Ordering Provide r Date Gabapentin 100mg Capsules take one capsule by mouth three times a day 90caps Nandini Vela M.D. 07/2020 Levetiracetam 1000mg Tablets take one tablet by mouth twice a day 20tabs Nandini Vela M.D. Levetiracetam 1000mg Tablets 1 po bid 180taruth Vela M.D. 05/27/2016 Immunizations Description No Information Available Vital Signs Date Vital Result Comment 08/02/2020 6:17am BP Systolic 100 mmHg BP Diastolic 60 mmHg Heart Rate 64 /min Respiratory Rate 16 /min 05/02/2020 7:54am BP Systolic 110 mmHg BP Diastolic 80 mmHg Heart Rate 60 /min Respiratory Rate 16 /min Results Test Acquired Date Facility Test Result H/L Range Note Laboratory test finding 08/29/2020 [facility] Vitamin B12 Level 561 pg/mL Normal 247-911 1 Folate > 24.0 NG/ML Normal >5.4 2 Rheumatoid Factor Quant < 10.0 IU/mL Normal <15.0 Erythrocyte Sedimentation Rate 7 mm/hr Normal 0-20 Vitamin E Level 08/29/2020 [facility] Vitamin E(Alpha Tocopherol) 10.4 mg/L Normal 9.0-29.0 Vitamin E(Gamma Tocopherol) 1.6 mg/L Normal 0.5-4.9 3 Laboratory test finding 08/29/2020 [facility] Vitamin B1 Level Whole Blood 223.4 nmol/L High 66.5-200.0 4 Vitamin B6,Pyridoxal Phosphate 12.2 ug/L Normal 5.3-46.7 5 Antinuclear Antibodies 08/29/2020 [facility] Antinuclear Antibodies Direct Negative Normal Negative 6 Laboratory test finding 08/03/2020 [facility] Levetiracetam (Keppra) 41.3 ug/mL High 10.0-40.0 7 Laboratory test finding 05/23/2020 [facility] Levetiracetam (Keppra) SEE SEPARATE REP [...] from National Health and Nutrition Examination Survey, 5366-9590. Individuals with alpha-tocopherol levels less than 5.0 mg/L are considered vitamin E deficient. 4 Specimen Comment: Test(s) 07 0141-Vitamin E(Alpha Tocopherol); 823725- Specimen Comment: Vitamin E(Gamma Tocopherol); 422518-Tetrzrr B6; 003593- Specimen Comment: Vit. B1, Whole Blood Specimen Comment: was developed and its performance characteristics Specimen Comment: determined by [facility]. It has not been cleared or approved Specimen Comment: by the Food and Drug Administration. 5 Specimen Comment: Test(s) 07 0141-Vitamin E(Alpha Tocopherol); 236625- Specimen Comment: Vitamin E(Gamma Tocopherol); 234643-Syuusro B6; 528941- Specimen Comment: Vit. B1, Whole Blood Specimen Comment: was developed and its performance characteristics Specimen Comment: determined by [facility]. It has not been cleared or approved Specimen Comment: by the Food and Drug Administration. 6 Performed at: [facility] [id number] [employer] Teacher: Rick Moore MD, Phone: [phone] Performed at: [facility] [id number] [employer] Teacher: Iona Arthur MD, Phone: [phone] This test was developed and its performance characteristics [facility]. It has not been cleared or approved by the Food and Drug Administration. Performed at: [address] [id number] [employer] Teacher: Rick Moore MD, Phone: [phone] SEE SEPARATE REPORT Testing performed at reference lab . Report copy to follow on a separate form. 07/03/20 REF LAB#:[id number] Procedures Date Code Description Status 2020 94897 Nerve Conduction 13+ Studies Com pleted 2020 90383 Needle Electromyography Complete , Five Or More Muscles Studied Completed 2020 10436 Needle Electromyography Complete , Five Or More Muscles Studied Completed 05/24/2020 82071 EEG Recording Awake & Asleep Com pleted 05/24/2020 94967 EEG Recording Awake & Asleep Com pleted Medical Devices Description No Information Available Encounters Type Date Location Provider Dx Diagnosis Office Visit 08/02/2020 8:15a Main office - [place] Artur Bob.A.-C. G40.89 Other seizures R20.2 Paresthesia of skin Office Visit 05/02/2020 8:15a Main office - [place] Artur Bob.A.-C. 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 2020 G60.9 Hereditary and idiopathic neurop athy, unspecified Nandini MirianConrad jesus 08/02/2020 G40.89 Other seizures Hellen Beard P.A.-C. 08/02/2020 R20.2 Paresthesia of skin Vineet BobA.-COtis 05/24/2020 G40.89 Other seizures Alexis Andino 05/24/2020 G40.89 Other seizures EEG 05/02/2020 G40.509 Epileptic seizures related to ex ternal causes, not intractab Hellen Beard P.A.-C. Plan of Treatment Future Appointment(s):* 10/04/2020 10:45 am - Hellen Beard P.A.-C. at [facility] * 01/31/2021 9:00 am - Hellen Beard P.A.-C. at [facility] 08/02/2020 - Hellen Beard P.A.-C.* G40.89 Other seizures* Comments:* Repeat Keppra level. Order given. * R20.2 Paresthesia of skin* Comments:* He will consider EMG of the lower extremities. He wants to see what his vascular studies showed first. * Follow up:* 6 months. Functional Status Description No Information Available Mental Status Description No Information Available Referrals Description No Information Available
--- OUTSIDE RECORDS SUMMARY | 2020-12-02 11:03 | CCD ---
Author Author [facility] Organization [facility] Address Unknown Phone Unavailable Care Team Providers Care Cable Respooler Name Role Phone JonathanwTammy PA Unavailable Unavailable Symenow, Tammy Duarte PA Unavailable Unavailable Symenow, Tammy Duarte PA Unavailable Unavailable Symenow, Tammy Duarte PA Unavailable Unavailable Symenow, Tammy Duarte PA Unavailable Unavailable Symenow, Tammy Duarte PA Unavailable Unavailable Symenow, Tammy Duarte PA Unavailable Unavailable Symenow, Tammy Duarte PA Unavailable Unavailable Symenow, Tammy Coreae PA Unavailable Unavailable Symenow, Tammy Duarte PA Unavailable Unavailable Symenow, Tammy Felicia PA Unavailable Unavailable Symenow, Tammy Duarte PA Unavailable Unavailable Symenow, Tammy Felicia PA Unavailable Unavailable Symenow, Tammy Felicia PA Unavailable Unavailable Symenow, Tammy Felicia PA Unavailable Unavailable Symenow, Tammy Felicia PA Unavailable Unavailable Symenow, Tammy Felicia PA Unavailable Unavailable Symenow, Tammy Felicia PA Unavailable Unavailable Symenow, Tammy Felicia PA Unavailable Unavailable Symenow, Tammy Felicia PA Unavailable Unavailable Symenow, Tammy Felicia PA Unavailable Unavailable Symenow, Tammy Felicia PA Unavailable Unavailable Symenow, Tammy Felicia PA Unavailable Unavailable Symenow, Tammy Felicia PA Unavailable Unavailable Symenow, Tammy Felicia PA Unavailable Unavailable Symenow, Tammy Felicia PA Unavailable Unavailable Symenow, Tammy Felicia PA Unavailable Unavailable Symenow, Tammy Felicia PA Unavailable Unavailable Symenow, Tammy Felicia PA Unavailable Unavailable Symenow, Tammy Felicia PA Unavailable Unavailable Symenow, Tammy Felicia PA Unavailable Unavailable Symenow, Tammy Felicia PA Unavailable Unavailable Symenow, Tammy Felicia PA Unavailable Unavailable Symenow, Tammy Felicia PA Unavailable Unavailable Symenow, Tammy Felicia PA Unavailable Unavailable Symenow, Tammy Felicia PA Unavailable Unavailable Trickey, J Hellen PA Unavailable Unavailable Trickey, J Hellen PA Unavailable Unavailable Trickey, J Hellen PA Unavailable Unavailable Trickey, J Hellen PA Unavailable Unavailable Trickey, J Hellen PA Unavailable Unavailable Trickey, J Hellen PA Unavailable Unavailable Trickey, J Hellen PA Unavailable Unavailable Trickey, J Hellen PA Unavailable Unavailable Trickey, J Hellen PA Unavailable Unavailable Trickey, J Hellen PA Unavailable Unavailable Trickey, J Hellen PA Unavailable Unavailable Trickey, J Hellen PA Unavailable Unavailable Trickey, J Hellen PA Unavailable Unavailable Trickey, J Hellen PA Unavailable Unavailable Trickey, J Hellen PA Unavailable Unavailable Trickey, J Hellen PA Unavailable Unavailable Trickey, J Hellen PA Unavailable Unavailable Trickey, J Hellen PA Unavailable Unavailable Trickey, J Hellen PA Unavailable Unavailable Trickey, J Hellen PA Unavailable Unavailable Trickey, J Hellen PA Unavailable Unavailable Trickey, J Hellen PA Unavailable Unavailable Trickey, J Hellen PA Unavailable Unavailable Trickey, J Hellen PA Unavailable Unavailable Trickey, J Hellen PA Unavailable Unavailable Trickey, J Hellen PA Unavailable Unavailable Trickey, J Hellen PA Unavailable Unavailable Trickey, J Hellen PA Unavailable Unavailable Trickey, J Hellen PA Unavailable Unavailable Trickey, J Hellen PA Unavailable Unavailable Trickey, J Hellen PA Unavailable Unavailable Trickey, J Hellen PA Unavailable Unavailable Trickey, J Hellen PA Unavailable Unavailable Trickey, J Hellen PA Unavailable Unavailable Trickey, J Hellen PA Unavailable Unavailable Trickey, J Hellen PA Unavailable Unavailable Trickey, J Hellen PA Unavailable Unavailable Trickey, J Hellen PA Unavailable Unavailable Trickey, J Hellen PA Unavailable Unavailable Trickey, J Hellen PA Unavailable Unavailable Trickey, J Hellen PA Unavailable Unavailable Trickey, J Hellen PA Unavailable Unavailable Trickey, J Hellen PA Unavailable Unavailable Trickey, J Hellen PA Unavailable Unavailable Trickey, J Hellen PA Unavailable Unavailable Trickey, J Hellen PA Unavailable Unavailable Trickey, J Hellen PA Unavailable Unavailable Trickey, J Hellen PA Unavailable Unavailable Kovall, L Suzanne PA Unavailable Unavailable Kovall, L Suzanne PA Unavailable Unavailable Kovall, L Suzanne PA Unavailable Unavailable Kovall, L Suzanne PA Unavailable Unavailable Kovall, L Suzanne PA Unavailable Unavailable Kovall, L Suzanne PA Unavailable Unavailable Kovall, L Suzanne PA Unavailable Unavailable Kovall, L Suzanne PA Unavailable Unavailable Martínez, L Chen RPA Unavailable Unavailable Martínez, L Chen RPA Unavailable Unavailable Martínez, L Chen RPA Unavailable Unavailable Martínez, L Chen RPA Unavailable Unavailable Martínez, L Chen RPA Unavailable Unavailable Martínez, L Chen RPA Unavailable Unavailable Martínez, L Chen RPA Unavailable Unavailable Martínez, L Chen RPA Unavailable Unavailable Martínez, L Chen RPA Unavailable Unavailable Martínez, L Chen RPA Unavailable Unavailable Martínez, L Chen RPA Unavailable Unavailable Martínez, L Chen RPA Unavailable Unavailable Martínez, L Chen RPA Unavailable Unavailable Martínez, L Chen RPA Unavailable Unavailable Martínez, L Chen RPA Unavailable Unavailable Martínez, L Chen RPA Unavailable Unavailable Martínez, L Chen RPA Unavailable Unavailable Martínez, L Chen RPA Unavailable Unavailable Martínez, L Chen RPA Unavailable Unavailable Martínez, L Chen RPA Unavailable Unavailable Martínez, L Chen RPA Unavailable Unavailable Martínez, L Chen RPA Unavailable Unavailable Martínez, L Chen RPA Unavailable Unavailable Martínez, L Chen RPA Unavailable Unavailable Martínez, L Chen RPA Unavailable Unavailable Martínez, L Chen RPA Unavailable Unavailable Martínez, L Chen RPA Unavailable Unavailable Martínez, L Chen RPA Unavailable Unavailable Martínez, L Chen RPA Unavailable Unavailable Martínez, L Chen RPA Unavailable Unavailable Martínez, L Chen RPA Unavailable Unavailable Martínez, L Chen RPA Unavailable Unavailable Pleskach, Ana TORCH SOLDERER Unavailable Unavailable Pleskach, Ana TORCH SOLDERER Unavailable Unavailable Pleskach, Ana TORCH SOLDERER Unavailable Unavailable Pleskach, Ana TORCH SOLDERER Unavailable Unavailable Pleskach, Ana TORCH SOLDERER Unavailable Unavailable Pleskach, Ana TORCH SOLDERER Unavailable Unavailable Pleskach, Ana TORCH SOLDERER Unavailable Unavailable Pleskach, Ana TORCH SOLDERER Unavailable Unavailable Pleskach, Ana TORCH SOLDERER Unavailable Unavailable Pleskach, Ana TORCH SOLDERER Unavailable Unavailable Pleskach, Ana TORCH SOLDERER Unavailable Unavailable Pleskach, Ana TORCH SOLDERER Unavailable Unavailable Pleskach, Ana TORCH SOLDERER Unavailable Unavailable Pleskach, Ana TORCH SOLDERER Unavailable Unavailable Pleskach, Ana TORCH SOLDERER Unavailable Unavailable Pleskach, Ana TORCH SOLDERER Unavailable Unavailable Pleskach, Ana TORCH SOLDERER Unavailable Unavailable Pleskach, Ana TORCH SOLDERER Unavailable Unavailable Pleskach, Ana TORCH SOLDERER Unavailable Unavailable Pleskach, Ana TORCH SOLDERER Unavailable Unavailable Pleskach, Ana TORCH SOLDERER Unavailable Unavailable Pleskach, Ana TORCH SOLDERER Unavailable Unavailable Pleskach, Ana TORCH SOLDERER Unavailable Unavailable Pleskach, Ana TORCH SOLDERER Unavailable Unavailable Pleskach, Ana TORCH SOLDERER Unavailable Unavailable Pleskach, Ana TORCH SOLDERER Unavailable Unavailable Pleskach, Ana TORCH SOLDERER Unavailable Unavailable Pleskach, Ana TORCH SOLDERER Unavailable Unavailable Pleskach, Ana TORCH SOLDERER Unavailable Unavailable Pleskach, Ana TORCH SOLDERER Unavailable Unavailable Lindquist, Melissa FIELD INSPECTOR Unavailable Unavailable Lindquist, Melissa FIELD INSPECTOR Unavailable Unavailable Lindquist, Melissa FIELD INSPECTOR Unavailable Unavailable Lindquist, Melissa FIELD INSPECTOR Unavailable Unavailable Lindquist, Melissa FIELD INSPECTOR Unavailable Unavailable Lindquist, Melissa FIELD INSPECTOR Unavailable Unavailable Lindquist, Melissa FIELD INSPECTOR Unavailable Unavailable Lindquist, Melissa FIELD INSPECTOR Unavailable Unavailable Lindquist, Melissa FIELD INSPECTOR Unavailable Unavailable Lindquist, Melissa FIELD INSPECTOR Unavailable Unavailable Lindquist, Melissa FIELD INSPECTOR Unavailable Unavailable Al Carly Butler MD Unavailable Unavailable Carly Foster MD Unavailable Unavailable Carly Foster MD Unavailable Unavailable Carly Foster MD Unavailable Unavailable Carly Foster MD Unavailable Unavailable Carly Foster MD Unavailable Unavailable Carly Foster MD Unavailable Unavailable Carly Foster MD Unavailable Unavailable Carly Foster MD Unavailable Unavailable Carly Foster MD Unavailable Unavailable Al Mudamgha, A Ali MD Unavailable Unavailable Al Mudamgha, A Ali MD Unavailable Unavailable Al Mudamgha, A Ali MD Unavailable Unavailable Al Mudamgha, A Ali MD Unavailable Unavailable Al Mudamgha, A Ali MD Unavailable Unavailable Al Mudamgha, A Ali MD Unavailable Unavailable Al Mudamgha, A Ali MD Unavailable Unavailable Al Mudamgha, A Ali MD Unavailable Unavailable Al Mudamgha, A Ali MD Unavailable Unavailable Al Mudamgha, A Ali MD Unavailable Unavailable Al Mudamgha, A Ali MD Unavailable Unavailable Al Mudamgha, A Ali MD Unavailable Unavailable Al Mudamgha, A Ali MD Unavailable Unavailable Al Mudamgha, A Ali MD Unavailable Unavailable Al Mudamgha, A Ali MD Unavailable Unavailable Al Mudamgha, A Ali MD Unavailable Unavailable Al Mudamgha, A Ali MD Unavailable Unavailable Al Mudamgha, A Ali MD Unavailable Unavailable Al Mudamgha, A Ali MD Unavailable Unavailable Al Mudamgha, A Ali MD Unavailable Unavailable Al Mudamgha, A Ali MD Unavailable Unavailable Al Mudamgha, A Ali MD Unavailable Unavailable Al Mudamgha, A Ali MD Unavailable Unavailable Al Mudamgha, A Ali MD Unavailable Unavailable Al Mudamgha, A Ali MD Unavailable Unavailable Al Mudamgha, A Ali MD Unavailable Unavailable Al Mudamgha, A Ali MD Unavailable Unavailable Al Mudamgha, A Ali MD Unavailable Unavailable Al Mudamgha, A Ali MD Unavailable Unavailable Al Mudamgha, A Ali MD Unavailable Unavailable Al Mudamgha, A Ali MD Unavailable Unavailable Al Mudamgha, A Ali MD Unavailable Unavailable Al Mudamgha, A Ali MD Unavailable Unavailable Al Mudamgha, A Ali MD Unavailable Unavailable Al Mudamgha, A Ali MD Unavailable Unavailable Al Mudamgha, A Ali MD Unavailable Unavailable Al Mudamgha, A Ali MD Unavailable Unavailable Al Mudamgha, A Ali MD Unavailable Unavailable Al Mudamgha, A Ali MD Unavailable Unavailable Al Mudamgha, A Ali MD Unavailable Unavailable Al Mudamgha, A Ali MD Unavailable Unavailable Al Mudamgha, A Ali MD Unavailable Unavailable Al Mudamgha, A Ali MD Unavailable Unavailable Al Mudamgha, A Ali MD Unavailable Unavailable Al Mudamgha, A Ali MD Unavailable Unavailable Al Mudamgha, A Ali MD Unavailable Unavailable Al Mudamgha, A Ali Unavailable Unavailable Al Mudamgha, A Ali MD Unavailable Unavailable Al Mudamgha, A Ali MD Unavailable Unavailable Al Mudamgha, A Ali MD Unavailable Unavailable Al Mudamgha, A Ali MD Unavailable Unavailable Al Mudamgha, A Ali MD Unavailable Unavailable Al Mudamgha, A Ali MD Unavailable Unavailable Al Mudamgha, A Ali MD Unavailable Unavailable Al Mudamgha, A Ali MD Unavailable Unavailable Al Mudamgha, A Ali MD Unavailable Unavailable Al Mudamgha, A Ali MD Unavailable Unavailable Al Mudamgha, A Ali MD Unavailable Unavailable Al Mudamgha, A Ali MD Unavailable Unavailable Al Mudamgha, A Ali MD Unavailable Unavailable Al Mudamgha, A Ali MD Unavailable Unavailable Al Mudamgha, A Ali MD Unavailable Unavailable Al Mudamgha, A Ali MD Unavailable Unavailable Al Mudamgha, A Ali MD Unavailable Unavailable Al Mudamgha, A Ali MD Unavailable Unavailable Al Mudamgha, A Ali MD Unavailable Unavailable Al Mudamgha, A Ali MD Unavailable Unavailable Al Mudamgha, A Ali MD Unavailable Unavailable Al Mudamgha, A Ali MD Unavailable Unavailable Al Mudamgha, A Ali MD Unavailable Unavailable Re-disclosure Warning The records that you are about to access may contain information from federally-assisted alcohol or drug abuse programs. If such information is present, then the following federally mandated warning applies: This information has been disclosed to you from records protected by federal confidentiality rules (42 CFR part 2). The federal rules prohibit you from making any further disclosure of this information unless further disclosure is expressly permitted by the written consent of the person to whom it pertains or as otherwise permitted by 42 CFR part 2. A general authorization for the release of medical or other information is NOT sufficient for this purpose. The Federal rules restrict any use of the information to criminally investigate or prosecute any alcohol or drug abuse patient.The records that you are about to access may contain highly sensitive health information, the redisclosure of which is protected by Article 27-F of the [facility] [place] Public Health law. If you continue you may have access to information: Regarding HIV / AIDS; Provided by facilities licensed or operated by the [facility] [place] Office of Mental Health; or Provided by the [facility] [place] Office for People With Developmental Disabilities. If such information is present, then the following [facility] [place] mandated warning applies: This information has been disclosed to you from confidential records which are protected by state law. State law prohibits you from making any further disclosure of this information without the specific written consent of the person to whom it pertains, or as otherwise permitted by law. Any unauthorized further disclosure in violation of state law may result in a fine or nursing home sentence or both. A general authorization for the release of medical or other information is NOT sufficient authorization for further disc losure. Family History Family Member Name Family Member Gender Family Member Status Date o f Status Description Data Source(s) Unknown Unknown Problem [facility] ([facility] Maternal grandfather, , heavy sm oker Encounters Encounter Providers Location Date Indications Data Source(s ) Outpatient Attender: Felicia GUILLERMO Main Office 11/06/2020 08:15:00 AM EST [facility] ([facility]) Outpatient Attender: Ana Martin [facility] Main Office 10/26/2020 0 9:45:00 AM EST [facility] ([facility] Outpatient Attender: Ana Martin [facility] Main Office 10/20/2020 1 0:15:00 AM EST [facility] ([facility] Outpatient Attender: Hellen GUILLERMO Main [facility] 10/04/2020 09:45:00 AM EST [facility] ([facility]) Outpatient Attender: Felicia GUILLERMO Main Office 09/06/2020 11:30:00 AM EST [facility] ([facility]) Outpatient Attender: Hellen GUILLERMO Main office [facility] 08/02/2020 08:15:00 AM EDT [facility] ([facility]) Outpatient Attender: Felicia GUILLERMO Main Office 07/25/2020 07:45:00 AM EDT [facility] ([facility]) Outpatient Attender: Ana Martin [facility] Main Office 07/20/2020 0 2:00:00 PM EDT [facility] ([facility] Outpatient Attender: Chen Macias/Matthew/Gilberto/R eindl 07/19/2020 11:30:00 AM EDT [facility] ([facility] Outpatient Attender: Melissa Lindquist NP Jenn Licona Ekaterina contreras 07/15/2020 08:55:00 AM EDT [facility] ([facility] Outpatient Attender: Felicia GUILLERMO Main Office 05/23/2020 08:00:00 AM EDT [facility] ([facility]) Outpatient Attender: Hellen GUILLERMO Main office - [facility] n 05/02/2020 08:15:00 AM EDT [facility] ([facility] Outpatient Attender: Felicia GUILLERMO Main Office 03/21/2020 10:15:00 AM EDT [facility] ([facility]) Outpatient Attender: Felicia GUILLERMO Main Office 03/15/2020 08:00:00 AM EDT [facility] ([facility]) Outpatient Attender: Lizett Foster MDAdmitter: Lizett Artis MD [id number] 03/02/2020 09:05:00 AM EDT - 03/02/2020 01:30:00 PM EDT [facility] Patient discharged. Outpatient Attender: Ana STEPHENP Main Office 02/02/2020 1 1:00:00 AM EDT [facility] ([facility] Outpatient Attender: Felicia GUILLERMO Main Office 01/31/2020 10:15:00 AM EDT [facility] ([facility]) Outpatient Attender: Hellen GUILLERMO Main office - [facility] n 01/27/2020 09:15:00 AM EDT [facility] ([facility] Outpatient Attender: Ana MAS Main Office 01/11/2020 0 9:00:00 AM EDT [facility] ([facility] Outpatient Attender: Ana MAS Main Office 01/07/2020 0 8:00:00 AM EDT [facility] ([facility] Outpatient Attender: Lizett Felixmaster MDReferrer: Felicia GUILLERMO [id number] 01/05/2020 12:00:00 AM EDT - 01/05/2020 01:14:05 PM EDT [facility] Outpatient Attender: Felicia GUILLERMO Main Office 12/15/2019 08:15:00 AM EST [facility] ([facility]) Outpatient Attender: Felicia GUILLERMO Main Office 12/08/2019 06:45:00 AM EST [facility] ([facility]) Outpatient Attender: Felicia GUILLERMO Main Office 11/08/2019 08:15:00 AM EST [facility] ([facility]) Outpatient Referrer: Suzanne GUILLERMO 11/04/2019 01:42:00 PM EST [facility] Outpatient Attender: Ana Martin [facility] Main Office 11/03/2019 1 0:15:00 AM EST [facility] ([facility] Immunizations Vaccine Date Status Description Data Source(s) New in 2012. IIV4 07/20/2020 02:02:00 PM EDT completed [facility] ([facility] Medications Medication Brand Name Start Date Product Form Dose Route Admi nistrative Instructions Pharmacy Instructions Status Indications Reaction Description Data Source(s) 50 mg 11/29/2020 12:00:00 AM EST tablet 30 TAKE ONE TABLET BY MOUTH EVERY 6 HOURS NEEDED FOR PAIN, MAXIMUM DAILY DOSE = FOUR TABLETS TAKE ONE TABLET BY MOUTH EVERY 6 HOURS NEEDED FOR PAIN, MAXIMUM DAILY DOSE = FOUR TABLETS SOLD: 11/29/2020 [facility] Zolpidem tartrate 10 MG Oral Tablet [Ambien] Ambien 12:00:00 AM EST ORAL active [facility] ( [facility]) atorvastatin 20 MG Oral Tablet [Lipitor] Lipitor 10/24/2020 12:00: 00 AM EST ORAL active [facility] ([facility] tramadol hydrochloride 50 MG Oral Tablet Tramadol HCL 10/20/2020 12:00:00 AM EST ORAL active [facility] ([facility] 50 mg 10/20/2020 12:00:00 AM EST tablet 30 TAKE ONE TABLET BY MOUTH EVERY 6 HOURS NEEDED FOR PAIN, MAXIMUM DAILY DOSE = FOUR TABLETS TAKE ONE TABLET BY MOUTH EVERY 6 HOURS NEEDED FOR PAIN, MAXIMUM DAILY DOSE = FOUR TABLETS SOLD: 10/20/2020 [facility] gabapentin 300 MG Oral Capsule Gabapentin 10/04/2020 12:00:00 AM EST ORAL active [facility] ([facility] gabapentin 300 MG Oral Capsule Gabapentin 09/05/2020 12:00:00 AM EST ORAL active [facility] ([facility] 100 mg 08/23/2020 12:00:00 AM EST capsule 90 TAKE ONE CAPSULE BY MOUTH THREE TIMES A DAY TAKE ONE CAPSULE BY MOUTH THREE TIMES A DAY SOLD: 08/23/2020 [facility] 100 mg 08/23/2020 12:00:00 AM EST capsule 90 TAKE ONE CAPSULE BY MOUTH THREE TIMES A DAY TAKE ONE CAPSULE BY MOUTH THREE TIMES A DAY SOLD: 09/29/2020 [facility] gabapentin 100 MG Oral Capsule Gabapentin 08/22/2020 12:00:00 AM EST ORAL completed [facility] ([facility] 1,000 mg 08/10/2020 12:00:00 AM EDT tablet 20 TAKE ONE TABLET BY MOUTH TWICE A DAY TAKE ONE TABLET BY MOUTH TWICE A DAY SOLD: 08/13/2020 [facility] Levetiracetam 1000 MG Oral Tablet Levetiracetam 08/09/2020 12:00:00 A M EDT ORAL active [facility] ([facility]) torsemide 20 MG Oral Tablet Torsemide 07/25/2020 12:00:00 AM EDT ORAL active [facility] ([facility] 20 mg 07/17/2020 12:00:00 AM EDT tablet 45 TAKE 1 & 1/2 TABLET BY MOUTH ONCE DAILY TAKE 1 & 1/2 TABLET BY MOUTH ONCE DAILY SOLD: 07/17/2020 [facility] 20 mg 07/17/2020 12:00:00 AM EDT tablet 45 TAKE 1 & 1/2 TABLET BY MOUTH ONCE DAILY TAKE 1 & 1/2 TABLET BY MOUTH ONCE DAILY SOLD: 08/23/2020 [facility] torsemide 20 MG Oral Tablet Torsemide 07/17/2020 12:00:00 AM EDT ORAL completed [facility] 20 mg 07/17/2020 12:00:00 AM EDT tablet 45 TAKE 1 & 1/2 TABLET BY MOUTH ONCE DAILY TAKE 1 & 1/2 TABLET BY MOUTH ONCE DAILY SOLD: 10/01/2020 [facility] 5-325 mg 07/15/2020 12:00:00 AM EDT tablet 15 TAKE ONE TABLET BY MOUTH THREE TIMES A DAY NEEDED FOR PAIN MAXIMUM DAILY DOSE = THREE TABLETS TAKE ONE TABLET BY MOUTH THREE TIMES A DAY NEEDED FOR PAIN MAXIMUM DAILY DOSE = THREE TABLETS SOLD: 07/15/2020 [facility] 10 mg 07/01/2020 12:00:00 AM EDT tablet 10 TAKE ONE TABLET BY MOUTH AT BEDTIME NEEDED EVERY 4 NIGHTS MAXIMUM DAILY DOSE = 1 (THIS IS A 30 DAYS SUPPLY) TAKE ONE TABLET BY MOUTH AT BEDTIME N EEDED EVERY 4 NIGHTS MAXIMUM DAILY DOSE = 1 (THIS IS A 30 DAYS SUPPLY) SOLD: 08/01/2020 [facility] 10 mg 07/01/2020 12:00:00 AM EDT tablet 10 TAKE ONE TABLET BY MOUTH AT BEDTIME NEEDED EVERY 4 NIGHTS MAXIMUM DAILY DOSE = 1 (THIS IS A 30 DAYS SUPPLY) TAKE ONE TABLET BY MOUTH AT BEDTIME N EEDED EVERY 4 NIGHTS MAXIMUM DAILY DOSE = 1 (THIS IS A 30 DAYS SUPPLY) SOLD: 10/01/2020 [facility] 10 mg 07/01/2020 12:00:00 AM EDT tablet 10 TAKE ONE TABLET BY MOUTH AT BEDTIME NEEDED EVERY 4 NIGHTS MAXIMUM DAILY DOSE = 1 (THIS IS A 30 DAYS SUPPLY) TAKE ONE TABLET BY MOUTH AT BEDTIME N EEDED EVERY 4 NIGHTS MAXIMUM DAILY DOSE = 1 (THIS IS A 30 DAYS SUPPLY) SOLD: 07/02/2020 [facility] 10 mg 07/01/2020 12:00:00 AM EDT tablet 10 TAKE ONE TABLET BY MOUTH AT BEDTIME NEEDED EVERY 4 NIGHTS MAXIMUM DAILY DOSE = 1 (THIS IS A 30 DAYS SUPPLY) TAKE ONE TABLET BY MOUTH AT BEDTIME N EEDED EVERY 4 NIGHTS MAXIMUM DAILY DOSE = 1 (THIS IS A 30 DAYS SUPPLY) SOLD: 09/01/2020 [facility] 10 mg 07/01/2020 12:00:00 AM EDT tablet 10 TAKE ONE TABLET BY MOUTH AT BEDTIME NEEDED EVERY 4 NIGHTS MAXIMUM DAILY DOSE = 1 (THIS IS A 30 DAYS SUPPLY) TAKE ONE TABLET BY MOUTH AT BEDTIME N EEDED EVERY 4 NIGHTS MAXIMUM DAILY DOSE = 1 (THIS IS A 30 DAYS SUPPLY) SOLD: 10/31/2020 [facility] Clomipramine Hydrochloride 50 MG Oral Capsule Clomipramine H CL 05/22/2020 12:00:00 AM EDT ORAL active M [facility] ([facility]) Metoprolol Tartrate 50 MG Oral Tablet Metoprolol Tartrate 12:00:00 AM EDT ORAL active [facility] 5 mg 03/17/2020 12:00:00 AM EDT tablet 60 TAKE ONE TABLET BY MOUTH TWICE A DAY TAKE ONE TABLET BY MOUTH TWICE A DAY SOLD: 03/21/2020 [facility] 5 mg 03/17/2020 12:00:00 AM EDT tablet 20 TAKE ONE TABLET BY MOUTH TWICE A DAY TAKE ONE TABLET BY MOUTH TWICE A DAY SOLD: 07/26/2020 [facility] lidocaine (PF) (XYLOCAINE-MPF) 1 % injection [id number] 10:26:45 AM EDT active As needed, Start ing [place]ague 03/02/20 at 1026, Intra-Procedure [facility] Medication administered onsite fentaNYL Citrate (PF) (SUBLIMAZE) injection 3345-1034-70 03/02/2020 10:21:22 AM EDT active As neede d, Starting [facility]ague 03/02/20 at 1021, Intra-Procedure [facility] Medication administered onsite 2 ML Midazolam 1 MG/ML Injection midazolam (VERSED) in jection midazolam (VERSED) injection 03/02/2020 10:21:13 AM EDT active As needed, Starting Mague 03/02/20 at 1021, Intra-Procedure [facility] Medication administered onsite Digoxin 0.125 MG Oral Tablet Digoxin 03/02/2020 12:00:00 AM EDT ORAL active [facility] ([facility] atorvastatin 20 MG Oral Tablet Atorvastatin Calcium 02/01/2020 1 2:00:00 AM EDT ORAL active [facility] ( [facility]) Furosemide 40 MG Oral Tablet Furosemide 01/30/2020 12:00:00 AM EDT ORAL completed [facility] ([facility]) 24 HR Verapamil hydrochloride 240 MG Extended Release Oral Capsule Verapamil [facility] ER 01/09/2020 12:00:00 AM EDT ORAL active [facility] ([facility] Furosemide 40 MG Oral Tablet [Lasix] Lasix 01/09/2020 12:00:00 AM EDT ORAL active [facility] ([facility] Zolpidem tartrate 10 MG Oral Tablet Zolpidem Tartrate 12/12 12:00:00 AM EDT ORAL active [facility] ([facility] 40 mg 01/09/2020 12:00:00 AM EDT tablet 30 TAKE ONE TABLET BY MOUTH EVERY DAY TAKE ONE TABLET BY MOUTH EVERY DAY SOLD: 01/10/2020 [facility] Clomipramine Hydrochloride 50 MG Oral Capsule Clomipramine H CL 01/09/2020 12:00:00 AM EDT ORAL active M [facility] ([facility] 10 mg 01/04/2020 12:00:00 AM EDT tablet 10 TAKE ONE TABLET BY MOUTH EVERY DAY AT BEDTIME NEEDED EVERY 4 NIGHTS MAXIMUM DAILY DOSE = ONE TABLET TAKE ONE TABLET BY MOUTH EVERY DAY AT BEDTIME NEEDED EVERY 4 NIGHTS MAXIMUM DAILY DOSE = ONE TABLET SOLD: 05/01/2020 [facility] 10 mg 01/04/2020 12:00:00 AM EDT tablet 10 TAKE ONE TABLET BY MOUTH EVERY DAY AT BEDTIME NEEDED EVERY 4 NIGHTS MAXIMUM DAILY DOSE = ONE TABLET TAKE ONE TABLET BY MOUTH EVERY DAY AT BEDTIME NEEDED EVERY 4 NIGHTS MAXIMUM DAILY DOSE = ONE TABLET SOLD: 04/01/2020 [facility] 10 mg 01/04/2020 12:00:00 AM EDT tablet 10 TAKE ONE TABLET BY MOUTH EVERY DAY AT BEDTIME NEEDED EVERY 4 NIGHTS MAXIMUM DAILY DOSE = ONE TABLET TAKE ONE TABLET BY MOUTH EVERY DAY AT BEDTIME NEEDED EVERY 4 NIGHTS MAXIMUM DAILY DOSE = ONE TABLET SOLD: 03/03/2020 [facility] 10 mg 01/04/2020 12:00:00 AM EDT tablet 10 TAKE ONE TABLET BY MOUTH EVERY DAY AT BEDTIME NEEDED EVERY 4 NIGHTS MAXIMUM DAILY DOSE = ONE TABLET TAKE ONE TABLET BY MOUTH EVERY DAY AT BEDTIME NEEDED EVERY 4 NIGHTS MAXIMUM DAILY DOSE = ONE TABLET SOLD: 06/02/2020 [facility] 10 mg 01/04/2020 12:00:00 AM EDT tablet 10 TAKE ONE TABLET BY MOUTH EVERY DAY AT BEDTIME NEEDED EVERY 4 NIGHTS MAXIMUM DAILY DOSE = ONE TABLET TAKE ONE TABLET BY MOUTH EVERY DAY AT BEDTIME NEEDED EVERY 4 NIGHTS MAXIMUM DAILY DOSE = ONE TABLET SOLD: 01/04/2020 [facility] 10 mg 01/04/2020 12:00:00 AM EDT tablet 10 TAKE ONE TABLET BY MOUTH EVERY DAY AT BEDTIME NEEDED EVERY 4 NIGHTS MAXIMUM DAILY DOSE = ONE TABLET TAKE ONE TABLET BY MOUTH EVERY DAY AT BEDTIME NEEDED EVERY 4 NIGHTS MAXIMUM DAILY DOSE = ONE TABLET SOLD: 02/03/2020 [facility] Digoxin 0.125 MG Oral Tablet Digoxin 12/08/2019 12:00:00 AM EST ORAL completed [facility] ([facility]) 125 mcg (0.125 mg) 12/08/2019 12:00:00 AM EST tablet 33 TAKE 4 TABLETS BY MOUTH TODAY THEN 1 TABLET BY MOUTH EVERY DAY THEREAFTER TAKE 4 TABLETS BY MOUTH TODAY THEN 1 TABLET BY MOUTH EVERY DAY THEREAFTER SOLD: 01/10/2020 [facility] 125 mcg (0.125 mg) 12/08/2019 12:00:00 AM EST tablet 33 TAKE 4 TABLETS BY MOUTH TODAY THEN 1 TABLET BY MOUTH EVERY DAY THEREAFTER TAKE 4 TABLETS BY MOUTH TODAY THEN 1 TABLET BY MOUTH EVERY DAY THEREAFTER SOLD: 12/08/2019 [facility] 240 mg 11/25/2019 12:00:00 AM EST capsule,ext rel. pellet s 24 hr 30 TAKE ONE CAPSULE BY MOUTH EVERY DAY TAKE ONE CAPSULE BY MOUTH EVERY DAY SOLD: 12/27/2019 [facility] 240 mg 11/25/2019 12:00:00 AM EST capsule,ext rel. pellet s 24 hr 30 TAKE ONE CAPSULE BY MOUTH EVERY DAY TAKE ONE CAPSULE BY MOUTH EVERY DAY SOLD: 01/31/2020 [facility] 240 mg 11/25/2019 12:00:00 AM EST capsule,ext rel. pellet s 24 hr 30 TAKE ONE CAPSULE BY MOUTH EVERY DAY TAKE ONE CAPSULE BY MOUTH EVERY DAY SOLD: 11/26/2019 [facility] 24 HR Verapamil hydrochloride 240 MG Extended Release Oral Capsule Verapamil HCL ER 11/25/2019 12:00:00 AM EST ORAL completed [facility] ([facility]) Disopyramide 100 MG Oral Capsule Disopyramide Phosphate 10/14 12:00:00 AM EST ORAL completed [facility] ([facility]) pantoprazole 40 MG Delayed Release Oral Tablet Pantoprazole Sodium 11/07/2019 12:00:00 AM EST ORAL completed [facility] ([facility]) Multivitamin Adult 11/07/2019 12:00:00 AM EST ORAL active [facility] ([facility]) Folic Acid 1 MG Oral Tablet Folic Acid 11/07/2019 12:00:00 AM EST ORAL completed [facility] [place] benzonatate 100 MG Oral Capsule Benzonatate 11/07/2019 12:00:00 AM EST ORAL active [facility] ([facility]) Melatonin 3 MG Oral Capsule Melatonin 11/07/2019 12:00:00 AM EST ORAL active [facility] [place] Dextromethorphan Hydrobromide 10 MG / Guaifenesin 200 MG Oral Capsule Robitussin Cough+Chest Congestion DM 11/07/2019 12:00:00 AM EST active [facility] ([facility]) Ergocalciferol 48462 UNT Oral Capsule Vitamin D (Ergocalcife rol) 11/07/2019 12:00:00 AM EST ORAL active M [facility] ([facility]) Melatonin 3 MG Extended Release Oral Tablet Melatonin ER 11/02/2019 12:00:00 AM EST active [facility] ([facility] Multivitamin With Minerals 11/02/2019 12:00:00 AM EST OR AL active [facility] ([facility] Folic Acid 1 MG Oral Tablet Folic Acid 11/02/2019 12:00:00 AM EST ORAL active [facility] ([facility] Dextromethorphan Hydrobromide 2 MG/ML / Guaifenesin 20 MG/ML Oral Solution Guaifenesin/Dextromethorphan Hydrobromide 11/02/2019 12:00:00 AM EST active [facility] ([facility] benzonatate 100 MG Oral Capsule Benzonatate 11/02/2019 12:00:00 AM EST ORAL active [facility] ([facility] pantoprazole 40 MG Delayed Release Oral Tablet Pantoprazole Sodium 11/02/2019 12:00:00 AM EST ORAL active [facility] ([facility] 1 mg 11/01/2019 12:00:00 AM EST tablet 30 TAKE ONE TABLET BY MOUTH EVERY DAY TAKE ONE TABLET BY MOUTH EVERY DAY SOLD: 11/01/2019 [facility] benzonatate 100 MG Oral Capsule BENZONATATE 11/01/2019 12:00:00 AM EST capsule 30 TAKE ONE CAPSULE BY MOUTH TWICE A DAY NEEDED FOR COUGH TAKE ONE CAPSULE BY MOUTH TWICE A DAY NEEDED FOR COUGH SOLD: 11/01/2019 [facility] 40 mg 11/01/2019 12:00:00 AM EST tablet,delayed release (DR/EC) 30 TAKE ONE TABLET BY MOUTH EVERY DAY TAKE ONE TABLET BY MOUTH EVERY DAY SOLD: 11/01/2019 [facility] 10 mg 07/03/2019 12:00:00 AM EDT tablet 7 TAKE ONE TABLET BY MOUTH EVERY DAY AT BEDTIME NEEDED EVERY 4 NIGHTS MAXIMUM DAILY DOSE = ONE TABLET TAKE ONE TABLET BY MOUTH EVERY DAY AT BEDTIME NEEDED EVERY 4 NIGHTS MAXIMUM DAILY DOSE = ONE TABLET SOLD: 11/08/2019 [facility] 10 mg 07/03/2019 12:00:00 AM EDT tablet 7 TAKE ONE TABLET BY MOUTH EVERY DAY AT BEDTIME NEEDED EVERY 4 NIGHTS MAXIMUM DAILY DOSE = ONE TABLET TAKE ONE TABLET BY MOUTH EVERY DAY AT BEDTIME NEEDED EVERY 4 NIGHTS MAXIMUM DAILY DOSE = ONE TABLET SOLD: 12/07/2019 [facility] 100 mg 05/28/2019 12:00:00 AM EDT tablet 10 TAKE ONE TABLET BY MOUTH TWO TIMES A DAY TAKE ONE TABLET BY MOUTH TWO TIMES A DAY SOLD: 03/21/2020 [facility] Insurance Providers Payer name Policy type / Coverage type Policy ID Covered republican ID Covered republican's relationship to huang Policy Huang Plan Information [facility] [id number] WI2 [id number] [facility] O [id number] S [id number] [facility] [place] [id number] [facility] [place] [id number] Spo [id number] Simply Blue Ppo Medigap Part B [id number] Self [id number] Simply Blue Plus Gold Medigap Part B [id number] Self [id number] BCBS [employer] U/W Medigap Part B [id number] Self [id number] BCBS [employer] U/W Medigap Part B [id number] Self [id number] Umr Commercial [id number] Family Dependent [id number] [place] PHCS Ppo Medigap Part B [id number] Self [id number] Ghi Medigap Part B [id number] Self [id number] Simply Blue Medigap Part B [id number] Self [id number] Simply Blue Ppo Medigap Part B [id number] Self [id number] Simply Blue Plus Gold Medigap Part B [id number] Self [id number] BCBS [employer] U/W Medigap Part B [id number] Self [id number] BCBS [employer] U/W Medigap Part B [id number] Self [id number] Umr Commercial [id number] Family Dependent [id number] Simply Blue Ppo Medigap Part B [id number] Self [id number] Simply Blue Plus Gold Medigap Part B [id number] Self [id number] BCBS Excell[employer] U/W Medigap Part B [id number] Self [id number] BCBS Excell[employer] U/W Medigap Part B [id number] Self [id number] Umr Commercial [id number] Family Dependent 19 [id number] Simply Blue Ppo Medigap Part B [id number] Self [id number] Simply Blue Plus Gold Medigap Part B [id number] Self [id number] BCBS Excell[employer] U/W Medigap Part B [id number] Self [id number] BCBS Excell[employer] U/W Medigap Part B [id number] Self [id number] Umr Commercial [id number] Family Dependent [id number] [facility] [id number] WI2 [id number] [place] Medigap Part B [id number] Family Dependent [id number] Umr Commercial [id number] Self [id number] Simply Blue Ppo Medigap Part B [id number] Self [id number] Simply Blue Plus Gold Medigap Part B [id number] Self [id number] BCBS Excell[employer] U/W Medigap Part B [id number] Self [id number] BCBS Excell[employer] U/W Medigap Part B [id number] Self [id number] Umr Commercial [id number] Family Dependent 19 [id number] Simply Blue Ppo Medigap Part B [id number] Self [id number] Simply Blue Plus Gold Medigap Part B [id number] Self [id number] BCBS Excell[employer] U/W Medigap Part B [id number] Self [id number] BCBS [employer] U/W Medigap Part B [id number] Self [id number] Umr Commercial [id number] Family Dependent 19 [id number] Umr Commercial [id number] Family Dependent 19 [id number] [place] Medigap Part B [id number] Family Dependent [id number] Umr Commercial [id number] Self [id number] Simply Blue Ppo Medigap Part B [id number] Self [id number] Simply Blue Plus Gold Medigap Part B [id number] Self [id number] BCBS Excell[employer] U/W Medigap Part B [id number] Self [id number] BCBS Excell[employer] U/W Medigap Part B [id number] Self [id number] Umr Commercial [id number] Family Dependent 19 [phone] [place] Medigap Part B [id number] Family Dependent [id number] Umr Commercial [id number] Self [id number] [place] Medigap Part B [id number] Family Dependent [id number] Umr Commercial [id number] Self [id number] POM[place] [id number] WI2 [id number] [place] Commercial [id number] Family Dependent 89 [id number] [place] Commercial [id number] Family Dependent 89 [id number] BC/BS Of [place] Commercial [id number] Self [id number] [place] Commercial [id number] Family Dependent 89 [id number] [place] Commercial [id number] Family Dependent 89 [id number] EXCELLUS C [id number] Self [id number] BS Of [place] Medigap Part B [id number] Self [id number] BS Of [place] Health Maintenance Organization (O) [id number] Self [id number] Simply Blue Ppo Medigap Part B [id number] Self [id number] Simply Blue Plus Gold Medigap Part B [id number] Self [id number] BCBS Excellus Ppo U/W Medigap Part B [id number] Self [id number] BCBS Excellus Ppo U/W Medigap Part B [id number] Self [id number] [place] PHCS Ppo Commercial [id number] Self [id number] Simply Blue Ppo Medigap Part B [id number] Self [id number] Simply Blue Plus Gold Medigap Part B [id number] Self [id number] BCBS Excell[employer] Ppo U/W Medigap Part B [id number] Self [id number] BCBS Excellus Ppo U/W Medigap Part B [id number] Self [id number] Simply Blue Ppo Medigap Part B [id number] Self [id number] Simply Blue Plus Gold Medigap Part B [id number] Self [id number] BCBS Excellus Ppo U/W Medigap Part B [id number] Self [id number] BCBS Excellus Ppo U/W Medigap Part B [id number] Self [id number] [place] Commercial [id number] Fa roxann Dependent [id number] BC/BS Of [place] Commercial [id number] Self [id number] BS Of [place] Medigap Part B [id number] Self [id number] BS Of [place] Health Maintenance Organization (O) [id number] Self [id number] Simply Blue Ppo Medigap Part B [id number] Self [id number] Simply Blue Plus Gold Medigap Part B [id number] Self [id number] BCBS Excellus Ppo U/W Medigap Part B [id number] Self [id number] BCBS Excellus Ppo U/W Medigap Part B [id number] Self [id number] BCBS Excellus Ppo U/W Commercial [id number] Self [id number] BCBS [place] PPO 302/307 [id number] SP [id number] Simply Blue Ppo Medigap Part B [id number] Self [id number] Simply Blue Plus Gold Medigap Part B [id number] Self [id number] BCBS Excellus Ppo U/W Medigap Part B [id number] Self [id number] BCBS Excellus Ppo U/W Medigap Part B [id number] Self [id number] BCBS Excell[employer] Ppo U/W Commercial [id number] Self [id number] EXCELLUS BCBS [id number] Kristin YNE [id number] BCBS Excellus Ppo U/W Medigap Part B Self BCBS Excellus Ppo U/W Commercial Self BCBS Excellus Ppo U/W Commercial Self Ghi Medigap Part B Self Simply Blue Medigap Part B Self Simply Blue Ppo Medigap Part B Self Simply Blue Plus Gold Commercial Self BC/BS Of [place] Mayer Commercial Self BS Of [place] Health Maintenance Organization (HMO) Self BS Of [place] Medigap Part B Self BC/BS Of [place] Mayer Commercial Self BCBS [place] PPO 302/307 [id number] SP [id number] BS [place] Commercial Self BS [place] Medigap Part B Self BS [place] Medigap Part B Self BS [place] Commercial Self BCBS [place] PPO 302/307 [id number] SP [id number] BS Of [place] Health Maintenance Organization (HMO) Self EXCELLUS BCBS [id number] Kristin YND [id number] BCBS [place] PPO 302/307 [id number] SP [id number] EXCELLUS BCBS P [id number] S VYS [id number] BCBS [place] PPO 302/307 [id number] SP [id number] Problems, Conditions, and Diagnoses Code Display Name Description Problem Type Effective Dates Data Source(s) 083546048 Syncope and collapse Syncope and collapse Problem 10/24/2020 12:00:00 AM EST [facility] ([facility]) [id number] Permanent atrial fibrillation Permanent atrial fibrill ation Problem 07/25/2020 12:00:00 AM EDT [facility] ([facility]) [id number] Essential hypertension Essential hypertension Problem 07/19/2020 12:00:00 AM EDT [facility] ([facility], ) I48.11 Longstanding persistent atrial fibrillat ion Longstanding persistent atrial fibrillation [id number] 02/25/2020 12:00:00 AM EDT [facility] [id number] Hypertensive heart disease with congesti ve heart failure Hypertensive heart disease with congestive heart failure Problem 01/31/2020 12:00 :00 AM EDT [facility] ([facility]) [id number] Chronic diastolic heart failure Chronic diastoli c heart failure Problem 01/31/2020 12:00:00 AM EDT [facility] ([facility] I48.11 Longstanding persistent atrial fibrillat ion Longstanding persistent atrial fibrillat Diagnosis 03/02/2020 09:05:00 AM EDT [facility] Surgeries/Procedures Procedure Description Date Indications Data Source(s) 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 LD CARD/DFB 2020 12:00:00 AM EST [facility] ([facility]) INTERROGATION EVAL REMOTE </90 D 1/2/> LD CVDFB 2019 12:00:00 AM EST [facility] ([facility]) INTERROGATION REMOTE </90 D HEAVY EQUIPMENT RENTAL ASSOCIATE REVIEW 09/14/20 12:00:00 AM EST [facility] ([facility]) Needle electromyography, each extremity, with related paraspinal areas, when performed, done with nerve conduction, amplitude and latency/velocity study; complete, five or more muscles studied, innervated by three or more nerves or four or more spinal levels (list separately in addition to the code for primary procedure). 2020 12:00:00 AM EST MEDEN T ([facility], ) Needle electromyography, each extremity, with related paraspinal areas, when performed, done with nerve conduction, amplitude and latency/velocity study; complete, five or more muscles studied, innervated by three or more nerves or four or more spinal levels (list separately in addition to the code for primary procedure). 2020 12:00:00 AM EST MEDEN T ([facility], ) 10719 Nerve conduction studies 13 or more studies NEW 201208/17/2020 12:00:00 AM EST [facility] ([facility], ) ECG ROUTINE ECG W/LEAST 12 LDS W/I&R 07/25/2020 12:00: 00 AM EDT [facility] ([facility]) INTERROGATION EVAL REMOTE </90 D 1/2/> LD CVDFB 2019 12:00:00 AM EDT [facility] ([facility]) INTERROGATION REMOTE </90 D HEAVY EQUIPMENT RENTAL ASSOCIATE REVIEW 06/15/20 12:00:00 AM EDT [facility] ([facility]) ECHO TTHRC R-T 2D W/WOM-MODE COMPL SPEC&COLR DOP 06/05 12:00:00 AM EDT [facility] ([facility]) ELECTROENCEPHALOGRAM W/REC AWAKE&ASLEEP 05/24/2020 12: 00:00 AM EDT [facility] ([facility], ) ELECTROENCEPHALOGRAM W/REC AWAKE&ASLEEP 05/24/2020 12: 00:00 AM EDT [facility] ([facility], ) INTERROGATION EVAL REMOTE </90 D 1/2/> LD CVDFB 2019 12:00:00 AM EDT [facility] ([facility]) INTERROGATION REMOTE </90 D HEAVY EQUIPMENT RENTAL ASSOCIATE REVIEW 03/16/20 12:00:00 AM EDT [facility] ([facility]) ECG ROUTINE ECG W/LEAST 12 LDS W/I&R 03/15/2020 12:00: 00 AM EDT [facility] ([facility]) EP STUDY EP STUDY Routine 03/02/2020 10:34 AM EDT Longstanding persistent atrial fibrillation 03/02/2020 02:34 :31 PM EDT Longstanding persistent atrial fibrillation [facility] Longstanding persistent atrial fibrillat ion ECG ROUTINE ECG W/LEAST 12 LDS W/I&R 01/31/2020 12:00: 00 AM EDT [facility] ([facility]) ECG ROUTINE ECG W/LEAST 12 LDS W/I&R 12/15/2019 12:00: 00 AM EST [facility] ([facility]) PROGRM EVAL IMPLANTABLE IN PRSN DUAL L CARD/DFB 2019 12:00:00 AM EST [facility] ([facility]) INTERROGATION EVAL REMOTE </90 D 1/2/> LD CVDFB 2019 12:00:00 AM EST [facility] ([facility]) INTERROGATION REMOTE </90 D HEAVY EQUIPMENT RENTAL ASSOCIATE REVIEW 11/22/19 12:00:00 AM EST [facility] ([facility]) Results ID Date Data Source [id number] 11/03/2020 09:54:00 AM EST [facility] ([facility]) Name Value Range Interpretation Code Description Data Beth rce(s) Supporting Document(s) Glucose, Fasting 148 mg/dL 70-100 [facility] ([facility]) Creatinine For GFR 1.48 mg/dL 0.70-1.30 [facility] ([facility]) Blood Urea Nitrogen 39 mg/dL 7-18 [facility] ([facility]) Sodium Level 141 meq/L 136-145 [facility] ([facility]) Potassium Serum 4.5 meq/L 3.5-5.1 [facility] ([facility]) Glomerular Filtration Rate 51.1 [facility] ([facility]) <content>Units are mL/min/1.73 m2</content>
<content></content>
<content>Chronic Kidney Disease Staging per NKF:</content>
<content></content>
<content>Stage I & II GFR >=60 Normal to Mildly Decreased</content>
<content>Stage III GFR 30- 59 Moderately Decreased</content>
<content>Stage IV GFR 15-29 Severely Decreased</content>
<content>Stage V GFR <15 Very Little GFR Left</content>
<content>ESRD GFR <15 on ALARM MECHANISM ADJUSTER</content>
<content></content> Chloride Level 104 meq/L 98-107 [facility] ([facility]) Anion Gap 6 meq/L 8-16 [facility] Carbon Dioxide Level 31 meq/L 21-32 [facility] ([facility]) Calcium Level 10.2 mg/dL 8.8-10.2 [facility] ([facility]) ID Date Data Source [id number] 10/22/2020 01:20:00 AM EST [facility] Name Value Range Interpretation Code Description Data Beth rce(s) Supporting Document(s) SARS coronavirus 2 RNA [Presence] in Res piratory specimen by JELENA with probe detection NEGATIVE [facility] This lab was ordered by [facility] a nd reported by [facility]. ID Date Data Source [id number] 09/04/2020 10:44:00 AM EST [facility] ([facility]) Name Value Range Interpretation Code Description Data Beth rce(s) Supporting Document(s) Magnesium [Mass/volume] in Serum or Plasma 2.4 mg/dL 1.8-2.4 [facility] ([facility]) Natriuretic peptide.B prohormone N-Terminal [Mass/volu me] in Serum or Plasma 2501 pg/mL [facility]) ID Date Data Source [id number] 09/04/2020 10:44:00 AM EST [facility] ([facility]) Name Value Range Interpretation Code Description Data Beth rce(s) Supporting Document(s) Blood Urea Nitrogen 36 mg/dL 7-18 [facility] ([facility]) Creatinine For GFR 1.54 mg/dL 0.70-1.30 [facility] ([facility]) Glucose, Fasting 139 mg/dL 70-100 [facility] ([facility]) Sodium Level 142 meq/L 136-145 [facility] ([facility]) Glomerular Filtration Rate 48.8 [facility] ([facility]) <content>Units are mL/min/1.73 m2</content>
<content></content>
<content>Chronic Kidney Disease Staging per NKF:</content>
<content></content>
<content>Stage I & II GFR >=60 Normal to Mildly Decreased</content>
<content>Stage III GFR 30- 59 Moderately Decreased</content>
<content>Stage IV GFR 15-29 Severely Decreased</content>
<content>Stage V GFR <15 Very Little GFR Left</content>
<content>ESRD GFR <15 on ALARM MECHANISM ADJUSTER</content>
<content></content> Chloride Level 106 meq/L 98-107 [facility] ([facility]) Potassium Serum 4.2 meq/L 3.5-5.1 [facility] ([facility]) Calcium Level 9.7 mg/dL 8.8-10.2 [facility] ([facility]) Carbon Dioxide Level 30 meq/L 21-32 [facility] ([facility]) Anion Gap 6 meq/L 8-16 [facility] ID Date Data Source [id number] 08/29/2020 02:46:00 PM EST [facility] ([facility], ) Name Value Range Interpretation Code Description Data Beth rce(s) Supporting Document(s) Antinuclear Antibodies Direct Laboratory test result [facility] ([facility], ) Performed at: [facility] [id number] Disability Hearing Officer: Rick Moore MD, Phone: [phone] Performed at: - [facility] [address] [id number] Disability Hearing Officer: Iona Arthur MD, Phone: [phone] ID Date Data Source [id number] 08/29/2020 02:46:00 PM EST [facility] ([facility], ) Name Value Range Interpretation Code Description Data Beth rce(s) Supporting Document(s) Pyridoxine [Mass/volume] in Serum or Plasma 12.2 ug/L 5.3-46.7 [facility] ([facility], ) Specimen Comment: Test(s) [id number]-Tvugdzy E(Alpha Tocopherol); 609849- Specimen Comment: Vitamin E(Gamma Tocopherol); 292427-Lgnomzg B6; 250672- Specimen Comment: Vit. B1, Whole Blood Specimen Comment: was developed and its performance characteristics Specimen Comment: determined by [facility]. It has not been cleared or approved Specimen Comment: by the Food and Drug Administration. Thiamine [Mass/volume] in Blood 223.4 nmol/L 66.5-200.0 [facility] ([facility], ) Specimen Comment: Test(s) 982964-Rfztyiv E(Alpha Tocopherol); 447823- Specimen Comment: Vitamin E(Gamma Tocopherol); 515132-Uucnnjq B6; 800456- Specimen Comment: Vit. B1, Whole Blood Specimen Comment: was developed and its performance characteristics Specimen Comment: determined by [facility]. It has not been cleared or approved Specimen Comment: by the Food and Drug Administration. ID Date Data Source [id number] 08/29/2020 02:46:00 PM EST [facility] ([facility], ) Name Value Range Interpretation Code Description Data Beth rce(s) Supporting Document(s) Vitamin E(Gamma Tocopherol) 1.6 mg/L 0.5-4.9 [facility] ([facility], ) Reference intervals for alpha and gamma- tocopherol determined from National Health and Nutrition Examination Survey, 2244-0155. Individuals with alpha-tocopherol levels less than 5.0 mg/L are considered vitamin E deficient. Vitamin E(Alpha Tocopherol) 10.4 mg/L 9.0-29.0 [facility] ([facility], ) ID Date Data Source [id number] 08/29/2020 02:46:00 PM EST [facility] ([facility], ) Name Value Range Interpretation Code Description Data Beth rce(s) Supporting Document(s) Cobalamin (Vitamin B12) [Mass/volume] in Serum or Plasma 561 pg/mL 2 47-911 [facility] ([facility], ) VITAMIN B12 NORMAL RANGE NORMAL 247 - 911 PG/ML INDETERMINATE 211 - 246 PG/ML DEFICIENT LESS THAN 211 PG/ML Folate [Mass/volume] in Serum or Plasma Laboratory test result [facility] ([facility], ) FOLATE NORMAL RANGE NORMAL GREATER THAN 5.4 NG/ML INDETERMINATE 3.4-5.4 NG/ML DEFICIENT LESS THAN 3.4 NG/ML Rheumatoid factor [Units/volume] in Serum or Plasma Laboratory test result [facility] ([facility], ) Erythrocyte sedimentation rate by 2H Westergren method 7 mm/hr 0-2 0 [facility] ([facility]) ID Date Data Source [id number] 08/03/2020 08:19:00 AM EDT [facility] ([facility]) Name Value Range Interpretation Code Description Data Beth rce(s) Supporting Document(s) Levetiracetam [Mass/volume] in Serum or Plasma 41.3 ug/mL 10.0-40.0 [facility] ([facility]) This test was developed and its performa nce characteristics determined by [facility]. It has not been cleared or approved by the Food and Drug Administration. Performed at: [address] [id number] Disability Hearing Officer: Rick Moore MD, Phone: [phone] ID Date Data Source [id number] 07/24/2020 09:15:00 AM EDT [facility] ([facility] Name Value Range Interpretation Code Description Data Beth rce(s) Supporting Document(s) Estimated Average Glucose 123 mg/dL 60-110 [facility] ([facility] Hemoglobin A1c/Hemoglobin.total in Blood 5.9 % [facility] ([facility] <content>REFERENCE RANGES:</content><br/ ><content></content>
<content><=5.6% NORMAL</content>
<content>5.7-6.4% SUGGESTS IMPAIRED GLUCOSE METABOLISM/PREDIABETIC</content>
<content>>= 6.5% ABNORMAL</content>
<content></content> ID Date Data Source [id number] 07/24/2020 09:15:00 AM EDT [facility] ([facility] Name Value Range Interpretation Code Description Data Beth rce(s) Supporting Document(s) Creatinine, Urine 278.0 mg/dL [facility] ([facility] Malb Urine Siemens 43.8 mg/L [facility] ([facility] Emanuel/Creat Ratio 15.7 MCG/MG 0.0-30.0 [facility] ([facility] THE [employer] STATES THAT MICROALBUMINURIA IS PRESENT IF THE MICROALBUMIN/CREATININE RATIO EXCEEDS 30 MCG/MG. THE THRESHOLD FOR CLINICAL ALBUMINURIA IS REACHED AT 300 MCG/MG. THE CLASSIFICATION OF A PATIENT SHOULD BE BASED UPON AT LEAST 2 OF 3 ABNORMAL RESULTS ON SPECIMENS COLLECTED WITHIN A 3 TO 6 MONTH TIME FRAME. ID Date Data Source [id number] 07/24/2020 09:15:00 AM EDT [facility] ([facility] Name Value Range Interpretation Code Description Data Beth rce(s) Supporting Document(s) Bilirubin,Direct 0.3 mg/dL 0.0-0.2 [facility] ([facility] ID Date Data Source [id number] 07/24/2020 09:15:00 AM EDT [facility] ([facility] Name Value Range Interpretation Code Description Data Beth rce(s) Supporting Document(s) Cholesterol Level 166 mg/dL [facility] ([facility] Triglycerides Level 176 mg/dL [facility] ([facility] Non-HDL-C 125 mg/dL [facility] ([facility] LDL Cholesterol 90 mg/dL [facility] ([facility] HDL Cholesterol 41 mg/dL [facility] ([facility] Cholesterol Risk Ratio 4.048 [facility] ([facility] ID Date Data Source [id number] 07/24/2020 09:15:00 AM EDT [facility] ([facility] Name Value Range Interpretation Code Description Data Beth rce(s) Supporting Document(s) Blood Urea Nitrogen 38 mg/dL 7-18 [facility] ([facility] Creatinine For GFR 1.68 mg/dL 0.70-1.30 [facility] ([facility] Glucose, Fasting 141 mg/dL 70-100 [facility] ([facility] Sodium Level 140 meq/L 136-145 [facility] ([facility] Glomerular Filtration Rate 44.3 [facility] ([facility] <content>Units are mL/min/1.73 m2</content>
<content></content>
<content>Chronic Kidney Disease Staging per NKF:</content>
<content></content>
<content>Stage I & II GFR >=60 Normal to Mildly Decreased</content>
<content>Stage III GFR 30- 59 Moderately Decreased</content>
<content>Stage IV GFR 15-29 Severely Decreased</content>
<content>Stage V GFR <15 Very Little GFR Left</content>
<content>ESRD GFR <15 on ALARM MECHANISM ADJUSTER</content>
<content></content> Carbon Dioxide Level 30 meq/L 21-32 [facility] ([facility] Potassium Serum 4.0 meq/L 3.5-5.1 [facility] ([facility] Chloride Level 101 meq/L 98-107 [facility] ([facility] Calcium Level 9.9 mg/dL 8.8-10.2 [facility] ([facility] Anion Gap 9 meq/L 8-16 [facility] ([facility] Ast/Sgot 29 U/L 7-37 [facility] Alt/SGPT 34 U/L 12-78 [facility] ([facility] Alkaline Phosphatase 118 U/L 45-117 [facility] ([facility] Total Protein 7.9 GM/DL 6.4-8.2 [facility] ([facility] Bilirubin,Total 0.8 mg/dL 0.2-1.0 [facility] ([facility] Albumin 3.9 GM/DL 3.2-5.2 [facility] ([facility] Albumin/Globulin Ratio 1.0 [facility] ([facility] ID Date Data Source [id number] 07/24/2020 09:13:00 AM EDT [facility] ([facility]) Name Value Range Interpretation Code Description Data Beth rce(s) Supporting Document(s) Magnesium [Mass/volume] in Serum or Plasma 2.3 mg/dL 1.8-2.4 [facility] ([facility]) Natriuretic peptide.B prohormone N-Terminal [Mass/volu me] in Serum or Plasma 2262 pg/mL [facility] ([facility]) ID Date Data Source [id number] 07/24/2020 09:13:00 AM EDT [facility] ([facility]) Name Value Range Interpretation Code Description Data Beth rce(s) Supporting Document(s) Glucose, Fasting 147 mg/dL 70-100 [facility] ([facility]) Blood Urea Nitrogen 38 mg/dL 7-18 [facility] ([facility]) Sodium Level 138 meq/L 136-145 [facility] ([facility]) Glomerular Filtration Rate 42.8 [facility] (Cardiology [facility]) <content>Units are mL/min/1.73 m2</content>
<content></content>
<content>Chronic Kidney Disease Staging per NKF:</content>
<content></content>
<content>Stage I & II GFR >=60 Normal to Mildly Decreased</content>
<content>Stage III GFR 30- 59 Moderately Decreased</content>
<content>Stage IV GFR 15-29 Severely Decreased</content>
<content>Stage V GFR <15 Very Little GFR Left</content>
<content>ESRD GFR <15 on ALARM MECHANISM ADJUSTER</content>
<content></content> Creatinine For GFR 1.73 mg/dL 0.70-1.30 [facility] ([facility]) Carbon Dioxide Level 29 meq/L 21-32 [facility] ([facility]) Potassium Serum 4.0 meq/L 3.5-5.1 [facility] ([facility]) Chloride Level 101 meq/L 98-107 [facility] ([facility]) Calcium Level 10.2 mg/dL 8.8-10.2 [facility] ([facility]) Anion Gap 8 meq/L 8-16 [facility] ([facility] ID Date Data Source [id number] 07/24/2020 09:13:00 AM EDT [facility] ([facility] Name Value Range Interpretation Code Description Data Beth rce(s) Supporting Document(s) Magnesium [Mass/volume] in Serum or Plasma 2.3 mg/dL 1.8-2.4 [facility] ([facility] Natriuretic peptide.B prohormone N-Terminal [Mass/volu me] in Serum or Plasma 2262 pg/mL [facility] ([facility] ID Date Data Source [id number] 07/24/2020 09:13:00 AM EDT [facility] ([facility] Name Value Range Interpretation Code Description Data Beth rce(s) Supporting Document(s) Glucose, Fasting 147 mg/dL 70-100 [facility] ([facility] Creatinine For GFR 1.73 mg/dL 0.70-1.30 [facility] ([facility] Blood Urea Nitrogen 38 mg/dL 7-18 [facility] ([facility] Sodium Level 138 meq/L 136-145 [facility] ([facility] Glomerular Filtration Rate 42.8 [facility] ([facility] <content>Units are mL/min/1.73 m2</content>
<content></content>
<content>Chronic Kidney Disease Staging per NKF:</content>
<content></content>
<content>Stage I & II GFR >=60 Normal to Mildly Decreased</content>
<content>Stage III GFR 30- 59 Moderately Decreased</content>
<content>Stage IV GFR 15-29 Severely Decreased</content>
<content>Stage V GFR <15 Very Little GFR Left</content>
<content>ESRD GFR <15 on ALARM MECHANISM ADJUSTER</content>
<content></content> Chloride Level 101 meq/L 98-107 [facility] ([facility] Potassium Serum 4.0 meq/L 3.5-5.1 [facility] ([facility] Carbon Dioxide Level 29 meq/L 21-32 [facility] ([facility] Calcium Level 10.2 mg/dL 8.8-10.2 [facility] ([facility] Anion Gap 8 meq/L 8-16 [facility] ([facility] ID Date Data Source [id number] 07/15/2020 04:07:00 PM EDT [facility] ([facility] Name Value Range Interpretation Code Description Data Beth rce(s) Supporting Document(s) Red Blood Count 4.92 4.30-6.10 [facility] ([facility]) White Blood Count 12.0 4.0-10.0 [facility] ([facility]) Platelets 208 150-450 [facility] ([facility] Hematocrit 47.9 [facility] ([facility]) Hemoglobin 15.7 [facility] ([facility]) ID Date Data Source [id number] 07/15/2020 12:11:00 PM EDT [facility] ([facility] Name Value Range Interpretation Code Description Data Beth rce(s) Supporting Document(s) Laboratory test finding (navigational concept) 49.0 % 38.0-51.0 [facility] ([facility] Laboratory test finding (navigational concept) 114 mg/dL 70-105 [facility] ([facility] Laboratory test finding (navigational concept) 140 meq/L 136-145 [facility] ([facility] Laboratory test finding (navigational concept) 5.0 mg/dL 4.5-5.3 [facility] ([facility] Laboratory test finding (navigational concept) 4.8 meq/L 3.5-5.1 [facility] ([facility] Laboratory test finding (navigational concept) 101 meq/L 98-109 [facility] ([facility] Laboratory test finding (navigational concept) 44 mg/dL 8-26 [facility] ([facility] Laboratory test finding (navigational concept) 28.0 MM/L 23.0-27.0 [facility] ([facility] Laboratory test finding (navigational concept) 1.4 mg/dL 0.6-1.3 [facility] ([facility] ID Date Data Source [id number] 07/15/2020 11:59:00 AM EDT [facility] ([facility] Name Value Range Interpretation Code Description Data Beth rce(s) Supporting Document(s) White Blood Count 12.0 10 4.0-10.0 [facility] ([facility] Red Blood Count 4.92 10 4.30-6.10 [facility] ([facility] Hematocrit 47.9 % 42.0-52.0 [facility] ([facility] Hemoglobin 15.7 g/dL 13.5-17.5 [facility] Mean Corpuscular Volume 97.4 fl 80.0-96.0 [facility] ([facility] Red Cell Distribution Width 13.7 % 11.5-14.5 [facility] ([facility] Mean Corpuscular HGB Conc 32.8 g/dL 32.0-36.5 [facility] ([facility] Mean Corpuscular Hemoglobin 31.9 pg 27.0-33.0 [facility] ([facility] Platelet Count, Automated 208 10 150-450 [facility] ([facility] Lymph % 7.8 % 24.0-44.0 [facility] ([facility] Neutrophils % 77.3 % 36.0-66.0 [facility] ([facility] Baso % 0.4 % 0.0-1.0 [facility] ([facility] Gem % 13.5 % 0.0-5.0 [facility] ([facility] Eos % 0.5 % 0.0-3.0 [facility] ([facility] Immature Granulocyte % 0.5 % 0-3.0 [facility] ([facility] Neutrophils # 9.3 10 1.5-8.5 [facility] ([facility] Nucleated Red Blood Cell % 0.0 % 0-0 [facility] ([facility] Lymph # 0.9 10 1.5-5.0 [facility] ([facility] Gem # 1.6 10 0.0-0.8 [facility] ([facility] Eos # 0.1 10 0.0-0.5 [facility] ([facility] Baso # 0.1 10 0.0-0.2 [facility] ([facility] ID Date Data Source [id number] 05/23/2020 03:54:00 PM EDT [facility] ([facility]) Name Value Range Interpretation Code Description Data Beth rce(s) Supporting Document(s) Magnesium Level 2.1 [facility] ([facility]) ID Date Data Source [id number] 05/23/2020 03:54:00 PM EDT [facility] Name Value Range Interpretation Code Description Data Beth rce(s) Supporting Document(s) Sodium 140 [facility] ([facility] Calcium [Mass/volume] in Serum or Plasma 9.4 [facility] ([facility]) Carbon dioxide, total [Moles/volume] in Serum or Plasma 27 [facility] ([facility]) Glucose 113 70-100 [facility] ([facility] Potassium [Moles/volume] in Serum or Plasma 3.8 [facility] ([facility]) Chloride [Moles/volume] in Serum or Plasma 105 [facility] ([facility]) Creatinine 1.28 0.6-1.5 [facility] ([facility]) Blood Urea Nitrogen 29 5-21 [facility] ([facility]) Glomerular filtration rate/1.73 sq M.pre dicted [Volume Rate/Area] in Serum or Plasma by Creatinine-based formula (MDRD) Laboratory test result [facility] (Cardiology [facility]) ID Date Data Source [id number] 05/23/2020 03:54:00 PM EDT [facility] ([facility]) Name Value Range Interpretation Code Description Data Beth rce(s) Supporting Document(s) Natriuretic peptide.B prohormone N-Terminal [Mass/volu me] in Serum or Plasma [id number] [facility] ([facility]) ID Date Data Source [id number] 05/23/2020 09:50:00 AM EDT [facility] ([facility]) Name Value Range Interpretation Code Description Data Beth rce(s) Supporting Document(s) Natriuretic peptide.B prohormone N-Terminal [Mass/volu me] in Serum or Plasma 2799 pg/mL [facility] ([facility]) ID Date Data Source [id number] 05/23/2020 09:50:00 AM EDT [facility] ([facility]) Name Value Range Interpretation Code Description Data Beth rce(s) Supporting Document(s) Glucose, Fasting 113 mg/dL 70-100 [facility] ([facility]) Glomerular Filtration Rate Laboratory test result [facility] <content>Units are mL/min/1.73 m2</content>
<content></content>
<content>Chronic Kidney Disease Staging per NKF:</content>
<content></content>
<content>Stage I & II GFR >=60 Normal to Mildly Decreased</content>
<content>Stage III GFR 30- 59 Moderately Decreased</content>
<content>Stage IV GFR 15-29 Severely Decreased</content>
<content>Stage V GFR <15 Very Little GFR Left</content>
<content>ESRD GFR <15 on ALARM MECHANISM ADJUSTER</content>
<content></content> Blood Urea Nitrogen 29 mg/dL 7-18 [facility] [place] Creatinine For GFR 1.28 mg/dL 0.70-1.30 [facility] ([facility]) Potassium Serum 3.8 meq/L 3.5-5.1 [facility] ([facility]) Chloride Level 105 meq/L 98-107 [facility] ([facility]) Sodium Level 140 meq/L 136-145 [facility] ([facility]) Calcium Level 9.4 mg/dL 8.8-10.2 [facility] ([facility]) Carbon Dioxide Level 27 meq/L 21-32 [facility] ([facility]) Anion Gap 8 meq/L 8-16 [facility] ID Date Data Source [id number] 05/23/2020 09:50:00 AM EDT [facility] ([facility]) Name Value Range Interpretation Code Description Data Beth rce(s) Supporting Document(s) Magnesium [Mass/volume] in Serum or Plasma 2.1 mg/dL 1.8-2.4 [facility] ([facility]iology [facility]) ID Date Data Source [id number] 05/23/2020 09:50:00 AM EDT [facility] ([facility] Name Value Range Interpretation Code Description Data Beth rce(s) Supporting Document(s) Magnesium [Mass/volume] in Serum or Plasma 2.1 mg/dL 1.8-2.4 [facility] ([facility] Natriuretic peptide.B prohormone N-Terminal [Mass/volu me] in Serum or Plasma 2799 pg/mL [facility] ([facility] ID Date Data Source [id number] 05/23/2020 09:50:00 AM EDT [facility] ([facility] Name Value Range Interpretation Code Description Data Beth rce(s) Supporting Document(s) Blood Urea Nitrogen 29 mg/dL 7-18 [facility] ([facility] Creatinine For GFR 1.28 mg/dL 0.70-1.30 [facility] ([facility] Glucose, Fasting 113 mg/dL 70-100 [facility] ([facility] Sodium Level 140 meq/L 136-145 [facility] ([facility] Glomerular Filtration Rate Laboratory test result [facility] ([facility] <content>Units are mL/min/1.73 m2</content>
<content></content>
<content>Chronic Kidney Disease Staging per NKF:</content>
<content></content>
<content>Stage I & II GFR >=60 Normal to Mildly Decreased</content>
<content>Stage III GFR 30- 59 Moderately Decreased</content>
<content>Stage IV GFR 15-29 Severely Decreased</content>
<content>Stage V GFR <15 Very Little GFR Left</content>
<content>ESRD GFR <15 on ALARM MECHANISM ADJUSTER</content>
<content></content> Potassium Serum 3.8 meq/L 3.5-5.1 [facility] ([facility] Chloride Level 105 meq/L 98-107 [facility] ([facility] Carbon Dioxide Level 27 meq/L 21-32 [facility] ([facility] Anion Gap 8 meq/L 8-16 [facility] ([facility] Calcium Level 9.4 mg/dL 8.8-10.2 [facility] ([facility] ID Date Data Source [id number] 05/23/2020 09:50:00 AM EDT [facility] ([facility], ) Name Value Range Interpretation Code Description Data Beth rce(s) Supporting Document(s) Levetiracetam [Mass/volume] in Serum or Plasma Laboratory test result [facility] ([facility], ) SEE SEPARATE REPORT Testing performed at reference lab . Report copy to follow on a separate form. 07/03/20 REF LAB#:[id number] ID Date Data Source [id number] 05/25/2020 06:06:00 AM EDT [facility] Name Value Range Interpretation Code Description Data Beth rce(s) Supporting Document(s) Levetiracetam, S 60.4 ug/mL 10.0-40.0 Above high normal [facility] This test was developed and its performa nce characteristicsdetermined by [facility]. It has not been cleared or approvedby the Food and Drug Administration. ID Date Data Source [id number] 03/20/2020 01:21:00 PM EDT [facility] ([facility]) Name Value Range Interpretation Code Description Data Beth rce(s) Supporting Document(s) Natriuretic peptide.B prohormone N-Terminal [Mass/volu me] in Serum or Plasma 4813 pg/mL [facility] ([facility]) ID Date Data Source [id number] 03/20/2020 01:21:00 PM EDT [facility] ([facility]) Name Value Range Interpretation Code Description Data Beth rce(s) Supporting Document(s) Glucose, Fasting 140 mg/dL 70-100 [facility] ([facility]) Creatinine For GFR 1.32 mg/dL 0.70-1.30 [facility] ([facility]) Glomerular Filtration Rate 58.5 [facility] ([facility]) <content>Units are mL/min/1.73 m2</content>
<content></content>
<content>Chronic Kidney Disease Staging per NKF:</content>
<content></content>
<content>Stage I & II GFR >=60 Normal to Mildly Decreased</content>
<content>Stage III GFR 30- 59 Moderately Decreased</content>
<content>Stage IV GFR 15-29 Severely Decreased</content>
<content>Stage V GFR <15 Very Little GFR Left</content>
<content>ESRD GFR <15 on ALARM MECHANISM ADJUSTER</content>
<content></content> Blood Urea Nitrogen 24 mg/dL 7-18 [facility] ([facility]) Chloride Level 106 meq/L 98-107 [facility] ([facility]) Sodium Level 142 meq/L 136-145 [facility] ([facility]) Potassium Serum 3.8 meq/L 3.5-5.1 [facility] ([facility]) Anion Gap 6 meq/L 8-16 [facility] Calcium Level 9.1 mg/dL 8.8-10.2 [facility] ([facility]) Carbon Dioxide Level 30 meq/L 21-32 [facility] ([facility]) ID Date Data Source [id number] 03/14/2020 01:59:00 PM EDT [facility] ([facility]) Name Value Range Interpretation Code Description Data Beth rce(s) Supporting Document(s) Natriuretic peptide.B prohormone N-Terminal [Mass/volu me] in Serum or Plasma 5364 pg/mL [facility] ([facility]) ID Date Data Source [id number] 03/14/2020 01:59:00 PM EDT [facility] Name Value Range Interpretation Code Description Data Beth rce(s) Supporting Document(s) White Blood Count 10.7 10 4.0-10.0 [facility] ([facility]) Red Blood Count 4.27 10 4.30-6.10 [facility] ([facility]) Hemoglobin 14.2 g/dL 13.5-17.5 [facility] ([facility]) Mean Corpuscular Hemoglobin 33.3 pg 27.0-33.0 [facility] ([facility]) Hematocrit 43.1 % 42.0-52.0 [facility] ([facility]) Mean Corpuscular Volume 100.9 fl 80.0-96.0 [facility] ([facility]) Red Cell Distribution Width 14.7 % 11.5-14.5 [facility] ([facility]) Platelet Count, Automated 178 10 150-450 [facility] ([facility]) Mean Corpuscular HGB Conc 32.9 g/dL 32.0-36.5 [facility] ([facility]) Nucleated Red Blood Cell % 0.0 % 0-0 [facility] ([facility]) ID Date Data Source [id number] 03/14/2020 01:59:00 PM EDT [facility] Name Value Range Interpretation Code Description Data Beth rce(s) Supporting Document(s) Magnesium [Mass/volume] in Serum or Plasma 2.0 mg/dL 1.8-2.4 [facility] ([facility]) ID Date Data Source [id number] 03/14/2020 01:59:00 PM EDT [facility] ([facility]) Name Value Range Interpretation Code Description Data Beth rce(s) Supporting Document(s) Glucose, Fasting 197 mg/dL 70-100 [facility] Blood Urea Nitrogen 36 mg/dL 7-18 [facility] ([facility]) Creatinine For GFR 1.68 mg/dL 0.70-1.30 [facility] ([facility]) Sodium Level 138 meq/L 136-145 [facility] ([facility]) Glomerular Filtration Rate 44.3 MED ENT ([facility]) <content>Units are mL/min/1.73 m2</content>
<content></content>
<content>Chronic Kidney Disease Staging per NKF:</content>
<content></content>
<content>Stage I & II GFR >=60 Normal to Mildly Decreased</content>
<content>Stage III GFR 30- 59 Moderately Decreased</content>
<content>Stage IV GFR 15-29 Severely Decreased</content>
<content>Stage V GFR <15 Very Little GFR Left</content>
<content>ESRD GFR <15 on ALARM MECHANISM ADJUSTER</content>
<content></content> Chloride Level 103 meq/L 98-107 [facility] ([facility]) Potassium Serum 3.7 meq/L 3.5-5.1 [facility] ([facility]io [facility]) Carbon Dioxide Level 26 meq/L 21-32 [facility] ([facility]) Calcium Level 9.0 mg/dL 8.8-10.2 [facility] ([facility] [place]) Anion Gap 9 meq/L 8-16 [facility] ([facility] [place]) ID Date Data Source [id number] 03/02/2020 10:45:53 AM EDT [facility] Name Value Range Interpretation Code Description Data Beth rce(s) Supporting Document(s) &PDF [facility] [id number] vci [file] [id number] ID Date Data Source [id number] 03/02/2020 10:11:43 AM EDT [facility] INFORMATIONPatient MRN Name Date of Age Gend*PT [id number] Jason Shankar 1955 64 years M HOPPT Location Admission Date/Time Visit ID Attending ProviderCV-03/02/20 0905 --- Lizett Segal MD([id number]) EPI ID CSN Admitting Provider [id number] Lizett Butler MD([id number]) History and PhysicalPatient Name: Jason ShankarB: 1955The patient has a history of poorly tolerated AFIB and presents for AV NodeAblation03/02/2020Past Medical History:Diagnosis Date Anxiety and depression Aortic valve disease Atrial fibrillation Cardiomyopathy, hypertrophic Coronary artery disease Hyperlipemia Hypertension Insomnia Mitral valve disease Seizure disorderPast Surgical History:Procedure Laterality Date CARDIAC DEFIBRILLATOR PLACEMENT CARDIAC DEFIBRILLATOR PLACEMENT N/A 12/10/2016 Procedure: REPLACE IMPLANTABLE CARDIOVERTER DEFIBRILLATOR GENERATOR; Surgeon:Benigno Mckeon MD; Location: [facility]; Service: Pacemakers; Laterality:N/A; ST ALVA CARDIAC DEFIBRILLATOR PLACEMENT N/A 09/10/2014 Procedure: REVISION OF LEAD, AND REPLACEMENT OF IMPLANTABLE CARDIOVERTERDEFIBRILLATOR ; Surgeon: Arnulfo Tovar MD; Location: [facility]; Service:Pacemakers; Laterality: N/A; REVISION POCKET ICD/PACEMAKER 2015Medications Prior to AdmissionMedication Sig Apixaban (ELIQUIS) 5 MG TABS tablet Take 1 tablet (5 mg total) by mouth 2(two) times a day atorvastatin (LIPITOR) 20 MG tablet Take 20 mg by mouth daily clomiPRAMINE (ANAFRANIL) 25 MG capsule Take 50 mg by mouth nightly DAILY JENNIFER (THERAGRAN) per tablet Take 1 tablet by mouth daily digoxin (LANOXIN) 125 MCG tablet Take 125 mcg by mouth daily furosemide (LASIX) 40 MG tablet Take 40 mg by mouth daily levETIRAcetam (KEPPRA) 500 MG tablet Take 1,000 mg by mouth 2 (two) times aday 1000mg in the am and 1,000 in the pm metoprolol (LOPRESSOR) 50 MG tablet Take 100 mg by mouth daily zolpidem (AMBIEN) 10 MG tablet Take 10 mg by mouth nightly as needed for sleep metoprolol (LOPRESSOR) 50 MG tablet Take 100 mg by mouth every evening VITAMIN D, CHOLECALCIFEROL, PO Take 1 tablet by mouth once a weekALLERGIES/SENSITIVITIES: Sulfa antibioticsPhysical ExamGeneral: NADHEENT: NC/ATNeck: JVP FlatLungs: CTAHeart: [id number]: This is a 64 years male With a history of atrial fibrillation whonow presents for complete AV marianna ablation. The procedure risks and benefitswere all explained. The patient is agreeable to proceed.Signature: Lizett Segal MD, [facility], RSCardiac Electrophysiology and Arrhythmia ServiceDate: March 02, 2020Time: 10:11 AMThis document or parts of this document, were dictated using [employer]. A reasonable attempt at proofreading has been made to minimize errors.Please call with any questions or corrections. Name Value Range Interpretation Code Description Data Beth rce(s) Supporting Document(s) ID Date Data Source [id number] 02/01/2020 08:05:00 AM EDT [facility] Name Value Range Interpretation Code Description Data Beth rce(s) Supporting Document(s) Magnesium 2.2 mg/dL 1.6-2.3 [facility] ID Date Data Source [id number] 02/01/2020 10:05:00 AM EDT [facility] Name Value Range Interpretation Code Description Data Beth rce(s) Supporting Document(s) Glucose 120 mg/dL 65-99 Above high normal [facility] BUN 29 mg/dL 8-27 Above high normal [facility] Creatinine 1.22 mg/dL 0.76-1.27 [facility] eGFR If NonAfricn Am 63 mL/min/1.73 >59 [facility] eGFR If Africn Am 73 mL/min/1.73 >59 [facility] BUN/Creatinine Ratio 24 10-24 [facility] Sodium 141 mmol/L 134-144 [facility] Potassium 4.5 mmol/L 3.5-5.2 [facility] Chloride 101 mmol/L 96-106 [facility] Carbon Dioxide, Total 24 mmol/L 20-29 [facility] Calcium 10.2 mg/dL 8.6-10.2 [facility] Verified by repeat analysis ID Date Data Source [id number] 02/01/2020 10:05:00 AM EDT [facility] Name Value Range Interpretation Code Description Data Beth rce(s) Supporting Document(s) Cholesterol, Total 211 mg/dL 100-199 Above high normal [facility] Triglycerides 181 mg/dL 0-149 Above high normal [facility] HDL Cholesterol 33 mg/dL >39 Below low normal [facility] VLDL Cholesterol Yvon 36 mg/dL 5-40 [facility] LDL Cholesterol Calc 142 mg/dL 0-99 Above high normal [facility] ID Date Data Source [id number] 01/31/2020 10:44:00 AM EDT [facility] ([facility]) Name Value Range Interpretation Code Description Data Beth rce(s) Supporting Document(s) Laboratory test finding (navigational concept) Laboratory test result [facility] (Cardiology [facility]) ID Date Data Source [id number] 01/31/2020 10:44:00 AM EDT [facility] ([facility]) Name Value Range Interpretation Code Description Data Beth rce(s) Supporting Document(s) Cholesterol [Mass/volume] in Serum or Plasma 211 mg/dL 100-199 [facility] ([facility]) Cholesterol in VLDL [Mass/volume] in Serum or Plasma by calc ulation 36 mg/dL 5-40 [facility] (Cardiology [facility]) Cholesterol in HDL [Mass/volume] in Serum or Plasma 33 mg/dL [facility] (Cardiology [facility]) Triglyceride [Mass/volume] in Serum or Plasma 181 mg/dL 0-149 [facility] ([facility]) Cholesterol in LDL [Mass/volume] in Serum or Plasma by calcu lation 142 mg/dL 0-99 [facility] ([facility]) Comment: Laboratory test result [facility] [place] ID Date Data Source [id number] 01/31/2020 10:44:00 AM EDT [facility] ([facility]) Name Value Range Interpretation Code Description Data Beth rce(s) Supporting Document(s) Magnesium [Mass/volume] in Serum or Plasma 2.2 mg/dL 1.6-2.3 [facility] (Cardiology [facility]) ID Date Data Source [id number] 01/31/2020 10:44:00 AM EDT [facility] ([facility]) Name Value Range Interpretation Code Description Data Beth rce(s) Supporting Document(s) Glucose 120 mg/dL 65-99 [facility] ([facility]) eGFR If NonAfricn Am 63 mL/min/1.73 MEDE NT (Cardiology [facility]) Creatinine 1.22 mg/dL 0.76-1.27 [facility] (Cardiology [facility]) Urea nitrogen [Mass/volume] in Serum or Plasma 29 mg/dL 8-27 [facility] ([facility]iology [facility]) Sodium 141 mmol/L 134-144 [facility] ([facility]iology [facility]) eGFR If Africn Am 73 mL/min/1.73 [facility] (Cardiology [facility]) Urea nitrogen/Creatinine [Mass Ratio] in Serum or Plasma 24 1 0-24 [facility] ([facility]) Chloride [Moles/volume] in Serum or Plasma 101 mmol/L 96-106 [facility] ([facility]) Potassium [Moles/volume] in Serum or Plasma 4.5 mmol/L 3.5-5.2 [facility] ([facility]) Carbon dioxide, total [Moles/volume] in Serum or Plasma 24 mmol/L 20 -29 [facility] (Cardiology [facility]) Calcium [Mass/volume] in Serum or Plasma 10.2 mg/dL 8.6-10.2 [facility] ([facility]) Verified by repeat analysis ID Date Data Source [id number] 01/09/2020 08:15:00 AM EDT [facility] ([facility]) Name Value Range Interpretation Code Description Data Beth rce(s) Supporting Document(s) Magnesium Level 1.9 1.8-2.4 [facility] ([facility]) ID Date Data Source [id number] 01/09/2020 08:15:00 AM EDT [facility] ([facility]) Name Value Range Interpretation Code Description Data Beth rce(s) Supporting Document(s) Alanine aminotransferase [Enzymatic activity/volume] in Serum or Pl asma 17 [facility] ([facility]) Calcium [Mass/volume] in Serum or Plasma 9.0 [facility] ([facility]) Albumin [Mass/volume] in Serum or Plasma 3.4 [facility] ([facility]) Alkaline phosphatase [Enzymatic activity/volume] in Serum or Plasma 9 6 [facility] ([facility]) Carbon dioxide, total [Moles/volume] in Serum or Plasma 26 [facility] ([facility]) Chloride [Moles/volume] in Serum or Plasma 106 [facility] ([facility]) Potassium [Moles/volume] in Serum or Plasma 3.6 [facility] ([facility]) Aspartate aminotransferase [Enzymatic activity/volume] in Serum or Plasma 20 [facility] ([facility]) Protein [Mass/volume] in Serum or Plasma 7.3 [facility] ([facility]) Sodium 142 [facility] ([facility]) Creatinine For GFR 1.17 [facility] ([facility]) Urea nitrogen [Mass/volume] in Serum or Plasma 31 [facility] ([facility]) Glucose 96 70-100 [facility] ([facility]) ID Date Data Source [id number] 01/09/2020 08:15:00 AM EDT [facility] ([facility]i [facility]y [facility]) Name Value Range Interpretation Code Description Data Beth rce(s) Supporting Document(s) Red Blood Count 4.34 4.30-6.10 [facility] (Cardio [facility]y [facility]) White Blood Count 7.9 4.0-10.0 [facility] ([facility]) Platelets 186 150-450 [facility] ([facility]) Hematocrit 43.2 [facility] ([facility]) Hemoglobin 14.2 [facility] ([facility]) ID Date Data Source [id number] 01/05/2020 01:15:34 PM EDT [facility] NT INFORMATIONPatient MRN Name Date of Age Gend*PT [id number] Jason Shankar 1955 64 years M ---PT Location Admission Date/Time Visit ID Attending Provider --- --- --- --- EPI ID CSN Admitting Provider [id number] ---[facility] [id number], [address] (First Floor)[place], [place] [address]Is.: Fax: Fatient: Jason Shankar : 1955Date: 01/05/20CARDIAC ELECTROPHYSIOLOGY CONSULTI was asked by Felicia Castelan to consult on this 64 years male with atrialfibrillation.HISTORY OF PRESENT ILLNESS: Patient is a 64-year-old gentleman with a history ofhypertrophic cardiomyopathy who has developed persistent atrial fibrillationassociated with extremely rapid ventricular rates. In the past the patient hasbeen placed through his defibrillator. This is helped with his LVOT gradient.Currently despite rate control the patient is essentially in rapid atrialfibrillation all the time. He complains of chronic palpitations. He statesthat when he is at rest he really feels them. These are very bothersome. Sheila have some increasing shortness of breath but denies any syncope orsignificant chest pain.Past Medical History:Diagnosis Date Anxiety and depression Aortic valve disease Atrial fibrillation Cardiomyopathy, hypertrophic Coronary artery disease Hyperlipemia Hypertension Insomnia Mitral valve disease Seizure disorderFAMILY HISTORY: family history includes Heart disease in his father.SOCIAL HISTORY: reports that he has never smoked. He has never used smokelesstobacco. He reports that he does not drink alcohol or use drugs.REVIEW OF SYSTEMS: Constitutional: Denies syncope. Denies fever, chills, weightloss or gain. Eyes: Denies blindness. Cardiovascular: Positive palpitations.Respiratory: Positive shortness of breath. GI: Denies abdominal pain, nausea orvomiting. : Denies dysuria or hematuria. Musculoskeletal: Negative lowerextremity edema. Integumentary: Denies rash. Neurologic: Denies seizures.Psychiatric: Denies depression or anxiety. Hematologic: Denies anemia.Current Outpatient Medications: Apixaban (ELIQUIS) 5 MG TABS tablet, Take 1 tablet (5 mg total) by mouth 2(two) times a day, Disp: 60 tablet, Rfl: 11 clomiPRAMINE (ANAFRANIL) 25 MG capsule, Take 50 mg by mouth nightly, Disp: ,Rfl: digoxin (LANOXIN) 125 MCG tablet, Take 125 mcg by mouth daily , Disp: , Rfl: levETIRAcetam (KEPPRA) 500 MG tablet, Take 1,000 mg by mouth 2 (two) times aday 1000mg in the am and 1,000 in the pm, Disp: , Rfl: metoprolol (LOPRESSOR) 50 MG tablet, Take 100 mg by mouth daily, Disp: , Rfl: metoprolol (LOPRESSOR) 50 MG tablet, Take 100 mg by mouth every evening ,Disp: , Rfl: VITAMIN D, CHOLECALCIFEROL, PO, Take 1 tablet by mouth once a week, Disp: ,Rfl: zolpidem (AMBIEN) 10 MG tablet, Take 10 mg by mouth nightly as needed forsleep, Disp: , Rfl:ALLERGIES: is allergic to sulfa antibiotics.PHYSICAL EXAMINATION:General appearance reveals a well-nourished, well-developed male. Neck shows nomasses or goiter. Lymphatics reveal no axillary or cervical adenopathy. Lungsclear to auscultation. Cardiac exam variable first heart sound second heartsound is split. There is a loud 3/6 systolic ejection murmur heard at the leftsternal base. JVP flat. Carotid upstrokes brisk. GI is nontender,nondistended, bowel sounds present, no hepatosplenomegaly. Musculoskeletalreveals normal gait. Extremities show no edema. Skin shows no rashes orsubcutaneous nodules. Psych reveals normal affect, alert and oriented x3.Vitals: 01/05/20 1301BP: 92/70Pulse: 88Weight: 81.6 kg (180 lb)Height: 1.702 m (5' 7")ASSESSMENT/PLAN: This is a 64-year-old gentleman with hypertrophiccardiomyopathy and an existing dual-chamber ICD who is now developed rapidatrial fibrillation. I do agree that the patient's best option is complete AVnodal ablation. It appears he has benefited from RV pacing with regards to hisLVOT gradient. The AV node ablation procedure was explained to the patient.The risks including but not limited to vascular injury, perforation, tamponadeand were all explained. He is willing to proceed and will be scheduled sherry elective basis.Signature: Lizett Segal MD, [facility], [facility] L[facility] VEGASCardiac Electrophysiology and Arrhythmia ServiceDate: 01/05/2020Time: 1:11 PMThis document or parts of this document, were dictated using [employer]. A reasonable attempt at proofreading has been made to minimize errors.Please call with any questions or corrections. Name Value Range Interpretation Code Description Data [facility] [place](s) Supporting Document(s) ID Date Data Source [id number] 12/06/2019 10:48:00 AM EST [facility] ([facility]) Name Value Range Interpretation Code Description Data [facility](s) Supporting Document(s) Glucose, Fasting 113 mg/dL 70-100 [facility] Blood Urea Nitrogen 37 mg/dL 7-18 [facility] (Ca rdiology [facility]) Glomerular Filtration Rate 58.5 MED ENT ([facility]) <content>Units are mL/min/1.73 m2</content>
<content></content>
<content>Chronic Kidney Disease Staging per NKF:</content>
<content></content>
<content>Stage I & II GFR >=60 Normal to Mildly Decreased</content>
<content>Stage III GFR 30- 59 Moderately Decreased</content>
<content>Stage IV GFR 15-29 Severely Decreased</content>
<content>Stage V GFR <15 Very Little GFR Left</content>
<content>ESRD GFR <15 on ALARM MECHANISM ADJUSTER</content>
<content></content> Creatinine For GFR 1.32 mg/dL 0.70-1.30 [facility] ([facility]) Potassium Serum 4.6 meq/L 3.5-5.1 [facility] (Cardio [facility]y [facility]) Chloride Level 105 meq/L 98-107 [facility] ([facility]iol [facility]gy [facility]) Sodium Level 139 meq/L 136-145 [facility] ([facility]iolog [facility]) Carbon Dioxide Level 27 meq/L 21-32 [facility] (C ardiology [facility]) Ast/Sgot 35 U/L 7-37 [facility] ([facility]) Anion Gap 7 meq/L 8-16 [facility] ([facility]) Calcium Level 9.9 mg/dL 8.8-10.2 [facility] (Cardiolo gy [facility]) Alt/SGPT 55 U/L 12-78 [facility] ([facility]) Bilirubin,Total 0.7 mg/dL 0.2-1.0 [facility] ([facility]io [facility]) Alkaline Phosphatase 125 U/L 45-117 [facility] (C ardiology [facility]) Albumin 3.5 GM/DL 3.2-5.2 [facility] ([facility]iology [facility]) Albumin/Globulin Ratio 0.90 1.00-1.93 ME DENT ([facility]) Total Protein 7.4 GM/DL 6.4-8.2 [facility] ([facility]iolo [facility]) ID Date Data Source [id number] 12/06/2019 10:48:00 AM EST [facility] ([facility]) Name Value Range Interpretation Code Description Data Beth rce(s) Supporting Document(s) Magnesium [Mass/volume] in Serum or Plasma 1.9 mg/dL 1.8-2.4 [facility] ([facility]) ID Date Data Source [id number] 11/05/2019 09:29:00 AM EST [facility] ([facility]) Name Value Range Interpretation Code Description Data Beth rce(s) Supporting Document(s) Albumin [Mass/volume] in Serum or Plasma 3.3 [facility] ([facility]) Alanine aminotransferase [Enzymatic activity/volume] in Serum or Plasma 196 [facility] ([facility]) Calcium [Mass/volume] in Serum or Plasma 9.9 [facility] ([facility]) Carbon dioxide, total [Moles/volume] in Serum or Plasma 29 [facility] ([facility]) Alkaline phosphatase [Enzymatic activity/volume] in Serum or Plasma 1 26 [facility] ([facility]) Chloride [Moles/volume] in Serum or Plasma 105 [facility] ([facility]) Potassium [Moles/volume] in Serum or Plasma 4.4 [facility] ([facility]) Protein [Mass/volume] in Serum or Plasma 7.7 [facility] ([facility]) Sodium 139 [facility] ([facility]) Aspartate aminotransferase [Enzymatic activity/volume] in Serum or Plasma 48 [facility] ([facility]) Glucose 103 70-100 [facility] Urea nitrogen [Mass/volume] in Serum or Plasma 27 [facility] ([facility]) Creatinine For GFR 1.18 [facility] ([facility] dioly [facility]) ID Date Data Source [id number] 11/05/2019 09:29:00 AM EST [facility] ([facility]) Name Value Range Interpretation Code Description Data Beth rce(s) Supporting Document(s) Red Blood Count 4.53 4.30-6.10 [facility] ([facility]io [facility]) White Blood Count 8.1 4.0-10.0 [facility] (Card [facility]) Platelets 230 150-450 [facility] ([facility]iology A [facility]) Hemoglobin 14.8 [facility] ([facility]) Hematocrit 48.1 [facility] ([facility]) ID Date Data Source [id number] 10/30/2019 11:28:00 AM EST [facility] ([facility]i [facility]) Name Value Range Interpretation Code Description Data Bteh rce(s) Supporting Document(s) Albumin [Mass/volume] in Serum or Plasma 3.7 3.2-5.2 [facility] ([facility]) Alanine aminotransferase [Enzymatic activity/volume] in Seru m or Plasma 1111 12-78 [facility] ([facility]) Carbon dioxide, total [Moles/volume] in Serum or Plasma 30 21 -32 [facility] ([facility]) Calcium [Mass/volume] in Serum or Plasma 9.6 8.8-10.2 [facility] ([facility]) Chloride [Moles/volume] in Serum or Plasma 99 98-107 [facility] ([facility]) Alkaline phosphatase [Enzymatic activity/volume] in Serum or Jonathon sma 160 45-117 [facility] ([facility]) Potassium [Moles/volume] in Serum or Plasma 4.1 3.5-5.1 [facility] ([facility]) Protein [Mass/volume] in Serum or Plasma 7.8 6.4-8.2 [facility] ([facility]) Sodium 137 136-145 [facility] ([facility]) Aspartate aminotransferase [Enzymatic activity/volume] in Se rum or Plasma 396 7-27 [facility] ([facility]) Glucose 104 70-100 [facility] ([facility]) Urea nitrogen [Mass/volume] in Serum or Plasma 50 7-18 [facility] ([facility]) Creatinine For GFR 1.25 0.70-1.30 [facility] (Car [facility]ology [facility]) ID Date Data Source [id number] 10/30/2019 11:28:00 AM EST [facility] ([facility]i [facility]y [facility]) Name Value Range Interpretation Code Description Data Beth rce(s) Supporting Document(s) Red Blood Count 4.81 4.30-6.10 [facility] ([facility]io [facility]) White Blood Count 11.9 4.0-10.0 [facility] ([facility]) Platelets 184 150-450 [facility] ([facility]) Hemoglobin 16.1 [facility] ([facility]) Hematocrit 49.5 [facility] ([facility]) ID Date Data Source [id number] 10/25/2019 11:35:00 AM EST [facility] ([facility]) Name Value Range Interpretation Code Description Data Beth rce(s) Supporting Document(s) Thyrotropin [Units/volume] in Serum or Plasma 5.170 [facility] ([facility]) ID Date Data Source [id number] 10/25/2019 11:35:00 AM EST [facility] ([facility]) Name Value Range Interpretation Code Description Data Beth rce(s) Supporting Document(s) Natriuretic peptide.B prohormone N-Terminal [Mass/volu me] in Serum or Plasma 6204 [facility] ([facility]) Troponin 0.10 [facility] ([facility]) Lipoprotein lipase [Enzymatic activity/volume] in Serum or Plasma 66 [facility] ([address] [facility]) ID Date Data Source [id number] 10/25/2019 11:35:00 AM EST MEDENT ([facility]) Name Value Range Interpretation Code Description Data Beth rce(s) Supporting Document(s) Creatine kinase [Enzymatic activity/volume] in Serum or Plasma 1159 [facility] ([facility]) CPK-MB 5.1 MED[facility] ([facility]) MB/CK Relative 0.44 [facility] ([facility]) ID Date Data Source [id number] 10/25/2019 11:35:00 AM EST [facility] ([facility]) Name Value Range Interpretation Code Description Data Beth rce(s) Supporting Document(s) Alkaline phosphatase [Enzymatic activity/volume] in Serum or Jonathon sma 125 45-117 [facility] ([facility]) Aspartate aminotransferase [Enzymatic activity/volume] in Se rum or Plasma 7764 7-37 [facility] ([facility]) Alanine aminotransferase [Enzymatic activity/volume] in Seru m or Plasma 3361 12-78 [facility] ([facility]) Bilirubin.total [Mass/volume] in Serum or Plasma 2.2 0.2-1.0 [facility] ([facility]) Bilirubin.direct [Mass/volume] in Serum or Plasma 1.0 0.0-0.2 [facility] ([facility]) Protein [Mass/volume] in Serum or Plasma 7.6 6.4-8.2 [facility] ([facility]) Albumin [Mass/volume] in Serum or Plasma 3.9 3.2-5.2 [facility] ([facility]) Cholesterol [Mass/volume] in Serum or Plasma Laboratory test result MEDENT (Cardiology [facility]) ID Date Data Source [id number] 10/25/2019 11:35:00 AM EST [facility] ([facility]) Name Value Range Interpretation Code Description Data Beth rce(s) Supporting Document(s) Red Blood Count 4.23 4.30-6.10 [facility] ([facility]) White Blood Count 12.1 4.0-10.0 [facility] ([facility]) Platelets 127 150-450 [facility] Hemoglobin 14.1 MED[facility] (Cardiology [facility]) Hematocrit 46.5 MEDENT (Cardiology [facility]) ID Date Data Source [id number] 10/11/2019 11:05:00 AM EST MEDENT ([facility], ) Name Value Range Interpretation Code Description Data Beth rce(s) Supporting Document(s) Levetiracetam [Mass/volume] in Serum or Plasma 9.2 ug/mL 10.0-40.0 MEDENT ([facility], ) This test was developed and its performa nce characteristics determined by [facility]. It has not been cleared or approved by the Food and Drug Administration. Performed at: [address] [id number] Disability Hearing Officer: Rick Moore MD, Phone: [phone] Procedure Social History Code Duration Value Status Description Data Source(s ) Smoking 11/06/2020 12:00:00 AM EST Patient is a former smoker completed Patient is a former smoker [facility] ([facility]) Smoking 10/26/2020 12:00:00 AM EST Patient has never smoked co mpleted Patient has never smoked [facility] ([facility] Alcohol intake 03/02/2020 12:00:00 AM EDT No completed [facility] Smoking 03/02/2020 12:00:00 AM EDT Never smoker completed Never s nimaker [facility] Vital Signs ID Date Data Source UNK Name Value Range Interpretation Code Description Data Source(s) Diastolic blood pressure 64 mm[Hg] 64 mm[Hg] [facility] ([facility]) sitting, regular cuff Systolic blood pressure 114 mm[Hg] 114 mm[Hg] M EDENT ([facility]) sitting, regular cuff Respiratory rate 16 /min 16 /min MED[facility] ( [facility]) Heart rate 60 /min 60 /min [facility] ([facility]) Regular Body mass index (BMI) [Ratio] 29.8 kg/m2 29.8 k g/m2 [facility] ([facility]) Body height 68 [in_i] 68 [in_i] [facility] ([facility]) 5'8" Body weight 196.00 [lb_av] 196.00 [lb_av] MEDEN T ([facility]) Oxygen saturation in Arterial blood by Pulse oximetry 97 % 97 % [facility] ([facility] Body weight 202.50 [lb_av] 202.50 [lb_av] MEDEN T ([facility] Respiratory rate 14 /min 14 /min [facility] ( [facility] Body temperature 98.3 [degF] 98.3 [degF] [facility] ([facility] Heart rate 60 /min 60 /min [facility] ([facility] Diastolic blood pressure 8 mm[Hg] 8 mm[Hg] [facility] ([facility] Systolic blood pressure 202 mm[Hg] 202 mm[Hg] M EDENT ([facility] Oxygen saturation in Arterial blood by Pulse oximetry 94 % 94 % [facility] ([facility] Body weight 203.50 [lb_av] 203.50 [lb_av] MEDEN T ([facility] Respiratory rate 18 /min 18 /min MED[facility] ( [facility] Body temperature 97.2 [degF] 97.2 [degF] [facility] ([facility] Heart rate 60 /min 60 /min [facility] ([facility] Diastolic blood pressure 67 mm[Hg] 67 mm[Hg] [facility] ([facility] Systolic blood pressure 97 mm[Hg] 97 mm[Hg] M EDENT ([facility] Systolic blood pressure 110 mm[Hg] 110 mm[Hg] M EDENT ([facility]) sitting, regular cuff Respiratory rate 16 /min 16 /min MED[facility] ( [facility]) Heart rate 60 /min 60 /min [facility] ([facility]) Regular Body mass index (BMI) [Ratio] 30.1 kg/m2 30.1 k g/m2 [facility] ([facility]) Body height 68 [in_i] 68 [in_i] [facility] ([facility]) 5'8" Body weight 198.00 [lb_av] 198.00 [lb_av] MEDEN T ([facility]) Diastolic blood pressure 60 mm[Hg] 60 mm[Hg] MED[facility] ([facility]) sitting, regular cuff Body weight 90.720 kg 90.720 kg MED[facility] ([facility], ) [place] body weight 142 [lb_av] 142 [lb_av] MEDEN T ([facility]) Body mass index (BMI) [Ratio] 32.3 kg/m2 32.3 k g/m2 MEDENT ([facility], ) Body weight 200.00 [lb_av] 200.00 [lb_av] MEDEN T ([facility], ) Body height 66 [in_i] 66 [in_i] MED[facility] ([facility], ) 5'6" Diastolic blood pressure 88 mm[Hg] 88 mm[Hg] [facility] ([facility]) Systolic blood pressure 130 mm[Hg] 130 mm[Hg] [facility] ([facility]) Respiratory rate 16 /min 16 /min MED[facility] ( [facility]) Heart rate 64 /min 64 /min [facility] ([facility]) Diastolic blood pressure 60 mm[Hg] 60 mm[Hg] [facility] ([facility]) Systolic blood pressure 100 mm[Hg] 100 mm[Hg] [facility] ([facility]) Diastolic blood pressure 60 mm[Hg] 60 mm[Hg] [facility] ([facility]) sitting Systolic blood pressure 106 mm[Hg] 106 mm[Hg] [facility] ([facility]) sitting Diastolic blood pressure 60 mm[Hg] 60 mm[Hg] [facility] ([facility]) sitting, regular cuff Systolic blood pressure 104 mm[Hg] 104 mm[Hg] [facility] ([facility]) sitting, regular cuff Respiratory rate 16 /min 16 /min MED[facility] ( [facility]) Heart rate 60 /min 60 /min [facility] ([facility]) Regular Body mass index (BMI) [Ratio] 29.2 kg/m2 29.2 k g/m2 [facility] ([facility]) Body height 68 [in_i] 68 [in_i] [facility] ([facility]) 5'8" Body weight 192.00 [lb_av] 192.00 [lb_av] MEDEN T ([facility]) Oxygen saturation in Arterial blood by Pulse oximetry 98 % 98 % [facility] ([facility] Body weight 193.50 [lb_av] 193.50 [lb_av] MEDEN T ([facility] Respiratory rate 18 /min 18 /min [facility] ( [facility] Body temperature 96.5 [degF] 96.5 [degF] [facility] ([facility] Heart rate 63 /min 63 /min [facility] ([facility] Diastolic blood pressure 56 mm[Hg] 56 mm[Hg] [facility] ([facility] Systolic blood pressure 81 mm[Hg] 81 mm[Hg] [facility] Body weight 88.225 kg 88.225 kg [facility] ([facility]) [place] body weight 142 [lb_av] 142 [lb_av] [facility] Body mass index (BMI) [Ratio] 31.4 kg/m2 31.4 k g/m2 [facility] ([facility]) Body weight 194.50 [lb_av] 194.50 [lb_av] [facility] Body height 66 [in_i] 66 [in_i] [facility] ([facility]) 5'6" Diastolic blood pressure 61 mm[Hg] 61 mm[Hg] [facility] ([facility]) Systolic blood pressure 90 mm[Hg] 90 mm[Hg] [facility] ([facility]) Body mass index (BMI) [Ratio] 29.9 kg/m2 29.9 k g/m2 [facility] ([facility]) Body height 66 [in_i] 66 [in_i] [facility] ([facility]) 5'6" Body weight 185.00 [lb_av] 185.00 [lb_av] MEDEN T ([facility]) Body temperature 97.8 [degF] 97.8 [degF] [facility] ([facility], [facility]) Oxygen saturation in Arterial blood by Pulse oximetry 97 % 97 % [facility] ([facility], [facility]) Respiratory rate 12 /min 12 /min [facility] ( [facility], [facility]) Heart rate 60 /min 60 /min [facility] ([facility], [facility]) Diastolic blood pressure 72 mm[Hg] 72 mm[Hg] [facility] ([facility], [facility]) Systolic blood pressure 104 mm[Hg] 104 mm[Hg] EDENT ([facility], [facility]) Diastolic blood pressure 68 mm[Hg] 68 mm[Hg] [facility] ([facility]) sitting, regular cuff Systolic blood pressure 116 mm[Hg] 116 mm[Hg] EDENT ([facility]) sitting, regular cuff Respiratory rate 16 /min 16 /min [facility] ( [facility]) Heart rate 60 /min 60 /min [facility] ([facility]) Regular Body mass index (BMI) [Ratio] 28.9 kg/m2 28.9 k g/m2 [facility] ([facility]) Body height 68 [in_i] 68 [in_i] [facility] 5'8" Body weight 190.00 [lb_av] 190.00 [lb_av] MEDEN T ([facility]) Respiratory rate 16 /min 16 /min MEDENT ( [facility], ) Heart rate 60 /min 60 /min MED[facility] ([facility], ) Diastolic blood pressure 80 mm[Hg] 80 mm[Hg] [facility] ([facility], ) Systolic blood pressure 110 mm[Hg] 110 mm[Hg] [facility] ) Diastolic blood pressure 62 mm[Hg] 62 mm[Hg] [facility] ([facility]) sitting, regular cuff Systolic blood pressure 104 mm[Hg] 104 mm[Hg] EDENT ([facility]) sitting, regular cuff Respiratory rate 16 /min 16 /min [facility] ( [facility]) Heart rate 60 /min 60 /min [facility] ([facility]) Regular Body mass index (BMI) [Ratio] 27.5 kg/m2 27.5 k g/m2 [facility] ([facility]) Body height 68 [in_i] 68 [in_i] [facility] ([facility]) 5'8" Body weight 181.00 [lb_av] 181.00 [lb_av] MEDEN T ([facility]) Diastolic blood pressure 54 mm[Hg] 54 mm[Hg] [facility] ([facility]) sitting, regular cuff Systolic blood pressure 92 mm[Hg] 92 mm[Hg] M EDENT ([facility]) sitting, regular cuff Respiratory rate 16 /min 16 /min [facility] ( [facility]) Heart rate 60 /min 60 /min [facility] ([facility]) Regular Body mass index (BMI) [Ratio] 27.8 kg/m2 27.8 k g/m2 [facility] ([facility]) Body height 68 [in_i] 68 [in_i] [facility] ([facility]) 5'8" Body weight 183.00 [lb_av] 183.00 [lb_av] MEDEN T ([facility]) Oxygen saturation in Arterial blood by Pulse oximetry 94 % 94 % [facility] Heart rate 60 /min 60 /min [facility] Diastolic blood pressure 72 mm[Hg] 72 mm[Hg] [facility] Systolic blood pressure 107 mm[Hg] 107 mm[Hg] [facility] Body temperature 36.39 Brianna 36.39 Brianna [facility] Respiratory rate 18 /min 18 /min [facility] Diastolic blood pressure 54 mm[Hg] 54 mm[Hg] MED[facility] ([facility]) sitting Systolic blood pressure 98 mm[Hg] 98 mm[Hg] EDENT ([facility]) sitting Diastolic blood pressure 56 mm[Hg] 56 mm[Hg] [facility] ([facility]) sitting, regular cuff Systolic blood pressure 98 mm[Hg] 98 mm[Hg] ED[facility] ([facility]) sitting, regular cuff Respiratory rate 16 /min 16 /min MED[facility] ( [facility]) Heart rate 88 /min 88 /min [facility] ([facility]) Irregular Body mass index (BMI) [Ratio] 28.0 kg/m2 28.0 k g/m2 [facility] ([facility]) Body height 68 [in_i] 68 [in_i] [facility] ([facility]) 5'8" Body weight 184.00 [lb_av] 184.00 [lb_av] MEDEN T ([facility]) Respiratory rate 18 /min 18 /min [facility] ( [facility] Diastolic blood pressure 70 mm[Hg] 70 mm[Hg] [facility] ([facility] Systolic blood pressure 124 mm[Hg] 124 mm[Hg] M EDENT ([facility] Diastolic blood pressure 60 mm[Hg] 60 mm[Hg] [facility] ([facility]) sitting, regular cuff Systolic blood pressure 96 mm[Hg] 96 mm[Hg] M EDENT ([facility]) sitting, regular cuff Respiratory rate 16 /min 16 /min MED[facility] ( [facility]) Heart rate 88 /min 88 /min [facility] ([facility]) Regular Body mass index (BMI) [Ratio] 28.1 kg/m2 28.1 k g/m2 [facility] ([facility]) Body height 68 [in_i] 68 [in_i] [facility] ([facility]) 5'8" Body weight 185.00 [lb_av] 185.00 [lb_av] MEDEN T ([facility]) Diastolic blood pressure 56 mm[Hg] 56 mm[Hg] [facility] ([facility]) sitting, regular cuff Systolic blood pressure 98 mm[Hg] 98 mm[Hg] EDENT ([facility]) sitting, regular cuff Respiratory rate 16 /min 16 /min MED[facility] ( [facility]) Heart rate 124 /min 124 /min [facility] ([facility]) Irregular Body mass index (BMI) [Ratio] 28.0 kg/m2 28.0 k g/m2 [facility] ([facility]) Body height 68 [in_i] 68 [in_i] [facility] ([facility]) 5'8" Body weight 184.00 [lb_av] 184.00 [lb_av] MEDEN T ([facility]) Diastolic blood pressure 60 mm[Hg] 60 mm[Hg] [facility] ([facility]) Sitting, regular cuff Systolic blood pressure 102 mm[Hg] 102 mm[Hg] M EDENT ([facility]) Sitting, regular cuff Respiratory rate 16 /min 16 /min MED[facility] ( [facility]) Heart rate 60 /min 60 /min [facility] ([facility]) Regular Body mass index (BMI) [Ratio] 27.4 kg/m2 27.4 k g/m2 [facility] ([facility]) Body height 68 [in_i] 68 [in_i] [facility] ([facility]) 5'8" Body weight 180.00 [lb_av] 180.00 [lb_av] MEDEN T ([facility]) Body mass index (BMI) [Ratio] 30.2 kg/m2 30.2 k g/m2 [facility] ([facility] [place] body weight 142 [lb_av] 142 [lb_av] MEDEN T ([facility] Oxygen saturation in Arterial blood by Pulse oximetry 100 % 100 % [facility] ([facility] Body weight 187.00 [lb_av] 187.00 [lb_av] MEDEN T ([facility] Body height 66.0 [in_i] 66.0 [in_i] [facility] ([facility] 5'6" Respiratory rate 16 /min 16 /min MED[facility] ( [facility] Body temperature 97.4 [degF] 97.4 [degF] [facility] ([facility] Heart rate 62 /min 62 /min [facility] ([facility] Diastolic blood pressure 54 mm[Hg] 54 mm[Hg] [facility] ([facility] Systolic blood pressure 79 mm[Hg] 79 mm[Hg] M EDENT ([facility]
--- NOTE | 2020-12-02 12:05 | REP ---
INDICATION: fall. COMPARISON: 10/21/2020 TECHNIQUE: CT BRAIN PERFORMED IN THE AXIAL PLANE. CORONAL RECONSTRUCTION IMAGES ARE PERFORMED. FINDINGS: Lateral ventricle symmetric, midline and unchanged. There are slightly prominent but proportionate to mild stiff use cerebral atrophy. Third and 4th ventricles unchanged. Taylor-white junction differentiation was well maintained. Basal ganglia symmetric and normal. There is no intra or extra-axial hemorrhage, mass, mass effect or edema. No evidence of an acute infarct. Brainstem unremarkable cerebellum shows some mild atrophy. All of this is stable. Bone windows show mastoids and visualized sinuses clear. There is no fracture or focal bone lesion in the calvarium or skull base. Some vascular calcifications in the carotid siphons are noted and unchanged. Orbits and contents are grossly symmetric and unremarkable. Slight deviation of the nasal septum towards the right side anteriorly. IMPRESSION: 1. Mild atrophy but no evidence of acute infarct, intracranial hemorrhage, mass, mass effect or edema. 2. The skull base and calvarium show no fracture or focal bone lesion. Sinuses and mastoids are clear. Stable exam. <Electronically signed by Rudy Jamison > 12/02/20 [id number]
[2020-12-02 12:09] LABS: BASO % 0.5 % (0.0-1.0); EOS # 0.1 10^3/uL (0.0-0.5); EOS % 1.6 % (0.0-3.0); HEMOGLOBIN 13.8 g/dl (13.5-17.5); LYMPH # 0.8 10^3/uL (1.5-5.0); LYMPH % 9.5 % (24.0-44.0); MEAN CORPUSCULAR HEMOGLOBIN 31.2 pg (27.0-33.0); MEAN CORPUSCULAR HGB CONC 32.1 g/dl (32.0-36.5); MEAN CORPUSCULAR VOLUME 97.3 fl (80.0-96.0); MONO # 0.9 10^3/uL (0.0-0.8); MONO % 10.9 % (2.0-8.0); NEUTROPHILS # 6.2 10^3/uL (1.5-8.5); NEUTROPHILS % 76.9 % (36.0-66.0); PLATELET COUNT, AUTOMATED 152 10^3/uL (150-450); RED BLOOD COUNT 4.42 10^6/uL (4.30-6.10); WHITE BLOOD COUNT 8.1 10^3/uL (4.0-10.0)
--- NOTE | 2020-12-02 12:12 | REP ---
INDICATION: fall. COMPARISON: 10/21/2020 TECHNIQUE: Trauma CT with axial soft tissue and bone windows and both coronal and sagittal reconstructions provided. FINDINGS: Vertebral body heights are intact. There marginal osteophytes from spondylosis at C4-5 through C6-7 with anterior and posterior osteophytes at C5-6 and C6-7. No compression deformity or destructive lesion the disc spaces are narrowed at those 3 levels of spondylosis. The dens is intact its relationship to the anterior arch of C1 and its lateral masses is normal on all projections. Spinous processes, lamina, pedicles, facets and transverse processes are without fractures. The limited portion of the upper thoracic region shows the portions of ribs and thoracic spine seen be unremarkable. No prevertebral swelling. No apical pleural scarring or apical pneumothorax. There is no spinal or foraminal stenosis from C2-3 through C4-5. At C5-6 there is mild foraminal encroachment due to combined factors left greater than right without central canal stenosis. At C6-7 posterior osteophytic ridging noted without significant central canal stenosis. There is bilateral foraminal encroachment due to uncinate and facet spurs. This is mild. C7-T1 shows no spinal or foraminal stenosis. IMPRESSION: 1. No compression deformity, destructive lesion, malalignment or central canal stenosis. 2. Facet arthropathy and degenerative disc changes greatest at C5-6 and C6-7 without central canal stenosis but with foraminal encroachment at these levels, stable. 3. The C1-2 relationships and cranial cervical junction were intact. No new or acute finding. <Electronically signed by Rudy Jamison > 12/02/20 [id number]
[2020-12-02 12:22] LABS: INR 1.87; PROTHROMBIN TIME 21.9 SECONDS (12.5-14.3)
[2020-12-02 12:23] LABS: PARTIAL THROMBOPLASTIN TIME 37.1 SECONDS (24.2-38.5)
[2020-12-02 12:50] LABS: CALCIUM LEVEL 9.6 MG/DL (8.8-10.2); CREATININE FOR GFR 1.8 MG/DL (0.70-1.30); FREE T4 0.81 NG/DL (0.76-1.46); GLOMERULAR FILTRATION RATE 40.8 (>49); MAGNESIUM LEVEL 2.4 MG/DL (1.8-2.4); POTASSIUM SERUM 4.6 MEQ/L (3.5-5.1); THYROID STIMULATING HORMONE 4.41 uIU/ML (0.358-3.740)
[2020-12-02] MEDS ORDERED: NS 500 ML IV ONE (13:45)
--- OUTSIDE RECORDS SUMMARY | 2020-12-02 13:54 | CCD ---
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 Name Role Phone JonathanwTammy PA Unavailable Unavailable [...] Tammy Felicia PA Unavailable Unavailable Symenow, Tammy Feilcia PA Unavailable Unavailable Symenow, Tammy Felciia PA Unavailable Unavailable Symenow, Tammy Felicia PA [...] Unavailable Martínez, L Chen RPA Unavailable Unavailable Marítnez, L Chen RPA Unavailable Unavailable Martínez, L Chen RPA Unavailable Unavailable Martínez, L Chen RPA Unavailable Unavailable Martínez, L Chen RPA Unavailable Unavailable Martínez, L Chen RPA Unavailable Unavailable Martínez, L Chen RPA Unavailable Unavailable Martínez, L Chen RPA Unavailable Unavailable Martínez, L Hcen RPA Unavailable Unavailable Martínez, L Chen RPA Unavailable Unavailable Martínez, L Chen RPA Unavailable Unavailable Martínez, L Chen RPA Unavailable Unavailable Martínez, L Chen RPA Unavailable Unavailable Martníez, L Chen RPA Unavailable Unavailable Pleskach, Ana DIE SINKER Unavailable Unavailable Pleskach, Ana DIE SINKER Unavailable Unavailable Pleskach, Ana DIE SINKER Unavailable Unavailable Pleskach, Ana DIE SINKER Unavailable Unavailable Pleskach, Ana DIE SINKER Unavailable Unavailable Pleskach, Ana DIE SINKER Unavailable Unavailable Pleskach, Ana DIE SINKER Unavailable Unavailable Pleskach, Ana DIE SINKER Unavailable Unavailable Pleskach, Ana DIE SINKER Unavailable Unavailable Pleskach, Ana DIE SINKER Unavailable Unavailable Pleskach, Ana DIE SINKER Unavailable Unavailable Pleskach, Ana DIE SINKER Unavailable Unavailable Pleskach, Ana DIE SINKER Unavailable Unavailable Pleskach, Ana DIE SINKER Unavailable Unavailable Pleskach, Ana DIE SINKER Unavailable Unavailable Pleskach, Ana DIE SINKER Unavailable Unavailable Pleskach, Ana DIE SINKER Unavailable Unavailable Pleskach, Ana DIE SINKER Unavailable Unavailable Pleskach, Ana DIE SINKER Unavailable Unavailable Pleskach, Ana DIE SINKER Unavailable Unavailable Pleskach, Ana DIE SINKER Unavailable Unavailable Pleskach, Ana DIE SINKER Unavailable Unavailable Pleskach, Ana DIE SINKER Unavailable Unavailable Pleskach, Ana DIE SINKER Unavailable Unavailable Pleskach, Ana DIE SINKER Unavailable Unavailable Pleskach, Ana DIE SINKER Unavailable Unavailable Pleskach, Ana DIE SINKER Unavailable Unavailable Pleskach, Ana DIE SINKER Unavailable Unavailable Pleskach, Ana DIE SINKER Unavailable Unavailable Pleskach, Ana DIE SINKER Unavailable Unavailable Lindquist, Melissa BOX STAMPER Unavailable Unavailable Lindquist, Melissa BOX STAMPER Unavailable Unavailable Lindquist, Melissa BOX STAMPER Unavailable Unavailable Lindquist, Melissa BOX STAMPER Unavailable Unavailable Lindquist, Melissa BOX STAMPER Unavailable Unavailable Lindquist, Melissa BOX STAMPER Unavailable Unavailable Lindquist, Melissa BOX STAMPER Unavailable Unavailable Lindquist, Melissa BOX STAMPER Unavailable Unavailable Lindquist, Melissa BOX STAMPER Unavailable Unavailable Lindquist, Melissa BOX STAMPER Unavailable Unavailable Lindquist, Melissa BOX STAMPER Unavailable Unavailable Al Carly Butler MD Unavailable [...] is protected by Article 27-F of the [facility] Public Health law. If you continue you may have access to information: Regarding HIV / AIDS; Provided by facilities licensed or operated by the [facility] Office of Mental Health; or Provided by the [facility] Office for People With Developmental Disabilities. If such information is present, then the following [facility] mandated warning applies: This information has been [...] law may result in a fine or custodial sentence or both. A general authorization for [...] 11/06/2020 08:15:00 AM EST [facility] ([facility]) Outpatient Attender: Ana Martin [facility] Main Office 10/26/2020 0 9:45:00 AM EST [facility] ([facility] Outpatient Attender: Ana Martin [facility] Main Office 10/20/2020 1 0:15:00 AM EST [facility] ([facility] Outpatient Attender: Hellen GUILLERMO Main [facility] 10/04/2020 09:45:00 AM EST [facility] ([facility]) Outpatient Attender: Felicia GUILLERMO Main Office 09/06/2020 11:30:00 AM EST [facility] ([facility]) Outpatient Attender: Hellen GUILLERMO Main office [facility] 08/02/2020 08:15:00 AM EDT [facility] ([facility]) Outpatient Attender: Felicia GUILLERMO Main Office 07/25/2020 07:45:00 AM EDT [facility] ([facility]) Outpatient Attender: Ana Martin [facility] Main Office 07/20/2020 0 2:00:00 PM EDT [facility] ([facility] Outpatient Attender: Chen Macias/Matthew/Gilberto/R eindl 07/19/2020 11:30:00 AM EDT MED[facility] ([facility]) Outpatient Attender: Melissa Lindquist NP Jenn Licona Ekaterina contreras 07/15/2020 08:55:00 AM EDT [facility] ([facility] Outpatient Attender: Felicia GUILLERMO Main Office 05/23/2020 08:00:00 AM EDT [facility] ([facility]) Outpatient Attender: Hellen GUILLERMO Main office - [facility] 05/02/2020 08:15:00 AM EDT MED[facility] ([facility]) Outpatient Attender: Felicia GUILLERMO Main Office 03/21/2020 10:15:00 AM EDT [facility] ([facility]) Outpatient Attender: Felicia GUILLERMO Main Office 03/15/2020 08:00:00 AM EDT [facility] ([facility]) Outpatient Attender: Lizett Foster MDAdmitter: Lizett Artis MD [email or web address] 03/02/2020 09:05:00 AM EDT - 03/02/2020 01:30:00 PM EDT [facility] Patient discharged. Outpatient Attender: Ana STEPHENP Main Office 02/02/2020 1 1:00:00 AM EDT [facility] ([facility] Outpatient Attender: Felicia GUILLERMO Main Office 01/31/2020 10:15:00 AM EDT [facility] ([facility]) Outpatient Attender: Hellen GUILLERMO Main office - [facility] 01/27/2020 09:15:00 AM EDT [facility] ([facility] Outpatient Attender: Ana MAS Main Office 01/11/2020 0 9:00:00 AM EDT [facility] ([facility] Outpatient Attender: Ana MAS Main Office 01/07/2020 0 8:00:00 AM EDT [facility] ([facility] Outpatient Attender: Lizett Felixmaster MDReferrer: Felicia GUILLERMO [id number].[facility]S 01/05/2020 12:00:00 AM EDT - 01/05/2020 01:14:05 PM EDT [facility] Outpatient Attender: Felicia GUILLERMO Main Office 12/15/2019 08:15:00 AM EST [facility] ([facility]) Outpatient Attender: Felicia GUILLERMO Main Office 12/08/2019 06:45:00 AM EST [facility] ([facility]) Outpatient Attender: Felicia GUILLERMO Main Office 11/08/2019 08:15:00 AM EST [facility] ([facility]) Outpatient Referrer: Suzanne GUILLERMO 11/04/2019 01:42:00 PM EST [facility] Outpatient Attender: Ana Martin [facility] Main Office 11/03/2019 1 0:15:00 AM EST [...] EST ORAL active MED[facility] ( [facility]) atorvastatin 20 MG Oral [...] 10/04/2020 12:00:00 AM EST ORAL active MED[facility] ([facility] ) gabapentin 300 MG Oral Capsule Gabapentin 09/05/2020 12:00:00 AM EST ORAL active [facility] ([facility]) 100 mg 08/23/2020 12:00:00 [...] 08/22/2020 12:00:00 AM EST ORAL completed [facility] ([facility] ) 1,000 mg 08/10/2020 12:00:00 AM EDT tablet 20 TAKE ONE TABLET BY MOUTH TWICE A DAY TAKE ONE TABLET BY MOUTH TWICE A DAY SOLD: 08/13/2020 [facility] Levetiracetam 1000 MG Oral Tablet Levetiracetam 08/09/2020 12:00:00 A M EDT ORAL active MED[facility] ([facility]) torsemide 20 MG Oral Tablet Torsemide 07/25/2020 12:00:00 AM EDT ORAL active [facility] ([facility]) 20 mg 07/17/2020 12:00:00 [...] IS A 30 DAYS SUPPLY) SOLD: 10/31/2020 [facility] Clomipramine Hydrochloride 50 MG Oral Capsule Clomipramine H CL 05/22/2020 12:00:00 AM EDT ORAL active M EDENT ([facility]) Metoprolol Tartrate 50 MG Oral Tablet Metoprolol Tartrate 12:00:00 AM EDT ORAL active [facility] ([facility] 5 mg 03/17/2020 12:00:00 AM EDT tablet 60 TAKE ONE TABLET BY MOUTH TWICE A DAY TAKE ONE TABLET BY MOUTH TWICE A DAY SOLD: 03/21/2020 [facility] 5 mg 03/17/2020 12:00:00 AM EDT tablet 20 TAKE ONE TABLET BY MOUTH TWICE A DAY TAKE ONE TABLET BY MOUTH TWICE A DAY SOLD: 07/26/2020 [facility] lidocaine (PF) (XYLOCAINE-MPF) 1 % injection [id number] 10:26:45 AM EDT active As needed, Start ing Mague 03/02/20 at 1026, Intra-Procedure [facility] Medication administered onsite fentaNYL Citrate (PF) (SUBLIMAZE) injection 2439-2761-87 03/02/2020 10:21:22 AM EDT active As neede d, Starting Mague 03/02/20 at 1021, Intra-Procedure [facility] Medication administered onsite 2 ML Midazolam 1 MG/ML Injection midazolam (VERSED) in jection midazolam (VERSED) injection 03/02/2020 10:21:13 AM EDT active As needed, Starting Mague 03/02/20 at 1021, Intra-Procedure [facility] Medication administered onsite Digoxin 0.125 MG Oral Tablet Digoxin 03/02/2020 12:00:00 AM EDT ORAL active [facility] ([facility] atorvastatin 20 MG Oral Tablet Atorvastatin Calcium 02/01/2020 1 2:00:00 AM EDT ORAL active [facility] ( [facility]) Furosemide 40 MG Oral Tablet Furosemide 01/30/2020 12:00:00 AM EDT ORAL completed [facility] ([facility]) 24 HR Verapamil hydrochloride [...] TABLET BY MOUTH EVERY DAY SOLD: 01/10/2020 [facility] Clomipramine Hydrochloride 50 MG Oral Capsule [...] DAILY DOSE = ONE TABLET SOLD: 05/01/2020 [facility] 10 mg 01/04/2020 12:00:00 AM EDT [...] ORAL completed [facility] ([facility]) 125 mcg (0.125 mg) 12/08/2019 12:00:00 AM [...] CAPSULE BY MOUTH EVERY DAY SOLD: 01/31/2020 [facility] 240 mg 11/25/2019 12:00:00 AM EST capsule,ext rel. pellet s 24 hr 30 TAKE ONE CAPSULE BY MOUTH EVERY DAY TAKE ONE CAPSULE BY MOUTH EVERY DAY SOLD: 11/26/2019 [facility] 24 HR Verapamil hydrochloride 240 MG Extended Release Oral Capsule Verapamil HCL ER 11/25/2019 12:00:00 AM EST ORAL completed [facility] ([facility]) Disopyramide 100 MG Oral Capsule Disopyramide Phosphate 10/14 12:00:00 AM EST ORAL completed [facility] ([facility]) pantoprazole 40 MG Delayed Release Oral Tablet Pantoprazole Sodium 11/07/2019 12:00:00 AM EST ORAL completed [facility] ([facility]) Multivitamin Adult 11/07/2019 12:00:00 AM EST ORAL active [facility] ([facility]) Folic Acid 1 MG Oral Tablet Folic Acid 11/07/2019 12:00:00 AM EST ORAL completed [facility] benzonatate 100 MG Oral Capsule Benzonatate 11/07/2019 12:00:00 AM EST ORAL active [facility] ([facility]) Melatonin 3 MG Oral Capsule Melatonin 11/07/2019 12:00:00 AM EST ORAL active [facility] Dextromethorphan Hydrobromide 10 MG / Guaifenesin 200 MG Oral Capsule Robitussin Cough+Chest Congestion DM 11/07/2019 12:00:00 AM EST active [facility] ([facility]) Ergocalciferol 47283 UNT Oral Capsule Vitamin D (Ergocalcife rol) 11/07/2019 12:00:00 AM EST ORAL active M EDENT ([facility]) Melatonin 3 MG Extended [...] TABLET BY MOUTH EVERY DAY SOLD: 11/01/2019 [facility] benzonatate 100 MG Oral Capsule BENZONATATE [...] TABLET BY MOUTH EVERY DAY SOLD: 11/01/2019 [facility] 10 mg 07/03/2019 12:00:00 AM EDT tablet 7 TAKE ONE TABLET BY MOUTH EVERY DAY AT BEDTIME NEEDED EVERY 4 NIGHTS MAXIMUM DAILY DOSE = ONE TABLET TAKE ONE TABLET BY MOUTH EVERY DAY AT BEDTIME NEEDED EVERY 4 NIGHTS MAXIMUM DAILY DOSE = ONE TABLET SOLD: 11/08/2019 [facility] 10 mg 07/03/2019 12:00:00 AM [...] MOUTH TWO TIMES A DAY SOLD: 03/21/2020 [facility] Insurance Providers Payer name Policy type / Coverage type Policy ID Covered alliance party ID Covered alliance party's relationship to huang Policy Huang Plan Information [facility] [id number] [place]2 [id number] [facility] O [id number] S [id number] [facility] [id number] [facility] [id number] Spo [id number] Simply Blue Ppo Medigap Part B [id number] Self [id number] Simply Blue Plus Gold Medigap Part B [id number] Self [id number] BCBS [employer] U/W Medigap Part B [id number] Self [id number] BCBS [employer] U/W Medigap Part B [id number] Self [id number] Umr Commercial [id number] Family Dependent 19 330990 [place] PHCS Ppo Medigap Part B [id number] Self [id number] Ghi Medigap Part B [id number] Self [id number] Simply Blue Medigap Part B [id number] Self [id number] Simply Blue Ppo Medigap Part B [id number] Self [id number] Simply Blue Plus Gold Medigap Part B [id number] Self [id number] BCBS [employer] U/W Medigap Part B [id number] Self [id number] BCBS [employer] U/W Medigap Part B [id number] Self [id number] Umr Commercial [id number] Family Dependent 19 [id number] Simply Blue Ppo Medigap Part B [id number] Self [id number] Simply Blue Plus Gold Medigap Part B [id number] Self [id number] BCBS [employer] U/W Medigap Part B [id number] Self [id number] BCBS [employer] U/W Medigap Part B [id number] Self [id number] Umr Commercial [id number] Family Dependent 19 [id number] Simply Blue Ppo Medigap Part B [id number] Self [id number] Simply Blue Plus Gold Medigap Part B [id number] Self [id number] BCBS Excell[employer] U/W Medigap Part B [id number] Self [id number] BCBS Excell[employer] U/W Medigap Part B [id number] Self [id number] Umr Commercial [id number] Family Dependent 19 [id number] [facility] [id number] WI2 [id number] [place] Medigap Part B [id number] Family Dependent [id number] Umr Commercial [id number] Self [id number] Simply Blue Ppo Medigap Part B [id number] Self [id number] Simply Blue Plus Gold Medigap Part B [id number] Self [id number] BCBS Excell[employer] U/W Medigap Part B [id number] Self [id number] BCBS [employer] U/W Medigap Part B [id number] Self [id number] Umr Commercial [id number] Family Dependent 19 [id number] Simply Blue Ppo Medigap Part B [id number] Self [id number] Simply Blue Plus Gold Medigap Part B [id number] Self [id number] BCBS Excell[employer] U/W Medigap Part B [id number] Self [id number] BCBS [employer] U/W Medigap Part B [id number] Self [id number] Umr Commercial [id number] Family Dependent 19 518759 Umr Commercial [id number] Family Dependent 19 [id number] [place] Medigap Part B [id number] Family Dependent [id number] Umr Commercial [id number] Self [id number] Simply Blue Ppo Medigap Part B [id number] Self [id number] Simply Blue Plus Gold Medigap Part B [id number] Self [id number] BCBS Excell[employer] U/W Medigap Part B [id number] Self [id number] BCBS [employer] U/W Medigap Part B [id number] Self [id number] Umr Commercial [id number] Family Dependent 19 611673 [place] Medigap Part B [id number] Family Dependent [id number] Umr Commercial [id number] Self [id number] [place] Medigap Part B [id number] Family Dependent [id number] Umr Commercial [id number] Self [id number] [place]OM[place] [id number] WI2 [id number] [place] Commercial [id number] Family Dependent 89 [id number] [place] Commercial [id number] Family Dependent 89 [id number] BC/BS Of [place] Commercial [id number] Self [id number] [place] Commercial [id number] Family Dependent 89 [id number] [place] Commercial [id number] Family Dependent 89 [id number] EXCELLUS C [id number] Self [id number] BS Of [place] Medigap Part B [id number] Self [id number] BS Of [facility] Health Maintenance Organization (O) [id number] Self [id number] Simply Blue Ppo Medigap Part B [id number] Self [id number] Simply Blue Plus Gold Medigap Part B [id number] Self [id number] BCBS Excell[employer] Ppo U/W Medigap Part B [id number] Self [id number] BCBS Excell[employer] Ppo U/W Medigap Part B [id number] Self [id number] [place] PHCS Ppo Commercial [id number] Self [id number] Simply Blue Ppo Medigap Part B [id number] Self [id number] Simply Blue Plus Gold Medigap Part B [id number] Self [id number] BCBS Excell[employer] Ppo U/W Medigap Part B [id number] Self [id number] BCBS Excell[employer] Ppo U/W Medigap Part B [id number] Self [id number] Simply Blue Ppo Medigap Part B [id number] Self [id number] Simply Blue Plus Gold Medigap Part B [id number] Self [id number] BCBS Excell[employer] Ppo U/W Medigap Part B [id number] Self [id number] BCBS Excell[employer] Ppo U/W Medigap Part B [id number] Self [id number] [place] Commercial [id number] Fa roxann Dependent [id number] BC/BS Of [place] Commercial [id number] Self [id number] BS Of [place] Medigap Part B [id number] Self [id number] BS Of [place] Health Maintenance Organization (O) [id number] Self [id number] Simply Blue Ppo Medigap Part B [id number] Self [id number] Simply Blue Plus Gold Medigap Part B [id number] Self [id number] BCBS Excell[employer] Ppo U/W Medigap Part B [id number] Self [id number] BCBS Excell[employer] Ppo U/W Medigap Part B [id number] Self [id number] BCBS Excell[employer] Ppo U/W Commercial [id number] Self [id number] BCBS [place] PPO 302/307 [id number] SP [id number] Simply Blue Ppo Medigap Part B [id number] Self [id number] Simply Blue Plus Gold Medigap Part B [id number] Self [id number] BCBS Excell[employer] Ppo U/W Medigap Part B [id number] Self [id number] BCBS Excell[employer] Ppo U/W Medigap Part B [id number] Self [id number] BCBS Excell[employer] Ppo U/W Commercial [id number] Self [id number] EXCELLUS BCBS [id number] Kristin YNE [id number] BCBS Excellus Ppo U/W Medigap Part B Self BCBS Excellus Ppo U/W Commercial Self BCBS Excell[employer] Ppo U/W Commercial Self Ghi Medigap Part B Self Simply Blue Medigap Part B Self Simply Blue Ppo Medigap Part B Self Simply Blue Plus Gold Commercial Self BC/BS Of [place] Commercial Self BS Of [facility] Health Maintenance Organization (HMO) Self BS Of [place] Medigap Part B Self BC/BS Of [place] Commercial Self BCBS [place] PPO 302/307 [id number] SP [id number] BS [place] Commercial Self BS [place] Medigap Part B Self BS [place] Medigap Part B Self BS [place] Commercial Self BCBS [place] PPO 302/307 [id number] SP [id number] BS Of [place] Health Maintenance Organization (HMO) Self EXCELLUS BCBS [id number] Kristin YND [id number] BCBS [place] PPO 302/307 [id number] SP [id number] EXCELLUS BCBS P [id number] S VYS [id number] BCBS [place] PPO 302/307 [id number] SP [id number] Problems, Conditions, and Diagnoses Code Display Name Description Problem Type Effective Dates Data Source(s) 836380429 Syncope and collapse Syncope and collapse Problem 10/24/2020 12:00:00 AM EST [facility] ([facility]) [id number] Permanent atrial fibrillation Permanent atrial fibrill ation Problem 07/25/2020 12:00:00 AM EDT [facility] ([facility]) [id number] Essential hypertension Essential hypertension Problem 07/19/2020 12:00:00 AM EDT [facility] ([facility], ) I48.11 Longstanding persistent atrial fibrillat ion Longstanding persistent atrial fibrillation [id number] 02/25/2020 12:00:00 AM EDT [facility] [id number] Hypertensive heart disease with congesti ve heart failure Hypertensive heart disease with congestive heart failure Problem 01/31/2020 12:00 :00 AM EDT [facility] ([facility]) [id number] Chronic diastolic heart failure Chronic diastoli c heart failure Problem 01/31/2020 12:00:00 AM EDT [facility] ([facility] I48.11 Longstanding persistent atrial fibrillat ion Longstanding persistent atrial fibrillat Diagnosis 03/02/2020 09:05:00 AM EDT [facility] Surgeries/Procedures Procedure Description Date Indications Data Source(s) PROGRM EVAL IMPLANTABLE 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 LD CARD/DFB 2020 12:00:00 AM EST [facility] ([facility]) INTERROGATION EVAL REMOTE </90 D 1/2/> LD CVDFB 2019 12:00:00 AM EST [facility] ([facility]) INTERROGATION REMOTE </90 D INTERACTIVE PROJECT MANAGER REVIEW 09/14/20 12:00:00 AM EST [facility] ([facility]) Needle electromyography, each extremity, with related paraspinal areas, when performed, done with nerve conduction, amplitude and latency/velocity study; complete, five or more muscles studied, innervated by three or more nerves or four or more spinal levels (list separately in addition to the code for primary procedure). 2020 12:00:00 AM EST MEDEN T ([facility], ) Needle electromyography, each extremity, with related paraspinal areas, when performed, done with nerve conduction, amplitude and latency/velocity study; complete, five or more muscles studied, innervated by three or more nerves or four or more spinal levels (list separately in addition to the code for primary procedure). 2020 12:00:00 AM EST MEDEN T ([facility], ) 99116 Nerve conduction studies 13 or more studies NEW 201208/17/2020 12:00:00 AM EST [facility] ([facility] ) ECG ROUTINE ECG W/LEAST 12 LDS W/I&R 07/25/2020 12:00: 00 AM EDT [facility] ([facility]) INTERROGATION EVAL REMOTE </90 D 1/2/> LD CVDFB 2019 12:00:00 AM EDT [facility] ([facility]) INTERROGATION REMOTE </90 D INTERACTIVE PROJECT MANAGER REVIEW 06/15/20 12:00:00 AM EDT [facility] ([facility]) ECHO TTHRC R-T 2D W/WOM-MODE COMPL SPEC&COLR DOP 06/05 12:00:00 AM EDT [facility] ([facility]) ELECTROENCEPHALOGRAM W/REC AWAKE&ASLEEP 05/24/2020 12: 00:00 AM EDT [facility] ([facility] ) ELECTROENCEPHALOGRAM W/REC AWAKE&ASLEEP 05/24/2020 12: 00:00 AM EDT [facility] ([facility] ) INTERROGATION EVAL REMOTE </90 D 1/2/> LD CVDFB 2019 12:00:00 AM EDT [facility] ([facility]) INTERROGATION REMOTE </90 D INTERACTIVE PROJECT MANAGER REVIEW 03/16/20 12:00:00 AM EDT [facility] ([facility]) ECG ROUTINE ECG W/LEAST 12 LDS W/I&R 03/15/2020 12:00: 00 AM EDT [facility] ([facility]) EP STUDY EP STUDY Routine 03/02/2020 10:34 AM EDT Longstanding persistent atrial fibrillation 03/02/2020 02:34 :31 PM EDT Longstanding persistent atrial fibrillation [facility] Longstanding persistent atrial fibrillat ion ECG ROUTINE ECG W/LEAST 12 LDS W/I&R 01/31/2020 12:00: 00 AM EDT [facility] ([facility]) ECG ROUTINE ECG W/LEAST 12 LDS W/I&R 12/15/2019 12:00: 00 AM EST [facility] ([facility]) PROGRM EVAL IMPLANTABLE IN PRSN DUAL L CARD/DFB 2019 12:00:00 AM EST [facility] ([facility]) INTERROGATION EVAL REMOTE </90 D 1/2/> LD CVDFB 2019 12:00:00 AM EST [facility] ([facility]) INTERROGATION REMOTE </90 D INTERACTIVE PROJECT MANAGER REVIEW 11/22/19 12:00:00 AM EST [facility] [facility] Results ID Date Data Source [id number] 11/03/2020 09:54:00 AM EST [facility] ([facility] Name Value Range Interpretation Code Description Data Beth rce(s) Supporting Document(s) Glucose, Fasting 148 mg/dL 70-100 [facility] ([facility]) Creatinine For GFR 1.48 mg/dL 0.70-1.30 [facility] ([facility]) Blood Urea Nitrogen 39 mg/dL 7-18 [facility] ([facility]) Sodium Level 141 meq/L 136-145 [facility] ([facility]) Potassium Serum 4.5 meq/L 3.5-5.1 [facility] ([facility]) Glomerular Filtration Rate 51.1 [facility] ([facility]) <content>Units are mL/min/1.73 m2</content>
<content></content>
<content>Chronic Kidney Disease Staging per NKF:</content>
<content></content>
<content>Stage I & II GFR >=60 Normal to Mildly Decreased</content>
<content>Stage III GFR 30- 59 Moderately Decreased</content>
<content>Stage IV GFR 15-29 Severely Decreased</content>
<content>Stage V GFR <15 Very Little GFR Left</content>
<content>ESRD GFR <15 on OPERATIONS SUPPORT COORDINATOR</content>
<content></content> Chloride Level 104 meq/L 98-107 [facility] ([facility]) Anion Gap 6 meq/L 8-16 [facility] Carbon Dioxide Level 31 meq/L 21-32 [facility] ([facility]) Calcium Level 10.2 mg/dL 8.8-10.2 [facility] ([facility]) ID Date Data Source [id number] 10/22/2020 01:20:00 AM EST [facility] Name Value Range Interpretation Code Description Data Beth rce(s) Supporting Document(s) SARS coronavirus 2 RNA [Presence] in Res piratory specimen by JELENA with probe detection NEGATIVE [facility] This lab was ordered by [facility] a nd reported by [facility]. ID Date Data Source [id number] 09/04/2020 10:44:00 AM EST [facility] ([facility]) Name Value Range Interpretation Code Description Data Beth rce(s) Supporting Document(s) Magnesium [Mass/volume] in Serum or Plasma 2.4 mg/dL 1.8-2.4 [facility] ([facility]) Natriuretic peptide.B prohormone N-Terminal [Mass/volu me] in Serum or Plasma 2501 pg/mL [facility] ([facility]) ID Date Data Source [id number] 09/04/2020 10:44:00 AM EST [facility] ([facility]) Name Value Range Interpretation Code Description Data Beth rce(s) Supporting Document(s) Blood Urea Nitrogen 36 mg/dL 7-18 [facility] ([facility]) Creatinine For GFR 1.54 mg/dL 0.70-1.30 [facility] ([facility]) Glucose, Fasting 139 mg/dL 70-100 [facility] ([facility]) Sodium Level 142 meq/L 136-145 [facility] ([facility]) Glomerular Filtration Rate 48.8 [facility] ([facility]) <content>Units are mL/min/1.73 m2</content>
<content></content>
<content>Chronic Kidney Disease Staging per NKF:</content>
<content></content>
<content>Stage I & II GFR >=60 Normal to Mildly Decreased</content>
<content>Stage III GFR 30- 59 Moderately Decreased</content>
<content>Stage IV GFR 15-29 Severely Decreased</content>
<content>Stage V GFR <15 Very Little GFR Left</content>
<content>ESRD GFR <15 on OPERATIONS SUPPORT COORDINATOR</content>
<content></content> Chloride Level 106 meq/L 98-107 [facility] ([facility]) Potassium Serum 4.2 meq/L 3.5-5.1 [facility] ([facility]) Calcium Level 9.7 mg/dL 8.8-10.2 [facility] ([facility]) Carbon Dioxide Level 30 meq/L 21-32 [facility] ([facility]) Anion Gap 6 meq/L 8-16 [facility] ID Date Data Source [id number] 08/29/2020 02:46:00 PM EST [facility] ([facility], ) Name Value Range Interpretation Code Description Data Beth rce(s) Supporting Document(s) Antinuclear Antibodies Direct Laboratory test result [facility] ([facility], ) Performed at: [facility] [id number] Department Manager: Rick Moore MD, Phone: [phone] Performed at: - [facility] [address] [id number] [place] Department Manager: Iona Arthur MD, Phone: [phone] ID Date Data Source [id number] 08/29/2020 02:46:00 PM EST [facility] ([facility], ) Name Value Range Interpretation Code Description Data Beth rce(s) Supporting Document(s) Pyridoxine [Mass/volume] in Serum or Plasma 12.2 ug/L 5.3-46.7 [facility] ([facility], ) Specimen Comment: Test(s) [id number]-Ibgjkzj E(Alpha Tocopherol); 021040- Specimen Comment: Vitamin E(Gamma Tocopherol); 659850-Hkapmdt B6; 189480- Specimen Comment: Vit. B1, Whole Blood Specimen Comment: was developed and its performance characteristics Specimen Comment: determined by [facility]. It has not been cleared or approved Specimen Comment: by the Food and Drug Administration. Thiamine [Mass/volume] in Blood 223.4 nmol/L 66.5-200.0 [facility] ([facility], ) Specimen Comment: Test(s) 267429-Qojlxbj E(Alpha Tocopherol); 224896- Specimen Comment: Vitamin E(Gamma Tocopherol); 320647-Xystfmv B6; 224293- Specimen Comment: Vit. B1, Whole Blood Specimen Comment: was developed and its performance characteristics Specimen Comment: determined by [facility]. It has not been cleared or approved Specimen Comment: by the Food and Drug Administration. ID Date Data Source [id number] 08/29/2020 02:46:00 PM EST [facility] ([facility], ) Name Value Range Interpretation Code Description Data Beth rce(s) Supporting Document(s) Vitamin E(Gamma Tocopherol) 1.6 mg/L 0.5-4.9 [facility] ([facility], ) Reference intervals for alpha and gamma- tocopherol determined from National Health and Nutrition Examination Survey, 8746-3691. Individuals with alpha-tocopherol levels less than 5.0 mg/L are considered vitamin E deficient. Vitamin E(Alpha Tocopherol) 10.4 mg/L 9.0-29.0 [facility] ([facility], ) ID Date Data Source [id number] 08/29/2020 02:46:00 PM EST [facility] ([facility], ) Name Value Range Interpretation Code Description Data Beth rce(s) Supporting Document(s) Cobalamin (Vitamin B12) [Mass/volume] in Serum or Plasma 561 pg/mL 2 47-911 [facility] ([facility], ) VITAMIN B12 NORMAL RANGE NORMAL 247 - 911 PG/ML INDETERMINATE 211 - 246 PG/ML DEFICIENT LESS THAN 211 PG/ML Folate [Mass/volume] in Serum or Plasma Laboratory test result [facility] ([facility], ) FOLATE NORMAL RANGE NORMAL GREATER THAN 5.4 NG/ML INDETERMINATE 3.4-5.4 NG/ML DEFICIENT LESS THAN 3.4 NG/ML Rheumatoid factor [Units/volume] in Serum or Plasma Laboratory test result [facility] ([facility], ) Erythrocyte sedimentation rate by 2H Westergren method 7 mm/hr 0-2 0 [facility] ([facility]) ID Date Data Source [id number] 08/03/2020 08:19:00 AM EDT [facility] ([facility]) Name Value Range Interpretation Code Description Data Beth rce(s) Supporting Document(s) Levetiracetam [Mass/volume] in Serum or Plasma 41.3 ug/mL 10.0-40.0 [facility] ([facility]) This test was developed and its performa nce characteristics determined by [facility]. It has not been cleared or approved by the Food and Drug Administration. Performed at: [address] [id number] Department Manager: Rick Moore MD, Phone: [phone] ID Date Data Source [id number] 07/24/2020 09:15:00 AM EDT [facility] ([facility] Name Value Range Interpretation Code Description Data Beth rce(s) Supporting Document(s) Estimated Average Glucose 123 mg/dL 60-110 [facility] ([facility] Hemoglobin A1c/Hemoglobin.total in Blood 5.9 % [facility] ([facility] <content>REFERENCE RANGES:</content><br/ ><content></content>
<content><=5.6% NORMAL</content>
<content>5.7-6.4% SUGGESTS IMPAIRED GLUCOSE METABOLISM/PREDIABETIC</content>
<content>>= 6.5% ABNORMAL</content>
<content></content> ID Date Data Source [id number] 07/24/2020 09:15:00 AM EDT [facility] ([facility] Name Value Range Interpretation Code Description Data Beth rce(s) Supporting Document(s) Creatinine, Urine 278.0 mg/dL [facility] ([facility] Malb Urine Siemens 43.8 mg/L [facility] ([facility] Emanuel/Creat Ratio 15.7 MCG/MG 0.0-30.0 [facility] ([facility] THE [employer] STATES THAT MICROALBUMINURIA IS PRESENT IF THE MICROALBUMIN/CREATININE RATIO EXCEEDS 30 MCG/MG. THE THRESHOLD FOR CLINICAL ALBUMINURIA IS REACHED AT 300 MCG/MG. THE CLASSIFICATION OF A PATIENT SHOULD BE BASED UPON AT LEAST 2 OF 3 ABNORMAL RESULTS ON SPECIMENS COLLECTED WITHIN A 3 TO 6 MONTH TIME FRAME. ID Date Data Source [id number] 07/24/2020 09:15:00 AM EDT [facility] ([facility] Name Value Range Interpretation Code Description Data Beth rce(s) Supporting Document(s) Bilirubin,Direct 0.3 mg/dL 0.0-0.2 [facility] ([facility] ID Date Data Source [id number] 07/24/2020 09:15:00 AM EDT [facility] ([facility] [...] [facility] ID Date Data Source [id number] 07/24/2020 09:15:00 AM EDT [facility] ([facility] [...] Little GFR Left</content>
<content>ESRD GFR <15 on OPERATIONS SUPPORT COORDINATOR</content>
<content></content> Carbon Dioxide Level 30 meq/L 21-32 [...] [facility] ID Date Data Source [id number] 07/24/2020 09:13:00 AM EDT [facility] ([facility]) Name Value Range Interpretation Code Description Data Beth rce(s) Supporting Document(s) Magnesium [Mass/volume] in Serum or Plasma 2.3 mg/dL 1.8-2.4 [facility] ([facility]) Natriuretic peptide.B prohormone N-Terminal [Mass/volu me] in Serum or Plasma 2262 pg/mL [facility] ([facility]) ID Date Data Source [id number] 07/24/2020 09:13:00 AM EDT [facility] ([facility]) Name Value Range Interpretation Code Description Data Beth rce(s) Supporting Document(s) Glucose, Fasting 147 mg/dL 70-100 [facility] ([facility]) Blood Urea Nitrogen 38 mg/dL 7-18 [facility] ([facility]) Sodium Level 138 meq/L 136-145 [facility] ([facility]) Glomerular Filtration Rate 42.8 [facility] (Cardiology [facility]) <content>Units are mL/min/1.73 m2</content>
<content></content>
<content>Chronic Kidney Disease Staging per NKF:</content>
<content></content>
<content>Stage I & II GFR >=60 Normal to Mildly Decreased</content>
<content>Stage III GFR 30- 59 Moderately Decreased</content>
<content>Stage IV GFR 15-29 Severely Decreased</content>
<content>Stage V GFR <15 Very Little GFR Left</content>
<content>ESRD GFR <15 on OPERATIONS SUPPORT COORDINATOR</content>
<content></content> Creatinine For GFR 1.73 mg/dL 0.70-1.30 [facility] ([facility]) Carbon Dioxide Level 29 meq/L 21-32 [facility] ([facility]) Potassium Serum 4.0 meq/L 3.5-5.1 [facility] ([facility]) Chloride Level 101 meq/L 98-107 [facility] ([facility]) Calcium Level 10.2 mg/dL 8.8-10.2 [facility] ([facility]) Anion Gap 8 meq/L 8-16 [facility] ([facility]) ID Date Data Source [id number] 07/24/2020 09:13:00 AM EDT [facility] ([facility] Name Value Range Interpretation Code Description Data Beth rce(s) Supporting Document(s) Magnesium [Mass/volume] in Serum or Plasma 2.3 mg/dL 1.8-2.4 [facility] ([facility] Natriuretic peptide.B prohormone N-Terminal [Mass/volu me] in Serum or Plasma 2262 pg/mL [facility] ([facility] ID Date Data Source [id number] 07/24/2020 09:13:00 AM EDT [facility] ([facility] [...] Little GFR Left</content>
<content>ESRD GFR <15 on OPERATIONS SUPPORT COORDINATOR</content>
<content></content> Chloride Level 101 meq/L 98-107 [facility] ([facility] Potassium Serum 4.0 meq/L 3.5-5.1 [facility] ([facility] Carbon Dioxide Level 29 meq/L 21-32 [facility] ([facility] Calcium Level 10.2 mg/dL 8.8-10.2 [facility] ([facility] Anion Gap 8 meq/L 8-16 [facility] ([facility] ID Date Data Source [id number] 07/15/2020 04:07:00 PM EDT [facility] ([facility]) Name Value Range Interpretation Code Description Data Beth rce(s) Supporting Document(s) Red Blood Count 4.92 4.30-6.10 [facility] ([facility]) White Blood Count 12.0 4.0-10.0 [facility] ([facility]) Platelets 208 150-450 [facility] ([facility]) Hematocrit 47.9 [facility] ([facility]) Hemoglobin 15.7 [facility] ([facility]) ID Date Data Source [id number] 07/15/2020 12:11:00 PM EDT [facility] ([facility] [...] [facility] ID Date Data Source [id number] 07/15/2020 11:59:00 AM EDT [facility] ([facility] [...] % 0.0-1.0 [facility] [place] % 13.5 % 0.0-5.0 [facility] ([facility] [...] 10 1.5-5.0 [facility] ([facility] [place] # 1.6 10 0.0-0.8 [facility] ([facility] Eos # 0.1 10 0.0-0.5 [facility] Baso # 0.1 10 0.0-0.2 [facility] ([facility] ID Date Data Source [id number] 05/23/2020 03:54:00 PM EDT [facility] Name Value Range Interpretation Code Description Data Beth rce(s) Supporting Document(s) Magnesium Level 2.1 [facility] ([facility]) ID Date Data Source [id number] 05/23/2020 03:54:00 PM EDT [facility] ([facility] Name Value Range Interpretation Code Description Data Beth rce(s) Supporting Document(s) Sodium 140 [facility] ([facility]) Calcium [Mass/volume] in Serum or Plasma 9.4 [facility] ([facility]) Carbon dioxide, total [Moles/volume] in Serum or Plasma 27 [facility] ([facility]) Glucose 113 70-100 [facility] ([facility] Potassium [Moles/volume] in Serum or Plasma 3.8 [facility] ([facility]) Chloride [Moles/volume] in Serum or Plasma 105 [facility] ([facility]) Creatinine 1.28 0.6-1.5 [facility] ([facility]) Blood Urea Nitrogen 29 5-21 [facility] ([facility]) Glomerular filtration rate/1.73 sq M.pre dicted [Volume Rate/Area] in Serum or Plasma by Creatinine-based formula (MDRD) Laboratory test result [facility] ([facility]) ID Date Data Source [id number] 05/23/2020 03:54:00 PM EDT [facility] ([facility]) Name Value Range Interpretation Code Description Data Beth rce(s) Supporting Document(s) Natriuretic peptide.B prohormone N-Terminal [Mass/volu me] in Serum or Plasma 53789 [facility] ID Date Data Source [id number] 05/23/2020 09:50:00 AM EDT [facility] ([facility]) Name Value Range Interpretation Code Description Data Beth rce(s) Supporting Document(s) Natriuretic peptide.B prohormone N-Terminal [Mass/volu me] in Serum or Plasma 2799 pg/mL [facility] ([facility] ID Date Data Source [id number] 05/23/2020 09:50:00 AM EDT [facility] ([facility]) Name Value Range Interpretation Code Description Data Beth rce(s) Supporting Document(s) Glucose, Fasting 113 mg/dL 70-100 [facility] ([facility]) Glomerular Filtration Rate Laboratory test result [facility] ([facility]) <content>Units are mL/min/1.73 m2</content>
<content></content>
<content>Chronic Kidney Disease Staging per NKF:</content>
<content></content>
<content>Stage I & II GFR >=60 Normal to Mildly Decreased</content>
<content>Stage III GFR 30- 59 Moderately Decreased</content>
<content>Stage IV GFR 15-29 Severely Decreased</content>
<content>Stage V GFR <15 Very Little GFR Left</content>
<content>ESRD GFR <15 on OPERATIONS SUPPORT COORDINATOR</content>
<content></content> Blood Urea Nitrogen 29 mg/dL 7-18 [facility] Creatinine For GFR 1.28 mg/dL 0.70-1.30 [facility] ([facility]) Potassium Serum 3.8 meq/L 3.5-5.1 [facility] ([facility]) Chloride Level 105 meq/L 98-107 [facility] ([facility]) Sodium Level 140 meq/L 136-145 [facility] ([facility]) Calcium Level 9.4 mg/dL 8.8-10.2 [facility] ([facility]) Carbon Dioxide Level 27 meq/L 21-32 [facility] ([facility]) Anion Gap 8 meq/L 8-16 [facility] ID Date Data Source [id number] 05/23/2020 09:50:00 AM EDT [facility] ([facility]) Name Value Range Interpretation Code Description Data Beth rce(s) Supporting Document(s) Magnesium [Mass/volume] in Serum or Plasma 2.1 mg/dL 1.8-2.4 [facility] ([facility]) ID Date Data Source [id number] 05/23/2020 09:50:00 AM EDT [facility] ([facility] Name Value Range Interpretation Code Description Data Beth rce(s) Supporting Document(s) Magnesium [Mass/volume] in Serum or Plasma 2.1 mg/dL 1.8-2.4 [facility] ([facility] Natriuretic peptide.B prohormone N-Terminal [Mass/volu me] in Serum or Plasma 2799 pg/mL [facility] ([facility] ID Date Data Source [id number] 05/23/2020 09:50:00 AM EDT [facility] ([facility] [...] Little GFR Left</content>
<content>ESRD GFR <15 on OPERATIONS SUPPORT COORDINATOR</content>
<content></content> Potassium Serum 3.8 meq/L 3.5-5.1 [facility] ([facility] Chloride Level 105 meq/L 98-107 [facility] ([facility] Carbon Dioxide Level 27 meq/L 21-32 [facility] ([facility] Anion Gap 8 meq/L 8-16 [facility] ([facility] Calcium Level 9.4 mg/dL 8.8-10.2 [facility] ([facility] ID Date Data Source [id number] 05/23/2020 09:50:00 AM EDT [facility] ([facility] ) Name Value Range Interpretation Code Description Data Beth rce(s) Supporting Document(s) Levetiracetam [Mass/volume] in Serum or Plasma Laboratory test result [facility] ([facility], ) SEE SEPARATE REPORT Testing performed at reference lab . Report copy to follow on a separate form. 07/03/20 REF LAB#:[id number] ID Date Data Source [id number] 05/25/2020 06:06:00 AM EDT [facility] Name Value Range Interpretation Code Description Data Beth rce(s) Supporting Document(s) Levetiracetam, S 60.4 ug/mL 10.0-40.0 Above high normal [facility] This test was developed and its performa nce characteristicsdetermined by [facility]. It has not been cleared or approvedby the Food and Drug Administration. ID Date Data Source [id number] 03/20/2020 01:21:00 PM EDT [facility] Name Value Range Interpretation Code Description Data Beth rce(s) Supporting Document(s) Natriuretic peptide.B prohormone N-Terminal [Mass/volu me] in Serum or Plasma 4813 pg/mL [facility] ([facility]) ID Date Data Source [id number] 03/20/2020 01:21:00 PM EDT [facility] Name Value Range Interpretation Code Description Data Beth rce(s) Supporting Document(s) Glucose, Fasting 140 mg/dL 70-100 [facility] Creatinine For GFR 1.32 mg/dL 0.70-1.30 [facility] ([facility]) Glomerular Filtration Rate 58.5 [facility] ([facility]) <content>Units are mL/min/1.73 m2</content>
<content></content>
<content>Chronic Kidney Disease Staging per NKF:</content>
<content></content>
<content>Stage I & II GFR >=60 Normal to Mildly Decreased</content>
<content>Stage III GFR 30- 59 Moderately Decreased</content>
<content>Stage IV GFR 15-29 Severely Decreased</content>
<content>Stage V GFR <15 Very Little GFR Left</content>
<content>ESRD GFR <15 on OPERATIONS SUPPORT COORDINATOR</content>
<content></content> Blood Urea Nitrogen 24 mg/dL 7-18 [facility] ([facility]) Chloride Level 106 meq/L 98-107 [facility] ([facility]) Sodium Level 142 meq/L 136-145 [facility] ([facility]) Potassium Serum 3.8 meq/L 3.5-5.1 [facility] ([facility]) Anion Gap 6 meq/L 8-16 [facility] Calcium Level 9.1 mg/dL 8.8-10.2 [facility] ([facility]) Carbon Dioxide Level 30 meq/L 21-32 [facility] ([facility]) ID Date Data Source [id number] 03/14/2020 01:59:00 PM EDT [facility] ([facility]) Name Value Range Interpretation Code Description Data Beth rce(s) Supporting Document(s) Natriuretic peptide.B prohormone N-Terminal [Mass/volu me] in Serum or Plasma 5364 pg/mL [facility] ([facility]) ID Date Data Source [id number] 03/14/2020 01:59:00 PM EDT [facility] Name Value Range Interpretation Code Description Data Beth rce(s) Supporting Document(s) White Blood Count 10.7 10 4.0-10.0 [facility] ([facility]) Red Blood Count 4.27 10 4.30-6.10 [facility] ([facility]) Hemoglobin 14.2 g/dL 13.5-17.5 [facility] ([facility]) Mean Corpuscular Hemoglobin 33.3 pg 27.0-33.0 [facility] ([facility]) Hematocrit 43.1 % 42.0-52.0 [facility] ([facility]) Mean Corpuscular Volume 100.9 fl 80.0-96.0 M [facility] ([facility]) Red Cell Distribution Width 14.7 % 11.5-14.5 [facility] ([facility]) Platelet Count, Automated 178 10 150-450 [facility] ([facility]) Mean Corpuscular HGB Conc 32.9 g/dL 32.0-36.5 [facility] ([facility]) Nucleated Red Blood Cell % 0.0 % 0-0 [facility] ([facility]) ID Date Data Source [id number] 03/14/2020 01:59:00 PM EDT [facility] ([facility] Name Value Range Interpretation Code Description Data Beth rce(s) Supporting Document(s) Magnesium [Mass/volume] in Serum or Plasma 2.0 mg/dL 1.8-2.4 [facility] ([facility]) ID Date Data Source [id number] 03/14/2020 01:59:00 PM EDT [facility] ([facility]) Name Value Range Interpretation Code Description Data Beth rce(s) Supporting Document(s) Glucose, Fasting 197 mg/dL 70-100 [facility] ([facility]) Blood Urea Nitrogen 36 mg/dL 7-18 [facility] ([facility]) Creatinine For GFR 1.68 mg/dL 0.70-1.30 [facility] ([facility]) Sodium Level 138 meq/L 136-145 [facility] ([facility]) Glomerular Filtration Rate 44.3 MED ENT ([facility]) <content>Units are mL/min/1.73 m2</content>
<content></content>
<content>Chronic Kidney Disease Staging per NKF:</content>
<content></content>
<content>Stage I & II GFR >=60 Normal to Mildly Decreased</content>
<content>Stage III GFR 30- 59 Moderately Decreased</content>
<content>Stage IV GFR 15-29 Severely Decreased</content>
<content>Stage V GFR <15 Very Little GFR Left</content>
<content>ESRD GFR <15 on OPERATIONS SUPPORT COORDINATOR</content>
<content></content> Chloride Level 103 meq/L 98-107 [facility] ([facility]iol [facility]) Potassium Serum 3.7 meq/L 3.5-5.1 [facility] ([facility]) Carbon Dioxide Level 26 meq/L 21-32 [facility] ([facility]) Calcium Level 9.0 mg/dL 8.8-10.2 [facility] ([facility] Anion Gap 9 meq/L 8-16 [facility] ([facility] ID Date Data Source [id number] 03/02/2020 10:45:53 AM EDT [facility] Name Value Range Interpretation Code Description Data Beth rce(s) Supporting Document(s) &PDF [facility] [id number] vci [file] [id number] ID Date Data Source [id number] 03/02/2020 10:11:43 AM EDT [facility] NT INFORMATIONPatient MRN Name Date of Age Gend*PT [id number] Jason Shankar 1955 64 years M HOPPT Location Admission Date/Time Visit ID Attending ProviderCV-03/02/20 0905 --- Lizett Segal MD([id number]) EPI ID CSN Admitting Provider [id number] Lizett Butler MD([id number]) History and PhysicalPatient Name: Jason ShankarB: 1955The [...] CARDIOVERTER DEFIBRILLATOR GENERATOR; Surgeon:Benigno Mckeon MD; Location: [facility]; Service: Pacemakers; Laterality:N/A; ST ALVA CARDIAC DEFIBRILLATOR PLACEMENT N/A 09/10/2014 Procedure: REVISION OF LEAD, AND REPLACEMENT OF IMPLANTABLE CARDIOVERTERDEFIBRILLATOR ; Surgeon: Arnulfo Tovar MD; Location: [facility]; Service:Pacemakers; Laterality: N/A; REVISION POCKET ICD/PACEMAKER [...] antibioticsPhysical ExamGeneral: NADHEENT: NC/ATNeck: JVP FlatLungs: CTAHeart: [id number]: This is a 64 years male With a history of atrial fibrillation whonow presents for complete AV marianna ablation. The procedure risks and benefitswere all explained. The patient is agreeable to proceed.Signature: Lizett Segal MD, [facility], RSCardiac Electrophysiology and Arrhythmia ServiceDate: March 02, 2020Time: 10:11 AMThis document or parts of this document, were dictated using e[employer]ware. A reasonable attempt at proofreading has been made to minimize errors.Please call with any questions or corrections. Name Value Range Interpretation Code Description Data Beth rce(s) Supporting Document(s) ID Date Data Source [id number] 02/01/2020 08:05:00 AM EDT [facility] Name Value Range Interpretation Code Description Data Beth rce(s) Supporting Document(s) Magnesium 2.2 mg/dL 1.6-2.3 [facility] ID Date Data Source [id number] 02/01/2020 10:05:00 AM EDT [facility] Name Value [...] by repeat analysis ID Date Data Source [id number] 02/01/2020 10:05:00 AM EDT [facility] Name Value [...] normal [facility] ID Date Data Source [id number] 01/31/2020 10:44:00 AM EDT [facility] ([facility]) Name Value Range Interpretation Code Description Data Beth rce(s) Supporting Document(s) Laboratory test finding (navigational concept) Laboratory test result [facility] ([facility]) ID Date Data Source [id number] 01/31/2020 10:44:00 AM EDT [facility] ([facility]) Name Value Range Interpretation Code Description Data Beth rce(s) Supporting Document(s) Cholesterol [Mass/volume] in Serum or Plasma 211 mg/dL 100-199 [facility] ([facility]) Cholesterol in VLDL [Mass/volume] in Serum or Plasma by calc ulation 36 mg/dL 5-40 [facility] ([facility]) Cholesterol in HDL [Mass/volume] in Serum or Plasma 33 mg/dL [facility] ([facility]) Triglyceride [Mass/volume] in Serum or Plasma 181 mg/dL 0-149 [facility] ([facility]) Cholesterol in LDL [Mass/volume] in Serum or Plasma by calcu lation 142 mg/dL 0-99 [facility] ([facility]) Comment: Laboratory test result [facility] ([facility]) ID Date Data Source [id number] 01/31/2020 10:44:00 AM EDT [facility] ([facility]) Name Value Range Interpretation Code Description Data Beth rce(s) Supporting Document(s) Magnesium [Mass/volume] in Serum or Plasma 2.2 mg/dL 1.6-2.3 [facility] ([facility]) ID Date Data Source [id number] 01/31/2020 10:44:00 AM EDT [facility] ([facility]) Name Value Range Interpretation Code Description Data Beth rce(s) Supporting Document(s) Glucose 120 mg/dL 65-99 MED[facility] ([facility]iology [facility]) eGFR If NonAfricn Am 63 mL/min/1.73 MEDE NT ([facility]) Creatinine 1.22 mg/dL 0.76-1.27 [facility] ([facility]) Urea nitrogen [Mass/volume] in Serum or Plasma 29 mg/dL 8-27 [facility] ([facility]) Sodium 141 mmol/L 134-144 [facility] ([facility]) eGFR If Africn Am 73 mL/min/1.73 [facility] ([facility]) Urea nitrogen/Creatinine [Mass Ratio] in Serum or Plasma 24 1 0-24 [facility] ([facility]) Chloride [Moles/volume] in Serum or Plasma 101 mmol/L 96-106 [facility] ([facility]) Potassium [Moles/volume] in Serum or Plasma 4.5 mmol/L 3.5-5.2 [facility] ([facility]) Carbon dioxide, total [Moles/volume] in Serum or Plasma 24 mmol/L 20 -29 [facility] ([facility]) Calcium [Mass/volume] in Serum or Plasma 10.2 mg/dL 8.6-10.2 [facility] ([facility]) Verified by repeat analysis ID Date Data Source [id number] 01/09/2020 08:15:00 AM EDT [facility] ([facility]) Name Value Range Interpretation Code Description Data Beth rce(s) Supporting Document(s) Magnesium Level 1.9 1.8-2.4 [facility] ([facility]) ID Date Data Source [id number] 01/09/2020 08:15:00 AM EDT [facility] ([facility]) Name Value Range Interpretation Code Description Data Beth rce(s) Supporting Document(s) Alanine aminotransferase [Enzymatic activity/volume] in Serum or Pl asma 17 [facility] ([facility]) Calcium [Mass/volume] in Serum or Plasma 9.0 [facility] ([facility]) Albumin [Mass/volume] in Serum or Plasma 3.4 [facility] ([facility]) Alkaline phosphatase [Enzymatic activity/volume] in Serum or Plasma 9 6 [facility] ([facility]) Carbon dioxide, total [Moles/volume] in Serum or Plasma 26 [facility] ([facility]) Chloride [Moles/volume] in Serum or Plasma 106 [facility] ([facility]) Potassium [Moles/volume] in Serum or Plasma 3.6 [facility] ([facility]) Aspartate aminotransferase [Enzymatic activity/volume] in Serum or Plasma 20 [facility] ([facility]) Protein [Mass/volume] in Serum or Plasma 7.3 [facility] ([facility]) Sodium 142 [facility] ([facility]) Creatinine For GFR 1.17 [facility] ([facility]) Urea nitrogen [Mass/volume] in Serum or Plasma 31 [facility] ([facility]) Glucose 96 70-100 [facility] ([facility]) ID Date Data Source [id number] 01/09/2020 08:15:00 AM EDT [facility] ([facility]i [facility]y [facility]) Name Value Range Interpretation Code Description Data Beth rce(s) Supporting Document(s) Red Blood Count 4.34 4.30-6.10 [facility] ([facility]io [facility]) White Blood Count 7.9 4.0-10.0 [facility] (Card iology [facility]) Platelets 186 150-450 [facility] ([facility]) Hematocrit 43.2 [facility] ([facility]) Hemoglobin 14.2 [facility] ([facility]) ID Date Data Source [id number] 01/05/2020 01:15:34 PM EDT [facility] NT INFORMATIONPatient MRN Name Date of Age Gend*PT [id number] Jason Shankar 1955 64 years M ---PT Location Admission Date/Time Visit ID Attending Provider --- --- --- --- EPI ID CSN Admitting Provider [id number] ---[facility] [id number] [facility], [address] (First Floor)[place], [place] [address]Ee.: Fax: Latient: Jason Shankar : 1955Date: 01/05/20CARDIAC ELECTROPHYSIOLOGY CONSULTI [...] scheduled sherry elective basis.Signature: Lizett Segal MD, [facility], [facility]ITALCardiac Electrophysiology and Arrhythmia ServiceDate: 01/05/2020Time: 1:11 PMThis document or parts of this document, were dictated using [employer]Sun[employer]. A reasonable attempt at proofreading has been made to minimize errors.Please call with any questions or corrections. Name Value Range Interpretation Code Description Data [facility](s) Supporting Document(s) ID Date Data Source [id number] 12/06/2019 10:48:00 AM EST MED[facility] ([facility]) Name Value Range Interpretation Code Description Data [facility](s) Supporting Document(s) Glucose, Fasting 113 mg/dL 70-100 [facility] Blood Urea Nitrogen 37 mg/dL 7-18 [facility] (Ca [facility]diology [facility]) Glomerular Filtration Rate 58.5 MED ENT ([facility]) <content>Units are mL/min/1.73 m2</content>
<content></content>
<content>Chronic Kidney Disease Staging per NKF:</content>
<content></content>
<content>Stage I & II GFR >=60 Normal to Mildly Decreased</content>
<content>Stage III GFR 30- 59 Moderately Decreased</content>
<content>Stage IV GFR 15-29 Severely Decreased</content>
<content>Stage V GFR <15 Very Little GFR Left</content>
<content>ESRD GFR <15 on OPERATIONS SUPPORT COORDINATOR</content>
<content></content> Creatinine For GFR 1.32 mg/dL 0.70-1.30 [facility] ([facility]) Potassium Serum 4.6 meq/L 3.5-5.1 [facility] ([facility]io [facility]y [facility]) Chloride Level 105 meq/L 98-107 [facility] ([facility]iol [facility]gy [facility]) Sodium Level 139 meq/L 136-145 [facility] (Cardiolog y [facility]) Carbon Dioxide Level 27 meq/L 21-32 [facility] (C [facility]diology [facility]) Ast/Sgot 35 U/L 7-37 [facility] ([facility]) Anion Gap 7 meq/L 8-16 [facility] ([facility]) Calcium Level 9.9 mg/dL 8.8-10.2 [facility] (Cardiolo gy [facility]) Alt/SGPT 55 U/L 12-78 [facility] ([facility]) Bilirubin,Total 0.7 mg/dL 0.2-1.0 [facility] (Cardio [facility]y [facility]) Alkaline Phosphatase 125 U/L 45-117 [facility] (C [facility]) Albumin 3.5 GM/DL 3.2-5.2 [facility] ([facility]) Albumin/Globulin Ratio 0.90 1.00-1.93 ME DENT ([facility]) Total Protein 7.4 GM/DL 6.4-8.2 [facility] ([facility]iolo gy [facility]) ID Date Data Source [id number] 12/06/2019 10:48:00 AM EST [facility] ([facility]i [facility]y [facility]) Name Value Range Interpretation Code Description Data Beth rce(s) Supporting Document(s) Magnesium [Mass/volume] in Serum or Plasma 1.9 mg/dL 1.8-2.4 [facility] ([facility]) ID Date Data Source [id number] 11/05/2019 09:29:00 AM EST [facility] ([facility] Name Value Range Interpretation Code Description Data Beth rce(s) Supporting Document(s) Albumin [Mass/volume] in Serum or Plasma 3.3 [facility] ([facility]) Alanine aminotransferase [Enzymatic activity/volume] in Serum or Plasma 196 [facility] ([facility]) Calcium [Mass/volume] in Serum or Plasma 9.9 [facility] ([facility]) Carbon dioxide, total [Moles/volume] in Serum or Plasma 29 [facility] ([facility]) Alkaline phosphatase [Enzymatic activity/volume] in Serum or Plasma 1 26 [facility] ([facility]) Chloride [Moles/volume] in Serum or Plasma 105 [facility] ([facility]) Potassium [Moles/volume] in Serum or Plasma 4.4 [facility] ([facility]) Protein [Mass/volume] in Serum or Plasma 7.7 [facility] ([facility]) Sodium 139 [facility] ([facility]) Aspartate aminotransferase [Enzymatic activity/volume] in Serum or Plasma 48 [facility] ([facility]) Glucose 103 70-100 [facility] Urea nitrogen [Mass/volume] in Serum or Plasma 27 [facility] ([facility]) Creatinine For GFR 1.18 [facility] ([facility]) ID Date Data Source [id number] 11/05/2019 09:29:00 AM EST [facility] ([facility]) Name Value Range Interpretation Code Description Data Beth rce(s) Supporting Document(s) Red Blood Count 4.53 4.30-6.10 [facility] ([facility]io [facility]) White Blood Count 8.1 4.0-10.0 [facility] (Card ioly [facility]) Platelets 230 150-450 [facility] ([facility]iology [facility]) Hemoglobin 14.8 [facility] ([facility]) Hematocrit 48.1 [facility] ([facility]) ID Date Data Source [id number] 10/30/2019 11:28:00 AM EST [facility] ([facility]i [facility]y [facility]) Name Value Range Interpretation Code Description Data Beth rce(s) Supporting Document(s) Albumin [Mass/volume] in Serum or Plasma 3.7 3.2-5.2 [facility] ([facility]) Alanine aminotransferase [Enzymatic activity/volume] in Seru m or Plasma 1111 12-78 [facility] ([facility]) Carbon dioxide, total [Moles/volume] in Serum or Plasma 30 21 -32 [facility] ([facility]) Calcium [Mass/volume] in Serum or Plasma 9.6 8.8-10.2 [facility] ([facility]) Chloride [Moles/volume] in Serum or Plasma 99 98-107 [facility] ([facility]) Alkaline phosphatase [Enzymatic activity/volume] in Serum or Jonathon sma 160 45-117 [facility] ([facility]) Potassium [Moles/volume] in Serum or Plasma 4.1 3.5-5.1 [facility] ([facility]) Protein [Mass/volume] in Serum or Plasma 7.8 6.4-8.2 [facility] ([facility]) Sodium 137 136-145 [facility] ([facility]iology A [facility]) Aspartate aminotransferase [Enzymatic activity/volume] in Se rum or Plasma 396 7-27 [facility] ([facility]) Glucose 104 70-100 [facility] ([facility]) Urea nitrogen [Mass/volume] in Serum or Plasma 50 7-18 [facility] ([facility]) Creatinine For GFR 1.25 0.70-1.30 [facility] (Car [facility]ology [facility]) ID Date Data Source [id number] 10/30/2019 11:28:00 AM EST [facility] ([facility]i [facility]y [facility]) Name Value Range Interpretation Code Description Data Beth rce(s) Supporting Document(s) Red Blood Count 4.81 4.30-6.10 [facility] ([facility]io [facility]) White Blood Count 11.9 4.0-10.0 [facility] (Card [facility]ology [facility]) Platelets 184 150-450 [facility] ([facility]) Hemoglobin 16.1 [facility] ([facility]) Hematocrit 49.5 [facility] ([facility]) ID Date Data Source [id number] 10/25/2019 11:35:00 AM EST [facility] ([facility]) Name Value Range Interpretation Code Description Data Beth rce(s) Supporting Document(s) Thyrotropin [Units/volume] in Serum or Plasma 5.170 [facility] ([facility]) ID Date Data Source [id number] 10/25/2019 11:35:00 AM EST [facility] ([facility]) Name Value Range Interpretation Code Description Data Beth rce(s) Supporting Document(s) Natriuretic peptide.B prohormone N-Terminal [Mass/volu me] in Serum or Plasma 6204 [facility] ([facility]) Troponin 0.10 [facility] ([facility]) Lipoprotein lipase [Enzymatic activity/volume] in Serum or Plasma 66 [facility] ([facility]) ID Date Data Source [id number] 10/25/2019 11:35:00 AM EST [facility] ([facility]) Name Value Range Interpretation Code Description Data Beth rce(s) Supporting Document(s) Creatine kinase [Enzymatic activity/volume] in Serum or Plasma 1159 [facility] ([facility]) CPK-MB 5.1 [facility] ([facility]) MB/CK Relative 0.44 [facility] ([facility]iol og [facility]) ID Date Data Source [id number] 10/25/2019 11:35:00 AM EST [facility] ([facility]) Name Value Range Interpretation Code Description Data Beth rce(s) Supporting Document(s) Alkaline phosphatase [Enzymatic activity/volume] in Serum or Jonathon sma 125 45-117 [facility] ([facility]) Aspartate aminotransferase [Enzymatic activity/volume] in Se rum or Plasma 7764 7-37 [facility] ([facility]) Alanine aminotransferase [Enzymatic activity/volume] in Seru m or Plasma 3361 12-78 [facility] ([facility]) Bilirubin.total [Mass/volume] in Serum or Plasma 2.2 0.2-1.0 [facility] ([facility]) Bilirubin.direct [Mass/volume] in Serum or Plasma 1.0 0.0-0.2 [facility] ([facility]) Protein [Mass/volume] in Serum or Plasma 7.6 6.4-8.2 [facility] ([facility]) Albumin [Mass/volume] in Serum or Plasma 3.9 3.2-5.2 [facility] ([facility]) Cholesterol [Mass/volume] in Serum or Plasma Laboratory test result [facility] ([facility]) ID Date Data Source [id number] 10/25/2019 11:35:00 AM EST [facility] ([facility]i [facility]y [facility]) Name Value Range Interpretation Code Description Data Beth rce(s) Supporting Document(s) Red Blood Count 4.23 4.30-6.10 [facility] ([facility]io [facility]) White Blood Count 12.1 4.0-10.0 [facility] ([facility]) Platelets 127 150-450 [facility] Hemoglobin 14.1 [facility] ([facility]) Hematocrit 46.5 [facility] ([facility]) ID Date Data Source [id number] 10/11/2019 11:05:00 AM EST [facility] ([facility] ) Name Value Range Interpretation Code Description Data Beth rce(s) Supporting Document(s) Levetiracetam [Mass/volume] in Serum or Plasma 9.2 ug/mL 10.0-40.0 MED[facility] ([facility], ) This test was developed and its performa nce characteristics determined by [facility]. It has not been cleared or approved by the Food and Drug Administration. Performed at: [address] [id number] [address] Department Manager: Rick Moore MD, Phone: [phone] Procedure Social History Code Duration Value Status Description Data Source(s ) Smoking 11/06/2020 12:00:00 AM EST Patient is a former smoker completed Patient is a former smoker [facility] ([facility]) Smoking 10/26/2020 12:00:00 AM EST Patient has never smoked co mpleted Patient has never smoked [facility] ([facility] Alcohol intake 03/02/2020 12:00:00 AM EDT No completed [facility] Smoking 03/02/2020 12:00:00 AM EDT Never smoker completed Never s nimaker [facility] Vital Signs ID Date Data Source [id number] Name Value Range Interpretation Code Description Data Source(s) Diastolic blood pressure 64 mm[Hg] 64 mm[Hg] [facility] ([facility]) sitting, regular cuff Systolic blood pressure 114 mm[Hg] 114 mm[Hg] M EDENT ([facility]) sitting, regular cuff Respiratory rate 16 /min 16 /min [facility] ( [facility]) Heart rate 60 /min 60 /min [facility] ([facility]io [facility]) Regular Body mass index (BMI) [Ratio] 29.8 kg/m2 29.8 k g/m2 [facility] ([facility]) Body height 68 [in_i] 68 [in_i] [facility] 5'8" Body weight 196.00 [lb_av] 196.00 [lb_av] MEDEN T ([facility]) Oxygen saturation in Arterial blood by Pulse oximetry 97 % 97 % MED[facility] ([facility] Body weight 202.50 [lb_av] 202.50 [lb_av] MEDEN T ([facility] Respiratory rate 14 /min 14 /min MED[facility] ( [facility] Body temperature 98.3 [degF] 98.3 [degF] [facility] ([facility] Heart rate 60 /min 60 /min [facility] ([facility] Diastolic blood pressure 8 mm[Hg] 8 mm[Hg] [facility] ([facility] Systolic blood pressure 202 mm[Hg] [...] mm[Hg] 110 mm[Hg] M EDENT ([facility]) sitting, regular cuff Respiratory rate 16 /min 16 /min MEDENT ( [facility]) Heart rate 60 /min 60 /min [facility] ([facility]) Regular Body mass index (BMI) [Ratio] 30.1 kg/m2 30.1 k g/m2 MED[facility] ([facility]) Body height 68 [in_i] 68 [in_i] [facility] 5'8" Body weight 198.00 [lb_av] 198.00 [lb_av] MEDEN T ([facility]) Diastolic blood pressure 60 mm[Hg] 60 mm[Hg] MED[facility] ([facility]) sitting, regular cuff Body weight 90.720 kg 90.720 kg MEDENT ([facility], ) [place] body weight 142 [lb_av] 142 [lb_av] MEDEN T ([facility]) Body mass index (BMI) [Ratio] 32.3 kg/m2 32.3 k g/m2 MEDENT ([facility], ) Body weight 200.00 [lb_av] 200.00 [lb_av] MEDEN T ([facility], ) Body height 66 [in_i] 66 [in_i] MEDENT ([facility], ) 5'6" Diastolic blood pressure 88 mm[Hg] 88 mm[Hg] [facility] ([facility]) Systolic blood pressure 130 mm[Hg] 130 mm[Hg] [facility] ([facility]) Respiratory rate 16 /min 16 /min MEDENT ( [facility]) Heart rate 64 /min 64 /min MEDENT ([facility]) Diastolic blood pressure 60 mm[Hg] 60 mm[Hg] MED[facility] ([facility]) Systolic blood pressure 100 mm[Hg] 100 mm[Hg] [facility] ([facility]) Diastolic blood pressure 60 mm[Hg] 60 mm[Hg] MEDENT ([facility]) sitting Systolic blood pressure 106 mm[Hg] 106 mm[Hg] [facility] ([facility]) sitting Diastolic blood pressure 60 mm[Hg] 60 mm[Hg] MEDENT ([facility]) sitting, regular cuff Systolic blood pressure 104 mm[Hg] 104 mm[Hg] [facility] ([facility]) sitting, regular cuff Respiratory rate 16 /min 16 /min MEDENT ( [facility]) Heart rate 60 /min 60 /min MED[facility] ([facility]) Regular Body mass index (BMI) [Ratio] 29.2 kg/m2 29.2 k g/m2 MEDENT ([facility]) Body height 68 [in_i] 68 [in_i] [facility] ([facility] 5'8" Body weight 192.00 [lb_av] 192.00 [lb_av] MEDEN T ([facility]) Oxygen saturation in Arterial blood by Pulse oximetry 98 % 98 % [facility] ([facility] Body weight 193.50 [lb_av] 193.50 [lb_av] MEDEN T ([facility] Respiratory rate 18 /min 18 /min MED[facility] ( [facility] Body temperature 96.5 [degF] 96.5 [degF] [facility] ([facility] Heart rate 63 /min 63 /min [facility] Diastolic blood pressure 56 mm[Hg] 56 mm[Hg] [facility] ([facility] Systolic blood pressure 81 mm[Hg] 81 mm[Hg] [facility] Body weight 88.225 kg 88.225 kg [facility] ([facility]) [place] body weight 142 [lb_av] 142 [lb_av] [facility] Body mass index (BMI) [Ratio] 31.4 kg/m2 31.4 k g/m2 [facility] ([facility]) Body weight 194.50 [lb_av] 194.50 [lb_av] [facility] Body height 66 [in_i] 66 [in_i] [facility] ([facility]) 5'6" Diastolic blood pressure 61 mm[Hg] 61 mm[Hg] [facility] ([facility]) Systolic blood pressure 90 mm[Hg] 90 mm[Hg] [facility] ([facility]) Body mass index (BMI) [Ratio] 29.9 kg/m2 29.9 k g/m2 [facility] ([facility]) Body height 66 [in_i] 66 [in_i] [facility] ([facility]) 5'6" Body weight 185.00 [lb_av] 185.00 [lb_av] MEDEN T ([facility]) Body temperature 97.8 [degF] 97.8 [degF] [facility] ([facility]) Oxygen saturation in Arterial blood by Pulse oximetry 97 % 97 % [facility] ([facility], [facility]) Respiratory rate 12 /min 12 /min [facility] ( [facility]) Heart rate 60 /min 60 /min [facility] ([facility], [facility]) Diastolic blood pressure 72 mm[Hg] 72 mm[Hg] [facility] ([facility]) Systolic blood pressure 104 mm[Hg] 104 mm[Hg] EDENT ([facility], [facility]) Diastolic blood pressure 68 mm[Hg] 68 mm[Hg] [facility] ([facility]) sitting, regular cuff Systolic blood pressure 116 mm[Hg] 116 mm[Hg] EDENT ([facility]) sitting, regular cuff Respiratory rate 16 /min 16 /min MED[facility] ( [facility]) Heart rate 60 /min 60 /min [facility] ([facility]) Regular Body mass index (BMI) [Ratio] 28.9 kg/m2 28.9 k g/m2 [facility] ([facility]) Body height 68 [in_i] 68 [in_i] [facility] 5'8" Body weight 190.00 [lb_av] 190.00 [lb_av] MEDEN T ([facility]) Respiratory rate 16 /min 16 /min MEDENT ( [facility], ) Heart rate 60 /min 60 /min MEDENT ([facility], ) Diastolic blood pressure 80 mm[Hg] 80 mm[Hg] MED[facility] ([facility], ) Systolic blood pressure 110 mm[Hg] 110 mm[Hg] [facility], ) Diastolic blood pressure 62 mm[Hg] 62 mm[Hg] [facility] ([facility]) sitting, regular cuff Systolic blood pressure 104 mm[Hg] 104 mm[Hg] EDENT ([facility]) sitting, regular cuff Respiratory rate 16 /min 16 /min MED[facility] ( [facility]) Heart rate 60 /min 60 /min [facility] ([facility]) Regular Body mass index (BMI) [Ratio] 27.5 kg/m2 27.5 k g/m2 MED[facility] ([facility]) Body height 68 [in_i] 68 [in_i] [facility] 5'8" Body weight 181.00 [lb_av] 181.00 [lb_av] MEDEN T ([facility]) Diastolic blood pressure 54 mm[Hg] 54 mm[Hg] MED[facility] ([facility]) sitting, regular cuff Systolic blood pressure 92 mm[Hg] 92 mm[Hg] M EDENT ([facility]) sitting, regular cuff Respiratory rate 16 /min 16 /min MED[facility] ( [facility]) Heart rate 60 /min 60 /min [facility] ([facility]) Regular Body mass index (BMI) [Ratio] 27.8 kg/m2 27.8 k g/m2 MED[facility] ([facility]) Body height 68 [in_i] 68 [in_i] MEDENT ([facility]) 5'8" Body weight 183.00 [lb_av] 183.00 [lb_av] MEDEN T ([facility]) Oxygen saturation in Arterial blood by Pulse oximetry 94 % 94 % [facility] Heart rate 60 /min 60 /min [facility] Diastolic blood pressure 72 mm[Hg] 72 mm[Hg] [facility] Systolic blood pressure 107 mm[Hg] 107 mm[Hg] [facility] Body temperature 36.39 Brianna 36.39 Brianna [facility] Respiratory rate 18 /min 18 /min [facility] Diastolic blood pressure 54 mm[Hg] 54 mm[Hg] MEDENT ([facility]) sitting Systolic blood pressure 98 mm[Hg] 98 mm[Hg] EDENT ([facility]) sitting Diastolic blood pressure 56 mm[Hg] 56 mm[Hg] [facility] ([facility]) sitting, regular cuff Systolic blood pressure 98 mm[Hg] 98 mm[Hg] EDENT ([facility]) sitting, regular cuff Respiratory rate 16 /min 16 /min MED[facility] ( [facility]) Heart rate 88 /min 88 /min [facility] ([facility]) Irregular Body mass index (BMI) [Ratio] 28.0 kg/m2 28.0 k g/m2 MED[facility] ([facility]) Body height 68 [in_i] 68 [in_i] MEDENT ([facility]) 5'8" Body weight 184.00 [lb_av] 184.00 [lb_av] MEDEN T ([facility]) Respiratory rate 18 /min 18 /min [facility] ( [facility] Diastolic blood pressure 70 mm[Hg] 70 mm[Hg] [facility] ([facility] Systolic blood pressure 124 mm[Hg] 124 mm[Hg] M EDENT ([facility] Diastolic blood pressure 60 mm[Hg] 60 mm[Hg] [facility] ([facility]) sitting, regular cuff Systolic blood pressure 96 mm[Hg] 96 mm[Hg] M EDENT ([facility]) sitting, regular cuff Respiratory rate 16 /min 16 /min MED[facility] ( [facility]) Heart rate 88 /min 88 /min [facility] ([facility]) Regular Body mass index (BMI) [Ratio] 28.1 kg/m2 28.1 k g/m2 MED[facility] ([facility]) Body height 68 [in_i] 68 [in_i] MED[facility] ([facility]) 5'8" Body weight 185.00 [lb_av] 185.00 [lb_av] MEDEN T ([facility]) Diastolic blood pressure 56 mm[Hg] 56 mm[Hg] MED[facility] ([facility]) sitting, regular cuff Systolic blood pressure 98 mm[Hg] 98 mm[Hg] EDENT ([facility]) sitting, regular cuff Respiratory rate 16 /min 16 /min MED[facility] ( [facility]) Heart rate 124 /min 124 /min [facility] ([facility]) Irregular Body mass index (BMI) [Ratio] 28.0 kg/m2 28.0 k g/m2 MED[facility] ([facility]) Body height 68 [in_i] 68 [in_i] [facility] ([facility]) 5'8" Body weight 184.00 [lb_av] 184.00 [lb_av] MEDEN T ([facility]) Diastolic blood pressure 60 mm[Hg] 60 mm[Hg] [facility] ([facility]) Sitting, regular cuff Systolic blood pressure 102 mm[Hg] 102 mm[Hg] M EDENT ([facility]) Sitting, regular cuff Respiratory rate 16 /min 16 /min MED[facility] ( [facility]) Heart rate 60 /min 60 /min [facility] ([facility]) Regular Body mass index (BMI) [Ratio] 27.4 kg/m2 27.4 k g/m2 [facility] ([facility]) Body height 68 [in_i] 68 [in_i] [facility] 5'8" Body weight 180.00 [lb_av] 180.00 [lb_av] MEDEN T ([facility]) Body mass index (BMI) [Ratio] 30.2 kg/m2 30.2 k g/m2 [facility] ([facility] [place] body weight 142 [lb_av] 142 [lb_av] MEDEN [...]
[2020-12-02 14:21] VITALS: BP 125/87
--- NOTE | 2020-12-02 16:19 | REP ---
INDICATION: fall. COMPARISON: CT brain today and 10/21/2020; a maxillofacial 01/03/2013 TECHNIQUE: Axial images with coronal and sagittal bone window reconstructions provided FINDINGS: Nasal septum is deviated towards the right side anteriorly. The nasal spines of the maxilla and nasal bones are without fracture. Bony orbits show the floors, lateral struts and medial winkler intact. Optic nerves and extraocular muscles along with the globes are intact with no intraconal mass or edema. Visualized sinuses and mastoids are without air-fluid levels or fracture lines. There is some minor mucosal thickening in the floor of the right maxillary sinus. The ostiomeatal complexes are without occlusion. Infundibulum and hiatus semilunaris unremarkable. Bony mandible and maxilla without focal lesion. Some carious dentition noted in the maxilla and mandible in molar and premolar regions. Zygomatic arches, anterior, middle and posterior cranial floors intact on these images. IMPRESSION: No CT evidence of facial bone fracture. There is some mucosal thickening only seen in the floor of the right maxillary antrum with sinuses otherwise clear. Sinus winkler without fracture. Orbits and contents symmetric and unremarkable. Nothing acute. <Electronically signed by Rudy Jamison > 12/02/20 [id number]
--- NOTE | 2020-12-02 20:52 | ECGEPIP ---
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
--- NOTE | 2020-12-04 08:18 | ED PDOC ---
Post-Departure Follow-Up ct c spine faxed formal report to dr moreno for fu Iesha Taylor MD Dec 04, 2020 08:18
== END 2020-12-02 14:54 | disposition home or self-care (01) ==
LOC: M ED 10:55
DX: E86.0 Dehydration (principal); R26.81 Unsteadiness on feet; I11.9 Hypertensive heart disease without heart failure; I50.9 Heart failure, unspecified; I48.91 Unspecified atrial fibrillation; G40.909 Epilepsy, unspecified, not intractable, without status epilepticus; Z79.899 Other long term (current) drug therapy; Z79.01 Long term (current) use of anticoagulants; Z88.1 Allergy status to other antibiotic agents; Z88.2 Allergy status to sulfonamides

== ENCOUNTER → 2020-12-06 | Outpatient (CLI) | payer OTHER ==
[2020-12-06 11:57] LABS: BASO # 0.1 10^3/uL (0.0-0.2); BASO % 0.6 % (0.0-1.0); EOS # 0.1 10^3/uL (0.0-0.5); EOS % 1.5 % (0.0-3.0); HEMATOCRIT 47.2 % (42.0-52.0); HEMOGLOBIN 15.2 g/dl (13.5-17.5); LYMPH # 0.8 10^3/uL (1.5-5.0); MEAN CORPUSCULAR HEMOGLOBIN 31.9 pg (27.0-33.0); MEAN CORPUSCULAR HGB CONC 32.2 g/dl (32.0-36.5); MONO % 11.6 % (2.0-8.0); NEUTROPHILS # 6.4 10^3/uL (1.5-8.5); NEUTROPHILS % 75.9 % (36.0-66.0); PLATELET COUNT, AUTOMATED 170 10^3/uL (150-450); RED BLOOD COUNT 4.77 10^6/uL (4.30-6.10); WHITE BLOOD COUNT 8.4 10^3/uL (4.0-10.0)
[2020-12-06 12:26] LABS: ALBUMIN 3.9 GM/DL (3.2-5.2); BILIRUBIN,TOTAL 1.3 MG/DL (0.2-1.0); CALCIUM LEVEL 9.7 MG/DL (8.8-10.2); CREATININE FOR GFR 1.79 MG/DL (0.70-1.30); MAGNESIUM LEVEL 2.1 MG/DL (1.8-2.4); POTASSIUM SERUM 3.8 MEQ/L (3.5-5.1); TOTAL PROTEIN 7.4 GM/DL (6.4-8.2)
--- NOTE | 2020-12-06 13:35 | REP ---
INDICATION: SOB/ PT HAS LABS FIRST. COMPARISON: Comparison chest x-ray 21 October 2020. TECHNIQUE: Two views.. FINDINGS: There is moderate cardiac enlargement again noted. A multilead pacemaker is again seen in the right heart view of the left side. Pleural angles are sharp. Pulmonary vasculature is cephalized. There is no evidence of pulmonary edema or pleural effusion. No focal infiltrate is seen. IMPRESSION: Moderate cardiomegaly. Vascular cephalization. No pulmonary edema or pleural effusion. Pacemaker.. <Electronically signed by Ramsey Young > 12/06/20 [id number]
== END ==
LOC: M LAB 10:54
PROVIDERS: ATTEND Physician Assistant
DX: R06.02 Shortness of breath (principal); I50.42 Chronic combined systolic (congestive) and diastolic (congestive) heart failure; I48.21 Permanent atrial fibrillation

== ENCOUNTER 2020-12-10 11:51 | Inpatient (IN) | payer OTHER ==
[~2020-12-10] VITALS: Ht 170.2 cm; Wt 89.5 kg
--- NOTE | 2020-12-10 12:30 | REP ---
INDICATION: CHEST PAIN. COMPARISON: 12/06/2020. TECHNIQUE: SINGLE PORTABLE AP VIEW OF THE CHEST WAS PERFORMED. FINDINGS: There is stable moderate cardiomegaly and diffuse vascular congestion unchanged. No new infiltrate is seen. Mediastinal silhouette is unchanged. Left pacemaker is again noted. IMPRESSION: Stable cardiomegaly and vascular congestion with no acute infiltrate. <Electronically signed by Figueroa Taylor > 12/10/20 [id number]
[2020-12-10 13:12] LABS: BASO % 0.4 % (0.0-1.0); EOS # 0.1 10^3/uL (0.0-0.5); EOS % 1.2 % (0.0-3.0); HEMATOCRIT 44.4 % (42.0-52.0); HEMOGLOBIN 13.8 g/dl (13.5-17.5); LYMPH % 11.6 % (24.0-44.0); MEAN CORPUSCULAR HGB CONC 31.1 g/dl (32.0-36.5); MEAN CORPUSCULAR VOLUME 99.8 fl (80.0-96.0); MONO # 1.2 10^3/uL (0.0-0.8); MONO % 13.5 % (2.0-8.0); NEUTROPHILS # 6.2 10^3/uL (1.5-8.5); NEUTROPHILS % 72.8 % (36.0-66.0); PLATELET COUNT, AUTOMATED 191 10^3/uL (150-450); RED BLOOD COUNT 4.45 10^6/uL (4.30-6.10); WHITE BLOOD COUNT 8.5 10^3/uL (4.0-10.0)
[2020-12-10 13:39] LABS: CK-MB VALUE MASS 2.7 NG/ML (<3.6); CREATININE FOR GFR 1.78 MG/DL (0.70-1.30); GLOMERULAR FILTRATION RATE 41.3 (>49); MB/CK RELATIVE INDEX 1.82 (< OR =4); POTASSIUM SERUM 3.6 MEQ/L (3.5-5.1); TROPONIN I 0.03 NG/ML (< 0.10)
--- NOTE | 2020-12-10 13:44 | REP ---
INDICATION: RLE swelling; r/o DVT COMPARISON: None. TECHNIQUE: Real time compression and duplex Doppler interrogation of the right lower extremity deep venous system is performed. FINDINGS: The right common femoral, superficial femoral and popliteal veins are fully compressible with transducer pressure and demonstrate normal spontaneous and phasic flow, without evidence of deep venous thrombosis. IMPRESSION: No evidence of deep venous thrombosis of the right lower extremity femoral popliteal venous system. <Electronically signed by Figueroa Taylor > 12/10/20 [id number]
[2020-12-10 13:52] LABS: INR 1.87; PROTHROMBIN TIME 21.9 SECONDS (12.5-14.3)
[2020-12-10 13:53] LABS: PARTIAL THROMBOPLASTIN TIME 41.6 SECONDS (24.2-38.5)
--- NOTE | 2020-12-10 13:58 | REP ---
INDICATION: seizure/fall with head injury. COMPARISON: 12/02/2020. TECHNIQUE: CT BRAIN PERFORMED IN THE AXIAL PLANE. CORONAL RECONSTRUCTION IMAGES ARE PERFORMED. FINDINGS: Mild atrophy. THERE IS NO MIDLINE SHIFT OR MASS EFFECT. TAYLOR-WHITE DIFFERENTIATION IS WELL MAINTAINED. THERE IS NO ACUTE INTRACRANIAL HEMORRHAGE OR EXTRA-AXIAL FLUID COLLECTION. BONE WINDOW EXAMINATION IS UNREMARKABLE. VISUALIZED MASTOID AIR CELLS AND PARANASAL SINUSES ARE CLEAR. IMPRESSION: NEGATIVE NONCONTRAST CT BRAIN. <Electronically signed by Figueroa Taylor > 12/10/20 [id number]
[2020-12-10 13:59] LABS: ALBUMIN 3.8 GM/DL (3.2-5.2); BILIRUBIN,DIRECT 0.3 MG/DL (0.0-0.2); ETHYL ALCOHOL (ETHANOL) 0.008 % (0.000-0.010); THYROID STIMULATING HORMONE 3.1 uIU/ML (0.358-3.740); TOTAL PROTEIN 7.4 GM/DL (6.4-8.2)
--- NOTE | 2020-12-10 14:04 | REP ---
INDICATION: seizure/fall with head injury. COMPARISON: 12/02/2020. TECHNIQUE: CT cervical spine performed in the axial plane, with sagittal and coronal reconstruction images performed. FINDINGS: There is no acute compression fracture. There is no malalignment. There is normal cervical lordosis. There is no prevertebral soft tissue swelling. There is mild spurring of C4. There is moderate anterior and posterior spurring of C5 through C7 with moderate disc space narrowing at C5-6 and C6-7. There is diffuse narrowing and sclerosis at the posterior facet joints. No abnormal density is seen in the spinal canal. There is foraminal narrowing bilaterally at C5-6 and C6-7. IMPRESSION: No acute fracture or dislocation. Degenerative changes as above. <Electronically signed by Figueroa Taylor > 12/10/20 1400
--- NOTE | 2020-12-10 14:29 | HPEPDOC ---
[facility] Medical History & Physical Date of Admission Dec 10, 2020 Date of Service: Dec 10, 2020 Attending Physician: Anabel Martin MD History and Physical CHIEF COMPLAINT: loss of consciousness HISTORY OF PRESENT ILLNESS: Patient is a 65-year-old male with extensive past medical history including recent syncopal episode, seizure disorder (last known seizure 8 years ago, on seizure prophylaxis medications), CKD Stage III, diastolic CHF, severe pulmonary hypertension, cardiomyopathy, atrial fibrillation on anticoagulation, peripheral neuropathy, anxiety/depression/insomnia who presented to [facility] emergency room on 12/02/2020 after having a witnessed fall at home. According to the patient he was going from room to room when he became lightheaded and dizzy, he did not loose consciousness but fell to the floor. This episode was witnessed by his . He denies chest pain, shortness of breath, fevers, chills, abdominal pain, recent illnesses, increased drowsiness, diarrhea, nausea, vomiting, abdominal pain. He states to have been his baseline prior to this event happening. Only medication change recently has been increasing gabapentin by his neurologist after his last admission to the hospital (/09/2021). This admission was also for syncopal episode where he was later diagnosed with orthostatic syncope and a fall down the stairs, polypharmacy ( n torsemide and lasix) and hypotension medication related (was on verapamil which was stopped by cardio before). That hospitalization they also did an EEG 10/25/20: EEG in awake and drowsy states, stage 1 and 2 sleep is within normal limits. Echocardiogram: EF 40-45% with findings below under "Imaging". Due to the events at home today the patient was brought into the emergency room for further evaluation by his . In the emergency room, vital signs were stable. Labs were centrally unremarkable aside from Cr 1.8 (baseline 1.5-1.8) since 05/2020. BNP elevated at 4054; however, is chronically elevated in this range. Troponin negative, ECG baseline compared to last on file. CXR: neg for acute findings. While in the hospital room the patient states he was sleeping and does not rhythm her getting up and falling later hitting his head on the left occipital region and left shoulder. He also lost control of his bladder during this time and was found on the floor by nursing staff. He could not recall the events of this happening and according to staff there was not a concern for seizure at that time. The patient had CT of the cervical spine and neck were negative for acute abnormalities. Neuro exam was wnl. Patient states this episode is very similar to how he felt on his prior admission in 10/2020 when he had syncope. Patient was admitted for further evaluation for syncopal episode r/o neuro vs. cardiac cause. REVIEW OF SYSTEMS: Neg except mentioned above PAST MEDICAL HISTORY: Recent syncope episode Seizure Disorder Hypertrophic obstructive cardiomyopathy Chronic diastolic CHF Severe pulmonary hypertension with right heart failure H/O Alcohol use disorder Paroxysmal atrial fibrillation History of aortic insufficiency. Anxiety/panic attacks. Insomnia. Depression. HLD Low testosterone. PAST SURGICAL HISTORY: Pacemaker AICD placement cardiac catheterization 12/2008 Right ventricular lead from PM replaced because of right lead fracture. SOCIAL HISTORY: Non smoker Non drinker Denies illicit drug use Lives at home with Independent at baseline Full Code FAMILY HISTORY: mother. healthy, at 88 y/o Father. from complication of surgery. at 46 y/o ALLERGIES: Please see below. HOME MEDICATIONS: Please see below. PHYSICAL EXAMINATION: VS : please see below CONSTITUTIONAL: No acute distress, resting comfortably, AAO x 3 EYES: PERRLA, EOM intact HENT, MOUTH: Normocephalic, atraumatic, moist mucous membranes NECK: SUPPLE, no JVD, no lymphadenopathy, no carotid bruit CV: Regular rate and rhythm, S1S2 normal, no murmurs/rubs/gallops RESPIRATORY: Clear to auscultation bilaterally, no rales/rhonchi/wheezes GI: BS positive in 4 quadrants, soft, nontender, nondistended, no rebound or guarding, no organomegaly : Deferred MUSCULOSKELETAL: Normal ROM. No cyanosis, clubbing, swelling, joint deformity, +1 pitting extremity edema in the lower ext b/l INTEGUMENTARY: subcutaneous hematoma on left occipital area of head, old healing wounds on right forehead from fall 10/2020. OTherwise, Intact, no rashes, no erythema NEUROLOGIC: Cranial Nerves II-XII are intact, no focal deficits PSYCHIATRIC: Mood and affect are normal LABORATORY DATA: Please see below IMAGING: CT head, CT cervical spine: No acute findings CXR: no acute findings RLE US: No evidence of deep venous thrombosis of the right lower extremity femoral popliteal. Echo 10/23/20: EF 40-45% Underlying atrial fibrillation with consistent ventricular paced rhythm. Paced QRS complexes LBBB configuration. Somewhat technically challenging study in light of the patients body habitus, but diagnostically useful information was still obtained. Asymmetrical septal hypertrophy with slight septal hypokinesis, but other winkler move normally. Prominently dilated left atrium with current Doppler evidence of mean left atrial pressure upper limits of normal. At least moderately dilated right heart chambers with right ventricular free wall hypertrophy and normal wall motion. Doppler evidence of at least moderately severe pulmonary hypertension. Dilated IVC with reduced respiratory collapse in keeping with an elevated central venous pressure. Normal aortic dimensions. Mildly thickened three equal size aortic cusps with adequate cusp separation, but a degree of premature cusp closure suggestive of a reduced forward stroke volume. Trace aortic insufficiency. Mild degenerative changes of his mitral valve apparatus with adequate leaflet excursion and no obvious anterior systolic motion to suggest subaortic stenosis.Mild-moderate mitral insufficiency. Normal appearing tricuspid valve, but at least [id number] insufficiency. Pacing wires could be visualized traversing right heart structures, but no separate intracardiac mass. Miniscule pericardial effusion. ASSESSMENT: 65-year-old male with extensive past medical history including recent admission for syncope believed to be 2/2 to orthostatic hypotension, seizure disorder (last known seizure 8 years ago, on seizure prophylaxis medications), CKD Stage III, diastolic CHF, severe pulmonary hypertension, ca rdiomyopathy, atrial fibrillation on anticoagulation, peripheral neuropathy, anxiety/depression/insomnia admitted for further evaluation for syncopal episode r/o neuro vs. cardiac cause. PLAN: Syncopal episode vs. seizure -One near-syncopal at home and on episode of LOC in the ER within last 24 hours (no post-ictal phase but loss of bladder control, no recollection of event) -Recent admission for syncope thought to have been 2/2 to orthostatic hypotension -Neg orthostatics in ER, no events on tele. If pos ortho, d/c torsemide for now -Recent EEG neg in 10/2020 for similar issue. Last known seizure 8 years ago, follows regularly with Dr. Carter -Most recent echo from 10/2020 above -Spoke with Neurology, increasing keppra to 1250 mg PO BID while waiting for level. -Seizure precautions, orthostatics daily, neuro checks -PT/OT Hypertrophic obstructive cardiomyopathy /Chronic diastolic CHF /Severe pulmonary hypertension with right heart failure /hx of aortic insufficiency -Most recent echo above -Chronically elevated BNP, not believed to be in exacerbation of CHF ' -Trop neg, ECG within baseline for patient -Followed up in last several weeks with Dr. Mckeon' office, cardiology who did not change medications -C/w home cardiac meds, some with holding parameters Paroxysmal atrial fibrillation -Paced rhythm -C/w BB and Eliquis BID CKD Stage III -Cr near baseline -C/w torsemide daily -Unknown if follows with nephrology o/p Insomnia/ Anxiety/ panic attacks /depression -Stable -C/w home meds HLD -C/w statin Peripheral neuropathy -C/w gabapentin TID DVT px -Eliquis DISPOSITION: Admitted as acute inpatient. Plan is discharge home when medically improved. Vital Signs Vital Signs Date Time Temp Pulse Resp B/P (MAP) Pulse Ox O2 Delivery O2 Flow Rate FiO2 12/10/20 13:25 113/64 (80) 12/10/20 13:21 72 96 Room Air 12/10/20 11:55 96.6 18 Laboratory Data Labs 24H Laboratory Tests 2 12/10/20 12:05: Immature Granulocyte % (Auto) 0.5, Neutrophils (%) (Auto) 72.8H, Lymphocytes (%) (Auto) 11.6L, Monocytes (%) (Auto) 13.5H, Eosinophils (%) (Auto) 1.2, Basophils (%) (Auto) 0.4, Neutrophils # (Auto) 6.2, Lymphocytes # (Auto) 1.0L, Monocytes # (Auto) 1.2H, Eosinophils # (Auto) 0.1, Basophils # (Auto) 0.0, Nucleated Red Blood Cells % (auto) 0.0, Total Bilirubin 1.0, Direct Bilirubin 0.3H, Aspartate Amino Transf (AST/SGOT) 23, Alanine Aminotransferase (ALT/SGPT) 27, Alkaline Phosphatase 132H, WF-Cvj-V-Type Natriuretic Peptide 4054H, Total Protein 7.4, Albumin 3.8, Albumin/Globulin Ratio 1.1, Lipase 74, Thyroid Stimulating Hormone (TSH) 3.100, Ethyl Alcohol Level 0.008 12/10/20 12:26: Anion Gap 11, Glomerular Filtration Rate 41.3L, Calcium Level 9.0, Total Creatine Kinase 148, Creatine Kinase MB 2.7, Creatine Kinase MB Relative Index 1.82, Troponin I 0.03 12/10/20 12:41: 12/10/20 13:12: Prothrombin Time 21.9H, Prothromb Time International Ratio 1.87, Activated Partial Thromboplast Time 41.6H CBC/BMP Laboratory Tests 12/10/20 12:05 12/10/20 12:26 Home Medications Scheduled Apixaban (Eliquis) 5 Mg Tab, 5 MG PO BID Atorvastatin Calcium (Atorvastatin Calcium) 20 Mg Tablet, 20 MG PO QHS Gabapentin (Gabapentin) 300 Mg Capsule, 300 MG PO TID Metoprolol Tartrate (Metoprolol Tartrate) 50 Mg Tablet, 50 MG PO BID Torsemide (Torsemide) 20 Mg Tablet, 30 MG PO DAILY levETIRAcetam (levETIRAcetam) 1,000 Mg Tablet, 1,000 MG PO BID Scheduled PRN Zolpidem Tartrate (Zolpidem Tartrate) 10 Mg Tablet, 10 MG PO QHS PRN for SLEEP Allergies Coded Allergies: Sulfa (Sulfonamide Antibiotics) (Verified Allergy, Unknown, 01/07/20) A-FIB/CHADSVASC A-FIB History Current/History of A-Fib/PAF?: Yes Current PO Anticoag Therapy: Yes Age/Risk Factor Scoring CHADSVASC: CHADSVASC Response (Comments) Value Age Risk Factor Age < 65 years old 0 Gender Risk Factor Male 0 Hx of CHF Yes 1 Hx of HTN Yes 1 Hx of Stroke/TIA/or VTE No 0 Hx of Diabetes No 0 Hx of Vascular Disease No 0 Total 2 Treatment Treatment ordered: Apixaban Anabel Martin MD Dec 10, 2020 14:29
[2020-12-10 15:30] LABS: RSV AMPLIFICATION NEGATIVE (NEGATIVE)
[2020-12-10] MEDS ORDERED: zolPIDEM TARTRATE 5 MG TAB PO PRN (15:55)
[2020-12-10 16:37] VITALS: BP_SYST 117; BP_SYST 118; BP_DIAS 72
[2020-12-10] MEDS: GABAPENTIN 300 MG CAP PO SCH ×2 (16:49→20:47)
--- NOTE | 2020-12-10 20:24 | ECGEPIP ---
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
[2020-12-10] MEDS: APIXABAN 5 MG TAB (ELIQUIS) PO SCH (20:46)
[2020-12-10] MEDS: levETIRAcetam 250MG TABLET (KEPPRA) PO SCH (20:46)
[2020-12-10] MEDS: METOPROLOL TART 50 MG TAB PO SCH (20:47)
[2020-12-10] MEDS: ACETAMINOPHEN TAB 650MG DOSE (2X325MG) PO PRN (20:48)
[2020-12-10] MEDS ORDERED: levETIRAcetam 250MG TABLET (KEPPRA) PO SCH (21:00)
[2020-12-10] MEDS ORDERED: ATORVASTATIN 20 MG TAB PO SCH (21:00)
[2020-12-10 22:00] VITALS: BP 116/73
[2020-12-11] MEDS: ACETAMINOPHEN TAB 650MG DOSE (2X325MG) PO PRN (00:59)
[2020-12-11 05:51] VITALS: BP_SYST 118; BP_SYST 120; BP_DIAS 80; BP_DIAS 83; BP_DIAS 84
[2020-12-11 06:00] VITALS: BP 115/73
[2020-12-11 06:27] LABS: HEMATOCRIT 41.5 % (42.0-52.0); HEMOGLOBIN 13.3 g/dl (13.5-17.5); MEAN CORPUSCULAR HEMOGLOBIN 31.3 pg (27.0-33.0); MEAN CORPUSCULAR VOLUME 97.6 fl (80.0-96.0); PLATELET COUNT, AUTOMATED 177 10^3/uL (150-450); RED BLOOD COUNT 4.25 10^6/uL (4.30-6.10); WHITE BLOOD COUNT 7.6 10^3/uL (4.0-10.0)
[2020-12-11 06:57] LABS: CALCIUM LEVEL 8.8 MG/DL (8.8-10.2); CREATININE FOR GFR 1.52 MG/DL (0.70-1.30); GLOMERULAR FILTRATION RATE 49.6 (>49); POTASSIUM SERUM 3.9 MEQ/L (3.5-5.1)
[2020-12-11 08:42] VITALS: BP 114/77
[2020-12-11] MEDS: METOPROLOL TART 50 MG TAB PO SCH (08:42)
[2020-12-11] MEDS: levETIRAcetam 250MG TABLET (KEPPRA) PO SCH (08:43)
[2020-12-11] MEDS: APIXABAN 5 MG TAB (ELIQUIS) PO SCH (08:43)
[2020-12-11] MEDS: GABAPENTIN 300 MG CAP PO SCH (08:43)
[2020-12-11] MEDS ORDERED: KEPP10002 PO (08:57)
[2020-12-11] MEDS ORDERED: KEPP250T5 PO (08:57)
[2020-12-11] MEDS ORDERED: FUROSEMIDE 40MG/4ML VIAL (J1940) IV SCH (09:00)
[2020-12-11] MEDS ORDERED: TORSEMIDE 10 MG TABLET PO SCH (09:00)
--- NOTE | 2020-12-11 19:15 | DS.PDOC ---
Discharge Summary General Date of Admission Dec 10, 2020 at 14:36 Date of Discharge 12/11/20 Attending Physician: Anabel Martin MD Discharge Summary HISTORY OF PRESENT ILLNESS: Patient is a 65-year-old male with extensive past medical history including recent syncopal episode, seizure disorder (last known seizure 8 years ago, on seizure prophylaxis medications), CKD Stage III, diastolic CHF, severe pulmonary hypertension, cardiomyopathy, atrial fibrillation on anticoagulation, peripheral neuropathy, anxiety/depression/insomnia who presented to [facility] emergency room on 12/02/2020 after having a witnessed fall at home. According to the patient he was going from room to room when he became lightheaded and dizzy, he did not loose consciousness but fell to the floor. This episode was witnessed by his . He denies chest pain, shortness of breath, fevers, chills, abdominal pain, recent illnesses, increased drowsiness, diarrhea, nausea, vomiting, abdominal pain. He states to have been his baseline prior to this event happening. Only medication change recently has been increasing gabapentin by his neurologist after his last admission to the hospital (). This admission was also for syncopal episode where he was later diagnosed with orthostatic syncope and a fall down the stairs, polypharmacy ( n torsemide and lasix) and hypotension medication related (was on verapamil which was stopped by cardio before). That hospitalization they also did an EEG 10/25/20: EEG in awake and drowsy states, stage 1 and 2 sleep is within normal limits. Echocardiogram: EF 40-45% with findings below under "Imaging". Due to the events at home today the patient was brought into the emergency room for further evaluation by his . In the emergency room, vital signs were stable. Labs were centrally unremarkable aside from Cr 1.8 (baseline 1.5-1.8) since 05/2020. BNP elevated at 4054; however, is chronically elevated in this range. Troponin negative, ECG baseline compared to last on file. CXR: neg for acute findings. While in the hospital room the patient states he was sleeping and does not rhythm her getting up and falling later hitting his head on the left occipital region and left shoulder. He also lost control of his bladder during this time and was found on the floor by nursing staff. He could not recall the events of this happening and according to staff there was not a concern for seizure at that time. The patient had CT of the cervical spine and neck were negative for acute abnormalities. Neuro exam was wnl. Patient states this episode is very similar to how he felt on his prior admission in 10/2020 when he had syncope. Patient was admitted for further evaluation for syncopal episode r/o neuro vs. cardiac cause. HOSPITAL COURSE: Patient had no seizure or syncopal episodes overnight. He performed well with PT and showed no needs for discharge. He had an episode of SOB where his O2 sat dropped but later recovered quickly at rest. He states this is his baseline. There was no acute cause for SOB this admission. He did not get new EEG or Echocardiogram as this was just done in 10/2020. Due to no new symptoms, neg orthostatics and stable VS, patient was d/luis alberto today to follow up with neurology after discharge. He will be sent home with increased dose of keppra BID. At time of discharge, he had no acute complaints. REVIEW OF SYSTEMS: Neg except mentioned above PAST MEDICAL HISTORY: Recent syncope episode Seizure Disorder Hypertrophic obstructive cardiomyopathy Chronic diastolic CHF Severe pulmonary hypertension with right heart failure H/O Alcohol use disorder Paroxysmal atrial fibrillation History of aortic insufficiency. Anxiety/panic attacks. Insomnia. Depression. HLD Low testosterone. PAST SURGICAL HISTORY: Pacemaker AICD placement cardiac catheterization 12/2008 Right ventricular lead from PM replaced because of right lead fracture. SOCIAL HISTORY: Non smoker Non drinker Denies illicit drug use Lives at home with Independent at baseline Full Code FAMILY HISTORY: mother. healthy, at 88 y/o Father. from complication of surgery. at 46 y/o ALLERGIES: Please see below. HOME MEDICATIONS: Please see below. PHYSICAL EXAMINATION: VS : please see below CONSTITUTIONAL: No acute distress, resting comfortably, AAO x 3 EYES: PERRLA, EOM intact HENT, MOUTH: Normocephalic, atraumatic, moist mucous membranes NECK: SUPPLE, no JVD, no lymphadenopathy, no carotid bruit CV: Regular rate and rhythm, S1S2 normal, no murmurs/rubs/gallops RESPIRATORY: Clear to auscultation bilaterally, no rales/rhonchi/wheezes GI: BS positive in 4 quadrants, soft, nontender, nondistended, no rebound or guarding, no organomegaly : Deferred MUSCULOSKELETAL: Normal ROM. No cyanosis, clubbing, swelling, joint deformity, +1 pitting extremity edema in the lower ext b/l INTEGUMENTARY: subcutaneous hematoma on left occipital area of head, old healing wounds on right forehead from fall 10/2020. Otherwise, Intact, no rashes, no erythema NEUROLOGIC: Cranial Nerves II-XII are intact, no focal deficits PSYCHIATRIC: Mood and affect are normal LABORATORY DATA: Please see below IMAGING: CT head, CT cervical spine: No acute findings CXR: no acute findings RLE US: No evidence of deep venous thrombosis of the right lower extremity femoral popliteal. Echo 10/23/20: EF 40-45% Underlying atrial fibrillation with consistent ventricular paced rhythm. Paced QRS complexes LBBB configuration. Somewhat technically challenging study in light of the patients body habitus, but diagnostically useful information was still obtained. Asymmetrical septal hypertrophy with slight septal hypokinesis, but other winkler move normally. Prominently dilated left atrium with current Doppler evidence of mean left atrial pressure upper limits of normal. At least moderately dilated right heart chambers with right ventricular free wall hypertrophy and normal wall motion. Doppler evidence of at least moderately severe pulmonary hypertension. Dilated IVC with reduced respiratory collapse in keeping with an elevated central venous pressure. Normal aortic dimensions. Mildly thickened three equal size aortic cusps with adequate cusp separation, but a degree of premature cusp closure suggestive of a reduced forward stroke volume. Trace aortic insufficiency. Mild degenerative changes of his mitral valve apparatus with adequate leaflet excursion and no obvious anterior systolic motion to suggest subaortic stenosis.Mild-moderate mitral insufficiency. Normal appearing tricuspid valve, but at least rkwm-[id number]-ljxstubs insufficiency. Pacing wires could be visualized traversing right heart structures, but no separate intracardiac mass. Miniscule pericardial effusion. ASSESSMENT: 65-year-old male with extensive past medical history including recent admission for syncope believed to be 2/2 to orthostatic hypotension, seizure disorder (last known seizure 8 years ago, on seizure prophylaxis medications), CKD Stage III, diastolic CHF, severe pulmonary hypertension, cardiomyopathy, atrial fibrillation on anticoagulation, peripheral neuropathy, anxiety/depression/insomnia admitted for further evaluation for syncopal episode r/o neuro vs. cardiac cause. PLAN: Seizure disorder -Likely had seizure here at the hospital in the ER , no seizures since admission -Possibly orthostatic hypotension responsible for near-syncopal episode at home- hard to tell as we have no information from that event -Recent admission for syncope thought to have been 2/2 to orthostatic hypotension but this was not found to be the case this admission- orthostatics neg -Recent EEG neg in 10/2020 for similar issue. Follows regularly with Dr. Carter -Most recent echo from 10/2020 above -Spoke with Neurology, increasing keppra to 1250 mg PO BID . -Follow up with Neuro as o/p after discharge. Hypertrophic obstructive cardiomyopathy /Chronic diastolic CHF /Severe pulmonary hypertension with right heart failure /hx of aortic insufficiency -Most recent echo above -Chronically elevated BNP, not believed to be in exacerbation of CHF ' -Trop neg, ECG within baseline for patient -Followed up in last several weeks with Dr. Mckeon' office, cardiology who did not change medications -C/w home cardiac meds Paroxysmal atrial fibrillation -Paced rhythm -C/w BB and Eliquis BID CKD Stage III -Cr near baseline -C/w torsemide daily -Follow up with PCP after discharge Insomnia/ Anxiety/ panic attacks /depression -Stable -C/w home meds HLD -C/w statin Peripheral neuropathy -C/w gabapentin TID DVT px -Eliquis DISPOSITION: Discharged home today with incr keppra dose BID, f/u with neuro as o/p TIME SPENT ON DISCHARGE: 35 minutes. Vital Signs/I&Os Vital Signs Date Time Temp Pulse Resp B/P (MAP) Pulse Ox O2 Delivery O2 Flow Rate FiO2 12/11/20 08:42 61 114/77 12/11/20 06:00 97.0 16 93 Room Air I&O- Last 24 Hours up to 6 AM 12/11/20 06:00 Intake Total 975 ml Output Total 375 ml Balance 600 ml Laboratory Data Labs 24H Laboratory Tests 2 12/10/20 19:49: Troponin I 0.03 12/11/20 06:12: Nucleated Red Blood Cells % (auto) 0.0, Anion Gap 9, Glomerular Filtration Rate 49.6, Calcium Level 8.8 CBC/BMP Laboratory Tests 12/11/20 06:12 Discharge Medications Scheduled Apixaban (Eliquis) 5 Mg Tab, 5 MG PO BID, (Reported) Atorvastatin Calcium (Atorvastatin Calcium) 20 Mg Tablet, 20 MG PO QHS, (Reported) Gabapentin (Gabapentin) 300 Mg Capsule, 600 MG PO TID, (Reported) Levetiracetam (Keppra) 1,000 Mg Tablet, 1,000 MG PO BID Take a total keppra dose of 1250 mg PO BID Levetiracetam (Keppra) 250 Mg Tablet, 1 TAB PO BID Take a total keppra dose of 1250 mg PO BID Metoprolol Tartrate (Metoprolol Tartrate) 50 Mg Tablet, 50 MG PO BID, (Reported) Torsemide (Torsemide) 20 Mg Tablet, 30 MG PO DAILY, (Reported) Scheduled PRN Zolpidem Tartrate (Zolpidem Tartrate) 10 Mg Tablet, 10 MG PO QHS PRN for SLEEP, (Reported) Allergies Coded Allergies: Sulfa (Sulfonamide Antibiotics) (Verified Allergy, Unknown, 01/07/20) Anabel Martin MD Dec 11, 2020 19:15
== END 2020-12-11 13:54 | disposition home or self-care (01) | DRG 101 ==
LOC: M ED 11:51 → M ED INP 14:36 → M MSPAV 15:54
PROVIDERS: ADMIT Internal Medicine; ATTEND Internal Medicine
DX: G40.909 Epilepsy, unspecified, not intractable, without status epilepticus (principal); I50.32 Chronic diastolic (congestive) heart failure; I42.1 Obstructive hypertrophic cardiomyopathy; I95.1 Orthostatic hypotension; I27.20 Pulmonary hypertension, unspecified; I48.0 Paroxysmal atrial fibrillation; G47.00 Insomnia, unspecified; F41.0 Panic disorder [episodic paroxysmal anxiety]; F32.9 Major depressive disorder, single episode, unspecified; N18.30 Chronic kidney disease, stage 3 unspecified; I50.810 Right heart failure, unspecified; I35.1 Nonrheumatic aortic (valve) insufficiency; E29.1 Testicular hypofunction; Z95.810 Presence of automatic (implantable) cardiac defibrillator; Z79.01 Long term (current) use of anticoagulants; Z79.899 Other long term (current) drug therapy; Z88.2 Allergy status to sulfonamides

== ENCOUNTER 2020-12-17 10:20 | Observation (INO) | payer OTHER ==
[~2020-12-17] VITALS: Ht 170.2 cm; Wt 90.7 kg
[~2020-12-17 10:20] MED LIST changes: +KEPP10002 PO; +KEPP250T5 PO
[2020-12-17] MEDS ORDERED: NS 250 ML IV ONE (10:45)
[2020-12-17 10:57] LABS: BASO # 0.1 10^3/uL (0.0-0.2); BASO % 0.7 % (0.0-1.0); EOS # 0.2 10^3/uL (0.0-0.5); EOS % 1.9 % (0.0-3.0); HEMATOCRIT 43.9 % (42.0-52.0); HEMOGLOBIN 13.7 g/dl (13.5-17.5); LYMPH # 0.7 10^3/uL (1.5-5.0); LYMPH % 9.1 % (24.0-44.0); MEAN CORPUSCULAR HGB CONC 31.2 g/dl (32.0-36.5); MEAN CORPUSCULAR VOLUME 99.3 fl (80.0-96.0); MONO # 0.9 10^3/uL (0.0-0.8); MONO % 11.4 % (2.0-8.0); NEUTROPHILS # 6.2 10^3/uL (1.5-8.5); NEUTROPHILS % 76.5 % (36.0-66.0); PLATELET COUNT, AUTOMATED 277 10^3/uL (150-450); RED BLOOD COUNT 4.42 10^6/uL (4.30-6.10); WHITE BLOOD COUNT 8.1 10^3/uL (4.0-10.0)
--- NOTE | 2020-12-17 11:15 | REP ---
INDICATION: TRAUMA COMPARISON: 12/10/2020 TECHNIQUE: Axial noncontrast images from the skull base to the thoracic inlet with coronal reformations. This CT examination was performed using the following dose reduction techniques: Automated exposure control, adjustment of mA and/or kv according to the patient's size, and use of iterative reconstruction technique. FINDINGS: Age-related atrophy and microvascular ischemic changes are appreciated. The ventricles and sulci are symmetric. Taylor-white differentiation is maintained. There is no evidence for acute intracranial hemorrhage, mass/mass effect, pathology or infarction. No extra-axial fluid collection. Calvarium is intact. Paranasal sinuses and mastoid air cells are clear. Left-sided scalp injuries noted. IMPRESSION: Age related atrophy and microvascular ischemic changes. No acute intracranial hemorrhage, infarction, or mass/mass effect. <Electronically signed by Johann Guerrero > 12/17/20 [id number]
--- NOTE | 2020-12-17 11:17 | REP ---
INDICATION: TRAUMA COMPARISON: None. TECHNIQUE: Axial noncontrast images through the facial bones to include the mandible with coronal and sagittal re-formations. FINDINGS: The osseous structures are intact and there is no evidence for fracture or dislocation. Specifically, the bilateral zygomatic arches, nasal bones, and mandible including bilateral temporomandibular joints appear normal and symmetric. The sinuses and mastoid air cells are all well aerated and clear without fluid level to suggest occult trauma. The bilateral orbits including the globes and intraconal contents appear symmetric and normal. The surrounding soft tissues are grossly unremarkable. Left frontal scalp contusion/hematoma. IMPRESSION: Normal maxillofacial CT. No evidence for acute facial pathology or trauma/injury. Left frontal scalp contusion/hematoma. <Electronically signed by Johann Guerrero > 12/17/20 [id number]
--- NOTE | 2020-12-17 11:21 | REP ---
INDICATION: fall COMPARISON: 12/10/2020 TECHNIQUE: Axial noncontrast images from the skull base to the thoracic inlet with coronal and sagittal re-formations This CT examination was performed using the following dose reduction techniques: Automated exposure control, adjustment of mA and/or kv according to the patient's size, and use of iterative reconstruction technique. FINDINGS: Stable advanced degenerative changes at C5-6, C6-7. Alignment and lordosis maintained. No acute fracture/compression injury or subluxation. Posterior elements and spinous processes are intact. Spinal canal is grossly patent. Paravertebral soft tissues are normal. IMPRESSION: Stable degenerative spondylosis. No evidence for acute pathology or trauma/injury. <Electronically signed by Johann Guerrero > 12/17/20 [id number]
[2020-12-17 11:23] LABS: INR 1.73; PROTHROMBIN TIME 20.6 SECONDS (12.5-14.3)
[2020-12-17 11:25] LABS: PARTIAL THROMBOPLASTIN TIME 38.7 SECONDS (24.2-38.5)
--- NOTE | 2020-12-17 11:43 | REP ---
INDICATION: fal;l COMPARISON: None. TECHNIQUE: AP and lateral views of the left humerus. FINDINGS: The osseous structures and joint spaces are intact and normal. There is no evidence for acute fracture or dislocation. Surrounding soft tissues are unremarkable. No subcutaneous emphysema or radiodense foreign body. IMPRESSION: . No acute fracture or dislocation. <Electronically signed by Johann Guerrero > 12/17/20 0915
[2020-12-17] MEDS ORDERED: GABA600T4 PO (11:44)
--- NOTE | 2020-12-17 11:44 | REP ---
INDICATION: left shoulder COMPARISON: 12/10/2020 TECHNIQUE: Portable AP view of the chest FINDINGS: Stable cardiomegaly and pacemaker positioning. No focal consolidation, effusion, or pneumothorax. Skeletal structures intact. IMPRESSION: Stable cardiomegaly. No focal consolidation. <Electronically signed by Johann Guerrero > 12/17/20 [id number]
--- NOTE | 2020-12-17 11:44 | REP ---
INDICATION: left shoulder COMPARISON: None. TECHNIQUE: Internal rotation, external rotation, and Y view. FINDINGS: No acute fracture or dislocation. The acromioclavicular and glenohumeral joints are intact. No periarticular calcifications or degenerative changes are appreciated. Sub acromial space is normal. Surrounding soft tissues are unremarkable. IMPRESSION: Normal age-appropriate left shoulder radiographs. <Electronically signed by Johann Guerrero > 12/17/20 1236
[2020-12-17 11:54] LABS: ACETAMINOPHEN LEVEL < 2.0 UG/ML (10.0-30.0); BLOOD UREA NITROGEN 40 MG/DL (7-18); CALCIUM LEVEL 8.9 MG/DL (8.8-10.2); CARBON DIOXIDE LEVEL 28 MEQ/L (21-32); CHLORIDE LEVEL 109 MEQ/L (98-107); CK-MB VALUE MASS 1.7 NG/ML (<3.6); CPK CREATINE PHOSPHOKINASE 45 U/L (39-308); CREATININE FOR GFR 1.44 MG/DL (0.70-1.30); ETHYL ALCOHOL (ETHANOL) 0.066 % (0.000-0.010); GLOMERULAR FILTRATION RATE 52.7 (>49); GLUCOSE, FASTING 95 MG/DL (70-100); MB/CK RELATIVE INDEX 3.78 (< OR =4); POTASSIUM SERUM 4.2 MEQ/L (3.5-5.1); SALICYLATE LEVEL < 1.7 MG/DL (5.0-30.0); SODIUM LEVEL 142 MEQ/L (136-145); TROPONIN I 0.02 NG/ML (< 0.10)
[2020-12-17 11:55] LABS: RSV AMPLIFICATION NEGATIVE (NEGATIVE)
[2020-12-17] MEDS ORDERED: LEVE250T5 PO (11:59)
[2020-12-17] MEDS ORDERED: KEPP10002 PO (11:59)
[2020-12-17] MEDS ORDERED: BOOSTRIX/ADACEL VACCINE (DIPHTH/PERTUSS/ACELL/TETANUS) 0.5ML SYR IM ONE (12:00)
--- NOTE | 2020-12-17 12:23 | ECGEPIP ---
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
[2020-12-17] MEDS ORDERED: MAALOX 30 ML SUSP *UDC PO PRN (14:10)
[2020-12-17] MEDS ORDERED: ACETAMINOPHEN TAB 650MG DOSE (2X325MG) PO PRN (14:10)
[2020-12-17] MEDS ORDERED: MOM 30ML SUSPENSION UDC PO PRN (14:10)
[2020-12-17 15:38] VITALS: BP 127/88
--- NOTE | 2020-12-17 15:55 | HPEPDOC ---
[facility] Medical History & Physical Date of Admission Dec 17, 2020 Date of Service: Dec 17, 2020 History and Physical CHIEF COMPLAINT: fall, forehead laceration HISTORY OF PRESENT ILLNESS: 65 yo M with a hx of recent syncopal e pisodes/suspect orthostasis, seizure disorder (follows with Dr. Vela), paroxysmal afib (on eliquis), diastolic CHF, severe pulmonary HTN, CKD III, peripheral neuropathy, anxiety, depression, insomnia. He was recently admitted from 12/10 - 12/11/20 for a fall, thought to be due to a seizure or possibly a syncopal episode. He had a negative EEG and echo during a prior admission in 11/02. Keppra was increased to 1250 mg twice a day. Once cleared by PT, he was discharged home. Patient returns after a fall at home this morning, she denies loss of consciousness, submammary, loss of bladder control. No postictal phase. He denies any chest pain, shortness of breath, dizziness, lightheadedness or palpitations during the event. He sustained a laceration to his left forehead as well as his left arm. On arrival he was found to be hypertensive to the 86/59. He received a small bolus of fluid, given his history of heart failure of 250 mL this pressure rebounded to normal limits. Vitals reviewed at time of admission: 134/87. 60. SpO2 100%. T 96.7. Labs reviewed. WBC 8.1. Hgb 13.7. Na 142. K 4.2. Cr 1.44. BUN 40. Trop 0.02. CK 45. Patient will be admitted to tele floor under hospitalist service for observation. PAST MEDICAL HISTORY: Recent syncope episode Seizure Disorder Hypertrophic obstructive cardiomyopathy Chronic diastolic CHF Severe pulmonary hypertension with right heart failure H/O Alcohol use disorder Paroxysmal atrial fibrillation History of aortic insufficiency. Anxiety/panic attacks. Insomnia. Depression. HLD Low testosterone. PAST SURGICAL HISTORY: Pacemaker AICD placement cardiac catheterization 12/2008 Right ventricular lead from PM replaced because of right lead fracture. SOCIAL HISTORY: Non smoker Non drinker Denies illicit drug use Lives at home with Independent at baseline Full Code FAMILY HISTORY: mother. healthy, at 88 y/o Father. from complication of surgery. at 46 y/o ALLERGIES: Please see below. REVIEW OF SYSTEMS: 10 point ROS was completed, relevant findings were noted in HPI HOME MEDICATIONS: Please see below. PHYSICAL EXAMINATION: VITAL SIGNS: please see below General: NAD, comfortable HEENT: PERRLA, EOMI, sclerae clear. L forehead swelling with small bloody trickle, dressed. Neck: supple, normal ROM, no JVD Respiratory: lungs CTAB, no wheeze, no rales, no crackles CVS: RRR, normal S1, S2, no murmurs Abdo: soft, no masses, no hepatosplenomegaly, BS+, no rebound tenderness Extremities: no edema, pulses 2+ MSK: no joint deformities, normal ROM Neuro: no focal neuro deficits, moving all 4 extremities, CN2-12 intact. Strength 5/5 in all 4 extremities. No nystagmus. Psych: calm, cooperative, AAO x 3 LABORATORY DATA: See below. IMAGING: Humerus L XR (12/17/20): No acute fracture or dislocation. CXR (12/17/20): Stable cardiomegaly. No focal consolidation Shoulder XR (L) (12/17/20): Normal age-appropriate left shoulder radiographs. CT c-spine (12/17/20): Stable degenerative spondylosis. No evidence for acute pathology or trauma/injury. CT head wo contrast (12/17/20): Age related atrophy and microvascular ischemic changes. No acute intracranial hemorrhage, infarction, or mass/mass effect. Maxillofacial CT (12/17/20): Age related atrophy and microvascular ischemic changes. No acute intracranial hemorrhage, infarction, or mass/mass effect. Of note, ECHO (10/23/20): EF 40-45% -Underlying atrial fibrillation with consistent ventricular paced rhythm. Paced QRS complexes LBBB configuration. -Somewhat technically challenging study in light of the patients body habitus, but diagnostically useful information was still obtained. -Asymmetrical septal hypertrophy with slight septal hypokinesis, but other winkler move normally. -Prominently dilated left atrium with current Doppler evidence of mean left atrial pressure upper limits of normal. -At least moderately dilated right heart chambers with right ventricular free wall hypertrophy and normal wall motion. Doppler evidence of at least moderately severe pulmonary hypertension. -Dilated IVC with reduced respiratory collapse in keeping with an elevated central venous pressure. -Normal aortic dimensions. -Mildly thickened three equal size aortic cusps with adequate cusp separation, but a degree of premature cusp closure suggestive of a reduced forward stroke volume. Trace aortic insufficiency. -Mild degenerative changes of his mitral valve apparatus with adequate leaflet excursion and no obvious anterior systolic motion to suggest subaortic stenosis.Mild-moderate mitral insufficiency. -Normal appearing tricuspid valve, but at least [id number] insufficiency. -Pacing wires could be visualized traversing right heart structures, but no separate intracardiac mass. -Miniscule pericardial effusion. MICROBIOLOGY: Please see below. ASSESSMENT: 65 yo M with a hx of recent syncopal episodes/suspect orthostasis, seizure disorder (follows with Dr. Vela), paroxysmal afib (on eliquis), diastolic CHF, severe pulmonary HTN, CKD III, peripheral neuropathy, anxiety, depression, insomnia. Admitted for PT/OT and BP monitoring. . PLAN: Fall - patient reports that he had not memory loss during the event - states no seizure event, denies syncope, denies shortness of breath, denies chest pain or palpitations - check orthostatics - recent echo done on 10/23/20 as above, during prior admission - known hx of paroxysmal afib - ASHLEY stockings - PT and OT evaluation Seizure disorder -Recent EEG negative in 10/[address] Carter -Most recent echo from 10/2020 is described above -during most recent admission, neurology recommended increase of keppra to 1250 mg bid -pending follow up with Dr. Vela. Hypertrophic obstructive cardiomyopathy /Chronic diastolic CHF /Severe pulmonary hypertension with right heart failure /hx of aortic insufficiency -Most recent echo above -appears euvolemic, chronically elevated BNP -Trop neg, ECG at baseline -Follows with Dr. Mckeon in clinic, last seen in past 2 months, without med change -C/w home cardiac meds Paroxysmal atrial fibrillation -Paced rhythm -C/w BB and Eliquis BID CKD Stage III -Cr below baseline, 1.44 -C/w torsemide daily -Follow up with PCP after discharge Insomnia/ Anxiety/ panic attacks /depression -Stable -C/w home meds HLD -C/w statin Peripheral neuropathy -C/w gabapentin TID DVT px -Eliquis Vital Signs Vital Signs Date Time Temp Pulse Resp B/P (MAP) Pulse Ox O2 Delivery O2 Flow Rate FiO2 12/17/20 15:30 134/87 (103) 12/17/20 15:24 60 100 12/17/20 12:07 96.7 12/17/20 10:44 18 Nasal Cannula 2.0 Laboratory Data Labs 24H Laboratory Tests 2 12/17/20 10:44: Prothrombin Time 20.6H, Prothromb Time International Ratio 1.73, Activated Partial Thromboplast Time 38.7H 12/17/20 10:45: Immature Granulocyte % (Auto) 0.4, Neutrophils (%) (Auto) 76.5H, Lymphocytes (%) (Auto) 9.1L, Monocytes (%) (Auto) 11.4H, Eosinophils (%) (Auto) 1.9, Basophils (%) (Auto) 0.7, Neutrophils # (Auto) 6.2, Lymphocytes # (Auto) 0.7L, Monocytes # (Auto) 0.9H, Eosinophils # (Auto) 0.2, Basophils # (Auto) 0.1, Nucleated Red Blood Cells % (auto) 0.0, Anion Gap 5L, Glomerular Filtration Rate 52.7, Calcium Level 8.9, Total Creatine Kinase 45, Creatine Kinase MB 1.7, Creatine Kinase MB Relative Index 3.78, Troponin I 0.02, Salicylates Level < 1.7L, Acetaminophen Level < 2.0L, Ethyl Alcohol Level 0.066H 12/17/20 10:58: POC Glucose (Misc Panel) 96, POC Sodium (Misc Panel) 141, POC Potassium (Misc Pa garht) 4.0, POC Chloride (Misc Panel) 106, POC Total CO2 (Misc Panel) 25.0, POC Blood Urea Nitrogen (Misc Panel 36H, POC Ionized Calcium (Misc Panel) 5.1, POC Creatinine (Misc Panel) 1.5H, POC Hematocrit (Misc Panel) 44.0, Coronavirus (COVID-19)(PCR) NEGATIVE, Influenza Type A (RT-PCR) NEGATIVE, Influenza Type B (RT-PCR) NEGATIVE, Respiratory Syncytial Virus (PCR) NEGATIVE CBC/BMP Laboratory Tests 12/17/20 10:45 Home Medications Scheduled Apixaban (Eliquis) 5 Mg Tab, 5 MG PO BID Atorvastatin Calcium (Atorvastatin Calcium) 20 Mg Tablet, 20 MG PO QHS Gabapentin (Gabapentin) 600 Mg Tablet, 600 MG PO TID Levetiracetam (Keppra) 1,000 Mg Tablet, 1,000 MG PO BID TAKE WITH 250MG. TOTAL OF 1250MG BID Levetiracetam (Levetiracetam) 250 Mg Tablet, 250 MG PO BID TAKE WITH 1000MG. TOTAL OF 1250MG BID Metoprolol Tartrate (Metoprolol Tartrate) 50 Mg Tablet, 50 MG PO BID Torsemide (Torsemide) 20 Mg Tablet, 30 MG PO DAILY Scheduled PRN Zolpidem Tartrate (Zolpidem Tartrate) 10 Mg Tablet, 10 MG PO QHS PRN for SLEEP Allergies Coded Allergies: Sulfa (Sulfonamide Antibiotics) (Verified Allergy, Unknown, 01/07/20) ABDIAS RANDALL MD Dec 17, 2020 15:55
[2020-12-17] MEDS: GABAPENTIN 300 MG CAP PO SCH ×2 (18:02→20:28)
[2020-12-17 18:10] VITALS: BP_SYST 119; BP_SYST 125; BP_DIAS 74; BP_DIAS 88
[2020-12-17] MEDS: levETIRAcetam 250MG TABLET (KEPPRA) PO SCH (20:29)
[2020-12-17] MEDS: DOCUSATE SODIUM 100MG CAPSULE PO SCH (20:29)
[2020-12-17] MEDS: METOPROLOL TART 50 MG TAB PO SCH (20:30)
[2020-12-17] MEDS: APIXABAN 5 MG TAB (ELIQUIS) PO SCH (20:30)
[2020-12-17] MEDS ORDERED: levETIRAcetam 250MG TABLET (KEPPRA) PO SCH (21:00)
[2020-12-17] MEDS ORDERED: ATORVASTATIN 20 MG TAB PO SCH (21:00)
[2020-12-17 22:00] VITALS: BP 119/88
[2020-12-18 06:00] VITALS: BP 129/83
[2020-12-18 07:53] LABS: BASO # 0.1 10^3/uL (0.0-0.2); BASO % 0.7 % (0.0-1.0); EOS # 0.1 10^3/uL (0.0-0.5); EOS % 1.6 % (0.0-3.0); HEMATOCRIT 45.6 % (42.0-52.0); HEMOGLOBIN 14.1 g/dl (13.5-17.5); LYMPH # 1.3 10^3/uL (1.5-5.0); LYMPH % 14.6 % (24.0-44.0); MEAN CORPUSCULAR HEMOGLOBIN 30.7 pg (27.0-33.0); MEAN CORPUSCULAR HGB CONC 30.9 g/dl (32.0-36.5); MEAN CORPUSCULAR VOLUME 99.3 fl (80.0-96.0); MONO % 11.3 % (2.0-8.0); NEUTROPHILS # 6.1 10^3/uL (1.5-8.5); NEUTROPHILS % 71.5 % (36.0-66.0); PLATELET COUNT, AUTOMATED 286 10^3/uL (150-450); RED BLOOD COUNT 4.59 10^6/uL (4.30-6.10); WHITE BLOOD COUNT 8.6 10^3/uL (4.0-10.0)
[2020-12-18 08:19] LABS: ALBUMIN 3.3 GM/DL (3.2-5.2); BILIRUBIN,TOTAL 1.1 MG/DL (0.2-1.0); CALCIUM LEVEL 8.8 MG/DL (8.8-10.2); CREATININE FOR GFR 1.46 MG/DL (0.70-1.30); GLOMERULAR FILTRATION RATE 51.9 (>49); MAGNESIUM LEVEL 2.4 MG/DL (1.8-2.4); POTASSIUM SERUM 4.6 MEQ/L (3.5-5.1)
[2020-12-18] MEDS ORDERED: TORSEMIDE 10 MG TABLET PO SCH (09:00)
[2020-12-18] MEDS: GABAPENTIN 300 MG CAP PO SCH (09:13)
[2020-12-18 09:14] VITALS: BP 119/74
[2020-12-18] MEDS: METOPROLOL TART 50 MG TAB PO SCH (09:14)
[2020-12-18] MEDS: APIXABAN 5 MG TAB (ELIQUIS) PO SCH (09:14)
[2020-12-18] MEDS: DOCUSATE SODIUM 100MG CAPSULE PO SCH (09:14)
[2020-12-18] MEDS: levETIRAcetam 250MG TABLET (KEPPRA) PO SCH (09:14)
[2020-12-18 09:15] VITALS: BP_SYST 109; BP_SYST 119; BP_SYST 123; BP_DIAS 71; BP_DIAS 72; BP_DIAS 74
--- NOTE | 2020-12-18 11:30 | DS.PDOC ---
Discharge Summary General Date of Admission Dec 17, 2020 at 14:06 Date of Discharge 12/18/20 Discharge Summary PROCEDURES PERFORMED DURING STAY: [None]. ADMITTING DIAGNOSES: 1. . DISCHARGE DIAGNOSES: 1. . COMPLICATIONS/CHIEF COMPLAINT: Closed Head Injury, Fall, Hypotension. HISTORY OF PRESENT ILLNESS:65 yo M with a hx of recent syncopal episodes/suspect orthostasis, seizure disorder (follows with Dr. Vela), paroxysmal afib (on eliquis), diastolic CHF, severe pulmonary HTN, CKD III, peripheral neuropathy, anxiety, depression, insomnia. He was recently admitted from 12/10 - 12/11/20 for a fall, thought to be due to a seizure or possibly a syncopal episode. He had a negative EEG and echo during a prior admission in 11/02. Keppra was increased to 1250 mg twice a day. Once cleared by PT, he was discharged home. Patient returns after a fall at home this morning, she denies loss of consciousness, subma mmary, loss of bladder control. No postictal phase. He denies any chest pain, shortness of breath, dizziness, lightheadedness or palpitations during the event. He sustained a laceration to his left forehead as well as his left arm. On arrival he was found to be hypertensive to the 86/59. He received a small bolus of fluid, given his history of heart failure of 250 mL this pressure rebounded to normal limits. Vitals reviewed at time of admission: 134/87. 60. SpO2 100%. T 96.7. Labs reviewed. WBC 8.1. Hgb 13.7. Na 142. K 4.2. Cr 1.44. BUN 40. Trop 0.02. CK 45. Patient will be admitted to tele floor under hospitalist service for observation. HOSPITAL COURSE: Fall - patient reports that he had not memory loss during the event - states no seizure event, denies syncope, denies shortness of breath, denies chest pain or palpitations - check orthostatics - recent echo done on 10/23/20 as above, during prior admission - known hx of paroxysmal afib - ASHLEY stockings - PT and OT evaluation Seizure disorder -Recent EEG negative in 10/[address] Carter -Most recent echo from 10/2020 is described above -during most recent admission, neurology recommended increase of keppra to 1250 mg bid -pending follow up with Dr. Vela. Hypertrophic obstructive cardiomyopathy /Chronic diastolic CHF /Severe pulmonary hypertension with right heart failure /hx of aortic insufficiency -Most recent echo above -appears euvolemic, chronically elevated BNP -Trop neg, ECG at baseline -Follows with Dr. Mckeon in clinic, last seen in past 2 months, without med change -C/w home cardiac meds Paroxysmal atrial fibrillation -Paced rhythm -C/w BB and Eliquis BID CKD Stage III -Cr below baseline, 1.44 -C/w torsemide daily -Follow up with PCP after discharge Insomnia/ Anxiety/ panic attacks /depression -Stable -C/w home meds HLD -C/w statin Peripheral neuropathy -C/w gabapentin TID DVT px -Eliquis DISCHARGE MEDICATIONS: Please see below. ALLERGIES: Please see below. PHYSICAL EXAMINATION ON DISCHARGE: VITAL SIGNS: Please see below. GENERAL: HEENT: NECK: CARDIOVASCULAR EXAMINATION: RESPIRATORY EXAMINATION: ABDOMINAL EXAMINATION: EXTREMITIES: SKIN: NEUROLOGICAL EXAMINATION: PSYCHIATRIC EXAMINATION: LABORATORY DATA: Please see below. IMAGING: PROGNOSIS: ACTIVITY: [As tolerated]. DIET: DISCHARGE PLAN: DISPOSITION: . DISCHARGE INSTRUCTIONS: 1. . ITEMS TO FOLLOWUP ON ON OUTPATIENT: 1. . DISCHARGE CONDITION: [Stable]. TIME SPENT ON DISCHARGE: Greater than minutes. Vital Signs/I&Os Vital Signs Date Time Temp Pulse Resp B/P (MAP) Pulse Ox O2 Delivery O2 Flow Rate FiO2 12/18/20 09:15 62 119/74 (89) 61 109/72 (84) 65 123/71 (88) 12/18/20 06:00 97.9 20 98 12/17/20 15:38 Room Air 12/17/20 10:44 2.0 I&O- Last 24 Hours up to 6 AM 12/18/20 06:00 Intake Total 1260 ml Output Total 550 ml Balance 710 ml Laboratory Data Labs 24H Laboratory Tests 2 12/18/20 07:38: Immature Granulocyte % (Auto) 0.3, Neutrophils (%) (Auto) 71.5H, Lymphocytes (%) (Auto) 14.6L, Monocytes (%) (Auto) 11.3H, Eosinophils (%) (Auto) 1.6, Basophils (%) (Auto) 0.7, Neutrophils # (Auto) 6.1, Lymphocytes # (Auto) 1.3L, Monocytes # (Auto) 1.0H, Eosinophils # (Auto) 0.1, Basophils # (Auto) 0.1, Nucleated Red Blood Cells % (auto) 0.0, Anion Gap 5L, Glomerular Filtration Rate 51.9, Calcium Level 8.8, Magnesium Level 2.4, Total Bilirubin 1.1H, Aspartate Amino Transf (AST/SGOT) 26, Alanine Aminotransferase (ALT/SGPT) 39, Alkaline Phosphatase 138H, Total Protein 7.0, Albumin 3.3, Albumin/Globulin Ratio 0.9 CBC/BMP Laboratory Tests 12/18/20 07:38 Discharge Medications Scheduled Apixaban (Eliquis) 5 Mg Tab, 5 MG PO BID, (Reported) Atorvastatin Calcium (Atorvastatin Calcium) 20 Mg Tablet, 20 MG PO QHS, (Reported) Gabapentin (Gabapentin) 600 Mg Tablet, 600 MG PO TID, (Reported) Levetiracetam (Keppra) 1,000 Mg Tablet, 1,000 MG PO BID, (Reported) TAKE WITH 250MG. TOTAL OF 1250MG BID Levetiracetam (Levetiracetam) 250 Mg Tablet, 250 MG PO BID, (Reported) TAKE WITH 1000MG. TOTAL OF 1250MG BID Metoprolol Tartrate (Metoprolol Tartrate) 50 Mg Tablet, 50 MG PO BID, (Reported) Torsemide (Torsemide) 20 Mg Tablet, 30 MG PO DAILY, (Reported) Scheduled PRN Zolpidem Tartrate (Zolpidem Tartrate) 10 Mg Tablet, 10 MG PO QHS PRN for SLEEP, (Reported) Allergies Coded Allergies: Sulfa (Sulfonamide Antibiotics) (Verified Allergy, Unknown, 01/07/20) ABDIAS RANDALL MD Dec 18, 2020 11:30
[2020-12-18] MEDS ORDERED: ACET1TAB55 PO (12:46)
== END 2020-12-18 14:09 | disposition home or self-care (01) ==
LOC: M ED 10:20 → M ED INP 14:06 → ENRESERV 14:38 → M MSPAV 15:38
PROVIDERS: ADMIT Family Medicine; ATTEND Family Medicine
DX: S09.90XA Unspecified injury of head, initial encounter (principal); W19.XXXA Unspecified fall, initial encounter; Y92.009 Unspecified place in unspecified non-institutional (private) residence as the place of occurrence of the external cause; Y93.9 Activity, unspecified; Y99.9 Unspecified external cause status; I95.1 Orthostatic hypotension; G40.909 Epilepsy, unspecified, not intractable, without status epilepticus; I48.0 Paroxysmal atrial fibrillation; Z79.01 Long term (current) use of anticoagulants; I50.32 Chronic diastolic (congestive) heart failure; I27.0 Primary pulmonary hypertension; N18.30 Chronic kidney disease, stage 3 unspecified; F41.9 Anxiety disorder, unspecified; F32.9 Major depressive disorder, single episode, unspecified; G47.00 Insomnia, unspecified; Z88.2 Allergy status to sulfonamides; Z79.899 Other long term (current) drug therapy; Z95.0 Presence of cardiac pacemaker; Z91.81 History of falling

== ENCOUNTER → 2021-01-03 | Outpatient (CLI) | payer OTHER ==
[~2021-01-03] MED LIST changes: +ACET1TAB55 PO; +GABA600T4 PO; +LEVE250T5 PO
--- NOTE | 2021-01-03 09:53 | REP ---
INDICATION: CONTUSION. COMPARISON: Comparison radiographs December 17, 2020.. TECHNIQUE: Four views of the left shoulder are provided. FINDINGS: There is a multilead pacemaker power plant in the left subclavicular soft tissues. There is diffuse osteopenia. The left glenohumeral and acromioclavicular joints are normally aligned. No fracture or subluxation is seen. Periarticular soft tissues are unremarkable. No change from December 17, 2020 radiographs. IMPRESSION: Mild diffuse osteopenia. Left-sided pacemaker noted. No acute bony abnormality. <Electronically signed by Ramsey Young > 01/03/21 0994
--- NOTE | 2021-01-03 09:54 | REP ---
INDICATION: CONTUSION. COMPARISON: Comparison left shoulder radiographs December 17, 2020.. TECHNIQUE: Two views. FINDINGS: AP and tube angled views of the left clavicle show normal alignment of the acromioclavicular and manubrial clavicular articulations. No clavicle fracture or subluxation is seen. Left-sided pacemaker leads are noted. IMPRESSION: Negative radiographs of the left clavicle. <Electronically signed by Ramsey Young > 01/03/21 2072
--- NOTE | 2021-01-03 10:27 | REP ---
INDICATION: CONTUSION. COMPARISON: Comparison left shoulder and humerus radiographs December 17, 2020.. TECHNIQUE: Five views of the left humerus are provided. FINDINGS: Five views of the left humerus demonstrate normal bones, joints, and soft tissues. No fracture or subluxation is seen. No opaque foreign body noted. Pacemaker is noted on the left. There is mild diffuse osteopenia. IMPRESSION: Negative left humerus series. <Electronically signed by Ramsey Young > 01/03/21 1024
== END ==
LOC: M WUC 08:50
PROVIDERS: ATTEND Physician Assistant
DX: S40.012A Contusion of left shoulder, initial encounter (principal); X58.XXXA Exposure to other specified factors, initial encounter; Y92.89 Other specified places as the place of occurrence of the external cause; Y93.89 Activity, other specified; Y99.8 Other external cause status; M89.8X1 Other specified disorders of bone, shoulder; Z95.0 Presence of cardiac pacemaker

== ENCOUNTER → 2021-01-16 | Outpatient (CLI) | payer OTHER ==
[2021-01-16 18:08] LABS: HEMATOCRIT 47.8 % (42.0-52.0); HEMOGLOBIN 14.7 g/dl (13.5-17.5); MEAN CORPUSCULAR HGB CONC 30.8 g/dl (32.0-36.5); MEAN CORPUSCULAR VOLUME 100.8 fl (80.0-96.0); PLATELET COUNT, AUTOMATED 207 10^3/uL (150-450); RED BLOOD COUNT 4.74 10^6/uL (4.30-6.10); WHITE BLOOD COUNT 8.7 10^3/uL (4.0-10.0)
[2021-01-16 18:31] LABS: BLOOD UREA NITROGEN 27 MG/DL (7-18); CALCIUM LEVEL 9.7 MG/DL (8.8-10.2); CARBON DIOXIDE LEVEL 21 MEQ/L (21-32); CHLORIDE LEVEL 111 MEQ/L (98-107); CREATININE FOR GFR 1.16 MG/DL (0.70-1.30); GLOMERULAR FILTRATION RATE > 60.0 (>49); GLUCOSE, FASTING 120 MG/DL (70-100); MAGNESIUM LEVEL 1.9 MG/DL (1.8-2.4); NT-PRO BNP 3356 PG/ML (<125); SODIUM LEVEL 143 MEQ/L (136-145)
== END ==
LOC: M WUC 10:34
PROVIDERS: ATTEND Physician Assistant
DX: I50.32 Chronic diastolic (congestive) heart failure (principal); E83.42 Hypomagnesemia

== ENCOUNTER → 2021-01-16 | Outpatient (CLI) | payer OTHER | LOC: M WUC 10:30 | PROVIDERS: ATTEND Physician Assistant Medical | DX: R56.9 Unspecified convulsions (principal) ==

== ENCOUNTER 2021-02-10 15:46 | Emergency (ER) | payer OTHER ==
[~2021-02-10] VITALS: Ht 167.6 cm; Wt 88.6 kg
--- NOTE | 2021-02-10 16:27 | REP ---
INDICATION: syncope vs seizure; ?injury COMPARISON: 12/17/2020 TECHNIQUE: Axial noncontrast images from the skull base to the thoracic inlet with coronal reformations. This CT examination was performed using the following dose reduction techniques: Automated exposure control, adjustment of mA and/or kv according to the patient's size, and use of iterative reconstruction technique. FINDINGS: Age-related atrophy and microvascular ischemic changes are appreciated. The ventricles and sulci are symmetric. Taylor-white differentiation is maintained. There is no evidence for acute intracranial hemorrhage, mass/mass effect, pathology or infarction. No extra-axial fluid collection. Calvarium is intact. Paranasal sinuses and mastoid air cells are clear. IMPRESSION: Age related atrophy and microvascular ischemic changes. No acute intracranial hemorrhage, infarction, or mass/mass effect. <Electronically signed by Johann Guerrero > 02/10/21 0452
[2021-02-10 16:29] LABS: BASO # 0.1 10^3/uL (0.0-0.2); BASO % 0.9 % (0.0-1.0); EOS # 0.1 10^3/uL (0.0-0.5); EOS % 0.7 % (0.0-3.0); HEMATOCRIT 52.2 % (42.0-52.0); HEMOGLOBIN 16.1 g/dl (13.5-17.5); LYMPH # 1.1 10^3/uL (1.5-5.0); LYMPH % 13.2 % (24.0-44.0); MEAN CORPUSCULAR HEMOGLOBIN 31.4 pg (27.0-33.0); MEAN CORPUSCULAR HGB CONC 30.8 g/dl (32.0-36.5); MEAN CORPUSCULAR VOLUME 101.8 fl (80.0-96.0); MONO # 0.8 10^3/uL (0.0-0.8); MONO % 9.4 % (2.0-8.0); NEUTROPHILS # 6.4 10^3/uL (1.5-8.5); NEUTROPHILS % 75.3 % (36.0-66.0); PLATELET COUNT, AUTOMATED 189 10^3/uL (150-450); RED BLOOD COUNT 5.13 10^6/uL (4.30-6.10); WHITE BLOOD COUNT 8.5 10^3/uL (4.0-10.0)
--- NOTE | 2021-02-10 16:30 | REP ---
INDICATION: syncope vs seizure; ?injury COMPARISON: 12/17/2020 TECHNIQUE: Axial noncontrast images from the skull base to the thoracic inlet with coronal and sagittal re-formations This CT examination was performed using the following dose reduction techniques: Automated exposure control, adjustment of mA and/or kv according to the patient's size, and use of iterative reconstruction technique. FINDINGS: Normal alignment and lordosis is maintained. Cervical vertebral bodies including transverse processes and spinous processes are intact and there is no evidence for acute fracture / compression injury or subluxation. Spinal canal is patent. Posterior elements are intact. Advanced degenerative changes are noted at C5-6, C6-7 and C7-T1 including endplate sclerosis, osteophytosis, and disc space narrowing along with facet hypertrophy and narrowing to the neural foramen. Moderate age-related degenerative changes are noted throughout the remainder of the cervical spine. IMPRESSION: Moderate to advanced multilevel degenerative spondylosis relatively stable. No acute fracture/compression injury or subluxation. <Electronically signed by Johann Guerrero > 02/10/21 6525
--- NOTE | 2021-02-10 16:31 | REP ---
INDICATION: CHEST PAIN COMPARISON: 12/17/2020 TECHNIQUE: Portable AP view of the chest FINDINGS: The mediastinum and cardiac silhouette again demonstrate cardiomegaly and chronic interstitial edema cannot be excluded. No obvious focal consolidation, effusion, or pneumothorax. Skeletal structures are intact. IMPRESSION: Chronic cardiomegaly and chronic interstitial changes. <Electronically signed by Johann Guerrero > 02/10/21 3217
[2021-02-10 16:44] LABS: INR 1.69; PROTHROMBIN TIME 20.3 SECONDS (12.5-14.3)
[2021-02-10 16:45] LABS: PARTIAL THROMBOPLASTIN TIME 34.3 SECONDS (24.2-38.5)
[2021-02-10 17:03] LABS: ALBUMIN 3.8 GM/DL (3.2-5.2); BILIRUBIN,DIRECT 0.4 MG/DL (0.0-0.2); BILIRUBIN,TOTAL 0.9 MG/DL (0.2-1.0); CALCIUM LEVEL 9.4 MG/DL (8.8-10.2); CREATININE FOR GFR 1.68 MG/DL (0.70-1.30); ETHYL ALCOHOL (ETHANOL) 0.093 % (0.000-0.010); GLOMERULAR FILTRATION RATE 44.2 (>49); POTASSIUM SERUM 5.2 MEQ/L (3.5-5.1); THYROID STIMULATING HORMONE 7.07 uIU/ML (0.358-3.740); TOTAL PROTEIN 7.6 GM/DL (6.4-8.2)
[2021-02-10] MEDS ORDERED: NS 1,000 ML IV ONE (17:20)
[2021-02-10 18:00] VITALS: BP 127/80
--- NOTE | 2021-02-10 19:23 | ECGEPIP ---
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
== END 2021-02-10 18:41 | disposition left against medical advice (07) ==
LOC: M ED 15:46 → EDBD 15:46 → M ED 18:41
DX: R55 Syncope and collapse (principal); I10 Essential (primary) hypertension; G40.909 Epilepsy, unspecified, not intractable, without status epilepticus; E78.5 Hyperlipidemia, unspecified; Z95.0 Presence of cardiac pacemaker; Z79.899 Other long term (current) drug therapy; Z79.01 Long term (current) use of anticoagulants; Z88.1 Allergy status to other antibiotic agents; Z88.2 Allergy status to sulfonamides

== ENCOUNTER → 2021-02-13 | Outpatient (CLI) | payer OTHER ==
--- NOTE | 2021-02-13 14:19 | REPPI ---
INDICATION: R07.89 OTHER CHEST PAIN. COMPARISON: Comparison chest x-ray 10 Feb 2021.. TECHNIQUE: Seven views including AP chest x-ray. FINDINGS: Chest x-ray today demonstrates elevation of the right hemidiaphragm. There is an infiltrate in the right base above the elevated right hemidiaphragm. Moderate cardiac enlargement is seen with a [address] via the left side. Pulmonary vasculature is cephalized. Vascular and interstitial markings are improved from the 10 Feb 2021 radiograph. No left pleural effusion is seen. No pneumothorax is noted. Multiple views of the right rib cage demonstrate mild diffuse osteopenia. Oblique radiograph demonstrates a nondisplaced acute fracture of the and of the right 7th anterolateral rib. No other rib fracture is appreciated. IMPRESSION: Right 7th anterolateral rib fracture. Elevated right hemidiaphragm cardiomegaly. Increased lung markings right base consistent with infiltrate. <Electronically signed by Ramsey Young > 02/13/21 [id number]
== END ==
LOC: M PLAIMG 13:35
PROVIDERS: ATTEND Nurse Practitioner Family
DX: R07.89 Other chest pain (principal)

== ENCOUNTER → 2021-03-23 | Outpatient (CLI) | payer OTHER | LOC: M WUC 09:25 | PROVIDERS: ATTEND Physician Assistant Medical | DX: R56.9 Unspecified convulsions (principal); Z51.81 Encounter for therapeutic drug level monitoring; Z79.899 Other long term (current) drug therapy ==

== ENCOUNTER → 2021-03-23 | Outpatient (CLI) | payer OTHER ==
[2021-03-23 11:37] LABS: HEMATOCRIT 50.4 % (42.0-52.0); MEAN CORPUSCULAR HEMOGLOBIN 30.4 pg (27.0-33.0); MEAN CORPUSCULAR HGB CONC 31.7 g/dl (32.0-36.5); MEAN CORPUSCULAR VOLUME 95.8 fl (80.0-96.0); PLATELET COUNT, AUTOMATED 169 10^3/uL (150-450); RED BLOOD COUNT 5.26 10^6/uL (4.30-6.10); WHITE BLOOD COUNT 7.7 10^3/uL (4.0-10.0)
[2021-03-23 15:02] LABS: ALBUMIN 3.7 GM/DL (3.2-5.2); ALT/SGPT 31 U/L (12-78); BILIRUBIN,TOTAL 0.8 MG/DL (0.2-1.0); BLOOD UREA NITROGEN 41 MG/DL (7-18); CALCIUM LEVEL 9.4 MG/DL (8.8-10.2); CARBON DIOXIDE LEVEL 29 MEQ/L (21-32); CHLORIDE LEVEL 102 MEQ/L (98-107); CHOLESTEROL LEVEL 165 MG/DL (<200); CHOLESTEROL RISK RATIO 5.156 (<5); CREATININE FOR GFR 1.25 MG/DL (0.70-1.30); GLOMERULAR FILTRATION RATE > 60.0 (>49); GLUCOSE, FASTING 124 MG/DL (70-100); HDL CHOLESTEROL 32 MG/DL (>40); LDL CHOLESTEROL 80 MG/DL (<100); MAGNESIUM LEVEL 1.9 MG/DL (1.8-2.4); NON-HDL-C 133 MG/DL; POTASSIUM SERUM 4.1 MEQ/L (3.5-5.1); SODIUM LEVEL 139 MEQ/L (136-145); TOTAL PROTEIN 7.8 GM/DL (6.4-8.2); TRIGLYCERIDES LEVEL 266 MG/DL (<150)
== END ==
LOC: M WUC 09:21
PROVIDERS: ATTEND Physician Assistant
DX: I25.10 Atherosclerotic heart disease of native coronary artery without angina pectoris (principal); I42.1 Obstructive hypertrophic cardiomyopathy; E78.00 Pure hypercholesterolemia, unspecified; I50.32 Chronic diastolic (congestive) heart failure; I48.21 Permanent atrial fibrillation

== ENCOUNTER 2021-04-07 17:20 | Emergency (ER) | payer OTHER ==
[~2021-04-07] VITALS: Ht 170.2 cm; Wt 89.3 kg
[2021-04-07] MEDS ORDERED: KEPP1TAB2 PO (17:47)
[2021-04-07] MEDS ORDERED: KEPP10002 PO (17:47)
--- NOTE | 2021-04-07 17:47 | REPVR ---
PROCEDURE INFORMATION: Exam: CT Head Without Contrast Exam date and time: 04/07/2021 5:28 PM Age: 65 years old Clinical indication: Injury or trauma; Fall; Blunt trauma (contusions or hematomas) TECHNIQUE: Imaging protocol: Computed tomography of the head without contrast. Axial and coronal reformatted images were created and reviewed. Radiation optimization: All CT scans at this facility use at least one of these dose optimization techniques: automated exposure control; mA and/or kV adjustment per patient size (includes targeted exams where dose is matched to clinical indication); or iterative reconstruction. COMPARISON: CT Head without contrast 02/10/2021 4:17 PM FINDINGS: Brain: Subtle, patchy areas of hypoattenuation in the periventricular and subcortical white matter, nonspecific but suggestive of mild chronic small vessel ischemic disease. No CT evidence of acute intracranial hemorrhage or acute territorial infarction. No significant mass effect or midline shift. Basal cisterns patent. Cerebral ventricles: Prominence of the cortical sulci, cisterns and ventricular system, consistent with cerebral and cerebellar volume loss. Paranasal sinuses: Unremarkable. No fluid levels. Mastoid air cells: Grossly unremarkable. Bones/joints: No acute osseous abnormality. Soft tissues: Left posterior parietal scalp swelling. IMPRESSION: 1. No CT evidence of acute intracranial pathology. 2. Additional findings, as above. Electronically signed by: Oswaldo Gunter On 04/07/2021 17:46:53 PM
[2021-04-07] MEDS ORDERED: BOOSTRIX/ADACEL VACCINE (DIPHTH/PERTUSS/ACELL/TETANUS) 0.5ML SYR IM ONE (17:50)
[2021-04-07] MEDS ORDERED: BACITRACIN OINTMENT 30GM TUBE TOP ONE (17:50)
--- NOTE | 2021-04-07 17:58 | REPVR ---
PROCEDURE INFORMATION: Exam: CT Cervical Spine Without Contrast Exam date and time: 04/07/2021 5:28 PM Age: 65 years old Clinical indication: Injury or trauma; Fall; Blunt trauma TECHNIQUE: Imaging protocol: Computed tomography images of the cervical spine without contrast. Axial, coronal and sagittal reformatted images were created and reviewed. Radiation optimization: All CT scans at this facility use at least one of these dose optimization techniques: automated exposure control; mA and/or kV adjustment per patient size (includes targeted exams where dose is matched to clinical indication); or iterative reconstruction. COMPARISON: CT Spine,cervical w/o contrast 02/10/2021 4:17 PM FINDINGS: Bones/joints: Osteopenia. Normal cervical lordosis. No CT evidence of acute fracture, dislocation or subluxation. Alignment anatomic. Vertebral body heights maintained. Discs/Spinal canal/Neural foramina: Multilevel degenerative changes, characterized by disc space narrowing, osteophytosis and uncovertebral and facet joint hypertrophy. Multilevel spinal canal and neural foraminal narrowing. Lungs: Grossly unremarkable. Soft tissues: Grossly unremarkable. IMPRESSION: 1. No CT evidence of acute cervical spine traumatic injury. 2. Additional findings, as above. Electronically signed by: Oswaldo Gunter On 04/07/2021 17:57:49 PM
[2021-04-07 19:21] VITALS: BP 114/78
== END 2021-04-07 19:42 | disposition home or self-care (01) ==
LOC: M ED 17:20
DX: S01.01XA Laceration without foreign body of scalp, initial encounter (principal); S80.211A Abrasion, right knee, initial encounter; S80.212A Abrasion, left knee, initial encounter; W01.198A Fall on same level from slipping, tripping and stumbling with subsequent striking against other object, initial encounter; Y92.410 Unspecified street and highway as the place of occurrence of the external cause; Y93.89 Activity, other specified; Y99.8 Other external cause status; I11.0 Hypertensive heart disease with heart failure; I50.9 Heart failure, unspecified; I48.91 Unspecified atrial fibrillation; I25.2 Old myocardial infarction; E78.5 Hyperlipidemia, unspecified; F10.11 Alcohol abuse, in remission; Z79.01 Long term (current) use of anticoagulants; Z79.899 Other long term (current) drug therapy; Z88.1 Allergy status to other antibiotic agents; Z88.2 Allergy status to sulfonamides; Z86.69 Personal history of other diseases of the nervous system and sense organs

== ENCOUNTER → 2021-07-13 | Outpatient (CLI) | payer OTHER ==
[~2021-07-13] MED LIST changes: +KEPP1TAB2 PO
[2021-07-13 12:24] LABS: CALCIUM LEVEL 10.2 MG/DL (8.8-10.2); CREATININE FOR GFR 1.82 MG/DL (0.70-1.30); GLOMERULAR FILTRATION RATE 40.3 (>49); MAGNESIUM LEVEL 2.3 MG/DL (1.8-2.4); POTASSIUM SERUM 4.4 MEQ/L (3.5-5.1)
== END ==
LOC: M WUC 09:46
PROVIDERS: ATTEND Nurse Practitioner Family
DX: I50.42 Chronic combined systolic (congestive) and diastolic (congestive) heart failure (principal)

== ENCOUNTER → 2021-07-31 | Outpatient (CLI) | payer OTHER ==
[2021-07-31 13:42] LABS: CREATININE FOR GFR 1.62 MG/DL (0.70-1.30); POTASSIUM SERUM 3.8 MEQ/L (3.5-5.1)
[2021-07-31 13:43] LABS: CALCIUM LEVEL 9.2 MG/DL (8.8-10.2); MAGNESIUM LEVEL 2.4 MG/DL (1.8-2.4)
== END ==
LOC: M WUC 10:34
PROVIDERS: ATTEND Physician Assistant
DX: I50.42 Chronic combined systolic (congestive) and diastolic (congestive) heart failure (principal)

== ENCOUNTER → 2021-07-31 | Outpatient (CLI) | payer OTHER | LOC: M WUC 10:37 | PROVIDERS: ATTEND Physician Assistant Medical | DX: R56.9 Unspecified convulsions (principal) ==

== ENCOUNTER → 2021-10-01 | Outpatient (CLI) | payer OTHER ==
[2021-10-01 10:27] LABS: HEMATOCRIT 51.1 % (42.0-52.0); HEMOGLOBIN 16.1 g/dl (13.5-17.5); MEAN CORPUSCULAR HEMOGLOBIN 31.7 pg (27.0-33.0); MEAN CORPUSCULAR HGB CONC 31.5 g/dl (32.0-36.5); MEAN CORPUSCULAR VOLUME 100.6 fl (80.0-96.0); PLATELET COUNT, AUTOMATED 249 10^3/uL (150-450); RED BLOOD COUNT 5.08 10^6/uL (4.30-6.10); WHITE BLOOD COUNT 8.2 10^3/uL (4.0-10.0)
[2021-10-01 10:47] LABS: CALCIUM LEVEL 9.5 MG/DL (8.8-10.2); CREATININE FOR GFR 1.65 MG/DL (0.70-1.30); GLOMERULAR FILTRATION RATE 44.9 (>49); MAGNESIUM LEVEL 2.6 MG/DL (1.8-2.4); POTASSIUM SERUM 4.4 MEQ/L (3.5-5.1)
== END ==
LOC: M WUC 08:01
PROVIDERS: ATTEND Physician Assistant
DX: I50.42 Chronic combined systolic (congestive) and diastolic (congestive) heart failure (principal)

== ENCOUNTER → 2021-12-18 | Outpatient (CLI) | payer OTHER ==
[2021-12-18 13:07] LABS: CALCIUM LEVEL 9.7 MG/DL (8.8-10.2); CREATININE FOR GFR 1.6 MG/DL (0.70-1.30); GLOMERULAR FILTRATION RATE 46.6 (>49); MAGNESIUM LEVEL 2.4 MG/DL (1.8-2.4); POTASSIUM SERUM 3.7 MEQ/L (3.5-5.1)
== END ==
LOC: M WUC 09:12
PROVIDERS: ATTEND Physician Assistant
DX: I50.32 Chronic diastolic (congestive) heart failure (principal)

== ENCOUNTER → 2021-12-18 | Outpatient (CLI) | payer OTHER | LOC: M WUC 09:18 | PROVIDERS: ATTEND Physician Assistant Medical | DX: R56.9 Unspecified convulsions (principal) ==

== ENCOUNTER 2022-01-13 03:34 | Emergency (ER) | payer OTHER ==
[~2022-01-13] VITALS: Ht 167.6 cm; Wt 81.1 kg
[2022-01-13] MEDS ORDERED: TRAZ-252 PO (04:17)
[2022-01-13] MEDS ORDERED: ALBU8.5H INH (04:17)
[2022-01-13] MEDS ORDERED: LISI2.5T9 PO (04:17)
[2022-01-13] MEDS ORDERED: CLOM50CA3 PO (04:17)
[2022-01-13 04:25] LABS: BASO # 0.1 10^3/uL (0.0-0.2); BASO % 0.9 % (0.0-1.0); EOS # 0.1 10^3/uL (0.0-0.5); EOS % 1.1 % (0.0-3.0); HEMATOCRIT 44.3 % (42.0-52.0); HEMOGLOBIN 14.4 g/dl (13.5-17.5); MEAN CORPUSCULAR HEMOGLOBIN 32.1 pg (27.0-33.0); MEAN CORPUSCULAR HGB CONC 32.5 g/dl (32.0-36.5); MEAN CORPUSCULAR VOLUME 98.9 fl (80.0-96.0); MONO # 1.3 10^3/uL (0.0-0.8); MONO % 16.7 % (2.0-8.0); NEUTROPHILS # 5.5 10^3/uL (1.5-8.5); NEUTROPHILS % 68.9 % (36.0-66.0); PLATELET COUNT, AUTOMATED 179 10^3/uL (150-450); RED BLOOD COUNT 4.48 10^6/uL (4.30-6.10)
[2022-01-13 04:43] LABS: INR 1.87; PROTHROMBIN TIME 21.9 SECONDS (12.7-14.5)
[2022-01-13 04:44] LABS: PARTIAL THROMBOPLASTIN TIME 44.4 SECONDS (25.9-37.0)
[2022-01-13 05:03] LABS: CREATININE FOR GFR 1.86 MG/DL (0.70-1.30); GLOMERULAR FILTRATION RATE 39.1 (>49); POTASSIUM SERUM 8.3 MEQ/L (3.5-5.1); THYROID STIMULATING HORMONE 5.67 uIU/ML (0.358-3.740)
[2022-01-13 06:15] VITALS: BP 126/65
[2022-01-13] MEDS ORDERED: KEPP10002 PO (16:55)
[2022-01-13] MEDS ORDERED: LEVE750T5 PO (16:55)
== END 2022-01-13 06:31 | disposition home or self-care (01) ==
LOC: M ED 03:34
DX: S02.2XXA Fracture of nasal bones, initial encounter for closed fracture (principal); W18.39XA Other fall on same level, initial encounter; Y92.018 Other place in single-family (private) house as the place of occurrence of the external cause; I25.10 Atherosclerotic heart disease of native coronary artery without angina pectoris; I48.91 Unspecified atrial fibrillation; R56.9 Unspecified convulsions; Z88.1 Allergy status to other antibiotic agents; Z88.2 Allergy status to sulfonamides; Z79.899 Other long term (current) drug therapy; Z79.01 Long term (current) use of anticoagulants

== ENCOUNTER 2022-01-13 14:41 | Inpatient (IN) | payer OTHER ==
[~2022-01-13] VITALS: Ht 167.6 cm; Wt 85.3 kg
[~2022-01-13 14:41] MED LIST changes: +ALBU8.5H INH; +LISI2.5T9 PO
[2022-01-13 16:06] LABS: BASO # 0.1 10^3/uL (0.0-0.2); BASO % 0.7 % (0.0-1.0); EOS % 0.2 % (0.0-3.0); HEMATOCRIT 43.4 % (42.0-52.0); HEMOGLOBIN 13.9 g/dl (13.5-17.5); LYMPH # 0.9 10^3/uL (1.5-5.0); LYMPH % 10.5 % (24.0-44.0); MEAN CORPUSCULAR HEMOGLOBIN 31.2 pg (27.0-33.0); MEAN CORPUSCULAR VOLUME 97.3 fl (80.0-96.0); MONO # 1.3 10^3/uL (0.0-0.8); MONO % 15.3 % (2.0-8.0); NEUTROPHILS # 6.3 10^3/uL (1.5-8.5); NEUTROPHILS % 72.7 % (36.0-66.0); PLATELET COUNT, AUTOMATED 172 10^3/uL (150-450); RED BLOOD COUNT 4.46 10^6/uL (4.30-6.10); WHITE BLOOD COUNT 8.7 10^3/uL (4.0-10.0)
[2022-01-13 16:34] LABS: CALCIUM LEVEL 9.4 MG/DL (8.8-10.2); CREATININE FOR GFR 1.87 MG/DL (0.70-1.30); FREE T4 1.27 NG/DL (0.76-1.46); GLOMERULAR FILTRATION RATE 38.9 (>49); MAGNESIUM LEVEL 2.5 MG/DL (1.8-2.4); POTASSIUM SERUM 4.8 MEQ/L (3.5-5.1); THYROID STIMULATING HORMONE 5.58 uIU/ML (0.358-3.740)
[2022-01-13] MEDS ORDERED: LEVE750T5 PO (16:55)
[2022-01-13] MEDS ORDERED: KEPP10002 PO (16:55)
[2022-01-13 17:08] LABS: RSV AMPLIFICATION NEGATIVE (NEGATIVE)
[2022-01-13] MEDS ORDERED: HOME MED LIST COMPLETE! XX SCH (17:25)
[2022-01-13 20:30] VITALS: BP 129/70
[2022-01-13 21:00] VITALS: BP 121/70
[2022-01-13] MEDS ORDERED: APIXABAN 5 MG TAB (ELIQUIS) PO SCH (21:00)
[2022-01-13] MEDS: TORSEMIDE 20 MG TAB PO SCH (21:00)
[2022-01-13] MEDS: levETIRAcetam 250MG TABLET (KEPPRA) PO SCH (21:08)
[2022-01-13] MEDS: ATORVASTATIN 20 MG TAB PO SCH (21:08)
[2022-01-13] MEDS: LISINOPRIL *2.5 MG* TAB PO SCH (21:09)
[2022-01-13] MEDS: traZODone 100 MG TAB PO SCH (21:09)
[2022-01-13] MEDS: FLUTICASONE PROP 0.05% NASAL SPRAY 16 GM (FLONASE) NARES SCH (21:30)
[2022-01-13] MEDS: AUGMENTIN 500 MG TAB PO SCH (21:30)
[2022-01-13] MEDS: SODIUM CHLORIDE NASAL 0.65% SPRAY BTL (OCEAN) SCH (21:30)
[2022-01-14] VITALS (8 sets, daily range): BP systolic 108–127; BP diastolic 60–82
[2022-01-14 05:51] LABS: BASO # 0.1 10^3/uL (0.0-0.2); BASO % 0.8 % (0.0-1.0); EOS # 0.1 10^3/uL (0.0-0.5); EOS % 1.1 % (0.0-3.0); HEMATOCRIT 40.8 % (42.0-52.0); HEMOGLOBIN 13.2 g/dl (13.5-17.5); LYMPH # 0.9 10^3/uL (1.5-5.0); LYMPH % 11.2 % (24.0-44.0); MEAN CORPUSCULAR HEMOGLOBIN 31.4 pg (27.0-33.0); MEAN CORPUSCULAR HGB CONC 32.4 g/dl (32.0-36.5); MEAN CORPUSCULAR VOLUME 97.1 fl (80.0-96.0); MONO % 21.8 % (2.0-8.0); NEUTROPHILS # 5.1 10^3/uL (1.5-8.5); NEUTROPHILS % 64.7 % (36.0-66.0); PLATELET COUNT, AUTOMATED 154 10^3/uL (150-450); WHITE BLOOD COUNT 7.9 10^3/uL (4.0-10.0)
[2022-01-14 06:13] LABS: CALCIUM LEVEL 8.8 MG/DL (8.8-10.2); CREATININE FOR GFR 1.5 MG/DL (0.70-1.30); GLOMERULAR FILTRATION RATE 50.2 (>49)
[2022-01-14 06:20] LABS: MONO # 1.7 10^3/uL (0.0-0.8)
[2022-01-14] MEDS: levETIRAcetam 250MG TABLET (KEPPRA) PO SCH ×2 (08:24→20:01)
[2022-01-14] MEDS: AUGMENTIN 500 MG TAB PO SCH ×3 (08:24→20:01)
[2022-01-14] MEDS: FLUTICASONE PROP 0.05% NASAL SPRAY 16 GM (FLONASE) NARES SCH ×2 (08:24→20:03)
[2022-01-14] MEDS: SODIUM CHLORIDE NASAL 0.65% SPRAY BTL (OCEAN) SCH ×2 (08:25→20:03)
[2022-01-14] MEDS: ACETAMINOPHEN TAB 650MG DOSE (2X325MG) PO PRN ×2 (13:48→20:01)
[2022-01-14] MEDS: ATORVASTATIN 20 MG TAB PO SCH (20:01)
[2022-01-14] MEDS: TORSEMIDE 20 MG TAB PO SCH (20:01)
[2022-01-14] MEDS: LISINOPRIL *2.5 MG* TAB PO SCH (20:02)
[2022-01-14] MEDS: GABAPENTIN 300 MG CAP PO SCH (20:02)
[2022-01-14] MEDS: traZODone 100 MG TAB PO SCH (20:02)
[2022-01-15] VITALS: BP_SYST 105; BP_SYST 122; BP_SYST 139; BP_DIAS 66; BP_DIAS 81; BP_DIAS 92
[2022-01-15 05:50] LABS: BLOOD UREA NITROGEN 31 MG/DL (7-18); CALCIUM LEVEL 8.6 MG/DL (8.8-10.2); CARBON DIOXIDE LEVEL 25 MEQ/L (21-32); CHLORIDE LEVEL 105 MEQ/L (98-107); CREATININE FOR GFR 1.26 MG/DL (0.70-1.30); GLOMERULAR FILTRATION RATE > 60.0 (>49); GLUCOSE, FASTING 88 MG/DL (70-100); POTASSIUM SERUM 3.6 MEQ/L (3.5-5.1); SODIUM LEVEL 137 MEQ/L (136-145)
[2022-01-15 05:51] LABS: BASO % 0.5 % (0.0-1.0); EOS # 0.1 10^3/uL (0.0-0.5); EOS % 0.8 % (0.0-3.0); HEMATOCRIT 42.4 % (42.0-52.0); HEMOGLOBIN 13.7 g/dl (13.5-17.5); LYMPH % 12.1 % (24.0-44.0); MEAN CORPUSCULAR HEMOGLOBIN 31.5 pg (27.0-33.0); MEAN CORPUSCULAR HGB CONC 32.3 g/dl (32.0-36.5); MEAN CORPUSCULAR VOLUME 97.5 fl (80.0-96.0); MONO % 24.3 % (2.0-8.0); NEUTROPHILS # 4.9 10^3/uL (1.5-8.5); NEUTROPHILS % 61.8 % (36.0-66.0); PLATELET COUNT, AUTOMATED 134 10^3/uL (150-450); RED BLOOD COUNT 4.35 10^6/uL (4.30-6.10)
[2022-01-15 06:28] LABS: MONO # 1.9 10^3/uL (0.0-0.8)
[2022-01-15 08:00] VITALS: BP_SYST 115; BP_SYST 120; BP_SYST 128; BP_DIAS 74; BP_DIAS 75
[2022-01-15] MEDS ORDERED: LEVE750T5 PO (08:45)
[2022-01-15] MEDS ORDERED: FLUTISP NARES (08:45)
[2022-01-15] MEDS: FLUTICASONE PROP 0.05% NASAL SPRAY 16 GM (FLONASE) NARES SCH (08:45)
[2022-01-15] MEDS: SODIUM CHLORIDE NASAL 0.65% SPRAY BTL (OCEAN) SCH (08:45)
[2022-01-15] MEDS: levETIRAcetam 250MG TABLET (KEPPRA) PO SCH (08:45)
[2022-01-15] MEDS ORDERED: GABA-282 PO (08:45)
[2022-01-15] MEDS ORDERED: AMOX500T2 PO (08:45)
[2022-01-15] MEDS: GABAPENTIN 300 MG CAP PO SCH (08:45)
[2022-01-15] MEDS ORDERED: Sodium Chloride Nasal Spray (08:45)
[2022-01-15] MEDS: AUGMENTIN 500 MG TAB PO SCH (08:46)
[2022-01-15] MEDS ORDERED: SALI0.6530 NARES (08:47)
[2022-01-15] MEDS: ACETAMINOPHEN TAB 650MG DOSE (2X325MG) PO PRN (09:15)
== END 2022-01-15 12:09 | disposition home or self-care (01) | DRG 312 ==
LOC: M ED 14:41 → M ED INP 17:45 → ENRESERV 19:30 → M PCU 20:34
PROVIDERS: ADMIT Internal Medicine Nephrology; ATTEND Internal Medicine Nephrology
DX: R55 Syncope and collapse (principal); I42.1 Obstructive hypertrophic cardiomyopathy; I50.42 Chronic combined systolic (congestive) and diastolic (congestive) heart failure; I48.0 Paroxysmal atrial fibrillation; I08.0 Rheumatic disorders of both mitral and aortic valves; G47.33 Obstructive sleep apnea (adult) (pediatric); I27.20 Pulmonary hypertension, unspecified; N18.32 Chronic kidney disease, stage 3b; G40.909 Epilepsy, unspecified, not intractable, without status epilepticus; F41.0 Panic disorder [episodic paroxysmal anxiety]; E78.5 Hyperlipidemia, unspecified; F32.A Depression, unspecified; N40.0 Benign prostatic hyperplasia without lower urinary tract symptoms; Z95.810 Presence of automatic (implantable) cardiac defibrillator; S02.2XXA Fracture of nasal bones, initial encounter for closed fracture; W19.XXXA Unspecified fall, initial encounter; Y92.238 Other place in hospital as the place of occurrence of the external cause; Y93.89 Activity, other specified; Y99.8 Other external cause status; Z79.01 Long term (current) use of anticoagulants; Z79.899 Other long term (current) drug therapy; Z88.2 Allergy status to sulfonamides; T42.6X5A Adverse effect of other antiepileptic and sedative-hypnotic drugs, initial encounter; T42.75XA Adverse effect of unspecified antiepileptic and sedative-hypnotic drugs, initial encounter

== ENCOUNTER → 2022-02-21 | Outpatient (CLI) | payer OTHER ==
[~2022-02-21] MED LIST changes: +AMOX500T2 PO; +FLUTISP NARES; +LEVE750T5 PO; +SALI0.6530 NARES; +Sodium Chloride Nasal Spray
== END ==
LOC: M WUC 11:19
PROVIDERS: ATTEND Physician Assistant
DX: M79.644 Pain in right finger(s) (principal)

== ENCOUNTER → 2022-02-26 | Outpatient (CLI) | payer OTHER ==
[2022-02-26 11:15] LABS: ALBUMIN 3.7 GM/DL (3.2-5.2); ALT/SGPT 26 U/L (12-78); BILIRUBIN,TOTAL 0.8 MG/DL (0.2-1.0); BLOOD UREA NITROGEN 29 MG/DL (7-18); CALCIUM LEVEL 10.2 MG/DL (8.8-10.2); CARBON DIOXIDE LEVEL 27 MEQ/L (21-32); CHLORIDE LEVEL 106 MEQ/L (98-107); CHOLESTEROL LEVEL 142 MG/DL (<200); CHOLESTEROL RISK RATIO 4.057 (<5); CREATININE FOR GFR 1.28 MG/DL (0.70-1.30); GLOMERULAR FILTRATION RATE > 60.0 (>49); GLUCOSE, FASTING 125 MG/DL (70-100); HDL CHOLESTEROL 35 MG/DL (>40); LDL CHOLESTEROL 76 MG/DL (<100); NON-HDL-C 107 MG/DL; POTASSIUM SERUM 4.1 MEQ/L (3.5-5.1); RHEUMATOID FACTOR QUANT < 10.0 IU/ML (<15.0); SODIUM LEVEL 142 MEQ/L (136-145); TOTAL PROTEIN 8.3 GM/DL (6.4-8.2); TRIGLYCERIDES LEVEL 153 MG/DL (<150)
== END ==
LOC: M WUC 07:59
PROVIDERS: ATTEND Nurse Practitioner Family
DX: Z00.00 Encounter for general adult medical examination without abnormal findings (principal); R22.33 Localized swelling, mass and lump, upper limb, bilateral

== ENCOUNTER → 2022-03-07 | Outpatient (CLI) | payer OTHER ==
[2022-03-07 16:57] LABS: HEMOGLOBIN A1c 6.2 %
== END ==
LOC: M WUC 12:58
PROVIDERS: ATTEND Nurse Practitioner Family
DX: R73.01 Impaired fasting glucose (principal)

== ENCOUNTER → 2022-04-19 | Outpatient (CLI) | payer OTHER ==
[2022-04-19 16:15] LABS: HEMATOCRIT 50.5 % (42.0-52.0); HEMOGLOBIN 16.5 g/dl (13.5-17.5); MEAN CORPUSCULAR HEMOGLOBIN 32.4 pg (27.0-33.0); MEAN CORPUSCULAR HGB CONC 32.7 g/dl (32.0-36.5); PLATELET COUNT, AUTOMATED 228 10^3/uL (150-450)
[2022-04-19 16:29] LABS: ALBUMIN 4.2 GM/DL (3.2-5.2); BILIRUBIN,TOTAL 1.1 MG/DL (0.2-1.0); CALCIUM LEVEL 10.6 MG/DL (8.8-10.2); CHOLESTEROL RISK RATIO 3.977 (<5); CREATININE FOR GFR 1.3 MG/DL (0.70-1.30); GLOMERULAR FILTRATION RATE 59.2 (>49); MAGNESIUM LEVEL 2.1 MG/DL (1.8-2.4); POTASSIUM SERUM 3.7 MEQ/L (3.5-5.1); TOTAL PROTEIN 8.4 GM/DL (6.4-8.2)
== END ==
LOC: M WUC 11:07
PROVIDERS: ATTEND Nurse Practitioner Family
DX: I50.32 Chronic diastolic (congestive) heart failure (principal); I48.21 Permanent atrial fibrillation; E78.00 Pure hypercholesterolemia, unspecified; R22.33 Localized swelling, mass and lump, upper limb, bilateral

== ENCOUNTER → 2022-04-19 | Outpatient (CLI) | payer OTHER ==
[2022-04-19 16:26] LABS: C REACTIVE PROTEIN QUANTITATIV 0.76 MG/DL (0.00-0.30); URIC ACID 9.7 MG/DL (3.5-7.2)
[2022-04-19 17:01] LABS: HEMOGLOBIN A1c 6.1 %
== END ==
LOC: M WUC 10:51
PROVIDERS: ATTEND Nurse Practitioner Family
DX: R73.03 Prediabetes (principal); R22.33 Localized swelling, mass and lump, upper limb, bilateral